=== PATIENT | female | born 1955 | race Caucasian/White ===

== ENCOUNTER → 2018-02-03 11:40 | Outpatient (CLI) | payer MEDICARE, BC, SELFPAY ==
[2018-02-03 12:51] LABS: Blood Urea Nitrogen 17 mg/dL (7-18); Creatinine,Serum 1.03 mg/dL (0.55-1.02); Estimated Glomerular Filt Rate 54 ml/min (>60); GFR (African American) 66 ML/MIN (>60)
== END ==
PROVIDERS: Visit Provider Family Medicine
DX: M54.5 Low back pain (principal)
CPT/HCPCS: 36415; 82565; 84520

== ENCOUNTER → 2018-02-06 10:02 | Outpatient (CLI) | payer MEDICARE, BC, SELFPAY ==
--- NOTE | 2018-02-06 10:06 | MR_ITS ---
MR lumbar spine wo/w con, MR 3-d myelogram HISTORY: Low back pain. LT leg pain X3-4weeks. ITS.REASON: BACK PAIN ORDERING PHYSICIAN: Alfonso Maloney MD PATIENT AGE: 62 years Comparison: Prior MRI 08-06-13, X-RAY 07-28-13. TECHNIQUE: Standard multiplanar multiecho sequences are performed without contrast. 3-D MIP and myelographic images are also rendered and reviewed FINDINGS: There is normal alignment. The spinal cord ends at the L1 level. T11-T12: Degenerative disc disease with small anterior osteophyte T12-L1: Unremarkable. L1-L2: Small annular tear in the right foraminal region of the disc with minimal foraminal narrowing. This is not significantly changed. L2-L3: Unremarkable. L3-L4: Minimal bilateral foraminal narrowing from facet and ligamentum flavum hypertrophy. L4-5: Concentric bulging disc. Mild facet and ligamentum flavum hypertrophy. There is a small left foraminal disc protrusion/herniation causing moderate narrowing of the left neural foramen with mild impingement upon the exiting L4 nerve root. There is mild right foraminal narrowing also at this level from bulging disc and facet and ligamentum flavum hypertrophy. L5-S1: Broad-based concentric bulging disc with moderate right-sided foraminal narrowing and mild left foraminal narrowing. There are type II endplate changes at T11-T12 and L5-S1. No enhancing lesions are evident. There are small bilateral renal cysts. IMPRESSION: 1. Bulging disc at L4-L5 with mild degenerative disc disease with a small left foraminal disc protrusion/herniation with narrowing of the foramen and mild impingement upon the exiting L4 nerve root. 2. Small annular tear L1-L2 on the right 3. Bulging disc at L5-S1 with moderate right-sided foraminal narrowing IMPRESSION:
--- NOTE | 2018-02-06 12:55 | HMH.ITSHM ---
CYMBALTA 30MG BUSPIRONE 15MG ASPIRIN 81MG BACLOFEN 20MG VALACYCLOVIR TYLENOL 8 FORTEO 600MCG PREVACID 15MG
== END ==
PROVIDERS: Family Provider Family Medicine; PCP Family Medicine; Visit Provider Family Medicine
DX: M54.9 Dorsalgia, unspecified (principal)
CPT/HCPCS: 72158; 76376; A9576

== ENCOUNTER → 2018-02-16 10:00 | Outpatient (POV) | payer MEDICARE, BC, SELFPAY ==
[2018-02-16 10:16] VITALS: BP 145/88; PULSE 92; RESP 18; O2SAT 98
--- NOTE | 2018-02-16 13:08 | HMH.PMCON ---
Assessment and Plan (1) Degenerative disc disease Current visit: Yes Status: Chronic Category: Medical (2) Lumbar radiculopathy Current visit: Yes Status: Chronic Category: Medical Code(s): M54.16 - Radiculopathy, lumbar region - Assessment and plan all Dx Assessment and Plan for all problems:: We will schedule an L4-L5 lumbar epidural steroid injection for the patient. I believe that if this does not help alleviate the pain the patient's pathology would warrant a neurosurgical consultation. Patient and I discussed this. Patient is not on any anticoagulation therapy and is not diabetic. Patient has been on tramadol 50 mg she states this does help some. Patient and I discussed that we do not typically do medication on the first visit however we will give her 1 month of tramadol 50 mg 1 p.o. 3 times daily as needed. I will follow-up with the patient after her injection. This note was dictated using voice recognition software and may contain errors or omissions HPI - Data of Consult Consult date: 02/16/18 Requesting Physician: Helen Radford APRN Primary Care Provider: Theresa Ruelas APRN Family Provider: Alfonso Maloney MD - Consult Narrative Reason for consult: Back pain, left leg pain History of present illness: Ms. Castillo is a 62 year old female resents for consult in regards to her worsening back pain. Patient states she is working in her garden 3 weeks ago and she began to have low back pain if leg pain. Patient rates her pain a 7 out of 10 today. Patient is on gabapentin and tramadol from her PCP to help control the pain. Patient states lying flat increases her pain while rest heat and ice decrease her pain. Patient does have MRI showing L4-L5 pathology and nerve impingement. Patient states she has numbness and tingling all the way down to her toes of her left leg. Patient has tried stretching therapies without any relief. Patient's tried and failed anti-inflammatories. Patient is interested in potentially doing injective therapy. CC: Helen Radford APRN [facility] History I have reviewed the patient's past medical history: Yes Medical History: Reports:: Depression, Palpitations Denies:: Diabetes Mellitus Type 1, Diabetes Mellitus Type 2 Other Medical History: Reports: Arthritis - *Social History Smoking Status: Never smoker Alcohol Intake: never Occupational Status: disabled Housing: house - Psychiatric History Expresses thoughts of harming self/others: None Suicide Plan Description: No Plan Pschychiatric History:: Reports:: Depression *Family Hx:: Unable to obtain Review of Systems - Review of Systems ROS General: no recent weight change, no fever, no sleep disturbances Respiratory: no cough, no shortness of air, no recurring pulmonary infections Cardiovascular/Peripheral Vascular: No chest pain, No palpitations, no edema, no shortness of breath. Gastrointestinal: no incontinence, normal bowel movements reported Genitourinary: no incontinence Musculoskeletal: back Pain, left leg pain Psychiatric: normal mood/ affect Neurological: [denies weakness in extremities], [denies balance issues] Meds Home Medications Medication Instructions Recorded Confirmed Type Aspirin [Aspir 81] 81 mg PO DAILY 01/24/18 02/08/18 History Buspirone HCl 15 mg PO BID 01/24/18 02/08/18 History Duloxetine HCl [Cymbalta] 30 mg PO DAILY 01/24/18 02/08/18 History Teriparatide [Forteo] 2.4 ml SQ WEEKLY 01/24/18 02/08/18 History Verapamil HCl [Calan] 80 mg PO DAILY 01/24/18 01/24/18 History Acetaminophen [Tylenol] 650 mg PO Q8HP PRN 02/08/18 02/08/18 History Baclofen 20 mg PO TID 02/08/18 02/08/18 History Ibuprofen [Motrin 600mg 600 mg PO Q8HP PRN 02/08/18 02/08/18 History Tablet] Lansoprazole [Prevacid] 15 mg PO DAILY 02/08/18 02/08/18 History Topiramate 100 mg PO BID 02/08/18 02/08/18 History Valacyclovir HCl [Valacyclovir] 1 tab PO TID 02/08/18 02/08/18 History
--- NOTE | 2018-02-16 13:11 | P.CONS_ITS ---
Assessment and Plan (1) Degenerative disc disease Current visit: Yes Status: Chronic Category: Medical (2) Lumbar radiculopathy Current visit: Yes Status: Chronic Category: Medical Code(s): M54.16 - Radiculopathy, lumbar region - Assessment and plan all Dx Assessment and Plan for all problems:: We will schedule an L4-L5 lumbar epidural steroid injection for the patient. I believe that if this does not help alleviate the pain the patient's pathology would warrant a neurosurgical consultation. Patient and I discussed this. Patient is not on any anticoagulation therapy and is not diabetic. Patient has been on tramadol 50 mg she states this does help some. Patient and I discussed that we do not typically do medication on the first visit however we will give her 1 month of tramadol 50 mg 1 p.o. 3 times daily as needed. I will follow-up with the patient after her injection. This note was dictated using voice recognition software and may contain errors or omissions HPI - Data of Consult Consult date: 02/16/18 Requesting Physician: Helen Radford APRN Primary Care Provider: Theresa Ruelas APRN Family Provider: Alfonso Maloney MD - Consult Narrative Reason for consult: Back pain, left leg pain History of present illness: Ms. Castillo is a 62 year old female resents for consult in regards to her worsening back pain. Patient states she is working in her garden 3 weeks ago and she began to have low back pain if leg pain. Patient rates her pain a 7 out of 10 today. Patient is on gabapentin and tramadol from her PCP to help control the pain. Patient states lying flat increases her pain while rest heat and ice decrease her pain. Patient does have MRI showing L4-L5 pathology and nerve impingement. Patient states she has numbness and tingling all the way down to her toes of her left leg. Patient has tried stretching therapies without any relief. Patient's tried and failed anti-inflammatories. Patient is interested in potentially doing injective therapy. CC: Helen Radford APRN [facility] History I have reviewed the patient's past medical history: Yes Medical History: Reports:: Depression, Palpitations Denies:: Diabetes Mellitus Type 1, Diabetes Mellitus Type 2 Other Medical History: Reports: Arthritis - *Social History Smoking Status: Never smoker Alcohol Intake: never Occupational Status: disabled Housing: house - Psychiatric History Expresses thoughts of harming self/others: None Suicide Plan Description: No Plan Pschychiatric History:: Reports:: Depression *Family Hx:: Unable to obtain Review of Systems - Review of Systems ROS General: no recent weight change, no fever, no sleep disturbances Respiratory: no cough, no shortness of air, no recurring pulmonary infections Cardiovascular/Peripheral Vascular: No chest pain, No palpitations, no edema, no shortness of breath. Gastrointestinal: no incontinence, normal bowel movements reported Genitourinary: no incontinence Musculoskeletal: back Pain, left leg pain Psychiatric: normal mood/ affect Neurological: [denies weakness in extremities], [denies balance issues] Meds Home Medications Medication Instructions Recorded Confirmed Type Aspirin [Aspir 81] 81 mg PO DAILY 01/24/18 02/08/18 History Buspirone HCl 15 mg PO BID 01/24/18 02/08/18 History Duloxetine HCl [Cymbalta] 30 mg PO DAILY 01/24/18 02/08/18 History Teriparatide [Forteo] 2.4 ml SQ WEEKLY 01/24/18 02/08/18 History Eleni
== END ==
PROVIDERS: Family Provider Family Medicine; PCP Nurse Practitioner Family; Visit Provider Clinical Nurse Specialist Family Health
DX: M54.16 Radiculopathy, lumbar region (principal)
CPT/HCPCS: 99202

== ENCOUNTER → 2018-02-26 13:36 | Outpatient (POV) | payer MEDICARE, BC, SELFPAY | PROVIDERS: Visit Provider Neurological Surgery | DX: Z00.00 Encounter for general adult medical examination without abnormal findings (principal) ==

== ENCOUNTER → 2018-03-16 10:33 | Outpatient (POV) | payer MEDICARE, BC, SELFPAY ==
[2018-03-16 10:40] VITALS: BP 164/85; PULSE 85; RESP 18; O2SAT 98; BMI 42.1
--- NOTE | 2018-03-16 11:01 | HMH.PAINSOAP ---
[facility] Pain Management SOAP Note Subjective:: She is a pleasant 62-year-old white female who presents today for follow-up after most recent lumbar epidural steroid injection. Patient states that after her injection she has had relief of the pain in her legs. Patient states she saw Dr. Perez since her last one and was deemed potentially a surgical candidate however he wanted her to finish an epidural series prior to that decision. Patient was given tramadol by Dr. Perez however she says he cannot take it because it makes her too sleepy. Patient is not on any anti-inflammatories so we will start her on some anti-inflammatories to see if this alleviates some of her pain she rates her pain an 8 out of 10 today. ROS General: no recent weight change, no fever, no sleep disturbances Respiratory: no cough, no shortness of air, no recurring pulmonary infections Cardiovascular/Peripheral Vascular: No chest pain, No palpitations, no edema, no shortness of breath. Gastrointestinal: no incontinence, normal bowel movements reported Genitourinary: no incontinence Musculoskeletal: Back pain, leg pain intermittently Psychiatric: normal mood/ affect Neurological: [denies weakness in extremities], [denies balance issues] Objective:: Physical Exam General: Alert and oriented x3, no acute distress, pleasant and cooperative, [on room air] Lungs: Resps E/U, Symmetrical chest expansion, Eyes: PERRL Musculoskeletal: Flexion and extension of lumbar spine somewhat guarded secondary to pain, deep tendon reflexes normal, strength in upper and lower extremities [5/5], [abnormal gait noted] Neurological: speech clear, clinical services professional equal, no gross sensory deficits Assessment:: Degenerative disease of the lumbar spine with lumbar radiculopathy symptoms Plan:: We will schedule another L4-L5 lumbar epidural steroid injection. Dr. Perez and neurosurgery wanted her to complete a epidural series prior to discuss determining if she is a surgical candidate. I will follow-up with patient after her injection. We will put her on naproxen 500 mg 1 tab p.o. twice daily. This note was dictated using voice recognition software and may contain errors or omissions
--- NOTE | 2018-03-16 11:06 | P.CONS_ITS ---
[facility] Pain Management SOAP Note Subjective:: She is a pleasant 62-year-old white female who presents today for follow-up after most recent lumbar epidural steroid injection. Patient states that after her injection she has had relief of the pain in her legs. Patient states she saw Dr. Perez since her last one and was deemed potentially a surgical candidate however he wanted her to finish an epidural series prior to that decision. Patient was given tramadol by Dr. Perez however she says he cannot take it because it makes her too sleepy. Patient is not on any anti- inflammatories so we will start her on some anti-inflammatories to see if this alleviates some of her pain she rates her pain an 8 out of 10 today. ROS General: no recent weight change, no fever, no sleep disturbances Respiratory: no cough, no shortness of air, no recurring pulmonary infections Cardiovascular/Peripheral Vascular: No chest pain, No palpitations, no edema, no shortness of breath. Gastrointestinal: no incontinence, normal bowel movements reported Genitourinary: no incontinence Musculoskeletal: Back pain, leg pain intermittently Psychiatric: normal mood/ affect Neurological: [denies weakness in extremities], [denies balance issues] Objective:: Physical Exam General: Alert and oriented x3, no acute distress, pleasant and cooperative, [ on room air] Lungs: Resps E/U, Symmetrical chest expansion, Eyes: PERRL Musculoskeletal: Flexion and extension of lumbar spine somewhat guarded secondary to pain, deep tendon reflexes normal, strength in upper and lower extremities [5/5], [abnormal gait noted] Neurological: speech clear, telecommunicator supervisor equal, no gross sensory deficits Assessment:: Degenerative disease of the lumbar spine with lumbar radiculopathy symptoms Plan:: We will schedule another L4-L5 lumbar epidural steroid injection. Dr. Perez and neurosurgery wanted her to complete a epidural series prior to discuss determining if she is a surgical candidate. I will follow-up with patient after her injection. We will put her on naproxen 500 mg 1 tab p.o. twice daily. This note was dictated using voice recognition software and may contain errors or omissions
== END ==
PROVIDERS: Family Provider Family Medicine; Visit Provider Clinical Nurse Specialist Family Health
DX: M54.16 Radiculopathy, lumbar region (principal)
CPT/HCPCS: 99212

== ENCOUNTER → 2018-04-14 09:07 | Outpatient (POV) | payer MEDICARE, BC, SELFPAY ==
--- NOTE | 2018-04-14 10:05 | HMH.PAINSOAP ---
[facility] Pain Management SOAP Note Subjective:: Patient is a pleasant 51-year-old white female who presents today for follow-up after lumbar epidural steroid injection. Patient states she had 100% relief of her symptoms up until just recently. Patient states her pain has begun to return. Patient is currently on gabapentin 300 mg 1 p.o. 3 times daily. She states it does not help with all of the pain. Patient would like to complete her lumbar epidural steroid injection series. Patient would also like to try different medication. Patient and I discussed Lyrica. Rates her pain today an 8 out of 10. Mostly in her low back and down her left leg. MRI does show impingement of the L4 nerve. ROS General: no recent weight change, no fever, no sleep disturbances Respiratory: no cough, no shortness of air, no recurring pulmonary infections Cardiovascular/Peripheral Vascular: No chest pain, No palpitations, no edema, no shortness of breath. Gastrointestinal: no incontinence, normal bowel movements reported Genitourinary: no incontinence Musculoskeletal: Back pain, leg pain Psychiatric: normal mood/ affect Neurological: [denies weakness in extremities], [denies balance issues] Objective:: Physical Exam General: Alert and oriented x3, no acute distress, pleasant and cooperative, [on room air] Lungs: Resps E/U, Symmetrical chest expansion, Eyes: PERRL Musculoskeletal: Flexion and extension of lumbar spine somewhat guarded secondary to pain, deep tendon reflexes normal, strength in upper and lower extremities [5/5], and he noted, positive straight leg raise test bilaterally at 30? Neurological: speech clear, night assistant equal, no gross sensory deficits Assessment:: Degenerative disc disease lumbar spine with lumbar radiculopathy Plan:: We will do a Lyrica trial for the patient Lyrica 75 mg 1 p.o. twice daily. Patient understands she is not to take her gabapentin along with the Lyrica. We will give HER-2 week supply. Patient's COCO #[id number] reviewed and appropriate. Patient is been a call us if this medication is helpful to her. We will also schedule her another L4-L5 lumbar epidural steroid injection given the efficacy of the last one. Patient is not on any anticoagulation therapy. She is continuing a home stretching routine at home This note was dictated using voice recognition software and may contain errors or omissions
--- NOTE | 2018-04-14 10:08 | P.CONS_ITS ---
[facility] Pain Management SOAP Note Subjective:: Patient is a pleasant 51-year-old white female who presents today for follow-up after lumbar epidural steroid injection. Patient states she had 100% relief of her symptoms up until just recently. Patient states her pain has begun to return. Patient is currently on gabapentin 300 mg 1 p.o. 3 times daily. She states it does not help with all of the pain. Patient would like to complete her lumbar epidural steroid injection series. Patient would also like to try different medication. Patient and I discussed Lyrica. Rates her pain today an 8 out of 10. Mostly in her low back and down her left leg. MRI does show impingement of the L4 nerve. ROS General: no recent weight change, no fever, no sleep disturbances Respiratory: no cough, no shortness of air, no recurring pulmonary infections Cardiovascular/Peripheral Vascular: No chest pain, No palpitations, no edema, no shortness of breath. Gastrointestinal: no incontinence, normal bowel movements reported Genitourinary: no incontinence Musculoskeletal: Back pain, leg pain Psychiatric: normal mood/ affect Neurological: [denies weakness in extremities], [denies balance issues] Objective:: Physical Exam General: Alert and oriented x3, no acute distress, pleasant and cooperative, [on room air] Lungs: Resps E/U, Symmetrical chest expansion, Eyes: PERRL Musculoskeletal: Flexion and extension of lumbar spine somewhat guarded secondary to pain, deep tendon reflexes normal, strength in upper and lower extremities [5/5], and he noted, positive straight leg raise test bilaterally at 30? Neurological: speech clear, monitoring engineer equal, no gross sensory deficits Assessment:: Degenerative disc disease lumbar spine with lumbar radiculopathy Plan:: We will do a Lyrica trial for the patient Lyrica 75 mg 1 p.o. twice daily. Patient understands she is not to take her gabapentin along with the Lyrica. We will give HER-2 week supply. Patient's COCO #[id number] reviewed and appropriate. Patient is been a call us if this medication is helpful to her. We will also schedule her another L4-L5 lumbar epidural steroid injection given the efficacy of the last one. Patient is not on any anticoagulation therapy. She is continuing a home stretching routine at home This note was dictated using voice recognition software and may contain errors or omissions
[2018-04-14 10:09] VITALS: BP 114/79; PULSE 89; RESP 18; O2SAT 98; BMI 28.1
== END ==
PROVIDERS: Family Provider Family Medicine; PCP Nurse Practitioner Family; Visit Provider Clinical Nurse Specialist Family Health
DX: M51.16 Intervertebral disc disorders with radiculopathy, lumbar region (principal)
CPT/HCPCS: 99213

== ENCOUNTER → 2018-05-25 11:52 | Outpatient (POV) | payer MEDICARE, BC, SELFPAY ==
[2018-05-25 12:18] VITALS: BP 138/84; PULSE 87; RESP 18; O2SAT 98; BMI 43.8
--- NOTE | 2018-05-25 12:54 | P.CONS_ITS ---
[facility] Pain Management SOAP Note Subjective:: Patient is a pleasant 63-year-old white female who presents today after her third lumbar epidural steroid injection. Patient states that her leg pain has gotten better however her axial back pain has not. Patient states that most of her pain is in her low back and twisting movements make it worse. She rates her pain a 0 out of 10 at times however it can flare up to 7 out of 10. Patient is on gabapentin from her PCP. Patient is continuing to take this. Patient and I had a long discussion in regards to her MRI and also potential injections. ROS General: no recent weight change, no fever, no sleep disturbances Respiratory: no cough, no shortness of air, no recurring pulmonary infections Cardiovascular/Peripheral Vascular: No chest pain, No palpitations, no edema, no shortness of breath. Gastrointestinal: no incontinence, normal bowel movements reported Genitourinary: no incontinence Musculoskeletal: Back pain Psychiatric: normal mood/ affect Neurological: [denies weakness in extremities], [denies balance issues] Objective:: Physical Exam General: Alert and oriented x3, no acute distress, pleasant and cooperative, [on room air] Lungs: Resps E/U, Symmetrical chest expansion, Eyes: PERRL Musculoskeletal: Flexion and extension of lumbar spine somewhat guarded secondary to pain, deep tendon reflexes normal, strength in upper and lower extremities [5/5], [abnormal gait noted] positive Kemps test Neurological: speech clear, education courses sales representative equal, no gross sensory deficits Assessment:: Degenerative disc disease lumbar spine, facet arthropathy Plan:: We will schedule medial branch block/facet joint injection L3-L4 L4-L5 L5-S1 bilaterally to see if this is beneficial. Patient would like to move forward with this. Patient is not on any anticoagulation therapy. Patient's tried and failed physical therapy. I will follow-up with the patient after her injection we will reassess her at that time. This note was dictated using voice recognition software and may contain errors or omissions
== END ==
PROVIDERS: Family Provider Family Medicine; PCP Family Medicine; Visit Provider Clinical Nurse Specialist Family Health
DX: M51.36 Other intervertebral disc degeneration, lumbar region (principal); M12.88 Other specific arthropathies, not elsewhere classified, other specified site
CPT/HCPCS: 99213

== ENCOUNTER → 2018-06-29 10:37 | Outpatient (POV) | payer MEDICARE, BC, SELFPAY ==
[2018-06-29 11:33] VITALS: BP 135/70; PULSE 88; RESP 18; O2SAT 98; BMI 42.5
--- NOTE | 2018-06-29 11:56 | HMH.PAINSOAP ---
[facility] Pain Management SOAP Note Subjective:: Patient is a very pleasant 63-year-old white female who presents today for follow-up after medial branch blocks. Patient had lumbar epidural steroid injections which completely alleviated her leg pain. Patient states she was still having some low back pain. Patient had injections and stated it was quite painful afterwards however she did get a week and a half relief from her injections. Patient is trying to decide between a RFA and potentially a neurostimulator. I did provide her information on both. She rates her pain a 5 out of 10 today. ROS General: no recent weight change, no fever, no sleep disturbances Respiratory: no cough, no shortness of air, no recurring pulmonary infections Cardiovascular/Peripheral Vascular: No chest pain, No palpitations, no edema, no shortness of breath. Gastrointestinal: no incontinence, normal bowel movements reported Genitourinary: no incontinence Musculoskeletal: Back pain Psychiatric: normal mood/ affect Neurological: [denies weakness in extremities], [denies balance issues] Objective:: Physical Exam General: Alert and oriented x3, no acute distress, pleasant and cooperative, [on room air] Lungs: Resps E/U, Symmetrical chest expansion, Eyes: PERRL Musculoskeletal: Flexion and extension of lumbar spine somewhat guarded secondary to pain, deep tendon reflexes normal, strength in upper and lower extremities [5/5], slightly antalgic gait noted Neurological: speech clear, school photograph editor equal, no gross sensory deficits Assessment:: Degenerative disc disease lumbar spine with lumbar spondylosis and facet arthropathy Plan:: We will give the patient information on both neuro stimulation and RFA. We will follow-up with the patient in 1 week and reassess her at that time. Patient has been instructed to write down any questions she may have about either procedure. This note was dictated using voice recognition software and may contain errors or omissions
== END ==
PROVIDERS: PCP Family Medicine; Visit Provider Clinical Nurse Specialist Family Health
DX: M51.36 Other intervertebral disc degeneration, lumbar region (principal); M47.896 Other spondylosis, lumbar region; M54.06 Panniculitis affecting regions of neck and back, lumbar region
CPT/HCPCS: 99213

== ENCOUNTER → 2018-07-06 10:45 | Outpatient (POV) | payer MEDICARE, BC, SELFPAY ==
[2018-07-06 11:10] VITALS: BP 139/82; PULSE 88; RESP 18; O2SAT 98; BMI 53.2
--- NOTE | 2018-07-06 11:22 | HMH.PAINSOAP ---
[facility] Pain Management SOAP Note Subjective:: Patient is a pleasant 63-year-old white female who presents today for follow-up. Patient has reviewed both the neurostimulator pocket and the RFA packet. Patient at this time is doing well. Patient would like to try some anti-inflammatory therapy. Patient's tried multiple medications before however she did try a sample of Duexis and states that it did well for her. Patient has a history of GERD and is unable to take regular anti-inflammatories. Patient rates her pain a 4 out of 10 today. Patient has had several rounds of branch blocks with good relief. Patient gets up to 80% relief for a month to 2 months. ROS General: no recent weight change, no fever, no sleep disturbances Respiratory: no cough, no shortness of air, no recurring pulmonary infections Cardiovascular/Peripheral Vascular: No chest pain, No palpitations, no edema, no shortness of breath. Gastrointestinal: no incontinence, normal bowel movements reported Genitourinary: no incontinence Musculoskeletal: Back pain Psychiatric: normal mood/ affect Neurological: [denies weakness in extremities], [denies balance issues] Objective:: Physical Exam General: Alert and oriented x3, no acute distress, pleasant and cooperative, [on room air] Lungs: Resps E/U, Symmetrical chest expansion, Eyes: PERRL Musculoskeletal: Flexion and extension of lumbar spine somewhat guarded secondary to pain, deep tendon reflexes normal, strength in upper and lower extremities [5/5], slightly antalgic gait, positive facet loading lumbar spine, positive Kemps test lumbar spine Neurological: speech clear, director retail brand development equal, no gross sensory deficits Assessment:: Degenerative disc disease lumbar spine with lumbar spondylosis and facet arthropathy Plan:: We will give the patient prescription for Duexis to see if this is beneficial. Patient is going to call us if she is interested in RFA. It is we will plan on an RFA of the lumbar spine L3-L4 L4-L5 L5-S1 bilaterally. She is not on any anti-coagulation therapy. Patient is also continuing a home stretching program. This note was dictated using voice recognition software and may contain errors or omissions
--- NOTE | 2018-07-06 11:26 | P.CONS_ITS ---
[facility] Pain Management SOAP Note Subjective:: Patient is a pleasant 63-year-old white female who presents today for follow-up. Patient has reviewed both the neurostimulator pocket and the RFA packet. Patient at this time is doing well. Patient would like to try some anti- inflammatory therapy. Patient's tried multiple medications before however she did try a sample of Duexis and states that it did well for her. Patient has a history of GERD and is unable to take regular anti-inflammatories. Patient rates her pain a 4 out of 10 today. Patient has had several rounds of branch blocks with good relief. Patient gets up to 80% relief for a month to 2 months. ROS General: no recent weight change, no fever, no sleep disturbances Respiratory: no cough, no shortness of air, no recurring pulmonary infections Cardiovascular/Peripheral Vascular: No chest pain, No palpitations, no edema, no shortness of breath. Gastrointestinal: no incontinence, normal bowel movements reported Genitourinary: no incontinence Musculoskeletal: Back pain Psychiatric: normal mood/ affect Neurological: [denies weakness in extremities], [denies balance issues] Objective:: Physical Exam General: Alert and oriented x3, no acute distress, pleasant and cooperative, [on room air] Lungs: Resps E/U, Symmetrical chest expansion, Eyes: PERRL Musculoskeletal: Flexion and extension of lumbar spine somewhat guarded secondary to pain, deep tendon reflexes normal, strength in upper and lower extremities [5/5], slightly antalgic gait, positive facet loading lumbar spine, positive Kemps test lumbar spine Neurological: speech clear, type disk quality control supervisor equal, no gross sensory deficits Assessment:: Degenerative disc disease lumbar spine with lumbar spondylosis and facet arthropathy Plan:: We will give the patient prescription for Duexis to see if this is beneficial. Patient is going to call us if she is interested in RFA. It is we will plan on an RFA of the lumbar spine L3-L4 L4-L5 L5-S1 bilaterally. She is not on any anti-coagulation therapy. Patient is also continuing a home stretching program. This note was dictated using voice recognition software and may contain errors or omissions
== END ==
PROVIDERS: PCP Family Medicine; Visit Provider Clinical Nurse Specialist Family Health
DX: M51.36 Other intervertebral disc degeneration, lumbar region (principal); M47.896 Other spondylosis, lumbar region; M54.06 Panniculitis affecting regions of neck and back, lumbar region
CPT/HCPCS: 99213

== ENCOUNTER → 2018-11-03 10:26 | Outpatient (POV) | payer MEDICARE, BC, SELFPAY ==
[2018-11-03 10:36] VITALS: BP 110/75; PULSE 99; RESP 18; O2SAT 98; BMI 43.8
--- NOTE | 2018-11-03 10:39 | P.CONS_ITS ---
[facility] Pain Management SOAP Note Subjective:: She is a pleasant 63-year-old white female who presents today for follow-up. Patient had her last round of medial branch blocks in May and is doing well. Patient has had a return of her pain. She had 80% relief for almost 6 months. Patient would like to repeat her injections to see if this is beneficial. Patient might be a rhizotomy candidate in the future. She is continuing to try to do home stretching program. She is on anti-inflammatories. ROS General: no recent weight change, no fever, no sleep disturbances Respiratory: no cough, no shortness of air, no recurring pulmonary infections Cardiovascular/Peripheral Vascular: No chest pain, No palpitations, no edema, no shortness of breath. Gastrointestinal: no incontinence, normal bowel movements reported Genitourinary: no incontinence Musculoskeletal: Back pain Psychiatric: normal mood/ affect, [denies depression], [denies anxiety] Neurological: [denies weakness in extremities], [denies balance issues] Objective:: Physical Exam General: Alert and oriented x3, no acute distress, pleasant and cooperative, [on room air] Lungs: Resps E/U, Symmetrical chest expansion, Eyes: PERRL Musculoskeletal: Flexion and extension of Lumbar spine somewhat guarded secondary to pain, deep tendon reflexes normal, strength in upper and lower extremities [5/5], slightly antalgic gait noted, positive facet loading bilateral lumbar spine, positive Kemps test lumbar spine Neurological: speech clear, licensed practical nurse instructor equal, no gross sensory deficits Assessment:: Degenerative disc disease lumbar spine with lumbar spondylosis and facet arthropathy Plan:: We will give the patient an appointment for an L3-L4 L4-L5 L5-S1 bilateral lumbar facet joint injections/medial branch block. Patient is not on any anticoagulation therapy. I will follow-up with her after injection and reassess her symptoms at that time. Dr. Bautista has reviewed this note and agrees with this plan of care. This note was dictated using voice recognition software and may contain errors or omissions
== END ==
PROVIDERS: PCP Nurse Practitioner Family; Visit Provider Clinical Nurse Specialist Family Health
DX: M51.36 Other intervertebral disc degeneration, lumbar region (principal); M47.896 Other spondylosis, lumbar region; M54.06 Panniculitis affecting regions of neck and back, lumbar region
CPT/HCPCS: 99213

== ENCOUNTER → 2018-12-08 09:50 | Outpatient (POV) | payer MEDICARE, BC, SELFPAY ==
--- NOTE | 2018-12-08 10:48 | P.CONS_ITS ---
[facility] Pain Management SOAP Note Subjective:: Patient is a pleasant 63-year-old white female who presents today for follow-up after lumbar medial branch block she states she is 95% better. Patient would like to follow-up as needed. Patient is doing well overall. She rates her pain today a 4 out of 10. ROS General: no recent weight change, no fever, no sleep disturbances Respiratory: no cough, no shortness of air, no recurring pulmonary infections Cardiovascular/Peripheral Vascular: No chest pain, No palpitations, no edema, no shortness of breath. Gastrointestinal: no incontinence, normal bowel movements reported Genitourinary: no incontinence Musculoskeletal: Back pain Psychiatric: normal mood/ affect Neurological: [denies weakness in extremities], [denies balance issues] Objective:: Physical Exam General: Alert and oriented x3, no acute distress, pleasant and cooperative, [on room air] Lungs: Resps E/U, Symmetrical chest expansion, Eyes: PERRL Musculoskeletal: Flexion and extension of lumbar spine somewhat guarded secondary to pain, deep tendon reflexes normal, strength in upper and lower extremities [5/5], [abnormal gait noted] Neurological: speech clear, finisher special stocks equal, no gross sensory deficits Assessment:: Degenerative disc disease lumbar spine with lumbar spondylosis and facet arthropathy Plan:: We will follow-up with the patient on an as-needed basis she is been instructed to call the office if she has any issues prior to her next appointment. Dr. Bautista has reviewed this note and agrees with this plan of care. This note was dictated using voice recognition software and may contain errors or omissions
[2018-12-08 11:02] VITALS: BP 122/64; PULSE 85; RESP 16; O2SAT 98; BMI 47.0
== END ==
PROVIDERS: PCP Family Medicine; Visit Provider Clinical Nurse Specialist Family Health
DX: M51.36 Other intervertebral disc degeneration, lumbar region (principal); M47.896 Other spondylosis, lumbar region; M54.06 Panniculitis affecting regions of neck and back, lumbar region
CPT/HCPCS: 99212

== ENCOUNTER → 2019-05-10 11:17 | Outpatient (POV) | payer MEDICARE, BC, SELFPAY ==
[2019-05-10 11:36] VITALS: BP 121/49; PULSE 83; RESP 18; O2SAT 98; BMI 40.5
--- NOTE | 2019-05-10 12:34 | HMH.PAINSOAP ---
[facility] Pain Management SOAP Note Subjective:: Patient is a very pleasant 64-year-old white female who presents today for follow-up patient is having increased pain. Patient had a lumbar medial branch block and had 80% relief of her symptoms for 5 months she would like to repeat this. Patient has not on any anticoagulation therapy. She is continuing a home stretching program. She rates her pain today 5 out of 10. She is done extremely well with injection therapy in the past. ROS General: no recent weight change, no fever, no sleep disturbances Respiratory: no cough, no shortness of air, no recurring pulmonary infections Cardiovascular/Peripheral Vascular: No chest pain, No palpitations, no edema, no shortness of breath. Gastrointestinal: no incontinence, normal bowel movements reported Genitourinary: no incontinence Musculoskeletal: Back pain Psychiatric: normal mood/ affect Neurological: [denies weakness in extremities], [denies balance issues] Objective:: Physical Exam General: Alert and oriented x3, no acute distress, pleasant and cooperative, [on room air] Lungs: Resps E/U, Symmetrical chest expansion, Eyes: PERRL Musculoskeletal: Flexion and extension of lumbar spine somewhat guarded secondary to pain, deep tendon reflexes normal, strength in upper and lower extremities [5/5], slightly antalgic gait noted, positive facet loading, positive Kemps test lumbar spine Neurological: speech clear, welder gun equal, no gross sensory deficits Assessment:: Degenerative disc disease lumbar spine with lumbar spondylosis and facet arthropathy Plan:: We will set up a medial branch block at L3-L4 L4-L5 L5-S1 bilaterally given the efficacy in the past I believe it would be beneficial for the patient. I will follow-up with the patient after her injection reassess her symptoms at that time she is been instructed to call the office if she has any issues prior to her next appointment. Dr. Bautista has reviewed this note and agrees with this plan of care. This note was dictated using voice recognition software and may contain errors or omissions [facility] History I have reviewed the patient's past medical history: Yes Medical History: Reports:: Depression, Palpitations Denies:: Cancer, Diabetes Mellitus Type 1, Diabetes Mellitus Type 2, Internal Pacemaker, MRSA, Seizures *Have you ever received a pneumonia vaccine?: Yes *Have you received a flu vaccine this season?: Yes Other Medical History: Reports: Arthritis Other Surgeries: No: Pacemaker Amputation: No Fractures: No - *Social History Smoking Status: Never smoker Alcohol Intake: never *Occupational Status:: employed Housing: house Household Members: spouse *Travel in the last 8 weeks: None - Psychiatric History Pschychiatric History:: Reports:: Depression Family Hx:: Unable to obtain
--- NOTE | 2019-05-10 12:37 | P.CONS_ITS ---
[facility] Pain Management SOAP Note Subjective:: Patient is a very pleasant 64-year-old white female who presents today for follow-up patient is having increased pain. Patient had a lumbar medial branch block and had 80% relief of her symptoms for 5 months she would like to repeat this. Patient has not on any anticoagulation therapy. She is continuing a home stretching program. She rates her pain today 5 out of 10. She is done extremely well with injection therapy in the past. ROS General: no recent weight change, no fever, no sleep disturbances Respiratory: no cough, no shortness of air, no recurring pulmonary infections Cardiovascular/Peripheral Vascular: No chest pain, No palpitations, no edema, no shortness of breath. Gastrointestinal: no incontinence, normal bowel movements reported Genitourinary: no incontinence Musculoskeletal: Back pain Psychiatric: normal mood/ affect Neurological: [denies weakness in extremities], [denies balance issues] Objective:: Physical Exam General: Alert and oriented x3, no acute distress, pleasant and cooperative, [on room air] Lungs: Resps E/U, Symmetrical chest expansion, Eyes: PERRL Musculoskeletal: Flexion and extension of lumbar spine somewhat guarded secondary to pain, deep tendon reflexes normal, strength in upper and lower extremities [5/5], slightly antalgic gait noted, positive facet loading, positive Kemps test lumbar spine Neurological: speech clear, spanish literature professor equal, no gross sensory deficits Assessment:: Degenerative disc disease lumbar spine with lumbar spondylosis and facet arthropathy Plan:: We will set up a medial branch block at L3-L4 L4-L5 L5-S1 bilaterally given the efficacy in the past I believe it would be beneficial for the patient. I will follow-up with the patient after her injection reassess her symptoms at that time she is been instructed to call the office if she has any issues prior to her next appointment. Dr. Bautista has reviewed this note and agrees with this plan of care. This note was dictated using voice recognition software and may contain errors or omissions [facility] History I have reviewed the patient's past medical history: Yes Medical History: Reports:: Depression, Palpitations Denies:: Cancer, Diabetes Mellitus Type 1, Diabetes Mellitus Type 2, Internal Pacemaker, MRSA, Seizures *Have you ever received a pneumonia vaccine?: Yes *Have you received a flu vaccine this season?: Yes Other Medical History: Reports: Arthritis Other Surgeries: No: Pacemaker Amputation: No Fractures: No - *Social History Smoking Status: Never smoker Alcohol Intake: never *Occupational Status:: employed Housing: house Household Members: spouse *Travel in the last 8 weeks: None - Psychiatric History Pschychiatric History:: Reports:: Depression Family Hx:: Unable to obtain
== END ==
PROVIDERS: PCP Family Medicine; Visit Provider Clinical Nurse Specialist Family Health
DX: M51.36 Other intervertebral disc degeneration, lumbar region (principal); M54.06 Panniculitis affecting regions of neck and back, lumbar region; M47.816 Spondylosis without myelopathy or radiculopathy, lumbar region
CPT/HCPCS: 99212

== ENCOUNTER → 2019-06-15 10:28 | Outpatient (POV) | payer MEDICARE, BC, SELFPAY ==
[2019-06-15 11:18] VITALS: BP 147/93; PULSE 113; RESP 18; O2SAT 98; BMI 41.3
--- NOTE | 2019-06-15 13:33 | P.CONS_ITS ---
[facility] Pain Management SOAP Note Subjective:: Patient is a pleasant 64-year-old white female who presents today for follow-up after lumbar medial branch block. Patient is gotten relief from her injection rating her pain a 6 out of 10. She states that during the injection she felt that she had an aggravated nerve. Patient has had pain since then. Patient and I discussed options she has had lumbar medial branches in the past with good relief up to 5 months. Patient is visibly uncomfortable today. ROS General: no recent weight change, no fever, no sleep disturbances Respiratory: no cough, no shortness of air, no recurring pulmonary infections Cardiovascular/Peripheral Vascular: No chest pain, No palpitations, no edema, no shortness of breath. Gastrointestinal: no new onset incontinence, normal bowel movements reported Genitourinary: no new onset incontinence Musculoskeletal: Back pain, leg pain Psychiatric: normal mood/ affect Neurological: [denies new onset weakness in extremities], [denies new onset balance issues] Objective:: Physical Exam General: Alert and oriented x3, no acute distress, pleasant and cooperative, [on room air] Lungs: Resps E/U, Symmetrical chest expansion, Eyes: PERRL Musculoskeletal: Flexion and extension of lumbar spine somewhat guarded secondary to pain, deep tendon reflexes normal, strength in upper and lower extremities [5/5], [abnormal gait noted] Neurological: speech clear, school librarian equal, no gross sensory deficits Assessment:: Degenerative disc disease lumbar spine with lumbar spondylosis and facet arthropathy Plan:: We will call in prednisone 20 mg 1 p.o. twice daily for 5 days we will follow-up with her in 1 week reassess her symptoms at that time hopefully she is more comfortable and can move forward with her treatment plan. Dr. Bautista has reviewed this note and agrees with this plan of care. This note was dictated using voice recognition software and may contain errors or omissions [facility] History I have reviewed the patient's past medical history: Yes Medical History: Reports:: Depression, Palpitations Denies:: Cancer, Diabetes Mellitus Type 1, Diabetes Mellitus Type 2, Internal Pacemaker, MRSA, Seizures *Have you ever received a pneumonia vaccine?: Yes *Have you received a flu vaccine this season?: Yes Other Medical History: Reports: Arthritis. Denies: Blood Transfusion Reaction Other Surgeries: No: Pacemaker Amputation: No Fractures: No - *Social History Smoking Status: Never smoker Alcohol Intake: current Alcohol Intake Frequency:: other *Occupational Status:: other Housing: house Household Members: spouse *Travel in the last 8 weeks: None - Psychiatric History Pschychiatric History:: Reports:: Depression Family Hx:: Unable to obtain
== END ==
PROVIDERS: PCP Family Medicine; Visit Provider Clinical Nurse Specialist Family Health
DX: M51.36 Other intervertebral disc degeneration, lumbar region (principal); M47.816 Spondylosis without myelopathy or radiculopathy, lumbar region; M54.06 Panniculitis affecting regions of neck and back, lumbar region
CPT/HCPCS: 99212

== ENCOUNTER → 2019-06-22 09:34 | Outpatient (POV) | payer MEDICARE, BC, SELFPAY ==
[2019-06-22 10:08] VITALS: BP 128/78; PULSE 94; RESP 18; O2SAT 98; BMI 41.0
--- NOTE | 2019-06-22 10:10 | P.CONS_ITS ---
[facility] Pain Management SOAP Note Subjective:: Patient is a very pleasant 64-year-old white female who presents today for follow-up. Overall doing well she denies any pain. She was put on a short term of steroids just to help with some increased pain post procedure after a medial branch block. Patient has had good relief with medial branch blocks in the past. I do believe that this will be beneficial for her. ROS General: no recent weight change, no fever, no sleep disturbances Respiratory: no cough, no shortness of air, no recurring pulmonary infections Cardiovascular/Peripheral Vascular: No chest pain, No palpitations, no edema, no shortness of breath. Gastrointestinal: no new onset incontinence, normal bowel movements reported Genitourinary: no new onset incontinence Musculoskeletal: Back pain at times Psychiatric: normal mood/ affect Neurological: [denies new onset weakness in extremities], [denies new onset balance issues] Objective:: Physical Exam General: Alert and oriented x3, no acute distress, pleasant and cooperative, [on room air] Lungs: Resps E/U, Symmetrical chest expansion, Eyes: PERRL Musculoskeletal: Flexion and extension of lumbar spine somewhat guarded secondary to pain, deep tendon reflexes normal, strength in upper and lower extremities [5/5], normal gait noted Neurological: speech clear, job training specialist equal, no gross sensory deficits Assessment:: Degenerative disc disease lumbar spine with lumbar spondylosis and facet arthropathy Plan:: We will see the patient back in 2 weeks if necessary if not patient will be seen on a as needed basis. Dr. Bautista has reviewed this note and agrees with this plan of care. This note was dictated using voice recognition software and may contain errors or omissions [facility] History I have reviewed the patient's past medical history: Yes Medical History: Reports:: Depression, Palpitations Denies:: Cancer, Diabetes Mellitus Type 1, Diabetes Mellitus Type 2, Internal Pacemaker, MRSA, Seizures *Have you ever received a pneumonia vaccine?: Yes *Have you received a flu vaccine this season?: Yes Other Medical History: Reports: Arthritis. Denies: Blood Transfusion Reaction Other Surgeries: No: Pacemaker Amputation: No Fractures: No - *Social History Smoking Status: Never smoker Alcohol Intake: current Alcohol Intake Frequency:: other *Occupational Status:: other Housing: house Household Members: spouse *Travel in the last 8 weeks: None - Psychiatric History Pschychiatric History:: Reports:: Depression Family Hx:: Unable to obtain
== END ==
PROVIDERS: PCP Family Medicine; Visit Provider Clinical Nurse Specialist Family Health
DX: M51.36 Other intervertebral disc degeneration, lumbar region (principal); M47.816 Spondylosis without myelopathy or radiculopathy, lumbar region; M54.06 Panniculitis affecting regions of neck and back, lumbar region
CPT/HCPCS: 99212

== ENCOUNTER → 2019-07-06 10:03 | Outpatient (POV) | payer MEDICARE, BC, SELFPAY ==
[2019-07-06 10:06] VITALS: BP 143/64; PULSE 86; RESP 18; O2SAT 98; BMI 42.7
--- NOTE | 2019-07-06 10:36 | HMH.PAINSOAP ---
[facility] Pain Management SOAP Note Subjective:: Patient is a very pleasant 64-year-old white female who presents today for follow-up. Patient rates her pain a 10 out of 10 due to a recent fall. Patient states that she lost her footing after stepping on a child's toy. She fell backwards increasing her back pain. Patient would like to feel better in order to get to the holidays and through them. Patient and I discussed repeating her medial branch blocks which I think she will eventually need however we will give her 1 more round of steroids in order to help her through this exacerbation. Patient has no kidney disease, no anticoagulation therapy or cardiac history and no diabetes. ROS General: no recent weight change, no fever, no sleep disturbances Respiratory: no cough, no shortness of air, no recurring pulmonary infections Cardiovascular/Peripheral Vascular: No chest pain, No palpitations, no edema, no shortness of breath. Gastrointestinal: no new onset incontinence, normal bowel movements reported Genitourinary: no new onset incontinence Musculoskeletal: Back pain, leg pain Psychiatric: normal mood/ affect Neurological: [denies new onset weakness in extremities], [denies new onset balance issues] Objective:: Physical Exam General: Alert and oriented x3, no acute distress, pleasant and cooperative, [on room air] Lungs: Resps E/U, Symmetrical chest expansion, Eyes: PERRL Musculoskeletal: Flexion and extension of lumbar spine somewhat guarded secondary to pain, deep tendon reflexes normal, strength in upper and lower extremities [5/5], [abnormal gait noted] Neurological: speech clear, manager games equal, no gross sensory deficits Assessment:: Degenerative disc disease, lumbar spondylosis, facet arthropathy Plan:: We will call her in 1 more dose of prednisone 20 mg 1 p.o. twice daily. I will see her back in 1 week and reassess her symptoms at that time she is been instructed to call the office if she has any additional issues. We also discussed potential repeat medial branch blocks. Dr. Bautista has reviewed this note and agrees with this plan of care. This note was dictated using voice recognition software and may contain errors or omissions [facility] History I have reviewed the patient's past medical history: Yes Medical History: Reports:: Depression, Palpitations Denies:: Cancer, Diabetes Mellitus Type 1, Diabetes Mellitus Type 2, Internal Pacemaker, MRSA, Seizures *Have you ever received a pneumonia vaccine?: Yes *Have you received a flu vaccine this season?: Yes Other Medical History: Reports: Arthritis. Denies: Blood Transfusion Reaction Other Surgeries: No: Pacemaker Amputation: No Fractures: No - *Social History Smoking Status: Never smoker Alcohol Intake: current Alcohol Intake Frequency:: other *Occupational Status:: other Housing: house Household Members: spouse *Travel in the last 8 weeks: None - Psychiatric History Pschychiatric History:: Reports:: Depression Family Hx:: Unable to obtain
--- NOTE | 2019-07-06 10:39 | P.CONS_ITS ---
[facility] Pain Management SOAP Note Subjective:: Patient is a very pleasant 64-year-old white female who presents today for follow-up. Patient rates her pain a 10 out of 10 due to a recent fall. Patient states that she lost her footing after stepping on a child's toy. She fell backwards increasing her back pain. Patient would like to feel better in order to get to the holidays and through them. Patient and I discussed repeating her medial branch blocks which I think she will eventually need however we will give her 1 more round of steroids in order to help her through this exacerbation. Patient has no kidney disease, no anticoagulation therapy or cardiac history and no diabetes. ROS General: no recent weight change, no fever, no sleep disturbances Respiratory: no cough, no shortness of air, no recurring pulmonary infections Cardiovascular/Peripheral Vascular: No chest pain, No palpitations, no edema, no shortness of breath. Gastrointestinal: no new onset incontinence, normal bowel movements reported Genitourinary: no new onset incontinence Musculoskeletal: Back pain, leg pain Psychiatric: normal mood/ affect Neurological: [denies new onset weakness in extremities], [denies new onset balance issues] Objective:: Physical Exam General: Alert and oriented x3, no acute distress, pleasant and cooperative, [on room air] Lungs: Resps E/U, Symmetrical chest expansion, Eyes: PERRL Musculoskeletal: Flexion and extension of lumbar spine somewhat guarded secondary to pain, deep tendon reflexes normal, strength in upper and lower extremities [5/5], [abnormal gait noted] Neurological: speech clear, flash ranging crewmember equal, no gross sensory deficits Assessment:: Degenerative disc disease, lumbar spondylosis, facet arthropathy Plan:: We will call her in 1 more dose of prednisone 20 mg 1 p.o. twice daily. I will see her back in 1 week and reassess her symptoms at that time she is been instructed to call the office if she has any additional issues. We also discussed potential repeat medial branch blocks. Dr. Bautista has reviewed this note and agrees with this plan of care. This note was dictated using voice recognition software and may contain errors or omissions [facility] History I have reviewed the patient's past medical history: Yes Medical History: Reports:: Depression, Palpitations Denies:: Cancer, Diabetes Mellitus Type 1, Diabetes Mellitus Type 2, Internal Pacemaker, MRSA, Seizures *Have you ever received a pneumonia vaccine?: Yes *Have you received a flu vaccine this season?: Yes Other Medical History: Reports: Arthritis. Denies: Blood Transfusion Reaction Other Surgeries: No: Pacemaker Amputation: No Fractures: No - *Social History Smoking Status: Never smoker Alcohol Intake: current Alcohol Intake Frequency:: other *Occupational Status:: other Housing: house Household Members: spouse *Travel in the last 8 weeks: None - Psychiatric History Pschychiatric History:: Reports:: Depression Family Hx:: Unable to obtain
== END ==
PROVIDERS: PCP Family Medicine; Visit Provider Clinical Nurse Specialist Family Health
DX: M54.06 Panniculitis affecting regions of neck and back, lumbar region (principal); M47.896 Other spondylosis, lumbar region
CPT/HCPCS: 99212

== ENCOUNTER → 2019-11-22 12:58 | Outpatient (CLI) | payer MEDICARE, BC, SELFPAY ==
[2019-11-22 16:29] LABS: Alanine Aminotransferase 17 U/L (12-78); Albumin Level 4.3 g/dl (3.5-5.0); Albumin/Globulin Ratio 1.4 (1.1-1.8); Alkaline Phosphatase 104 U/L (38-126); Anion Gap 12.5 mEq/L (5-15); Aspartate Amino Transferase 24 U/L (14-36); Bilirubin,Total 0.2 mg/dl (0.2-1.3); Blood Urea Nitrogen 15 mg/dl (7-17); Calcium 9.3 mg/dl (8.4-10.2); Carbon Dioxide 28 mmol/L (22.0-30.0); Chloride 102 mmol/L (98-107); Chol/HDL Ratio 3.3 (1-3.5); Cholesterol 177 mg/dl (140-200); Estimated Glomerular Filt Rate 85 ml/min (>60); GFR (African American) 102 ML/MIN (>60); Globulin 3.1 g/dL (1.3-3.2); Glucose 103 mg/dl (74-100); HDL Cholesterol 54 mg/dl (40-60); Potassium 4.5 mmoL/L (3.5-5.1); Sodium 138 mmol/L (136-145); Total Protein,Serum 7.4 g/dl (6.3-8.2); Triglycerides 115 mg/dl (30-150); VLDL Cholesterol 23 mg/dL (0-40)
[2019-11-22 16:40] LABS: Direct LDL Cholesterol 106.18 mg/dL (100-129)
== END ==
PROVIDERS: Visit Provider Family Medicine
DX: I10 Essential (primary) hypertension (principal)
CPT/HCPCS: 36415; 80053; 80061

== ENCOUNTER → 2020-01-10 08:52 | Outpatient (POV) | payer MEDICARE, BC, SELFPAY ==
[2020-01-10 09:00] VITALS: BP 117/52; PULSE 80; RESP 18; TEMP 36.8; O2SAT 99; BMI 44.6
--- NOTE | 2020-01-10 09:21 | P.CONS_ITS ---
[facility] Pain Management SOAP Note Subjective:: Patient is a very pleasant 64-year-old white female who presents today for follow-up. Patient who had a medial branch block back in June of last year. She is doing well until recently. She has had 80% relief of her symptoms until the last several weeks. She rates her pain a 4 out of 10. She is positive facet loading. She has had relief from medial branch blocks up to 7 months at a time. She like to repeat this. She is not on any anticoagulation therapy. She is continuing a home stretching program. ROS General: no recent weight change, no fever, no sleep disturbances Respiratory: no cough, no shortness of air, no recurring pulmonary infections Cardiovascular/Peripheral Vascular: No chest pain, No palpitations, no edema, no shortness of breath. Gastrointestinal: no new onset incontinence, normal bowel movements reported Genitourinary: no new onset incontinence Musculoskeletal: Back pain Psychiatric: normal mood/ affect Neurological: [denies new onset weakness in extremities], [denies new onset balance issues] Objective:: Physical Exam General: Alert and oriented x3, no acute distress, pleasant and cooperative, [on room air] Lungs: Resps E/U, Symmetrical chest expansion, Eyes: PERRL Musculoskeletal: Flexion and extension of lumbar spine somewhat guarded secondary to pain, deep tendon reflexes normal, strength in upper and lower extremities [5/5], slightly antalgic gait noted Neurological: speech clear, variety lathe operator equal, no gross sensory deficits Assessment:: Degenerative disc disease lumbar spine with lumbar facet arthropathy and spondylosis Plan:: We will set up an L3-L4 L4-L5 L5-S1 bilateral medial branch block. Given the efficacy of this in the past I do believe it would benefit her. She is been instructed to call the office if she has any issues prior to her next appointment. Dr. Bautista has reviewed this note and agrees with this plan of care. This note was dictated using voice recognition software and may contain errors or omissions [facility] History I have reviewed the patient's past medical history: Yes Medical History: Reports:: Depression, Palpitations Denies:: Cancer, Diabetes Mellitus Type 1, Diabetes Mellitus Type 2, Internal Pacemaker, MRSA, Seizures *Have you ever received a pneumonia vaccine?: Yes *Have you received a flu vaccine this season?: Yes Other Medical History: Reports: Arthritis. Denies: Blood Transfusion Reaction Other Surgeries: No: Pacemaker Amputation: No Fractures: No - *Social History Smoking Status: Never smoker Alcohol Intake: current Alcohol Intake Frequency:: other *Occupational Status:: other Housing: house Household Members: spouse *Travel in the last 8 weeks: None - Psychiatric History Pschychiatric History:: Reports:: Depression Family Hx:: Unable to obtain
== END ==
PROVIDERS: PCP Family Medicine; Visit Provider Clinical Nurse Specialist Family Health
DX: M51.36 Other intervertebral disc degeneration, lumbar region (principal); M12.88 Other specific arthropathies, not elsewhere classified, other specified site; M47.816 Spondylosis without myelopathy or radiculopathy, lumbar region
CPT/HCPCS: 99212

== ENCOUNTER 2020-01-21 09:54 | Day surgery (SDC) | payer MEDICARE, BC, SELFPAY ==
[2020-01-21 10:07] VITALS: BP 175/76; PULSE 89; RESP 18; TEMP 36.8; O2SAT 95; BMI 45.7
[2020-01-21 10:53] VITALS: BP 150/89; PULSE 82; RESP 18; TEMP 36.6; O2SAT 99
[2020-01-21 10:54] VITALS: BP 152/79; PULSE 89; RESP 18; O2SAT 99
[2020-01-21 11:05] VITALS: BP 150/93; PULSE 79; RESP 20; O2SAT 96
--- NOTE | 2020-01-21 11:05 | HMH.PMPROC ---
- Procedure Date: 01/21/20 Time: 11:05 Anesthesiologist:: Phan Bautista MD Complications:: None Pre-procedure Diagnosis:: Degenerative disc disease of lumbar spine with lumbar radicular symptoms. Lumbar facet arthropathy and lumbar spondylosis Post-procedure Diagnosis:: Same Indications for Procedure:: Patient is a pleasant 64-year-old white female who we have been treating for low back pain with lumbar facet arthropathy and lumbar spondylosis. She is done very well with previous medial branch blocks with good pain relief for 6 to 7 months. Her pain is now starting to return after 7 months. She recently did fall out of bed. This aggravated her pain. We will do repeat bilateral lumbar medial branch block/facet joint injections of L3-L4, L4 5 and L5-S1 today. Procedure Details:: Lumbar medial branch block Informed consent was obtained and the risks and benefits of the procedure was explained to the patient. The back was prepped using ChloraPrep. The skin and subcutaneous tissues were anesthetized using lidocaine. I placed 22-gauge spinal needles into the facet joint/medial branches of L3-L4, L4-L5 and L5-S1 bilaterally. Needle placement was confirmed with dye. After this we injected 3 mL bupivacaine 0.25% and Depo-Medrol 13 mg into each facet joint/medial branch of L3-L4, L5 and L5-S1 bilaterally. We used a total of 80 mg Depo-Medrol for all 3 levels bilaterally. The patient tolerated the procedure well with no complications. Plan and Disposition:: We will follow-up with her and 2 weeks we will reevaluate her symptoms at that time.
== END 2020-01-21 11:06 | disposition home or self-care (01) ==
LOC: SC.PAINP 09:56
PROVIDERS: PCP Family Medicine; Visit Provider Anesthesiology
DX: M51.16 Intervertebral disc disorders with radiculopathy, lumbar region (principal); M12.88 Other specific arthropathies, not elsewhere classified, other specified site; M47.816 Spondylosis without myelopathy or radiculopathy, lumbar region; I10 Essential (primary) hypertension; K21.9 Gastro-esophageal reflux disease without esophagitis; F41.9 Anxiety disorder, unspecified; F32.9 Major depressive disorder, single episode, unspecified; Z79.899 Other long term (current) drug therapy; Z79.82 Long term (current) use of aspirin
CPT/HCPCS: 64493; 64494; 64495; J1030; Q9966

== ENCOUNTER → 2020-02-14 10:43 | Outpatient (POV) | payer MEDICARE, BC, SELFPAY ==
[2020-02-14 11:07] VITALS: BP 123/82; PULSE 85; RESP 18; O2SAT 98; BMI 42.3
--- NOTE | 2020-02-14 11:17 | P.CONS_ITS ---
[facility] Pain Management SOAP Note Subjective:: She is a pleasant 64-year-old white female who we are treating for low back pain. Patient is following up after lumbar medial branch block. She did well she states that she is having a little bit of increased pain due to pushing it too hard . Patient has recently had a in the family. She will be traveling for this. I discussed with her a oral steroid and muscle relaxer if needed during this time. Patient is agreeable. She rates her pain today 0 out of 10 when she is sitting and goes up to a 5 out of 10. ROS General: no recent weight change, no fever, no sleep disturbances Respiratory: no cough, no shortness of air, no recurring pulmonary infections Cardiovascular/Peripheral Vascular: No chest pain, No palpitations, no edema, no shortness of breath. Gastrointestinal: no new onset incontinence, normal bowel movements reported Genitourinary: no new onset incontinence Musculoskeletal: Back pain, leg pain Psychiatric: normal mood/ affect Neurological: [denies new onset weakness in extremities], [denies new onset balance issues] Objective:: Physical Exam General: Alert and oriented x3, no acute distress, pleasant and cooperative, [on room air] Lungs: Resps E/U, Symmetrical chest expansion, Eyes: PERRL Musculoskeletal: Flexion and extension of lumbar spine somewhat guarded secondary to pain, deep tendon reflexes normal, strength in upper and lower extremities [5/5], slightly antalgic gait noted Neurological: speech clear, bakelite molder equal, no gross sensory deficits Assessment:: Degenerative disc disease lumbar spine lumbar radiculopathy, lumbar facet arthropathy and lumbar spondylosis Plan:: We will see the patient back in 1 month we will give her prednisone 20 mg 1 p.o. twice daily for 5 days and Zanaflex 4 mg 1 p.o. 3 times daily as needed. Patient has been instructed call the office if she has any issues prior to her next appointment. Dr. Bautista has reviewed this note and agrees with this plan of care. This note was dictated using voice recognition software and may contain errors or omissions [facility] History I have reviewed the patient's past medical history: Yes Medical History: Reports:: Depression, Palpitations Denies:: Cancer, Diabetes Mellitus Type 1, Diabetes Mellitus Type 2, Internal Pacemaker, MRSA, Seizures *Have you ever received a pneumonia vaccine?: Yes *Have you received a flu vaccine this season?: Yes Other Medical History: Reports: Arthritis. Denies: Blood Transfusion Reaction Other Surgeries: No: Pacemaker Amputation: No Fractures: No - *Social History Smoking Status: Never smoker Alcohol Intake: never Alcohol Intake Frequency:: other *Occupational Status:: other Housing: house Household Members: spouse *Travel in the last 8 weeks: None - Psychiatric History Pschychiatric History:: Reports:: Depression Family Hx:: Unable to obtain
== END ==
PROVIDERS: PCP Family Medicine; Visit Provider Clinical Nurse Specialist Family Health
DX: M51.16 Intervertebral disc disorders with radiculopathy, lumbar region (principal); M47.816 Spondylosis without myelopathy or radiculopathy, lumbar region; M12.88 Other specific arthropathies, not elsewhere classified, other specified site
CPT/HCPCS: 99212

== ENCOUNTER → 2020-05-18 10:11 | Outpatient (POV) | payer BC, MEDICARE, SELFPAY ==
[2020-05-18 10:35] VITALS: BP 138/88; PULSE 75; RESP 18; TEMP 36.8; O2SAT 99; BMI 48.5
--- NOTE | 2020-05-18 10:41 | HMH.PAINSOAP ---
[facility] Pain Management SOAP Note Subjective:: Patient is a 65-year-old white female who presents today for follow-up. She has been treated for chronic low back pain with facet arthropathy and lumbar spondylosis. Patient says that she is having acute on chronic pain to her low back at this time. She says she was mowing grass and developed severe low back pain when she tried to pry her lawnmower from around her frame. Patient says that she felt a popping sensation and started to develop severe right low back pain. She says that it is radiating into her right lower extremity. Patient does feel better leaning forward. She says the pain is intense at all times. She says sitting standing and laying down all cause her to have pain. She is currently using a cane for ambulation today. She rates her pain a 10 out of 10. She is tried home stretching program and anti-inflammatories with no relief. Patient is not on any anticoagulation therapy. Review of Systems General: No recent weight changes, no fever, no sleep disturbances Respiratory: No cough, no shortness of air, no recurring pulmonary infections Cardiovascular/peripheral vascular: No chest pain, no palpitations, no edema, no shortness of breath Gastrointestinal: No new onset incontinence, normal bowel movements reported Genitourinary: No new onset incontinence Musculoskeletal: Right low back pain, right leg pain Psychiatric: Normal mood/affect Neurological: [Denies weakness in extremities], [denies balance issues] Objective:: Physical exam General: Alert and oriented x3, no acute distress, pleasant and cooperative, [on room air] Lungs: Respirations even and unlabored, symmetrical chest expansion Eyes: PERRL Musculoskeletal: Flexion and extension of lumbar spine somewhat guarded secondary to pain, deep tendon reflexes normal, strength in upper and lower extremities [5/5], [abnormal gait noted] Neurological: Speech clear, raise miner equal, no gross sensory deficit Assessment:: Degenerative disc disease of lumbar spine with lumbar radiculopathy symptoms Plan:: We will schedule the patient for a lumbar epidural steroid injection at L4-L5. She is not on any anticoagulation therapy. We will see her back in the clinic after injection to reassess her symptoms. She has been instructed to contact the clinic if she has an concerns before next appointment. The patient and I specifically discussed risk factors for COVID19. These risks include, but are not limited to age greater than 60, heart or lung disease, diabetes, immunosuppression, and travel. We also discussed NSAIDs may worsen COVID19 infection or symptoms. Patient should not use NSAIDs to treat COVID19 signs or symptoms. Patient was also informed that any type of corticosteroid of any form (oral or injection) will decrease the patient's immune system response and may increase the likelihood of COVID19 infection and symptoms[address]. Bautista has reviewed this note and agrees with this plan of care. This note was dictated using voice recognition software and make contain errors or omissions. [facility] History I have reviewed the patient's past medical history: Yes Medical History: Reports:: Depression, Palpitations Denies:: Cancer, Diabetes Mellitus Type 1, Diabetes Mellitus Type 2, Internal Pacemaker, MRSA, Seizures *Have you ever received a pneumonia vaccine?: Yes *Have you received a flu vaccine this season?: Yes Other Medical History: Reports: Arthritis. Denies: Blood Transfusion Reaction Other Surgeries: No: Pacemaker Amputation: No Fractures: No - *Social History Smoking Status: Never smoker Alcohol Intake: never Alcohol Intake Frequency:: other *Occupational Status:: other Housing: house Household Members: spouse *Travel in the last 8 weeks: None - Psychiatric History Pschychiatric History:: Reports:: Depression Family Hx:: Unable to obtain
== END ==
PROVIDERS: PCP Family Medicine; Visit Provider Clinical Nurse Specialist Family Health
DX: M51.16 Intervertebral disc disorders with radiculopathy, lumbar region (principal)
CPT/HCPCS: 99212

== ENCOUNTER 2020-05-19 10:27 | Day surgery (SDC) | payer MEDICARE, BC, SELFPAY ==
[2020-05-19 10:36] VITALS: BP 133/77; PULSE 83; RESP 17; TEMP 36.7; O2SAT 83; BMI 48.9
[2020-05-19 11:00] VITALS: BP 128/88; BP 130/74; PULSE 79; PULSE 85; RESP 18; O2SAT 98
--- NOTE | 2020-05-19 11:06 | P.PCN_ITS ---
- Procedure Date: 05/19/20 Time: 11:06 Anesthesiologist:: Phan Bautista MD Complications:: None Pre-procedure Diagnosis:: Degenerative disc disease of lumbar spine with lumbar radiculopathy symptoms Post-procedure Diagnosis:: Same Indications for Procedure:: This patient is a pleasant 65-year-old white female who we are treating for low back pain with lumbar radiculopathy symptoms. She aggravated her low back pain couple weeks ago while something with her lawnmower. Most of her pain is throughout her low back and now on the right side. We will do a lumbar pleural steroid injection to help with her pain symptoms. Procedure Details:: Lumbar epidural steroid injection under fluoroscopy Informed consent was obtained and the risk and benefits of the procedure was explained to the patient. The patient was taken to the procedure room. The patient was placed prone on the procedure table. The patient was prepped and draped in sterile fashion. C-arm fluoroscopy was used to view the lumbar spine. Skin and subcutaneous tissues were anesthetized using lidocaine. I placed an 18-gauge epidural needle and advanced into the L4-L5 interspace using fluoro scopic guidance and [id number] to air. After confirmation of needle placement in the epidural space with dye I injected 2 mL of lidocaine 1.5% with Depo-Medrol 80 mg. Patient tolerated the procedure well with no complications. Plan and Disposition:: We will follow up with her in 2 weeks. Will reevaluate symptoms at that time.
[2020-05-19 11:10] VITALS: BP 138/67; PULSE 81; RESP 20; O2SAT 94
== END 2020-05-19 11:10 | disposition home or self-care (01) ==
LOC: SC.PAINP 10:31
PROVIDERS: PCP Family Medicine; Visit Provider Anesthesiology
DX: M51.16 Intervertebral disc disorders with radiculopathy, lumbar region (principal); I10 Essential (primary) hypertension; K21.9 Gastro-esophageal reflux disease without esophagitis; Z79.82 Long term (current) use of aspirin; Z79.899 Other long term (current) drug therapy
CPT/HCPCS: 62323; J1040; Q9966

== ENCOUNTER → 2020-05-23 11:12 | Outpatient (CLI) | payer MEDICARE, BC, SELFPAY ==
[2020-05-23 12:30] LABS: Anion Gap 13.9 mEq/L (5-15); Blood Urea Nitrogen 20 mg/dl (7-17); Calcium 9.8 mg/dl (8.4-10.2); Carbon Dioxide 31 mmol/L (22.0-30.0); Chloride 100 mmol/L (98-107); Estimated Glomerular Filt Rate 63 ml/min (>60); GFR (African American) 76 ML/MIN (>60); Glucose 106 mg/dl (74-100); Potassium 4.9 mmoL/L (3.5-5.1); Sodium 140 mmol/L (136-145)
[2020-05-23 12:59] LABS: Thyroid Stimulating Hormone 4.05 uIU/mL (0.465-4.68)
[2020-05-23 13:45] LABS: Hemoglobin A1C 5.9 % (4.0-6.0)
[2020-05-23 16:04] LABS: Creatinine,Urine Random 126 mg/dL (Not Estab.)
== END ==
PROVIDERS: Visit Provider Family Medicine
DX: R73.01 Impaired fasting glucose (principal); I10 Essential (primary) hypertension; E83.52 Hypercalcemia
CPT/HCPCS: 36415; 80048; 82570; 83036; 84443

== ENCOUNTER 2020-06-02 22:49 | Emergency (ER) | payer MEDICARE, BC, SELFPAY ==
[2020-06-02 22:59] VITALS: BP 143/117; PULSE 94; RESP 21; TEMP 36.7; O2SAT 96; BMI 42.5
--- NOTE | 2020-06-02 23:40 | HMH.EDALLER ---
ED Disposition Clinical Impression: Pain in right forearm, Bee sting Disposition: Home, Self-Care Condition on Discharge: Good Instructions: DI for Insect Bites and Stings Referrals: Jt Ayoub MD [Primary Care Provider] - - Critical Care Critical Care Time: No Attestation: On 06/02/20, the high probability of a clinically significant, sudden or life threatening deterioration of the following system(s) required my full and direct attention, intervention and personal management. The time I documented below is in addition to time spent performing reported procedures but includes the following listed in this critical care notation. Medical Decision Making - Medical Records Medical records reviewed: Yes: I reviewed the patient's medical records. - Sin Inquiry Pt receiving controlled substance: No Vital Signs: 06/02/20 22:59 Temperature 98.1 F Temperature Source Oral Pulse Rate [Right Brachial] 94 H Respiratory Rate 21 Blood Pressure [Right Arm] 143/117 H Blood Pressure Mean [Right Arm] 125 Blood Pressure Source [Right Arm] Automatic Cuff Blood Pressure Position [Right Arm] Sitting 02 Sat by Pulse Oximetry 96 Oxygen Delivery Method Room Air - Lab Data Lab results reviewed: Yes: I reviewed the patient's lab results. Orders (Tests/Meds): ED MEDICATIONS Discontinued Medications Generic Name Dose Route Start Last Admin Trade Name Freq PRN Reason Stop Dose Admin Diphenhydramine HCl 50 mg 06/02/20 23:05 06/02/20 23:37 Diphenhydramine 50mg/Ml Vial IM 06/02/20 23:06 50 mg ONCE ONE Administration Ketorolac Tromethamine 60 mg 06/02/20 23:32 06/02/20 23:37 Ketorolac 60mg/2ml Vial IM 06/02/20 23:33 60 mg ONCE ONE Administration Methylprednisolone Sodium Succinate 125 mg 06/02/20 23:05 06/02/20 23:37 Methylprednisolone Sod Succ 125mg Vial IM 06/02/20 23:06 125 mg ONCE ONE Administration Allergic React/Insect Bite HPI - General Chief complaint: Allergic Reaction Stated complaint: Possible allergic reaction from bee sting Time Seen by Provider: 06/02/20 23:41 Mode of Arrival - ED Triage: Family Vehicle Source of Information: Patient Limitations: No Limitations - History of Present Illness HPI narrative: 65-year-old female presents the emergency room with a insect bite on her right forearm. She states she is in excruciating pain however I really cannot see any chavarria of an insect bite or any area of erythema. She does state that she was stung by a bee. Patient also states that she did take some Benadryl around 5:00 this evening. However the patient did not get any relief. Patient rates her pain 10 out of 10 states that it is sharp and burning. Without any evidence of trauma or signs of a bite by anything. Allergies/Adverse Reactions: Allergies Allergy/AdvReac Type Severity Reaction Status Date / Time No Known Allergies Allergy Verified 05/19/20 10:45 - Related Data Home Medications Medication Instructions Recorded Confirmed Aspirin [Aspir 81] 81 mg PO DAILY 01/24/18 05/19/20 Duloxetine HCl [Cymbalta] 30 mg PO DAILY 01/24/18 05/19/20 Teriparatide [Forteo] 2.4 ml SQ DAILY 01/24/18 05/19/20 Acetaminophen [Tylenol] 650 mg PO Q8HP PRN 02/08/18 05/19/20 Lansoprazole [Prevacid] 15 mg PO DAILY 02/08/18 05/19/20 Valacyclovir HCl [Valacyclovir] 1 tab PO TID 02/08/18 05/19/20 Buspirone HCl [Buspar 10mg 0 mg PO BID 11/06/18 05/19/20 tablet] Gabapentin [Gabapentin 300mg Cap] 300 mg PO TID 11/06/18 05/19/20 lisinopriL [Lisinopril 10mg Tab] 10 mg PO DAILY 01/21/20 05/19/20 predniSONE [Prednisone 20mg 20 mg PO BID 05/19/20 05/19/20 Tab] Previous Rx's Medication Instructions Recorded Methocarbamol [Robaxin 500mg Tab] 500 mg PO BIDP PRN #30 tab 05/17/19 Tizanidine HCl [Zanaflex 4mg 4 mg PO TID PRN #90 tab 02/14/20 tab] [facility] History - Hepatitis A Screen Drug use history?: No High risk sexual behaviors?: No History o
[2020-06-03 00:14] VITALS: BP 146/79; PULSE 83; RESP 13; TEMP 36.6; O2SAT 98
== END 2020-06-03 00:12 | disposition home or self-care (01) ==
PROVIDERS: Emergency Provider Family Medicine; PCP Family Medicine
DX: M79.631 Pain in right forearm (principal); T63.441A Toxic effect of venom of bees, accidental (unintentional), initial encounter; I10 Essential (primary) hypertension; F33.1 Major depressive disorder, recurrent, moderate; Z79.899 Other long term (current) drug therapy
CPT/HCPCS: 96372; 99281

== ENCOUNTER → 2020-06-12 09:29 | Outpatient (POV) | payer BC, MEDICARE, SELFPAY ==
--- NOTE | 2020-06-12 10:01 | P.CONS_ITS ---
[facility] Pain Management SOAP Note Subjective:: Is a very pleasant 65-year-old white female who presents today for follow-up. Patient had a lumbar epidural steroid injection which was beneficial however she states that she still having quite a bit of focal back pain. In the past she is done extremely well with medial branch block/facet joint injections at L3-L4 L4- L5 L5-S1 bilaterally. Patient is not on any anticoagulation therapy. She gets 80% relief for up to 4 months with her injection. She is also had radiofrequency ablations in the past and has done well with this as well. Patient and I discussed repeating this she would like to move forward with this. She is also having muscle spasms however currently she is on Zanaflex 4 mg 1 p.o. 3 times daily which she states works well for her. She rates her pain today a 0 out of 10 but it can flare to about a 5 out of 10. ROS General: no recent weight change, no fever, no sleep disturbances Respiratory: no cough, no shortness of air, no recurring pulmonary infections Cardiovascular/Peripheral Vascular: No chest pain, No palpitations, no edema, no shortness of breath. Gastrointestinal: no new onset incontinence, normal bowel movements reported Genitourinary: no new onset incontinence Musculoskeletal: Back pain Psychiatric: normal mood/ affect Neurological: [denies new onset weakness in extremities], [denies new onset balance issues] Objective:: Physical Exam General: Alert and oriented x3, no acute distress, pleasant and cooperative, Lungs: Resps E/U, Symmetrical chest expansion, Eyes: PERRL Musculoskeletal: Flexion and extension of lumbar spine somewhat guarded secondary to pain, deep tendon reflexes normal, strength in upper and lower extremities [5/5], antalgic gait noted, positive facet loading lumbar spine Neurological: speech clear, powerhouse mechanic equal, no gross sensory deficits Assessment:: Degenerative disc disease lumbar spine with lumbar spondylosis and facet arthropathy Plan:: We will move forward with bilateral medial branch block/facet joint injection L3-L4 L4-5 L5-S1. Patient's not on any anticoagulation therapy. She gets more than 3 months relief with these injections. I will follow-up with her afterwards reassess her symptoms at that time she has been instructed to call the office if she has any issues prior to her next appointment. We will continue her tizanidine 4 mg 1 p.o. 3 times daily as needed. Dr. Bautista has reviewed this note and agrees with this plan of care. This note was dictated using voice recognition software and may contain errors or omissions [facility] History I have reviewed the patient's past medical history: Yes Medical History: Reports:: Depression, Palpitations Denies:: Cancer, Diabetes Mellitus Type 1, Diabetes Mellitus Type 2, Internal Pacemaker, MRSA, Seizures *Have you ever received a pneumonia vaccine?: No *Have you received a flu vaccine this season?: No Other Medical History: Reports: Arthritis. Denies: Blood Transfusion Reaction Other Surgeries: Yes: Hysterectomy-Total. No: Pacemaker Amputation: No Fractures: No - *Social History Smoking Status: Never smoker Alcohol Intake: never Alcohol Intake Frequency:: other *Occupational Status:: unemployed Housing: house Household Members: spouse *Travel in the last 8 weeks: None - Psychiatric History Pschychiatric History:: Reports:: Depression Family Hx:: Unable to obtain
[2020-06-12 11:30] VITALS: BP 122/74; PULSE 74; RESP 18; O2SAT 98; BMI 47.0
== END ==
PROVIDERS: PCP Family Medicine; Visit Provider Clinical Nurse Specialist Family Health
DX: M51.36 Other intervertebral disc degeneration, lumbar region (principal); M47.816 Spondylosis without myelopathy or radiculopathy, lumbar region; M12.88 Other specific arthropathies, not elsewhere classified, other specified site
CPT/HCPCS: 99212

== ENCOUNTER → 2020-06-16 13:32 | Day surgery (SDC) | payer BC, MEDICARE, SELFPAY ==
[2020-06-16 13:59] VITALS: BP 128/70; PULSE 97; RESP 20; TEMP 36.8; O2SAT 95; BMI 47.0
--- NOTE | 2020-06-16 14:19 | HMH.PMPROC ---
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 She has done well with previous medial branch block/facet joint injections of L3-L4, 4 5 and L5-S1 bilaterally. She does get up to 80 to 90% relief for up to 4 months. Her pain is now starting to return especially of higher. We will do repeat bilateral lumbar medial branch block/facet joint injections of L3-4, 4 5 and L5-S1 again today. Procedure Details:: Lumbar medial branch block Informed consent was obtained and the risks and benefits of the procedure was explained to the patient. The back was prepped using ChloraPrep. The skin and subcutaneous tissues were anesthetized using lidocaine. I placed 22-gauge spinal needles into the facet joint/medial branches of L3-L4, L4-L5 and L5-S1 bilaterally. Needle placement was confirmed with dye. After this we injected 3 mL bupivacaine 0.25% and Depo-Medrol 13 mg into each facet joint/medial branch of L3-L4, L5 and L5-S1 bilaterally. We used a total of 80 mg Depo-Medrol for all 3 levels bilaterally. The patient tolerated the procedure well with no complications. Plan and Disposition:: We will follow-up with her in 2 weeks. Will reevaluate symptoms at that time.
[2020-06-16 14:20] VITALS: BP 142/74; PULSE 85; RESP 18; O2SAT 98
[2020-06-16 14:21] VITALS: BP 144/74; PULSE 81; RESP 18; O2SAT 99
== END ==
PROVIDERS: PCP Family Medicine; Visit Provider Anesthesiology
DX: M51.36 Other intervertebral disc degeneration, lumbar region (principal); M47.816 Spondylosis without myelopathy or radiculopathy, lumbar region; M12.88 Other specific arthropathies, not elsewhere classified, other specified site; K21.9 Gastro-esophageal reflux disease without esophagitis; I10 Essential (primary) hypertension; F32.9 Major depressive disorder, single episode, unspecified
CPT/HCPCS: 64493; 64494; 64495; J1030; Q9966

== ENCOUNTER → 2020-06-19 07:44 | Outpatient (CLI) | payer MEDICARE, BC, SELFPAY ==
--- NOTE | 2020-06-19 07:47 | MR_ITS ---
PROCEDURE: MR LUMBAR SPINE WO CON CLINICAL INDICATION: BACK PAIN LOW BACK PAIN X3 YEARS, COMPARISON: MR SPLUMBWW MR lumbar spine wo/w con from 02/06/2018 TECHNIQUE: Standard multiplanar multiecho sequences are performed without contrast. 3-D MIP and myelographic images are also rendered and reviewed FINDINGS: There is normal alignment. The spinal cord ends at the L1 level. L1-L2: Unremarkable. L2-L3: Unremarkable. L3-L4: Unremarkable. L4-5: Degenerative disc disease with mild bulging disc eccentric to the right along with facet and ligamentum hypertrophy causing moderate right-sided foraminal narrowing. On the sagittal image there appears to be an osteophyte at the facet region projecting anteriorly into the foramen impinging upon the exiting L4 nerve root. This is somewhat worse than when compared to the previous exam. L5-S1: Mild concentric bulging disc along with facet and ligamentum hypertrophy with moderate bilateral foraminal narrowing slightly greater on the right not significantly changed There are small bilateral renal cortical cysts IMPRESSION: 1. L4-5: Degenerative disc disease with mild bulging disc eccentric to the right along with facet and ligamentum hypertrophy causing moderate right-sided foraminal narrowing. On the sagittal image there appears to be an osteophyte at the facet region projecting anteriorly into the foramen impinging upon the exiting L4 nerve root. This is somewhat worse than when compared to the previous exam. 2. L5-S1: Mild concentric bulging disc along with facet and ligamentum hypertrophy with moderate bilateral foraminal narrowing slightly greater on the right not significantly changed 3. No disc herniation or canal stenosis Dictated by: Rubens Aleixs MD 06/20/2020 15:22 Rubens Alexis MD in [place] 06/20/2020 15:22
== END ==
PROVIDERS: PCP Family Medicine; Visit Provider Anesthesiology
DX: M54.5 Low back pain (principal)
CPT/HCPCS: 72148; 76376

== ENCOUNTER → 2020-06-29 09:21 | Outpatient (POV) | payer MEDICARE, BC, SELFPAY ==
--- NOTE | 2020-06-29 09:59 | HMH.PAINSOAP ---
[facility] Pain Management SOAP Note Subjective:: Patient is a 65-year-old white female who presents today for follow-up. She is being treated for degenerative disc disease lumbar spine with lumbar spondylosis and lumbar facet arthropathy. Patient has undergone medial branch block/facet joint injections of L3-L4 L4-L5 and L5-S1 bilaterally. She does get up to 80 to 90% relief for about 4 to 5 months. Patient recently underwent an MRI and is here today to review her MRI. Patient says she does well with medial branch blocks. She is tried conservative therapies as well which include physical therapy for greater than 6 weeks, home stretching, oral medications, and ice and heat therapies. She seems to get the most relief with the medial branch blocks/facet injections. Rates her pain a 1 out of 10 today. Review of Systems General: No recent weight changes, no fever, no sleep disturbances Respiratory: No cough, no shortness of air, no recurring pulmonary infections Cardiovascular/peripheral vascular: No chest pain, no palpitations, no edema, no shortness of breath Gastrointestinal: No new onset incontinence, normal bowel movements reported Genitourinary: No new onset incontinence Musculoskeletal: Intermittent low back pain worse with leaning forward or turning and twisting at waist Psychiatric: Normal mood/affect Neurological: [Denies weakness in extremities], [denies balance issues] Objective:: Physical exam General: Alert and oriented x3, no acute distress, pleasant and cooperative, [on room air] Lungs: Respirations even and unlabored, symmetrical chest expansion Eyes: PERRL Musculoskeletal: Flexion and extension of lumbar spine somewhat guarded secondary to pain, deep tendon reflexes normal, strength in upper and lower extremities [5/5], normal gait noted, positive Kemps test Neurological: Speech clear, pilates instructor equal, no gross sensory deficit Assessment:: Degenerative disc disease lumbar spine with lumbar spondylosis and lumbar facet arthropathy Plan:: Patient I did review her MRI today. She would like to follow-up with us in 1 month for reevaluation. Overall, she is doing well with her injection of medial branch block/facet joint injections. We will see her back in a month to reevaluate her. She has been instructed to take the clinic if she has any concerns before next appointment. The patient and I specifically discussed risk factors for COVID19. These risks include, but are not limited to age greater than 60, heart or lung disease, diabetes, immunosuppression, and travel. We also discussed NSAIDs may worsen COVID19 infection or symptoms. Patient should not use NSAIDs to treat COVID19 signs or symptoms. Patient was also informed that any type of corticosteroid of any form (oral or injection) will decrease the patient's immune system response and may increase the likelihood of COVID19 infection and symptoms[address] Dr. Bautista has reviewed this note and agrees with this plan of care. This note was dictated using voice recognition software and make contain errors or omissions. [facility] History I have reviewed the patient's past medical history: Yes Medical History: Reports:: Arrhythmia, Cancer (skin), Depression, Hypertension, Palpitations Denies:: Diabetes Mellitus Type 1, Diabetes Mellitus Type 2, Internal Pacemaker, MRSA, Seizures *Have you ever received a pneumonia vaccine?: No *Have you received a flu vaccine this season?: No Other Medical History: Reports: Arthritis. Denies: Blood Transfusion Reaction Other Surgeries: Yes: Hysterectomy-Total, Skin Cancer Excision, Other (orthodonic). No: Pacemaker Amputation: No Fractures: No - *Social History Smoking Status: Never smoker Alcohol Intake: never Alcohol Intake Frequency:: other *Occupational Status:: disabled Housing: house Household Members: significant other *Travel in the last 8 weeks: None - Psychiatric History Pschychiatric History:: Reports:: Depression Family Hx:: Un
[2020-06-29 10:42] VITALS: BP 130/84; PULSE 98; RESP 18; TEMP 36.6; O2SAT 98; BMI 47.0
== END ==
PROVIDERS: PCP Family Medicine; Visit Provider Clinical Nurse Specialist Family Health
DX: M51.36 Other intervertebral disc degeneration, lumbar region (principal); M47.816 Spondylosis without myelopathy or radiculopathy, lumbar region; M12.88 Other specific arthropathies, not elsewhere classified, other specified site
CPT/HCPCS: 99212

== ENCOUNTER → 2020-08-24 09:39 | Outpatient (POV) | payer MEDICARE, SELFPAY ==
--- NOTE | 2020-08-24 09:59 | P.CONS_ITS ---
[facility] Pain Management SOAP Note Subjective:: Patient is a very pleasant 65-year-old white female who is doing quite well today. She received medial branch blocks which last for quite some time. Patient rates her pain a 0 out of 10. Overall patient is doing extremely well. She would like to move forward with a evaluation for a workout program to help strengthen her core and lose weight. ROS General: no recent weight change, no fever, no sleep disturbances Respiratory: no cough, no shortness of air, no recurring pulmonary infections Cardiovascular/Peripheral Vascular: No chest pain, No palpitations, no edema, no shortness of breath. Gastrointestinal: no new onset incontinence, normal bowel movements reported Genitourinary: no new onset incontinence Musculoskeletal: Back pain at times Psychiatric: normal mood/ affect, [denies depression], [denies anxiety] Neurological: [denies new onset weakness in extremities], [denies new onset balance issues] Objective:: Physical Exam General: Alert and oriented x3, no acute distress, pleasant and cooperative, [on room air] Lungs: Resps E/U, Symmetrical chest expansion, Eyes: PERRL Musculoskeletal: Flexion and extension of lumbar spine somewhat guarded secondary to pain, deep tendon reflexes normal, strength in upper and lower extremities [5/5], normal gait noted Neurological: speech clear, industrial relations specialist equal, no gross sensory deficits Assessment:: Degenerative disc disease lumbar spine lumbar spondylosis and lumbar facet arthropathy Plan:: We will set the patient up for a physical therapy evaluation for a exercise program. I will follow-up with her in 1 month reassess her symptoms at that time she has been instructed to call the office if she has any issues prior to her next appointment. Dr. Bautista has reviewed this note and agrees with this plan of care. This note was dictated using voice recognition software and may contain errors or omissions [facility] History I have reviewed the patient's past medical history: Yes Medical History: Reports:: Arrhythmia, Cancer (skin), Depression, Hypertension, Palpitations Denies:: Diabetes Mellitus Type 1, Diabetes Mellitus Type 2, Internal Pacemaker, MRSA, Seizures *Have you ever received a pneumonia vaccine?: Yes *Have you received a flu vaccine this season?: Yes Other Medical History: Reports: Arthritis. Denies: Blood Transfusion Reaction Other Surgeries: Yes: Hysterectomy-Total, Skin Cancer Excision, Other (orthodonic). No: Pacemaker Amputation: No Fractures: No - *Social History Smoking Status: Never smoker Alcohol Intake: never Alcohol Intake Frequency:: other *Occupational Status:: other Housing: house Household Members: significant other *Travel in the last 8 weeks: None - Psychiatric History Pschychiatric History:: Reports:: Depression Family Hx:: Unable to obtain
[2020-08-24 10:02] VITALS: BP 133/78; PULSE 74; RESP 18; TEMP 36.9; O2SAT 98; BMI 47.0
== END ==
PROVIDERS: PCP Family Medicine; Visit Provider Clinical Nurse Specialist Family Health
DX: M51.36 Other intervertebral disc degeneration, lumbar region (principal); M47.816 Spondylosis without myelopathy or radiculopathy, lumbar region; M54.06 Panniculitis affecting regions of neck and back, lumbar region
CPT/HCPCS: 99212; G0463

== ENCOUNTER 2020-08-29 13:42 | Outpatient (RCR) | payer MEDICARE, SELFPAY ==
--- NOTE | 2020-08-29 15:09 | HMH.PTOPEV ---
PT Outpatient Evaluation Rehab PT Outpatient Evaluation Start: 08/29/20 13:54 Freq: Status: Active Protocol: Document 08/29/20 14:57 URSULAMANI (Rec: 08/29/20 15:09 LEYLA [id number]) Electronically Signed By Michele Osullivan, JANAE 08/29/20 14:57 Outpatient Therapy Subjective History Subjective History THis is the initial Physical Therapy evaluation for Eleni Castillo. Pt is a 65 y/o female referred to PT for strengthening, core endurance and pain control s/p lumbar epidural injxns. Pt reports she has had back pain for years . Pt reports several years ago she was told he back was degenerating . Pt reports she has had multiple bouts of back pain w/ radicular S&S into BLE. Pt reports epidurals give pain relief for 3-5 months. Pt reports although she has pain relief she still cannot perform house hold activities, self care or recreational activities for extended periods of time. Chief Complaint Pain,Weakness Symptom Type Ache,Throb,Sharp,Dull Symptoms Relieved By Rest/Positioning Symptoms Aggravated By Standing,Bending/Stooping, Physical Activity,Walking Current Functional Limitations Housework,Standing,Recreation Activity,Walking Symptom Description Intermittent Level of pain today (0-10) 0 Pain scale - at its best (0-10) 0 Pain scale - at its worst (0-10) 10 Lumbopelvic Eval Palapation tenderness bilateral lumbar spinal tenderness Yes paraspinal tenderness Yes Range of Motion Lumbar Spine Active Flexion Range of 80 Motion (degrees) Lumbar Spine Active Extension Range of 15 Motion (degrees) Left Lumbar Spine Lateral Flexion Active 25 Range of Motion (degrees) Right Lumbar Spine Lateral Flexion 25 Active Range of Motion (degrees) Lumbar Spine ROM Limitations Soft Tissue Tightness,Pain Manual Muscle Test Bilateral Knee Extension Strength Grade 5 Normal Knee Flexion Strength Grade 4 Good Hip Flexion Strength Grade 4 Good Ankle Dorsiflexion Strength Grade 4 Good Gastronemius/Soleus Strength Grade 5 Normal Special Tests Lumbar Spine Screen
== END 2020-08-29 13:45 | disposition home or self-care (01) ==
LOC: PT 13:42
PROVIDERS: PCP Family Medicine; Visit Provider Clinical Nurse Specialist Family Health
DX: M54.5 Low back pain (principal)
CPT/HCPCS: 97163

== ENCOUNTER → 2020-10-23 09:43 | Outpatient (POV) | payer MEDICARE, SELFPAY ==
--- NOTE | 2020-10-23 10:06 | P.CONS_ITS ---
[facility] Pain Management SOAP Note Subjective:: Patient is a pleasant 65-year-old white female who presents today for follow-up. Patient had a medial branch block done back in June. Per Dr. Walker note it was an L3-L4 L4-L5 L5-S1 bilateral medial branch block. Patient has had significant relief until just recently. Her pain is beginning to slowly return. She has had over 80% relief for over 3 months. She rates her pain today 6 out of 10 she has positive lumbar facet loading. Patient states that her left side hurts worse at this time. However she does have pain in bilaterally. Patient is interested in pursuing a repeat medial branch block. Patient is not on any anticoagulation therapy. ROS General: no recent weight change, no fever, no sleep disturbances Respiratory: no cough, no shortness of air, no recurring pulmonary infections Cardiovascular/Peripheral Vascular: No chest pain, No palpitations, no edema, no shortness of breath. Gastrointestinal: no new onset incontinence, normal bowel movements reported Genitourinary: no new onset incontinence Musculoskeletal: Back pain Psychiatric: normal mood/ affect Neurological: [denies new onset weakness in extremities], [denies new onset balance issues] Objective:: Physical Exam General: Alert and oriented x3, no acute distress, pleasant and cooperative, [on room air] Lungs: Resps E/U, Symmetrical chest expansion, Eyes: PERRL Musculoskeletal: Flexion and extension of lumbar spine somewhat guarded secondary to pain, deep tendon reflexes normal, strength in upper and lower extremities [5/5], slightly antalgic gait noted Neurological: speech clear, napkin machine operator equal, no gross sensory deficits Assessment:: Degenerative disc disease lumbar spine lumbar spondylosis, back pain, facet arthropathy Plan:: We will set the patient up for a L3-L4 L4-L5 L5-S1 medial branch block. We will start with the left side and repeated on the right side afterwards. Patient's been instructed to call the office if she has any issues prior to her next appointment. Dr. Bautista has reviewed this note and agrees with this plan of care. This note was dictated using voice recognition software and may contain errors or omissions [facility] History I have reviewed the patient's past medical history: Yes Medical History: Reports:: Arrhythmia, Cancer (skin), Depression, Hypertension, Palpitations Denies:: Diabetes Mellitus Type 1, Diabetes Mellitus Type 2, Internal Pacemaker, MRSA, Seizures *Have you ever received a pneumonia vaccine?: Yes *Have you received a flu vaccine this season?: Yes Other Medical History: Reports: Arthritis. Denies: Blood Transfusion Reaction Other Surgeries: Yes: Hysterectomy-Total, Skin Cancer Excision, Other (orthodonic). No: Pacemaker Amputation: No Fractures: No - *Social History Smoking Status: Never smoker Alcohol Intake: never Alcohol Intake Frequency:: other *Occupational Status:: other Housing: house Household Members: significant other *Travel in the last 8 weeks: None - Psychiatric History Pschychiatric History:: Reports:: Depression Family Hx:: Unable to obtain
[2020-10-23 10:10] VITALS: BP 141/77; PULSE 74; RESP 18; O2SAT 98; BMI 48.4
== END ==
PROVIDERS: PCP Family Medicine; Visit Provider Clinical Nurse Specialist Family Health
DX: M51.36 Other intervertebral disc degeneration, lumbar region (principal); M47.896 Other spondylosis, lumbar region; M54.06 Panniculitis affecting regions of neck and back, lumbar region
CPT/HCPCS: 99212; G0463

== ENCOUNTER 2020-11-10 09:59 | Day surgery (SDC) | payer MEDICARE, SELFPAY ==
[2020-11-10 10:34] VITALS: BP 130/64; PULSE 80; RESP 18; TEMP 36.4; O2SAT 98; BMI 48.5
[2020-11-10 11:53] VITALS: BP 149/85; PULSE 89
[2020-11-10 11:54] VITALS: BP 150/89; PULSE 89; RESP 18; O2SAT 98
--- NOTE | 2020-11-10 12:01 | P.PCN_ITS ---
- Procedure Date: 11/10/20 Time: 12:01 Anesthesiologist:: Phan Bautista MD Complications:: None Pre-procedure Diagnosis:: Degenerative disc disease of lumbar spine with lumbar spondylosis and lumbar facet arthropathy Post-procedure Diagnosis:: Same Indications for Procedure:: Patient is a pleasant 65-year-old white female who we are treating for low back pain with lumbar spondylosis and lumbar facet arthropathy. She is done well with previous lumbar medial branch blocks. She gets significant relief for 3 to 4 months. Her pain is starting to come back. We will do a repeat left sided medial branch blocks today of L4-5 and L5-S1 today. Procedure Details:: Lumbar medial branch block Informed consent was obtained and the risks and benefits of the procedure was explained to the patient. The back was prepped using ChloraPrep. The skin and subcutaneous tissues were anesthetized using lidocaine. I placed 22-gauge spinal needles into the facet joint/medial branches of L4-L5 and L5-S1 on the left side. Needle placement was confirmed with dye. After this we injected 3 mL bupivacaine 0.25% and Depo-Medrol 20 mg into each facet joint/medial branch o f L4-L5 and L5-S1 on the left side. We used a total of 40 mg Depo-Medrol for both levels on the left side. The patient tolerated the procedure well with no complications. Plan and Disposition:: We will follow-up with her in 2 weeks. Will reevaluate symptoms at that time. We will plan on right-sided facet joint injection/medial branch blocks of L4-5 and L5-S1 at that time.
[2020-11-10 12:10] VITALS: BP 127/70; PULSE 81; RESP 18; O2SAT 98
== END 2020-11-10 12:10 | disposition home or self-care (01) ==
LOC: SC.PAINP 10:02
PROVIDERS: PCP Family Medicine; Visit Provider Anesthesiology
DX: M51.36 Other intervertebral disc degeneration, lumbar region (principal); M47.816 Spondylosis without myelopathy or radiculopathy, lumbar region; M54.06 Panniculitis affecting regions of neck and back, lumbar region; I10 Essential (primary) hypertension; K21.9 Gastro-esophageal reflux disease without esophagitis; F32.9 Major depressive disorder, single episode, unspecified; F41.9 Anxiety disorder, unspecified; Z79.82 Long term (current) use of aspirin; Z79.899 Other long term (current) drug therapy
CPT/HCPCS: 64493; 64494; J1030; Q9966

== ENCOUNTER 2020-11-24 09:42 | Day surgery (SDC) | payer MEDICARE, SELFPAY ==
[2020-11-24 09:44] VITALS: BP 137/74; PULSE 71; RESP 20; TEMP 35.8; O2SAT 99; BMI 48.5
[2020-11-24 10:20] VITALS: BP 133/89; PULSE 103; RESP 18; O2SAT 98
[2020-11-24 10:23] VITALS: BP 135/89; PULSE 105; RESP 18; O2SAT 98
[2020-11-24 10:38] VITALS: BP 133/70; PULSE 97; RESP 18; O2SAT 97
--- NOTE | 2020-11-24 10:45 | P.PCN_ITS ---
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 She has done well with previous medial branch blocks. She gets significant relief for 3 to 4 months. She has had left-sided L4-L5 and L5-S1 medial branch blocks. She pres ents for right-sided L4-5 and L5-S1 medial branch blocks today. Procedure Details:: Lumbar medial branch block Informed consent was obtained and the risks and benefits of the procedure was explained to the patient. The back was prepped using ChloraPrep. The skin and subcutaneous tissues were anesthetized using lidocaine. I placed 22-gauge spinal needles into the facet joint/medial branches of L4-L5 and L5-S1 bilaterally. Needle placement was confirmed with dye. After this we injected 3 mL bupivacaine 0.25% and Depo-Medrol 20 mg into each facet joint/medial branch of L4-L5 and L5-S1 bilaterally. We used a total of 40 mg Depo-Medrol for both levels on the right side. The patient tolerated the procedure well with no complications. Plan and Disposition:: We will follow-up with her in 2 weeks. Will reevaluate symptoms at that time.
== END 2020-11-24 10:39 | disposition home or self-care (01) ==
LOC: SC.PAINP 09:43
PROVIDERS: PCP Family Medicine; Visit Provider Anesthesiology
DX: M51.36 Other intervertebral disc degeneration, lumbar region (principal); M47.816 Spondylosis without myelopathy or radiculopathy, lumbar region; M54.06 Panniculitis affecting regions of neck and back, lumbar region; I10 Essential (primary) hypertension; G47.33 Obstructive sleep apnea (adult) (pediatric); F32.9 Major depressive disorder, single episode, unspecified; M19.90 Unspecified osteoarthritis, unspecified site; R00.2 Palpitations; K21.9 Gastro-esophageal reflux disease without esophagitis; F41.9 Anxiety disorder, unspecified; Z85.828 Personal history of other malignant neoplasm of skin; Z90.710 Acquired absence of both cervix and uterus
CPT/HCPCS: 64493; 64494; J1040; Q9966

== ENCOUNTER → 2020-12-21 10:12 | Outpatient (POV) | payer MEDICARE, SELFPAY ==
[2020-12-21 10:48] VITALS: BP 141/66; PULSE 85; RESP 18; O2SAT 98; BMI 48.5
--- NOTE | 2020-12-21 12:46 | P.CONS_ITS ---
[facility] Pain Management SOAP Note Subjective:: Patient is a pleasant 65-year-old white female who presents today for follow-up. At her last visit she had an L4-L5 L5-S1 medial branch block. Patient rates her pain a 9 out of 10. Patient is frustrated today she states that when she was previously getting her L3-L4 L4-L5 L5-S1 bilateral medial branch blocks she did extremely well getting over 90% relief for up to 6 months. Patient states that since her insurance has changed parameters she is no longer getting this relief. She would like to pay [id number] for any additional charge for her previous treatment. She is not on any anticoagulation therapy. Patien is on anti-inflammatories. ROS General: no recent weight change, no fever, no sleep disturbances Respiratory: no cough, no shortness of air, no recurring pulmonary infections Cardiovascular/Peripheral Vascular: No chest pain, No palpitations, no edema, no shortness of breath. Gastrointestinal: no new onset incontinence, normal bowel movements reported Genitourinary: no new onset incontinence Musculoskeletal: Back pain Psychiatric: normal mood/ affect Neurological: [denies new onset weakness in extremities], [denies new onset balance issues] Objective:: Physical Exam General: Alert and oriented x3, no acute distress, pleasant and cooperative, [on room air] Lungs: Resps E/U, Symmetrical chest expansion, Eyes: PERRL Musculoskeletal: Flexion and extension of lumbar spine somewhat guarded secondary to pain, deep tendon reflexes normal, strength in upper and lower extremities [5/5], [abnormal gait noted] Neurological: speech clear, cash applications manager equal, no gross sensory deficits Assessment:: Degenerative disc disease lumbar spine lumbar spondylosis and lumbar facet arthropathy Plan:: We will schedule the patient for an L3-L4 L4-L5 L5-S1 bilateral medial branch block. Patient's been instructed to call the office if she has any issues prior to her next appointment. I will follow-up with her afterwards reassess her symptoms at that time Dr. Bautista has reviewed this note and agrees with this plan of care. This note was dictated using voice recognition software and may contain errors or omissions [facility] History I have reviewed the patient's past medical history: Yes Medical History: Reports:: Arrhythmia, Depression, Hypertension, Palpitations Denies:: Cancer, Diabetes Mellitus Type 1, Diabetes Mellitus Type 2, Internal Pacemaker, MRSA, Seizures *Have you ever received a pneumonia vaccine?: Yes *Have you received a flu vaccine this season?: Yes Other Medical History: Reports: Arthritis. Denies: Blood Transfusion Reaction Other Surgeries: Yes: Hysterectomy-Total, Skin Cancer Excision, Other (orthodo declan). No: Pacemaker Amputation: No Fractures: No - *Social History Smoking Status: Never smoker Alcohol Intake: never Alcohol Intake Frequency:: other *Occupational Status:: other Housing: house Household Members: significant other *Travel in the last 8 weeks: None - Psychiatric History Pschychiatric History:: Reports:: Depression Family Hx:: Unable to obtain
== END ==
PROVIDERS: PCP Family Medicine; Visit Provider Clinical Nurse Specialist Family Health
DX: M51.36 Other intervertebral disc degeneration, lumbar region (principal); M54.06 Panniculitis affecting regions of neck and back, lumbar region; M47.816 Spondylosis without myelopathy or radiculopathy, lumbar region
CPT/HCPCS: 99212; G0463

== ENCOUNTER 2020-12-27 13:57 | Emergency (ER) | payer MEDICARE, SELFPAY ==
[2020-12-27 14:15] VITALS: BP 114/67; PULSE 80; RESP 19; TEMP 37; O2SAT 98; BMI 48.5
--- NOTE | 2020-12-27 14:55 | HMH.EDUTC ---
[facility] [place] Clinical Impression: Degenerative disc disease Qualifiers: Spinal region: lumbosacral Qualified Code(s): M51.37 - Other intervertebral disc degeneration, lumbosacral region Disposition: Home, Self-Care Condition on Discharge: Good Instructions: DI for Low Back Pain, DI for Sciatica, DI for Back Pain With Sciatica Additional Instructions: Follow up with Dr Bautista on Friday as scheduled Follow up with your Family Doctor if no improvement or any worsening of symptoms Return if needed Straight to ER if any life threatening symptoms Referrals: Jt Ayoub MD [Primary Care Provider] - As needed Time of Disposition: 15: Medical Decision Making - Sin Inquiry Pt receiving controlled substance: No Sin was queried for this patient: No Vital Signs: 12/27/20 14:15 Temperature 98.6 F Temperature Source Oral Pulse Rate [Right Brachial] 80 Respiratory Rate 19 Blood Pressure [Right Arm] 114/67 Blood Pressure Mean [Right Arm] 82 Blood Pressure Source [Right Arm] Automatic Cuff Blood Pressure Position [Right Arm] Sitting 02 Sat by Pulse Oximetry 98 Oxygen Delivery Method Room Air Orders (Tests/Meds): ED MEDICATIONS Discontinued Medications Generic Name Dose Route Start Last Admin Trade Name Freq PRN Reason Stop Dose Admin Ketorolac Tromethamine 60 mg 12/27/20 15:00 12/27/20 15:05 Ketorolac 60mg/2ml Vial IM 12/27/20 15:01 60 mg ONCE ONE Administration Methylprednisolone Sodium Succinate 125 mg 12/27/20 15:00 12/27/20 15:05 Methylprednisolone Sod Succ 125mg Vial IM 12/27/20 15:01 125 mg ONCE ONE Administration Medical Decision Narrative: Patient reports that she has taken Toradol and SoluMedrol in the past without complications and reactions States that she has not taken her aspirin today due to knowing she was coming in to get injections for back pain Discussed xray and patient declined states that she has history of Degenerative Disk disease AND low back pain with sciatica and she gets injections At Dr Bautista office but was unable to get in until Friday [facility] [place] - General Stated complaint: back pain Time Seen by Provider: 12/27/20 14:55 Mode of Arrival: Ambulatory Source of Information: Patient Limitations: No Limitations Description of Symptoms (Recalled from Triage Doc. by RN): PATIENT C/O LOWER BACK/SCIATICA PAIN HEENT Symptoms (Recalled from RN notes): No Resp Symptoms (Recalled from RN notes): No Skin Symptoms (Recalled from RN notes): No MS Symptoms (Recalled from RN notes): Yes Functional Status (Recalled from RN notes): WNL - History of Present Illness Provider Complaint: Patient reports that she has a history of low back pain with sciatica and she sees Dr Bautista States that she was unable to get into the office until Friday and she was having pain so she came in to see if she can get a couple shots to help with the pain until she sees Dr Bautista on Friday - Related Data Home Medications Medication Instructions Recorded Confirmed Aspirin [Aspir 81] 81 mg PO DAILY 01/24/18 11/24/20 Duloxetine HCl [Cymbalta] 30 mg PO DAILY 01/24/18 11/24/20 Acetaminophen [Tylenol] 650 mg PO Q8HP PRN 02/08/18 11/24/20 Lansoprazole [Prevacid] 15 mg PO DAILY 02/08/18 11/24/20 Valacyclovir HCl [Valacyclovir] 1 tab PO TID 02/08/18 11/24/20 Buspirone HCl [Buspar 10mg 0 mg PO BID 11/06/18 11/24/20 tablet] Gabapentin [Gabapentin 300mg Cap] 300 mg PO TID 11/06/18 11/24/20 lisinopriL [Lisinopril 10mg Tab] 10 mg PO DAILY 01/21/20 11/24/20 predniSONE [Prednisone 20mg 20 mg PO BID 05/19/20 11/24/20 Tab] Previous Rx's Medication Instructions Recorded Methocarbamol [Robaxin 500mg Tab] 500 mg PO BIDP PRN #30 tab 05/17/19 Tizanidine HCl [Zanaflex 4mg 4 mg PO TID PRN #90 tab 02/14/20 tab] Tizanidine HCl 4 mg PO TID PRN #90 cap 06/12/20 Allergies Allergy/AdvReac Type Severity Reaction Status Date / Time No Known Allergies Allergy Verified 11/10/20 11:05
[2020-12-27 15:38] VITALS: BP 114/67; PULSE 80; RESP 19; TEMP 37; O2SAT 98
== END 2020-12-27 15:42 | disposition home or self-care (01) ==
PROVIDERS: Emergency Provider Nurse Practitioner; PCP Family Medicine
DX: M51.37 Other intervertebral disc degeneration, lumbosacral region (principal); M54.41 Lumbago with sciatica, right side; F33.1 Major depressive disorder, recurrent, moderate; I10 Essential (primary) hypertension; Z79.899 Other long term (current) drug therapy
CPT/HCPCS: G0463; 96372; 99202

== ENCOUNTER → 2021-01-18 13:36 | Outpatient (POV) | payer MEDICARE, SELFPAY ==
[2021-01-18 14:03] VITALS: BP 140/98; PULSE 99; RESP 18; O2SAT 96; BMI 48.9
--- NOTE | 2021-01-18 16:24 | HMH.PAINSOAP ---
[facility] Pain Management SOAP Note Subjective:: Patient is a 65-year-old white female who presents today for follow-up. The patient is being seen in the clinic for degenerative disc disease lumbar spine with lumbar spondylosis and lumbar facet arthropathy. She has undergone medial branch block/facet joint injections at L3-L4 L4-L5 L5-S1 bilaterally. She is had these injections on multiple occasions and has gotten approximately 6 months of relief with each injection. Today she rates her pain at 8 out of 10. Unfortunately, she was denied repeat medial branch blocks by her insurance. Patient has tried and failed conservative therapies of physical therapy for greater than 6 weeks and continued home stretching. She is also tried ice and heat therapies with no significant relief. Patient wanted to defer an RFA, however, due to her insurance denying medial branch blocks, she says she will proceed with the RFA at this time. She understands we will not be able to perform the RFA on the levels she has had in the past, 3 levels. We did discuss L4-L5 L5-S1 bilaterally. She would like to undergo RFA to these areas. We also discussed taking Duexis which her insurance did not approve, I will order the patient ibuprofen along with Pepcid. She has asked for some steroids until she is able to get her RFA. Patient's pain has been to the point she has had to go to the emergency room. She was given 2 injections which gave her 2 to 3 days of relief. Her pain has returned. Patient's pain is primarily when she bends forward and extension at waist. She is not having any radicular pain at this time. Review of Systems General: No recent weight changes, no fever, no sleep disturbances Respiratory: No cough, no shortness of air, no recurring pulmonary infections Cardiovascular/peripheral vascular: No chest pain, no palpitations, no edema, no shortness of breath Gastrointestinal: No new onset incontinence, normal bowel movements reported Genitourinary: No new onset incontinence Musculoskeletal: Low back pain worse with leaning forward and extension at waist Psychiatric: Normal mood/affect Neurological: [Denies weakness in extremities], [denies balance issues] Objective:: Physical exam General: Alert and oriented x3, no acute distress, pleasant and cooperative, [on room air] Lungs: Respirations even and unlabored, symmetrical chest expansion Eyes: PERRL Musculoskeletal: Flexion and extension of lumbar spine somewhat guarded secondary to pain, deep tendon reflexes normal, strength in upper and lower extremities [5/5], antalgic gait noted, positive Kemps test Neurological: Speech clear, space planner equal, no gross sensory deficit Assessment:: Degenerative disc disease lumbar spine with lumbar spondylosis, facet arthropathy lumbar spine, Plan:: Given the patient's symptoms and excellent relief with previous medial branch blocks, up to 90% for 6 months, we will proceed with RFA of L4-L5 L5-S1 bilaterally. Patient has had therapeutic rounds of medial branch blocks greater than 3 times. She has gotten excellent relief each time. She has tried and failed conservative therapies of physical therapy for more than 6 weeks and continues with home stretching. She has tried oral medications of Duexis. Unfortunately, her insurance is not approving Duexis. We discussed a prescription for ibuprofen and Pepcid. She would like this. I will order her ibuprofen 800 mg 1 tablet p.o. 3 times daily and Pepcid to take along with her Profen. The patient is not on anticoagulation therapy. We will schedule her for RFA, as she has tried and failed all conservative therapies at this point. She is also continue with ice and heat therapies and chiropractic therapy. Risks and benefits of the procedure have been explained to the patient. Patient would like to proceed with the procedure. Patient has been instructed to contact the clinic with any concerns before the next appointment.
== END ==
PROVIDERS: Visit Provider Clinical Nurse Specialist Family Health
DX: M51.36 Other intervertebral disc degeneration, lumbar region (principal); M47.816 Spondylosis without myelopathy or radiculopathy, lumbar region; M54.06 Panniculitis affecting regions of neck and back, lumbar region
CPT/HCPCS: 99212; G0463

== ENCOUNTER 2021-01-26 11:27 | Day surgery (SDC) | payer MEDICARE, SELFPAY ==
[2021-01-26 11:59] VITALS: BP 148/62; PULSE 89; RESP 18; TEMP 36.4; O2SAT 98; BMI 48.4
[2021-01-26 13:45] VITALS: BP 145/85; PULSE 85; RESP 20; O2SAT 96
[2021-01-26 13:46] VITALS: BP 129/76; PULSE 86; RESP 20; O2SAT 96
[2021-01-26 15:09] VITALS: BP 149/62; PULSE 79; RESP 18; TEMP 36.4; O2SAT 98
--- NOTE | 2021-01-26 16:39 | HMH.PMPROC ---
- Procedure Date: 01/26/21 Time: 16:39 Anesthesiologist:: Ruthann Bobby MD Complications:: None Pre-procedure Diagnosis:: Degenerative disc disease of the lumbar spine, lumbar facet arthropathy Post-procedure Diagnosis:: same Indications for Procedure:: She is a very pleasant 65-year-old white female who presents today with low back pain related to the above diagnosis. She has undergone successful medial branch blocks/facet joint injections at L3-L4, L4-L5, and L5-S1 bilaterally. She states that she has gotten about 6 months of pain relief with these previous injections on multiple occasions. She has trialed and failed conservative treatment including oral pain medications and physical therapy for greater than 6 weeks. Today the plan is for her to undergo therapeutic bilateral lumbar RFA at L4-L5, L5-S1 bilaterally Procedure Details:: Lumbar RFA informed consent was obtained and the risk and benefits of the procedure was explained to the patient. Patient was placed prone on the procedure table. The patient was prepped and draped in sterile fashion. C-arm fluoroscopy was used to view the lumbar spine. The skin and subcutaneous tissues were anesthetized using lidocaine. I placed 20-gauge RF needles into the facet joints of [L4 and L5] levels on the right side. We underwent sensory stimulation. There is good sensory stimulation at 0.8 V. We underwent motor stimulation. There is no motor stimulation at 2 V. We then anesthetized these levels with lidocaine and Depo-Medrol. I used a total of 40 mg Depo-Medrol for both levels. I then burned both levels of L4 and L5 facet joint/medial branches on the right side for 4 minutes at 80?C. Patient tolerated the procedure well with no complication. Plan and Disposition:: We will follow-up with this patient in 2 to 3 weeks. Will reevaluate her pain symptoms at that time.
== END 2021-01-26 14:30 | disposition home or self-care (01) ==
LOC: SC.PAINP 11:28
PROVIDERS: PCP Family Medicine; Visit Provider Anesthesiology Pain Medicine
DX: M47.816 Spondylosis without myelopathy or radiculopathy, lumbar region (principal); M51.16 Intervertebral disc disorders with radiculopathy, lumbar region; I10 Essential (primary) hypertension; I49.9 Cardiac arrhythmia, unspecified; G47.33 Obstructive sleep apnea (adult) (pediatric); F32.9 Major depressive disorder, single episode, unspecified; M19.90 Unspecified osteoarthritis, unspecified site
CPT/HCPCS: 64635; 64636; J1030

== ENCOUNTER → 2021-02-22 11:01 | Outpatient (POV) | payer MEDICARE, SELFPAY ==
[2021-02-22 11:20] VITALS: BP 160/66; PULSE 75; RESP 18; O2SAT 97; BMI 48.4
--- NOTE | 2021-02-22 12:55 | HMH.PAINSOAP ---
[facility] Pain Management SOAP Note Subjective:: Patient is a 65-year-old white female who presents today for follow-up. She recently underwent an RFA at L4-L5 L5-S1 bilaterally. She is treated for degenerative disc disease lumbar spine with lumbar facet arthropathy and lumbar spondylosis. Patient says that she did not get much relief after the RFA. She is having severe low back pain at this time with radiation into bilateral feet. She says sitting standing and driving worsen her pain. She says she is unable to bend forward to put close on her turn or twist. She also says, however, her pain is radiating into her groin and buttock. She rates her pain an 8 out of 10 today. She is having difficulty with standing and walking during conversation today. She is repositioning often in the chair. She has tried failed conservative therapies of physical therapy for more than 6 weeks along with continued home stretching and anti-inflammatories. Patient says her pain in her low back is on bilateral sides. Review of Systems General: No recent weight changes, no fever, no sleep disturbances Respiratory: No cough, no shortness of air, no recurring pulmonary infections Cardiovascular/peripheral vascular: No chest pain, no palpitations, no edema, no shortness of breath Gastrointestinal: No new onset incontinence, normal bowel movements reported Genitourinary: No new onset incontinence Musculoskeletal: Low back pain with radiation into bilateral groin, bilateral buttock, bilateral legs Psychiatric: Normal mood/affect Neurological: [Denies weakness in extremities], [denies balance issues] Objective:: Physical exam General: Alert and oriented x3, no acute distress, pleasant and cooperative, [on room air] Lungs: Respirations even and unlabored, symmetrical chest expansion Eyes: PERRL Musculoskeletal: Flexion and extension of [] lumbar spine somewhat guarded secondary to pain, deep tendon reflexes normal, strength in upper and lower extremities [5/5], [abnormal gait noted] Neurological: Speech clear, pilot plant research technician equal, no gross sensory deficit Assessment:: Degenerative disc disease lumbar spine with lumbar radiculopathy symptoms Plan:: We we will schedule patient for lumbar epidural steroid injection at L4-L5. She is not on any anticoagulation therapy. She has tried physical therapy for more than 6 weeks in the past along with continued home stretching. She will continue with anti-inflammatories and home stretching at this time. We will see her back after the epidural steroid injection to reevaluate her symptoms. She did not get much relief after the RFA. She does report that the medial branch blocks gave her more relief than the RFA. Risks and benefits of the procedure have been explained to the patient. Patient would like to proceed with the procedure. Possible side effects of corticosteroids have been discussed with the patient. Patient has been instructed to contact the clinic with any concerns before the next appointment. Dr. Bautista has reviewed this note and agrees with this plan of care. This note was dictated using voice recognition software and make contain errors or omissions. [facility] History I have reviewed the patient's past medical history: Yes Medical History: Reports:: Arrhythmia, Cancer (skin), Depression, Hyperlipidemia, Hypertension, Palpitations Denies:: Diabetes Mellitus Type 1, Diabetes Mellitus Type 2, Internal Pacemaker, MRSA, Seizures *Have you ever received a pneumonia vaccine?: Yes *Have you received a flu vaccine this season?: Yes Other Medical History: Reports: Arthritis. Denies: Blood Transfusion Reaction Other Surgeries: Yes: Hysterectomy-Total, Skin Cancer Excision, Other (orthodonic). No: Pacemaker Amputation: No Fractures: No - *Social History Smoking Status: Never smoker Alcohol Intake: never Alcohol Intake Frequency:: other *Occupational Status:: unemployed Housing: house Household Members: significant o
--- NOTE | 2021-02-27 13:03 | PC.NURSE ---
Left message to notify patient of time change for injection on 02/27/21.
== END ==
PROVIDERS: PCP Family Medicine; Visit Provider Clinical Nurse Specialist Family Health
DX: M51.16 Intervertebral disc disorders with radiculopathy, lumbar region (principal)
CPT/HCPCS: 99212; G0463

== ENCOUNTER 2021-02-28 10:13 | Day surgery (SDC) | payer MEDICARE, SELFPAY ==
[2021-02-28 10:26] VITALS: BP 107/50; PULSE 85; RESP 18; TEMP 36.6; O2SAT 98; BMI 48.4
--- NOTE | 2021-02-28 11:12 | HMH.PMPROC ---
- Procedure Date: 02/28/21 Time: 11:12 Anesthesiologist:: Ruthann Bobby MD Complications:: None Pre-procedure Diagnosis:: Degenerative disc disease of lumbar spine, lumbar radiculopathy Post-procedure Diagnosis:: Same Indications for Procedure:: This patient is a very pleasant 65-year-old white female who presents today with chronic low back pain radiating into both legs. She has previously undergone RFA at L4-L5 and L5-S1 bilaterally. Today she states that she has received 90% pain relief in her low back that is ongoing after undergoing the RFA., She states that since then she has started experiencing any pain that goes down into her buttocks bilaterally to the level of her feet. She continues to have severe low back pain with radiation into her legs posteriorly down to her feet bilaterally. She has tried and failed conservative treatment including oral pain medication and physical therapy for more than 6 weeks. Plan for today is for the patient to undergo a lumbar epidural steroid injection S1 under fluoroscopy #1. Procedure Details:: Informed consent was obtained and the risk and benefits of the procedure was explained to the patient. The patient was taken to the procedure room. The patient was placed prone on the procedure table. The patient was prepped and draped in sterile fashion. C-arm fluoroscopy was used to view the lumbar spine. Skin and subcutaneous tissues were anesthetized using lidocaine. I placed an 18-gauge epidural needle and advanced into the L5-S1 interspace using fluoroscopic guidance and [id number] to air and saline. After confirmation of needle placement in the epidural space with dye I injected 1 mL of lidocaine 1.0% with Depo-Medrol 80 mg. Patient tolerated the procedure well with no complications. Plan and Disposition:: We will follow-up with this patient in 2 weeks. Will reevaluate pain symptoms at that time.
[2021-02-28 11:18] VITALS: BP 122/81; PULSE 90; RESP 18; O2SAT 97
[2021-02-28 11:23] VITALS: BP 143/90; PULSE 86; RESP 18; O2SAT 97
[2021-02-28 11:38] VITALS: BP 107/64; PULSE 79; RESP 20; O2SAT 98
== END 2021-02-28 11:39 | disposition home or self-care (01) ==
LOC: SC.PAINP 10:14
PROVIDERS: PCP Family Medicine; Visit Provider Anesthesiology Pain Medicine
DX: M51.16 Intervertebral disc disorders with radiculopathy, lumbar region (principal)
CPT/HCPCS: 62323; J1040; Q9966

== ENCOUNTER → 2021-03-19 11:29 | Outpatient (POV) | payer MEDICARE, SELFPAY ==
[2021-03-19 11:49] VITALS: BP 136/70; PULSE 81; RESP 18; O2SAT 98; BMI 49.3
--- NOTE | 2021-03-19 12:32 | HMH.PAINSOAP ---
[facility] Pain Management SOAP Note Subjective:: Patient is a pleasant 66-year-old white female who presents today for follow-up after RFA lumbar spine L4-L5 L5-S1 bilaterally. She is being treated for degenerative disc disease lumbar spine with lumbar facet arthropathy and lumbar spondylosis. Patient says that she got 100% relief with her RFA. She is not having any pain at this time. She says that she does have some occasional spasms in her low back area when she is standing and walking, however, she denies any pain at this time. Patient does report due to steroid she has had a 20 pound weight gain recently. She is going to discuss weight loss procedures/medications with Dr. Strong so that she can begin to lose weight. She feels this will also help with her pain in her back if she is able to lose weight. Overall, she is doing exceptional since the RFA. Review of Systems General: No recent weight changes, no fever, no sleep disturbances Respiratory: No cough, no shortness of air, no recurring pulmonary infections Cardiovascular/peripheral vascular: No chest pain, no palpitations, no edema, no shortness of breath Gastrointestinal: No new onset incontinence, normal bowel movements reported Genitourinary: No new onset incontinence Musculoskeletal: Denies pain at this time Psychiatric: [Normal mood/affect] Neurological: [Denies weakness in extremities], [denies balance issues] Objective:: Physical exam General: Alert and oriented x3, no acute distress, pleasant and cooperative, [on room air] Lungs: Respirations even and unlabored, symmetrical chest expansion Eyes: PERRL Musculoskeletal: Flexion and extension of [] [spine] nonguarded, strength in upper and lower extremities [5/5], [normal gait noted d] Neurological: Speech clear, [satellite dish technician equal], no gross sensory deficit Assessment:: Degenerative disc disease lumbar spine with lumbar facet arthropathy and lumbar spondylosis Plan:: Patient is doing well overall since her RFA. We will plan to follow-up with her in 3 months for reevaluation of symptoms. She has been instructed to contact clinic if she has any concerns before next appointment. Patient has been instructed to contact the clinic with any concerns before the next appointment. Dr. Bautista has reviewed this note and agrees with this plan of care. This note was dictated using voice recognition software and make contain errors or omissions. [facility] History I have reviewed the patient's past medical history: Yes Medical History: Reports:: Arrhythmia, Cancer, Depression, Hyperlipidemia, Hypertension, Palpitations Denies:: Diabetes Mellitus Type 1, Diabetes Mellitus Type 2, Internal Pacemaker, MRSA, Seizures *Have you ever received a pneumonia vaccine?: Yes *Have you received a flu vaccine this season?: No Other Medical History: Reports: Arthritis. Denies: Blood Transfusion Reaction Other Surgeries: Yes: Hysterectomy-Total, Skin Cancer Excision, Other (orthodonic). No: Pacemaker Amputation: No Fractures: No - *Social History Smoking Status: Never smoker Alcohol Intake: never Alcohol Intake Frequency:: other *Occupational Status:: unemployed Housing: house Household Members: spouse *Travel in the last 8 weeks: None - Psychiatric History Pschychiatric History:: Reports:: Depression Family Hx:: Unable to obtain
== END ==
PROVIDERS: PCP Family Medicine; Visit Provider Clinical Nurse Specialist Family Health
DX: M51.36 Other intervertebral disc degeneration, lumbar region (principal); M54.06 Panniculitis affecting regions of neck and back, lumbar region; M47.816 Spondylosis without myelopathy or radiculopathy, lumbar region
CPT/HCPCS: 99212; G0463

== ENCOUNTER → 2021-03-23 14:48 | Outpatient (CLI) | payer MEDICARE, SELFPAY | PROVIDERS: PCP Family Medicine; Visit Provider Family Medicine | DX: Z71.3 Dietary counseling and surveillance (principal); E66.01 Morbid (severe) obesity due to excess calories; M54.16 Radiculopathy, lumbar region; Z79.52 Long term (current) use of systemic steroids | CPT/HCPCS: 97802 ==

== ENCOUNTER → 2021-05-04 13:10 | Outpatient (CLI) | payer MEDICARE, SELFPAY | PROVIDERS: PCP Family Medicine; Visit Provider Nurse Practitioner | DX: Z20.822 Contact with and (suspected) exposure to COVID-19 (principal) | CPT/HCPCS: C9803; U0003; U0005 ==

== ENCOUNTER → 2021-06-22 10:26 | Outpatient (CLI) | payer MEDICARE, SELFPAY ==
[2021-06-22 10:32] LABS: Microscopic, Urine URINE MICROSCOPIC (MICROSCOPIC)
[2021-06-22 10:56] LABS: Appearance,Urine CLEAR (Clear); Bilirubin,Urine Negative (Negative); Blood, Urine 1+ (Negative); Color,Urine YELLOW (Yellow); Glucose,Urine (UA) Negative (Negative); Ketones,Urine Negative (Negative); Leukocyte Esterase,Urine 2+ (Negative); Nitrate,Urine Negative (Negative); Protein,Urine Negative (Negative); Specific Gravity, Urine >= 1.030 (1.005-1.030); Urobilinogen,Urine 0.2 EU/dl (0.2)
[2021-06-22 11:20] LABS: Amorphous Sediment,Urine 1+ /lpf; Bacteria,Urine 1+ /lpf
== END ==
PROVIDERS: Visit Provider Physician Assistant
DX: R30.0 Dysuria (principal); N39.0 Urinary tract infection, site not specified; B96.1 Klebsiella pneumoniae [K. pneumoniae] as the cause of diseases classified elsewhere
CPT/HCPCS: 81001; 87086; 87088; 87186

== ENCOUNTER → 2021-07-03 12:34 | Outpatient (CLI) | payer MEDICARE, SELFPAY ==
[2021-07-03 12:40] LABS: Microscopic, Urine URINE MICROSCOPIC (MICROSCOPIC)
[2021-07-03 13:43] LABS: Appearance,Urine CLEAR (Clear); Bilirubin,Urine Negative (Negative); Blood, Urine TRACE-L (Negative); Color,Urine YELLOW (Yellow); Glucose,Urine (UA) Negative (Negative); Ketones,Urine Negative (Negative); Leukocyte Esterase,Urine TRACE (Negative); Nitrate,Urine Negative (Negative); Protein,Urine Negative (Negative); Specific Gravity, Urine >= 1.030 (1.005-1.030); Urobilinogen,Urine 0.2 EU/dl (0.2)
[2021-07-03 14:42] LABS: Bacteria,Urine 2+ /lpf; Mucus,Urine 1+ /lpf
== END ==
PROVIDERS: Family Medicine; Visit Provider Physician Assistant
DX: N39.0 Urinary tract infection, site not specified (principal)
CPT/HCPCS: 81001; 87086

== ENCOUNTER → 2021-08-11 12:46 | Outpatient (CLI) | payer MEDICARE, SELFPAY | PROVIDERS: PCP Family Medicine; Visit Provider Nurse Practitioner Family | DX: Z20.822 Contact with and (suspected) exposure to COVID-19 (principal) | CPT/HCPCS: C9803; U0003; U0005 ==

== ENCOUNTER → 2022-02-11 10:50 | Outpatient (CLI) | payer MEDICARE, SELFPAY ==
[2022-02-13 10:39] LABS: QuantiFERON-TB Gold Plus Negative (Negative)
== END ==
PROVIDERS: PCP Family Medicine; Visit Provider Family Medicine
DX: Z11.1 Encounter for screening for respiratory tuberculosis (principal)
CPT/HCPCS: 36415; 86480

== ENCOUNTER 2022-02-11 11:11 | Emergency (ER) | payer MEDICARE, SELFPAY ==
[2022-02-11 11:25] VITALS: BP 116/79; PULSE 88; RESP 18; TEMP 36.7; O2SAT 97; BMI 43.8
[2022-02-11 11:30] VITALS: BP 116/79; PULSE 88; RESP 18; TEMP 36.7; O2SAT 97
== END 2022-02-11 11:41 | disposition left against medical advice (07) ==
PROVIDERS: Emergency Provider Nurse Practitioner; PCP Family Medicine
DX: Z53.21 Procedure and treatment not carried out due to patient leaving prior to being seen by health care provider; Z20.822 Contact with and (suspected) exposure to COVID-19
CPT/HCPCS: 36415; 86480; C9803; U0003; U0005

== ENCOUNTER 2022-03-20 11:13 | Emergency (ER) | payer MEDICARE, SELFPAY ==
[2022-03-20 12:05] VITALS: BP 141/89; PULSE 102; RESP 18; TEMP 37.3; O2SAT 98; BMI 47.2
--- NOTE | 2022-03-20 12:26 | HMH.EDUTC ---
[facility] [place] Disposition Clinical Impression: Viral syndrome, Encounter for laboratory testing for COVID-19 virus Disposition: Home, Self-Care Condition on Discharge: Good Instructions: DI for COVID-19 (Suspected or Confirmed ), Preventing the Spread of Coronavirus Discharge Instructions Additional Instructions: *Monitor Temp, Over the counter Motrin or Tylenol as directed/as needed Tylenol every 4 hours and Motrin every 6 hours (as long as your family doctor has told you that you can take it) for fever or pain. and straight to ER if unable to lower temp less than 101.0 after medication given *Warm salt water gargles may help to soothe the throat *Throat Lozenges *Warm fluids like tea with honey may help to soothe the throat *Sleep elevated *Humidifier/Vaporizer Follow up IMMEDIATELY for new or worsening symptoms or no Noticeable improvement over the next 48-72 hours. 911 for difficulty breathing or swallowing You were tested for today for COVID19 your test result should be back in the next 24-48 hours, you may check your result on the [facility] My Health Portal Make sure to take your Vitamins Vit. C Vit D and Zinc if you can take them Prescriptions: Ondansetron [Zofran 4mg ODT] 4 mg PO TIDP PRN #10 tab PRN Reason: Nausea Transmission Status: Received by [facility] Referrals: Jt Ayoub MD [Primary Care Provider] - As needed Time of Disposition: 12:57 Medical Decision Making - Sin Inquiry Pt receiving controlled substance: No Sin was queried for this patient: No Vital Signs: 03/20/22 12:05 03/20/22 12:35 Temperature 99.2 F 99.2 F Temperature Source Oral Pulse Rate 102 H Pulse Rate [Right Brachial] 102 H Respiratory Rate 18 18 Blood Pressure 141/89 H Blood Pressure [Right Arm] 141/89 H Blood Pressure Mean [Right Arm] 106 Blood Pressure Source [Right Arm] Automatic Cuff Blood Pressure Position [Right Arm] Sitting 02 Sat by Pulse Oximetry 98 Oxygen Delivery Method Room Air Orders (Tests/Meds): ED MEDICATIONS Discontinued Medications Generic Name Dose Route Start Last Admin Trade Name Freq PRN Reason Stop Dose Admin Ondansetron HCl 4 mg 03/20/22 12:40 03/20/22 12:50 Ondansetron 4mg Odt SL 03/20/22 12:41 4 mg ONCE ONE Administration ORDERS Category Date Time Status Covid-19 Nasal PCR ([facility]) Routine Lab 03/20/22 12:00 Received [facility] [place] HPI - General Stated complaint: fever/chills, cough, fatigue Time Seen by Provider: 03/20/22 12:26 Mode of Arrival: Ambulatory Source of Information: Patient Limitations: No Limitations Description of Symptoms (Recalled from Triage Doc. by RN): PATIENT C/O COUGH, BODY ACHES, AND FEVER SINCE THIS MORNING HEENT Symptoms (Recalled from RN notes): No Resp Symptoms (Recalled from RN notes): Yes Skin Symptoms (Recalled from RN notes): No MS Symptoms (Recalled from RN notes): No Functional Status (Recalled from RN notes): WNL - History of Present Illness Provider Complaint: Patient states that she was fine last night but woke up this morning having bodyaches, fatigue, chills and fever with a mild cough states that she was worried where it came on so quickly that she may have COVID so she came in to get checked - Related Data Home Medications Medication Instructions Recorded Confirmed Aspirin [Aspir 81] 81 mg PO DAILY 01/24/18 02/28/21 Acetaminophen [Tylenol] 650 mg PO Q8HP PRN 02/08/18 02/28/21 Lansoprazole [Prevacid] 15 mg PO DAILY 02/08/18 02/28/21 Valacyclovir HCl [Valacyclovir] 1 tab PO TID 02/08/18 01/26/21 Gabapentin [Gabapentin 300mg Cap] 300 mg PO TID 11/06/18 02/28/21 lisinopriL [Lisinopril 10mg Tab] 10 mg PO DAILY 01/21/20 02/28/21 Previous Rx's Medication Instructions Recorded Tizanidine HCl [Zanaflex 4mg 4 mg PO TID PRN #90 tab 02/14/20 tab] Ibuprofen [Ibuprofen 800mg 800 mg PO Q8HP PRN 30 Days #90 tab 01/18/21 Tablet] Tizanidine HCl [Zanaflex 4mg 4 mg PO BID #60 tab 03/19/21 tab]
[2022-03-20 12:35] VITALS: BP 141/89; PULSE 102; RESP 18; TEMP 37.3; O2SAT 98
== END 2022-03-20 13:01 | disposition home or self-care (01) ==
PROVIDERS: Emergency Provider Nurse Practitioner; PCP Family Medicine
DX: U07.1 COVID-19 (principal); I10 Essential (primary) hypertension
CPT/HCPCS: 99212; C9803; G0463; U0003; U0005

== ENCOUNTER 2022-08-13 16:42 | Emergency (ER) | payer MEDICARE, SELFPAY ==
[2022-08-13 16:48] VITALS: BP 102/58; PULSE 80; RESP 18; TEMP 36.6; O2SAT 95; BMI 43.2
[2022-08-13 16:54] VITALS: BMI 41.8
--- NOTE | 2022-08-13 16:55 | XR_ITS ---
PROCEDURE INFORMATION: Exam: XR Chest Exam date and time: 08/13/2022 5:17 PM Age: 67 years old Clinical indication: Pain; Angina pectoris; Additional info: Nikita pain TECHNIQUE: Imaging protocol: Radiologic exam of the chest. Views: 1 view. COMPARISON: CR CXR1 CHEST-PORTABLE 06/07/2017 10:44 PM FINDINGS: Lungs: No evidence of pneumonia or interstitial edema. Pleural spaces: Unremarkable. No pleural effusion. No pneumothorax. Heart/Mediastinum: Unremarkable. No cardiomegaly. Bones/joints: Unremarkable. IMPRESSION: No evidence of pneumonia or interstitial edema.
[2022-08-13 17:10] LABS: Basophils # 0.1 K/mm3 (0-0.2); Eosinophils # 0.1 K/mm3 (0.0-0.4); Eosinophils % 1.4 % (0.1-12.0); Hematocrit 40.9 % (37.0-47.0); Hemoglobin 13.7 g/dL (12.2-16.2); Lymphocytes # 2.4 K/mm3 (0.7-4.5); Lymphocytes % 25.7 % (10-50); Mean Corpuscular HGB Conc 33.4 g/dL (31.8-35.4); Mean Corpuscular Hemoglobin 30.6 pg (27.0-31.2); Mean Corpuscular Volume 91.5 fl (81-99); Mean Platelet Volume 7.5 fl (7.4-10.4); Monocytes # 0.4 K/mm3 (0.1-1.0); Monocytes % 3.8 % (1.7-9.3); Neutrophils # 6.4 K/mm3 (1.8-7.8); Neutrophils % 68.1 % (37.0-80.0); Platelet Count 411 K/mm3 (142-424); Red Blood Count 4.47 M/mm3 (4.20-5.40); Red Cell Distribution Width 13.7 % (11.5-17.5); White Blood Count 9.4 K/mm3 (4.8-10.8)
[2022-08-13 17:16] LABS: Blood Urea Nitrogen 24 mg/dl (7-17); Calcium 8.6 mg/dl (8.4-10.2); Carbon Dioxide 29 mmol/L (22.0-30.0); Chloride 102 mmol/L (98-107); Creatinine Clearance Estimated 54 mL/min (50-200); Estimated Glomerular Filt Rate 63 ml/min (>60); GFR (African American) 76 ML/MIN (>60); Glucose 85 mg/dl (74-100); Sodium 139 mmol/L (136-145)
--- NOTE | 2022-08-13 17:27 | ECG_ITS ---
APPROVED REPORT Exam: Resting ECG HR:83 bpm ECG Measurements Heart Rate 83 AXES WV 169 P 60 QRSd 90 QRS -21 QT 396 T 62 QTc 436 Conclusion SINUS RHYTHM BORDERLINE LEFT AXIS DEVIATION [QRS AXIS < -20] BORDERLINE ECG UNCONFIRMED REPORT Electronically signed by : Joseluis Lira MD 08/15/2022 08:13:53
[2022-08-13 17:28] LABS: Troponin I < 0.01 ng/ml (0.00-0.034)
[2022-08-13 17:30] VITALS: BP 110/63; PULSE 74; RESP 20; O2SAT 96
[2022-08-13 18:00] VITALS: BP 118/60; PULSE 72; RESP 17; O2SAT 97
[2022-08-13 19:32] VITALS: BP 126/70; PULSE 70; RESP 15; O2SAT 97
[2022-08-13 19:46] LABS: Troponin I < 0.01 ng/ml (0.00-0.034)
[2022-08-13 20:00] VITALS: BP 126/75; PULSE 66; RESP 14; O2SAT 99
--- NOTE | 2022-08-13 21:29 | HMH.EDCP ---
Discharge Plan Disposition Patient Disposition: Home, Self-Care Chief Complaint: Chest Pain Prescriptions Prescriptions: No Action pantoprazole 40 mg tablet,delayed release (DR/EC) 40 mg PO BID diphenhydramine HCl [Benadryl] 25 mg capsule 25 mg PO TID PRN acetaminophen [Tylenol] 325 MG tablet 650 mg PO Q8HP PRN (Reason: PAIN) valacyclovir 1 gram tablet 1,000 mg PO TID PRN (Reason: ANTIVIRAL) lisinopril 10 MG tablet 10 mg PO DAILY ondansetron 4 MG tablet,disintegrating 4 mg PO TIDP PRN (Reason: Nausea) Qty: 10 0RF aspirin [Aspir-81] 81 MG tablet,delayed release (DR/EC) 81 mg PO DAILY gabapentin 300 MG capsule 300 mg PO TID tizanidine 4 MG tablet 4 mg PO TID PRN (Reason: SPASMS) Qty: 90 0RF Clinical Impressions Clinical Impression: Chest pain Instructions Patient Instructions: DI for Chest Pain Discharge ED Provider: Tha Strong Chest Pain HPI General Chief Complaint: Chest Pain Stated Complaint: chest pain Time Seen by Provider: 08/13/22 21:29 Mode of Arrival: EMS Source of Information: Patient, Spouse and Medical Record Limitations: No Limitations Description of Symptoms (Recalled from ER Triage Doc. by RN): PT BROUGHT IN VIA EMS CHEST PAIN, MID STERNUM THAT RADIATES UNDER LEFT BREAST. PAIN WHILE AT REST. NAUSEA THAT STARTED THIS AM. RECEIVED ASA AND NITRO PER EMS. REPORTS SOME RELIEF History of Present Illness HPI narrative: acute onset of ant chest pain with rad to neck and lt upper ext - pain relieved with ntg - MD complaint: chest pain indicative of cardiac Onset (ago): hour(s) Duration: intermittent Activity at onset: during rest Pain location: left chest Severity: moderate Quality: sharp Pain radiation: LUE Relieving factors: nitroglycerin Associated symptoms: nausea Risk Factors for CAD: Hypertension and Family Hx of CAD Treatments prior to or on arrival for Cardiac Chest Pain: aspirin and nitroglycerin SHAYAN Score for Non-Stemi Age of Patient: 60-69 years old Heart Rate: 70-89 bpm Systolic Blood Pressure: 100-119 mmHg Serum Creatinine: 0.80-1.19 mg/dl CHF [place] Class: I-No CHF Other Risk Factors: None Non-Stemi Risk Score: 117 Related Data On Oral Contraceptives: No Home Medications Medication Instructions Recorded Confirmed aspirin 81 mg tablet,delayed 81 mg PO DAILY Blood thinner 01/24/18 06/19/22 release (Aspir-) acetaminophen 325 mg tablet 650 mg PO Q8HP PRN PAIN 02/08/18 06/19/22 (Tylenol) gabapentin 300 mg capsule 300 mg PO TID Pain 11/06/18 06/19/22 lisinopril 10 mg tablet 10 mg PO DAILY BLOOD PRESSURE 01/21/20 06/19/22 diphenhydramine HCl 25 mg capsule 25 mg PO TID PRN 06/19/22 06/19/22 (Benadryl) pantoprazole 40 mg tablet,delayed 40 mg PO BID 06/19/22 06/19/22 release valacyclovir 1 gram tablet 1,000 mg PO TID PRN ANTIVIRAL 06/19/22 06/19/22 Previous Rx's Medication Instructions Recorded tizanidine 4 mg tablet 4 mg PO TID PRN SPASMS #90 tabs 02/14/20 ondansetron 4 mg disintegrating 4 mg PO TIDP PRN Nausea #10 tabs 03/20/22 tablet Allergies Allergy/AdvReac Type Severity Reaction Status Date / Time No Known Allergies Allergy Verified 06/19/22 13:57 [facility] Disclaimer: The information contained in this section may have been updated after the patient was seen, as this information can be updated by other users. Social History Smoking Status: Never smoker second hand exposure: No alcohol intake: never current occupational status: other Travel in the last 8 weeks: None household members: spouse housing: house current occupational exposures/hazards: No caffeine: Yes ROS Obtained: Yes All systems reviewed & no additional complaints except as documented Physical Exam General General appearance: alert Head Head exam: normocephalic Eye Eye exam: Present PERRL and EOMI ENT ENT exam: Present mucous membranes moist Neck Neck exam: Present trachea midline Res
[2022-08-13 21:40] VITALS: BP 115/69; PULSE 70; RESP 16; TEMP 36.8; O2SAT 96
== END 2022-08-13 21:42 | disposition home or self-care (01) ==
PROVIDERS: Emergency Medicine; Emergency Provider Emergency Medicine
DX: R07.89 Other chest pain (principal); R11.0 Nausea; M54.2 Cervicalgia; I10 Essential (primary) hypertension; Z82.49 Family history of ischemic heart disease and other diseases of the circulatory system; Z20.822 Contact with and (suspected) exposure to COVID-19
CPT/HCPCS: 36415; 71045; 80048; 84484; 85025; 93005; 99285; C9803; U0003; U0005

== ENCOUNTER → 2022-08-14 08:15 | Outpatient (CLI) | payer SELFPAY ==
--- NOTE | 2022-08-14 08:23 | CT_ITS ---
FINAL REPORT CLINICAL HISTORY: . FINDINGS: CT CORONARY CALCIUM SCORE W/O TECHNIQUE: Thin-section axial images were obtained through the heart and coronary arteries per CT coronary calcium score protocol. This study was performed with techniques to keep radiation doses as low as reasonably achievable (ALARA). Individualized dose reduction techniques using automated exposure control or adjustment of mA and/or kV according to the patient's size were employed. FINDINGS: On the axial images, no calcification is seen. This gives a coronary artery calcium score of 0 based on the Agatston scale. This coronary artery calcium score places the patient within the 0 percentile based on age and gender. The heart size is normal. There is no pleural or pericardial effusion. Limited evaluation of the lungs reveal no suspicious nodule. IMPRESSION: Coronary artery calcium score is 0 based on the Agatston scale placing the patient in the 0 percentile based on age and gender. Reviewed, Interpreted and Dictated by Alejandrina Cowart MD Transcribed by Bhavna Manning Authenticated and [facility]
== END ==
PROVIDERS: PCP Family Medicine; Visit Provider Family Medicine
DX: Z13.6 Encounter for screening for cardiovascular disorders (principal)
CPT/HCPCS: 75571

== ENCOUNTER → 2022-09-02 13:02 | Outpatient (POV) | payer MEDICARE, SELFPAY ==
[2022-09-02 13:51] VITALS: BP 124/67; PULSE 97; RESP 18; O2SAT 97; BMI 44.6
--- NOTE | 2022-09-02 14:07 | A.OFFVIS_ITS ---
[facility] Pain Management SOAP Note Subjective:: Patient is a pleasant 67-year-old female who presents today for follow-up. We are currently treating the patient for degenerative disc disease of lumbar spine with lumbar radiculopathy symptoms, lumbar facet arthropathy, lumbar spondylosis. Today the patient rates her pain an 8 out of 10. Patient denies any new trauma or injury. Patient states that she randomly woke up in the middle of the night and had numbness and pain in her left leg down to her foot. Patient states this is continued over the last 3 weeks and progressively worsened over time. Patient has tried [id number] medications with minimal improvement. Previously the patient did have a lumbar RFA that provided sign ificant improvement of upwards of 100% relief lasting up until this last occurrence. Patient is currently prescribed gabapentin 300 mg 3 times a day from her primary care doctor. Patient denies any side effects from this medicine. Patient does use a cane for ambulation her Sin is [id number]. Its been reviewed and appropriate. Review of Systems: General: No recent weight changes, no fever, no sleep disturbances Respiratory: No cough, no shortness of air, no recurring pulmonary infections Cardiovascular/peripheral vascular: No chest pain, no palpitations, no edema, no shortness of breath Gastrointestinal: No new onset incontinence, normal bowel movements reported Genitourinary: No new onset incontinence Musculoskeletal: Low back pain, left leg pain Psychiatric: [Normal mood/affect] Neurological: [Denies weakness in extremities], [denies balance issues] Objective:: Physical Exam: General: Alert and oriented x3, no acute distress, pleasant and cooperative Lungs: Respirations even and unlabored, symmetrical chest expansion Eyes: PERRL Musculoskeletal: Flexion and extension of lumbar [spine] somewhat guarded secondary to pain, [antalgic gait noted] Neurological: Speech clear, no gross sensory deficit ORT score updated with low risk Assessment:: Degenerative disc disease of lumbar spine with lumbar radiculopathy symptoms, lumbar facet arthropathy, lumbar spondylosis Plan:: Patient is experienced significant pain and numbness in her low back with radiating symptoms down her left leg. Patient did have limited range of motion of her lumbar spine during today's visit. I have discussed with the patient that she may benefit from diagnostic left transforaminal epidural steroid injection. Risk and benefits were discussed with the patient. She would like to proceed forward with this plan of care. Patient is not on any blood thinners. I will also order an x-ray of her lumbar spine at today's visit. We will schedule the patient for a diagnostic left transforaminal epidural steroid injection at L4-L5 and L5-S1. Patient has been instructed to contact the clinic with any concerns before the next appointment. Dr. Bautista has reviewed this note and agrees with this plan of care. This note was dictated using voice recognition software and make contain errors or omissions. [facility] Disclaimer: The information contained in this section may have been updated after the patient was seen, as this information can be updated by other users. Social History Smoking Status: Never smoker second hand exposure: No alcohol intake: never current occupational status: retired Travel in the last 8 weeks: None household members: spouse housing: house current occupational exposures/hazards: No caffeine: Yes
== END ==
PROVIDERS: PCP Family Medicine; Visit Provider Nurse Practitioner Family
DX: M51.16 Intervertebral disc disorders with radiculopathy, lumbar region (principal); M47.26 Other spondylosis with radiculopathy, lumbar region
CPT/HCPCS: 99212; G0463

== ENCOUNTER → 2022-09-02 14:15 | Outpatient (CLI) | payer MEDICARE, SELFPAY ==
--- NOTE | 2022-09-02 14:24 | XR_ITS ---
FINAL REPORT CLINICAL HISTORY: LOW BACK PAIN FINDINGS: AP, lateral, and oblique views of the lumbar spine were obtained. There is no acute fracture or acute malalignment. Vertebral body height is preserved. There is multilevel degenerative disc disease, most pronounced at L4-5 and L5-S1. No acute paraspinal abnormality is identified. IMPRESSION: No acute osseous abnormalities lumbar spine. Reviewed, Interpreted and Dictated by Kelsie Tran MD Transcribed by Tomasa Walker Authenticated and [facility]
== END ==
PROVIDERS: PCP Family Medicine; Visit Provider Anesthesiology
DX: M54.50 Low back pain, unspecified (principal)
CPT/HCPCS: 72110; 99212; G0463

== ENCOUNTER 2022-09-10 08:41 | Day surgery (SDC) | payer MEDICARE, SELFPAY ==
[2022-09-10 08:47] VITALS: BP 129/88; PULSE 82; RESP 18; TEMP 36.6; O2SAT 96; BMI 45.4
[2022-09-10 09:03] VITALS: BP 150/47; PULSE 87; RESP 18; O2SAT 98
[2022-09-10 09:04] VITALS: BP 150/47; PULSE 87; RESP 18; O2SAT 98
[2022-09-10 09:14] VITALS: BP 117/60; PULSE 81; RESP 18; O2SAT 96
--- NOTE | 2022-09-10 09:17 | EXP.PAIN.PRO ---
Procedure Date: 09/10/22 Time: 09:10 Anesthesiologist:: Rik Kenny CRNA Complications:: None Pre-procedure Diagnosis:: Degenerative disc disease lumbar spine multilevels. Lumbar radiculopathy. Disc bulge L4-5, L5-S1. Post-procedure Diagnosis:: Same. Indications for Procedure:: Patient is a pleasant 67-year-old female comes our clinic today for left L4 and L5 selective nerve root block of lumbar spine. Patient describes left hip and leg radicular symptoms as constant, sharp and stabbing at times. She rates her pain 8/10 Procedure Details:: Details of the procedure were explained to the patient. The patient was taken the procedure room placed in the prone position. The area of the lumbar spine was cleansed using chlorhexidine as a cleansing solution. At this time using fluoroscopy guidance markers were placed on the left lateral border of the L4 and L5 vertebral body. The skin and subcutaneous tissue was anesthetized using 1% lidocaine and 25-gauge needle. At this time using a 22-gauge 3-1/2 inch spinal needle the left upper one third of the L4-5 foramen was accessed. The same was done at the right L5-S1 foramen. Needle positions were confirmed and a lateral view using fluoroscopy and contrast dye. At this time 1 cc of 1% lidocaine +20 mg of Depo-Medrol was injected at each level after negative aspiration. [place] were removed. Band-Aid applied. Patient tolerated the procedure without difficulty. There are no complications. Plan and Disposition:: Patient was discharged without incident.
== END 2022-09-10 09:14 | disposition home or self-care (01) ==
PROVIDERS: PCP Family Medicine; Visit Provider Nurse Anesthetist, Certified Registered
DX: M51.16 Intervertebral disc disorders with radiculopathy, lumbar region (principal)
CPT/HCPCS: 64483; 64484; J1030

== ENCOUNTER → 2022-09-25 10:00 | Outpatient (POV) | payer MEDICARE, SELFPAY ==
--- NOTE | 2022-09-25 10:48 | EXP.PAIN.SOA ---
[facility] Pain Management SOAP Note Subjective:: Patient is a pleasant 67-year-old female who presents today for follow-up of left transforaminal epidural steroid injection at L4-L5 and L5-S1 on 09/10/2022. We are currently treating the patient for degenerative disc disease of lumbar spine with lumbar radiculopathy symptoms, lumbar facet arthropathy, lumbar spondylosis, left leg pain. Today she states that she had 0 relief from this injection. Patient rates her pain today a 6 out of 10. Patient states that she has started to experience pain along the right side as well. Patient states this is an aching, throbbing sensation that is worse with increased activity. Patient states that she does also notice it more frequently at night. She states that it is a severe pain that keeps her awake. Patient does state the pain goes from her low back radiating into her groin and down her leg to her knees on both sides. Patient does state this pain affects her ability to perform activities of daily living such as cooking and cleaning. Patient frequently cannot tolerate prolonged standing, sitting, walking due to the pain. Patient denies any new trauma or injury. Patient has had multiple injections in the past with the only one that made real significant difference being a lumbar RFA that lasted over 1 year. Patient is currently managed gabapentin 300 mg 3 times a day from her primary care doctor. Patient denies any side effects from this medication. Her Sin is [id number]. Its been reviewed and appropriate. Review of Systems: General: No recent weight changes, no fever, no sleep disturbances Respiratory: No cough, no shortness of air, no recurring pulmonary infections Cardiovascular/peripheral vascular: No chest pain, no palpitations, no edema, no shortness of breath Gastrointestinal: No new onset incontinence, normal bowel movements reported Genitourinary: No new onset incontinence Musculoskeletal: Low back pain, bilateral leg pain Psychiatric: [Normal mood/affect] Neurological: [Denies weakness in extremities], [denies balance issues] Objective:: Physical Exam: General: Alert and oriented x3, no acute distress, pleasant and cooperative Lungs: Respirations even and unlabored, symmetrical chest expansion Eyes: PERRL Musculoskeletal: Flexion and extension of lumbar [spine] somewhat guarded secondary to pain, [antalgic gait noted] extreme point tenderness to left greater trochanteric bursa and right SI with point tenderness at left SI and positive bilateral Beth's, Tejinder's, Gaenslen's, compression and distraction exam Neurological: Speech clear, no gross sensory deficit Assessment:: Degenerative disc disease of lumbar spine with lumbar radiculopathy symptoms, lumbar facet arthropathy, lumbar spondylosis, left leg pain, sacroiliitis, greater trochanteric bursitis Plan:: Patient continues to experience significant pain in her low back with radiating symptoms into her bilateral lower extremities that stops at her knee. Patient did have limited range of motion of her lumbar spine during today's visit and extreme point tenderness at her left greater trochanteric bursa and right SI. Patient did also have point tenderness along her left SI and positive bilateral Beth's, Tejinder's, Gaenslen's, compression and distraction exam. I have discussed with the patient that she may benefit from bilateral SI injections and left bursa injection. Risk and benefits were discussed with the patient. She would like to proceed forward with this plan of care. I will also order the patient ropinirole 0.5 mg at bedtime and provide a 14-day supply of this medication. We will schedule the patient for a diagnostic bilateral SI and left greater trochanteric bursa injection. Patient has been instructed to contact the clinic with any concerns before the next appointment. Dr. Bautista has reviewed this note and agrees with this plan of care. This note was dictated using voice recognition software and make griselda
[2022-09-25 11:04] VITALS: BP 104/59; PULSE 91; RESP 18; O2SAT 97; BMI 47.0
== END | disposition home or self-care (01) ==
PROVIDERS: PCP Family Medicine; Visit Provider Nurse Practitioner Family
DX: M51.16 Intervertebral disc disorders with radiculopathy, lumbar region (principal); M47.26 Other spondylosis with radiculopathy, lumbar region; M46.1 Sacroiliitis, not elsewhere classified; M70.60 Trochanteric bursitis, unspecified hip; M79.605 Pain in left leg
CPT/HCPCS: 99212; G0463

== ENCOUNTER 2022-10-01 10:34 | Day surgery (SDC) | payer MEDICARE, SELFPAY ==
[2022-10-01 10:46] VITALS: BP 142/85; PULSE 84; RESP 18; O2SAT 97
[2022-10-01 10:54] VITALS: BP 124/59; PULSE 84; RESP 18; TEMP 36.6; O2SAT 95; BMI 47.0
--- NOTE | 2022-10-01 11:14 | P.PCN_ITS ---
Procedure Date: 10/01/22 Time: 11:14 Anesthesiologist:: Rik Kenny CRNA Complications:: None Pre-procedure Diagnosis:: Bilateral sacroiliitis Post-procedure Diagnosis:: Same. Indications for Procedure:: Patient is a very pleasant 67-year-old female that comes our clinic today for bilateral sacroiliac joint injections. Patient complains of low back pain bilaterally. Bilateral hip and leg radicular symptoms. She rates her pain 8/10. Patient has difficulty transitioning from sitting to standing. Difficulty ambulating. Procedure Details:: Procedure: Bilateral sacroiliac joint injections under fluoroscopy Informed consent was obtained and the risks and benefits of the procedure were explained to the patient.~ The patient was taken to the procedure room and noninvasive monitors were placed including a noninvasive blood pressure cuff and pulse oximeter.~ The patient was placed prone on the procedure table. Both hips were cleansed using Betadine as a cleansing solution. C-arm fluoroscopy was used to view the right sacroiliac joint.~ The skin and subcutaneous tissues were anesthetized using lidocaine 1.5% and a 25-gauge needle.~ After this, a 22-gauge spinal needle was inserted under fluoroscopic guidance into the inferior aspect of the right sacroiliac joint.~ Omnipaque dye was injected and good spread was seen throughout the joint.~ After this, approximately 5 mL of bupivacaine, 0.25% and Depo-Medrol, 40 mg was incrementally injected into the right sacroiliac joint. We then moved to the left sacroiliac joint.~ The skin and subcutaneous tissues were anesthetized using lidocaine 1.5% and a 25-gauge needle.~ After this, a 22- gauge spinal needle was inserted under fluoroscopic guidance into the inferior aspect of the left sacroiliac joint.~ Omnipaque dye was injected and good spread was seen throughout the joint. After this, approximately 5 mL of bupivacaine, 0.25% and Depo-Medrol, 40 mg was incrementally injected into the left sacroiliac joint.~ The patient tolerated the procedure well with no complications. The patient was observed in the Pain Clinic and then was discharged home neurologically intact. Plan and Disposition:: Patient was discharged without incident.
[2022-10-01 11:15] VITALS: BP 146/80; PULSE 89; RESP 18; O2SAT 95
== END 2022-10-01 11:15 | disposition home or self-care (01) ==
PROVIDERS: PCP Family Medicine; Visit Provider Nurse Anesthetist, Certified Registered
DX: M46.1 Sacroiliitis, not elsewhere classified (principal); M54.50 Low back pain, unspecified
CPT/HCPCS: 27096; G0260; J1030

== ENCOUNTER → 2022-10-17 15:06 | Outpatient (POV) | payer MEDICARE, SELFPAY ==
--- NOTE | 2022-10-17 15:49 | EXP.PAIN.SOA ---
[facility] Pain Management SOAP Note Subjective:: Patient is a pleasant 67-year-old female who presents today for follow-up of bilateral SI injections on 10/01/2022. We are currently treating the patient for degenerative disc disease of lumbar spine with lumbar radiculopathy symptoms, lumbar facet arthropathy, lumbar spondylosis, left leg pain. Today she states that she had 0 relief following this procedure and that it actually caused worsening pain symptoms. Patient states that she felt like he hit a nerve along the left side and that she is continue to have sharp stabbing sensations that run from her buttocks into her left leg stopping at the knee. Patient states it has made significant difficulty with performing activities of daily living such as cooking or cleaning or even walking. Today she does present with a cane for additional help with ambulation. She is experiencing muscle spasms as well. Patient is currently prescribed gabapentin 300 mg 3 times a day from her primary care doctor. Patient denies any side effects from this medication. Her Sin is [id number]. Its been reviewed and appropriate. Review of Systems: General: No recent weight changes, no fever, no sleep disturbances Respiratory: No cough, no shortness of air, no recurring pulmonary infections Cardiovascular/peripheral vascular: No chest pain, no palpitations, no edema, no shortness of breath Gastrointestinal: No new onset incontinence, normal bowel movements reported Genitourinary: No new onset incontinence Musculoskeletal: Low back pain, left leg pain Psychiatric: [Normal mood/affect] Neurological: [Denies weakness in extremities], [denies balance issues] Objective:: Physical Exam: General: Alert and oriented x3, no acute distress, pleasant and cooperative Lungs: Respirations even and unlabored, symmetrical chest expansion Eyes: PERRL Musculoskeletal: Flexion and extension of lumbar [spine] somewhat guarded secondary to pain, [antalgic gait noted] extreme point tenderness along left SI with positive left Beth's, Tejinder's, Gaenslen's, compression and distraction exam Neurological: Speech clear, no gross sensory deficit Assessment:: Degenerative disc disease of lumbar spine with lumbar radiculopathy symptoms, lumbar facet arthropathy, lumbar spondylosis, left leg pain Plan:: Patient is experiencing significant pain in her left leg with limited range of motion. Patient did have extreme point tenderness at her left SI with positive left Beth's, Tejinder's, Gaenslen's, compression and distraction exam. I will order the patient tizanidine 4 mg twice daily along with compounding cream and prednisone 20 mg twice daily. Patient will return to clinic in 2 weeks for reevaluation of symptoms and plan of care. Patient has been instructed to contact the clinic with any concerns before the next appointment. Dr. Bautista has reviewed this note and agrees with this plan of care. This note was dictated using voice recognition software and make contain errors or omissions. [facility] Disclaimer: The information contained in this section may have been updated after the patient was seen, as this information can be updated by other users. Medical History GERD (gastroesophageal reflux disease) Hypertension Seasonal allergies Surgical History H/O abdominal hysterectomy H/O lumpectomy Family History Other No significant family history Social History Smoking Status: Never smoker second hand exposure: No alcohol intake: never current occupational status: retired Travel in the last 8 weeks: None household members: spouse housing: house current occupational exposures/hazards: No caffeine: Yes
[2022-10-17 16:07] VITALS: BP 134/76; PULSE 105; RESP 18; O2SAT 97; BMI 37.5
== END | disposition home or self-care (01) ==
PROVIDERS: PCP Family Medicine; Visit Provider Nurse Practitioner Family
DX: M51.16 Intervertebral disc disorders with radiculopathy, lumbar region (principal); M47.26 Other spondylosis with radiculopathy, lumbar region; M79.605 Pain in left leg
CPT/HCPCS: 99212; G0463

== ENCOUNTER → 2022-10-31 13:01 | Outpatient (POV) | payer MEDICARE, SELFPAY ==
--- NOTE | 2022-10-31 13:57 | EXP.PAIN.SOA ---
[facility] Pain Management SOAP Note Subjective:: Patient is a pleasant 67-year-old female who presents today for follow-up. We are currently treating the patient for degenerative disc disease of lumbar spine with lumbar radiculopathy symptoms, lumbar facet arthropathy, lumbar spondylosis, sacroiliitis, left leg pain. Today she rates her pain a 6 out of 10. Patient states from her last visit she has had significant improvement with the muscle relaxer, steroid and cream. Patient states that she has had decreased pain symptoms and she has been able to increase her activity. Patient states that she did feel like the prednisone had her eating more however she has completed the 5-day dose of this medication. Patient states she does use her compounding cream as needed and it provides significant improvement. Patient denies any side effects from these medications. Patient states she will occasionally still have spasms from the left leg. Patient is currently managed with gabapentin 300 mg 3 times a day from her primary care doctor. At her last visit we did also discuss the SI stabilization procedure. Patient states she is very interested in this however she still is thinking on it patient's Sin is [id number]. Its been reviewed and appropriate. Review of Systems: General: No recent weight changes, no fever, no sleep disturbances Respiratory: No cough, no shortness of air, no recurring pulmonary infections Cardiovascular/peripheral vascular: No chest pain, no palpitations, no edema, no shortness of breath Gastrointestinal: No new onset incontinence, normal bowel movements reported Genitourinary: No new onset incontinence Musculoskeletal: Left leg pain Psychiatric: [Normal mood/affect] Neurological: [Denies weakness in extremities], [denies balance issues] Objective:: Physical Exam: General: Alert and oriented x3, no acute distress, pleasant and cooperative Lungs: Respirations even and unlabored, symmetrical chest expansion Eyes: PERRL Musculoskeletal: Flexion and extension of lumbar [spine] somewhat guarded secondary to pain, [antalgic gait noted] Neurological: Speech clear, no gross sensory deficit Assessment:: Degenerative disc disease of lumbar spine with lumbar radiculopathy symptoms, lumbar facet arthropathy, lumbar spondylosis, sacroiliitis, left leg pain Plan:: Patient has had significant improvement from her last visit with the addition of the compounding cream and tizanidine. I will refill her tizanidine 4 mg twice daily and provide a 1 month supply of this medication. I did discuss with the patient again regarding the transloc SI stabilization procedure and answered any questions she had regarding this. Patient will return to clinic in 2 weeks for reevaluation of symptoms and plan of care. Patient has been instructed to contact the clinic with any concerns before the next appointment. Dr. Bautista has reviewed this note and agrees with this plan of care. This note was dictated using voice recognition software and make contain errors or omissions. [facility] Disclaimer: The information contained in this section may have been updated after the patient was seen, as this information can be updated by other users. Medical History GERD (gastroesophageal reflux disease) Hypertension Seasonal allergies Surgical History H/O abdominal hysterectomy H/O lumpectomy Family History Other No significant family history Social History Smoking Status: Never smoker second hand exposure: No alcohol intake: never current occupational status: retired Travel in the last 8 weeks: None household members: spouse housing: house current occupational exposures/hazards: No caffeine: Yes
[2022-10-31 14:47] VITALS: BP 127/80; PULSE 99; RESP 18; O2SAT 98; BMI 48.5
== END | disposition home or self-care (01) ==
PROVIDERS: PCP Family Medicine; Visit Provider Nurse Practitioner Family
DX: M51.16 Intervertebral disc disorders with radiculopathy, lumbar region (principal); M47.26 Other spondylosis with radiculopathy, lumbar region; M46.1 Sacroiliitis, not elsewhere classified; M79.605 Pain in left leg
CPT/HCPCS: 99212; G0463

== ENCOUNTER → 2022-11-13 09:19 | Outpatient (POV) | payer MEDICARE, SELFPAY ==
--- NOTE | 2022-11-13 10:40 | EXP.PAIN.SOA ---
[facility] Pain Management SOAP Note Subjective:: Patient is a pleasant 67-year-old female who presents today for follow-up. We are currently treating the patient for degenerative disc disease of lumbar spine with lumbar radiculopathy symptoms, lumbar facet arthropathy, lumbar spondylosis, sacroiliitis, left leg pain. Today she rates her pain a 6 out of 10. Patient denies any new trauma or injury. Patient denies any change to location or type of pain she experiences. She states she continues to have significant pain in her left buttocks and hip with increased sensations of numbness and tingling. She does state this interferes with her ability to sleep at night and she frequently tosses and turns due to the pain. Patient does state the pain interferes with her ability to perform activities of daily living such as cooking and cleaning. Patient did previously have a SI injection that seem to aggravate the symptoms. Patient has been prescribed tizanidine 4 mg twice daily however she states she does get significant relief but it does cause significant drowsiness. She is also managed with gabapentin 300 mg 3 times a day from her primary care doctor. At our last visit we did discuss the SI stabilization procedure however at this time she states she would like to wait on this. Her Sin is [id number]. Its been reviewed and appropriate. Review of Systems: General: No recent weight changes, no fever, no sleep disturbances Respiratory: No cough, no shortness of air, no recurring pulmonary infections Cardiovascular/peripheral vascular: No chest pain, no palpitations, no edema, no shortness of breath Gastrointestinal: No new onset incontinence, normal bowel movements reported Genitourinary: No new onset incontinence Musculoskeletal: Left buttocks pain, left hip pain Psychiatric: [Normal mood/affect] Neurological: [Denies weakness in extremities], [denies balance issues] Objective:: Physical Exam: General: Alert and oriented x3, no acute distress, pleasant and cooperative Lungs: Respirations even and unlabored, symmetrical chest expansion Eyes: PERRL Musculoskeletal: Flexion and extension of lumbar [spine] somewhat guarded secondary to pain, [antalgic gait noted] extreme point tenderness along left piriformis muscle and left greater trochanteric bursa Neurological: Speech clear, no gross sensory deficit Assessment:: Degenerative disc disease of lumbar spine with lumbar radiculopathy symptoms, lumbar facet arthropathy, lumbar spondylosis, sacroiliitis, left leg pain, left piriformis syndrome, left greater trochanteric bursitis Plan:: Patient continues to experience significant pain in her left buttocks and left hip. Patient did have limited range of motion of her lumbar spine along with extreme point tenderness at her left piriformis muscle and left greater trochanteric bursa during today's exam. I have discussed with the patient that she may benefit from injections at these 2 sites. Risk and benefits were discussed with the patient and she would like to proceed forward with this plan of care. I have also discussed with the patient that in the future she may benefit from more thorough pain management such as trying the intrathecal pain pump trial. Educational handouts were given during today's visit. I will also change her tizanidine 4 mg to 2 mg twice daily and provide a 1 month supply of this medication. Patient will be scheduled for a left piriformis injection and left greater trochanteric bursa injection. Patient has been instructed to contact the clinic with any concerns before the next appointment. Dr. Bautista has reviewed this note and agrees with this plan of care. This note was dictated using voice recognition software and make contain errors or omissions. [facility] Disclaimer: The information contained in this section may have been updated after the patient was seen, as this information can be updated by other users. Medical History (Reviewed 10/01/22 @ 10:53
[2022-11-13 12:03] VITALS: BP 129/48; PULSE 87; RESP 18; O2SAT 97; BMI 48.5
== END | disposition home or self-care (01) ==
PROVIDERS: PCP Family Medicine; Visit Provider Nurse Practitioner Family
DX: M51.16 Intervertebral disc disorders with radiculopathy, lumbar region (principal); M47.26 Other spondylosis with radiculopathy, lumbar region; M70.62 Trochanteric bursitis, left hip; M46.1 Sacroiliitis, not elsewhere classified; M79.605 Pain in left leg; G57.02 Lesion of sciatic nerve, left lower limb
CPT/HCPCS: 99212; G0463

== ENCOUNTER 2022-11-19 12:40 | Day surgery (SDC) | payer MEDICARE, SELFPAY ==
[2022-11-19 13:05] VITALS: BP 144/82; PULSE 91; RESP 18; TEMP 36.8; O2SAT 96; BMI 47.0
--- NOTE | 2022-11-19 13:08 | EXP.PAIN.PRO ---
Procedure Date: 11/19/22 Time: 13:08 Anesthesiologist:: Rik Kenny CRNA Complications:: None Pre-procedure Diagnosis:: Left piriformis syndrome Post-procedure Diagnosis:: Same Indications for Procedure:: Very pleasant 67-year-old female comes our clinic today for a left piriformis muscle trigger point injection. Patient has extreme point tenderness over the left piriformis muscle. She rates her pain 7/10. Procedure Details:: Details of the procedure explained the patient. The patient taken the procedure room placed in the prone position on the fluoroscopy table. The area over the left piriformis muscle was cleaned using chlorhexidine as a cleansing solution. Using fluoroscopy guidance and a 22-gauge 3 and half inch spinal needle the left piriformis muscle was accessed with ease. Needle position was confirmed using 0.5 cc of contrast dye and a lateral spread. After negative aspiration 4 cc of 0.25% Marcaine +40 mg of Depo-Medrol was injected. Patient tolerated procedure without difficulty. There are no complications. Plan and Disposition:: Patient was discharged without incident.
[2022-11-19 13:10] VITALS: BP 139/94; PULSE 101; RESP 20; O2SAT 97
[2022-11-19 13:14] VITALS: BP 128/56; PULSE 88; RESP 18; O2SAT 96
== END 2022-11-19 13:14 | disposition home or self-care (01) ==
PROVIDERS: PCP Family Medicine; Visit Provider Nurse Anesthetist, Certified Registered
DX: G57.02 Lesion of sciatic nerve, left lower limb (principal)
CPT/HCPCS: 20552; 77002; J1040; Q9966

== ENCOUNTER 2022-11-26 09:05 | Day surgery (SDC) | payer MEDICARE, SELFPAY ==
[2022-11-26 09:22] VITALS: BP 134/67; PULSE 62; RESP 18; TEMP 36.1; O2SAT 95; BMI 47.0
--- NOTE | 2022-11-26 09:48 | P.PCN_ITS ---
Procedure Date: 11/26/22 Time: 09:30 Anesthesiologist:: Rik Kenny CRNA Complications:: None Pre-procedure Diagnosis:: Right greater trochanteric bursitis. Degenerative disc disease lumbar spine multilevels. Lumbar radiculopathy. Post-procedure Diagnosis:: Same. Indications for Procedure:: Very pleasant 67-year-old female comes our clinic today for left trochanteric bursa injection. Patient has extreme point tenderness over the left greater trochanteric bursa. Patient complains of left lateral thigh pain to the knee. Patient also complains of low back pain at times. However, her left leg radicular symptoms seem to be more intense. Discussed in detail with the patient regarding updating lumbar MRI. Her last MRI was 2019. This MRI shows degenerative disc multiple levels L4-5, L5-S1. Facet hypertrophy. Spondylosis. Ligamentum flavum hypertrophy. I recommend updating the lumbar MRI. Procedure Details:: Procedure:Left trochanteric bursa injection under fluoroscopy We then moved to the left trochanteric bursa.~ C-arm fluoroscopy was used to view the left greater trochanter.~ The skin and subcutaneous tissues overlying the left greater trochanter were anesthetized using lidocaine, 1.5% and a 25- gauge needle.~ After this, a 22-gauge spinal needle was inserted and advanced until it contacted the left greater trochanter.~ Dye was injected and good spread was seen throughout the left trochanteric bursa. After this, approximately 5 mL of bupivacaine, 0.25% and Depo-Medrol, 40 mg was incrementally injected into the left trochanteric bursa.~ The patient tolerated the procedure well with no complications. Plan and Disposition:: Patient was discharged without incident. Patient does report improvement in the left lateral thigh pain.
[2022-11-26 09:50] VITALS: BP 120/58; PULSE 86; RESP 18; O2SAT 95
== END 2022-11-26 09:50 | disposition home or self-care (01) ==
PROVIDERS: PCP Family Medicine; Visit Provider Nurse Anesthetist, Certified Registered
DX: M70.62 Trochanteric bursitis, left hip; M51.16 Intervertebral disc disorders with radiculopathy, lumbar region
CPT/HCPCS: 20610; 77002; J1040

== ENCOUNTER → 2022-12-04 13:37 | Outpatient (CLI) | payer MEDICARE, SELFPAY ==
--- NOTE | 2022-12-04 13:41 | MR_ITS ---
FINAL REPORT CLINICAL HISTORY: BACK AND LEG PAIN COMPARISON: 06/19/2020 FINDINGS: Multiplanar MR imaging of the lumbar spine was performed without contrast. On the sagittal T2-weighted images, disc degeneration is seen throughout. Mild retrolisthesis of L2 on L3. Multiple hemangiomas are present. There are endplate changes at multiple levels. No bony mass is identified. The conus has an unremarkable appearance. No significant canal stenosis. L1-2: Annular disc bulge, facet arthropathy, and osteophytes. Mild bilateral neural foraminal narrowing. L2-3: An annular bulge is present. Mild bilateral neural foraminal narrowing. L3-4: Annular bulge is present. Mild bilateral neural foraminal narrowing. L4-5: Annular disc bulge and facet arthropathy. Right foraminal disc protrusion. Moderate right and mild left neural foraminal narrowing. Stable findings. L5-S1: Annular disc bulge and facet arthropathy. Moderate right and mild left neural foraminal narrowing. IMPRESSION: Stable degenerative changes as above. Reviewed, Interpreted and Dictated by Flaco Rucker III, MD Transcribed by Dora Clancy Authenticated and . [facility]
== END ==
PROVIDERS: PCP Family Medicine; Visit Provider Nurse Practitioner Family
DX: M54.50 Low back pain, unspecified (principal); M79.604 Pain in right leg; M79.605 Pain in left leg
CPT/HCPCS: 72148; 76376

== ENCOUNTER → 2022-12-12 09:58 | Outpatient (POV) | payer MEDICARE, SELFPAY ==
[2022-12-12 10:19] VITALS: BP 118/77; PULSE 91; RESP 20; BMI 48.5
--- NOTE | 2022-12-12 10:42 | EXP.PAIN.SOA ---
[facility] Pain Management SOAP Note Subjective:: Patient is a pleasant 67-year-old female who presents today for follow-up of lumbar MRI as well as left bursa injection on 11/26/2022.. We are currently treating the patient for degenerative disc disease of lumbar spine with lumbar radiculopathy symptoms, lumbar facet arthropathy, lumbar spondylosis, sacroiliitis, left leg pain. Today she rates her pain a 4 out of 10. She states initially she did not think she was getting significant relief following this injection however over the last couple of weeks she is taking it easy and made sure to prop up her left leg whenever she can. She states that today she does think that it is helping and that it has taken away her spasms into the left leg that she was experiencing and the pain. Patient states she is unsure though whether or not if it was the injection finally kicking in or the fact that she has not been up like she normally is. Patient is currently managed on gabapentin 300 mg 3 times a day from her primary care doctor. Patient denies any side effects from this medication. Previously we did lower her tizanidine to 2 mg twice daily however she states she continues to have drowsiness with this medication. Her Sin is [id number]. Its been reviewed and appropriate. Review of Systems: General: No recent weight changes, no fever, no sleep disturbances Respiratory: No cough, no shortness of air, no recurring pulmonary infections Cardiovascular/peripheral vascular: No chest pain, no palpitations, no edema, no shortness of breath Gastrointestinal: No new onset incontinence, normal bowel movements reported Genitourinary: No new onset incontinence Musculoskeletal: Low back pain Psychiatric: [Normal mood/affect] Neurological: [Denies weakness in extremities], [denies balance issues] Objective:: Physical Exam: General: Alert and oriented x3, no acute distress, pleasant and cooperative Lungs: Respirations even and unlabored, symmetrical chest expansion Eyes: PERRL Musculoskeletal: Flexion and extension of lumbar [spine] somewhat guarded secondary to pain, [antalgic gait noted] Neurological: Speech clear, no gross sensory deficit FINDINGS: Multiplanar MR imaging of the lumbar spine was performed without contrast. ? On the sagittal T2-weighted images, disc degeneration is seen throughout.? Mild retrolisthesis of L2 on L3.? Multiple hemangiomas are present.? There are endplate changes at multiple levels. ? No bony mass is identified. The conus has an unremarkable appearance.? No significant canal stenosis.? L1-2:? Annular disc bulge, facet arthropathy, and osteophytes.? ? Mild bilateral neural foraminal narrowing. L2-3: An annular bulge is present.? Mild bilateral neural foraminal narrowing.? L3-4:? Annular bulge is present. ? Mild bilateral neural foraminal narrowing.? L4-5:? Annular disc bulge and facet arthropathy.? Right foraminal disc protrusion. Moderate right and mild left neural foraminal narrowing.? Stable findings.? L5-S1:? Annular disc bulge and facet arthropathy. Moderate right and mild left neural foraminal narrowing. IMPRESSION: Stable degenerative changes as above. Reviewed, Interpreted and Dictated by Flaco Rucker III, MD Transcribed by Dora Clancy Authenticated and [facility] Bone density test of spine and hip November 04, 2022 Final impression: Normal bone mineral density in the left hip and lumbar spine Assessment:: degenerative disc disease of lumbar spine with lumbar radiculopathy symptoms, lumbar facet arthropathy, lumbar spondylosis, sacroiliitis, left leg pain Plan:: Patient is doing well at this time and does not require any additional injective therapy. Patient will return to clinic in 1 month for reevaluation of symptoms and plan of care. Patient has been instructed to contact the clinic with any concerns before the next appointment. Dr. Bautista has reviewed t
== END ==
PROVIDERS: PCP Family Medicine; Visit Provider Nurse Practitioner Family
DX: M51.16 Intervertebral disc disorders with radiculopathy, lumbar region (principal); M47.26 Other spondylosis with radiculopathy, lumbar region; M46.1 Sacroiliitis, not elsewhere classified; M79.605 Pain in left leg
CPT/HCPCS: 99212; G0463

== ENCOUNTER → 2023-04-04 12:05 | Outpatient (CLI) | payer MEDICARE, SELFPAY | PROVIDERS: PCP Family Medicine; Visit Provider Family Medicine | DX: U07.1 COVID-19 (principal); R05.9 Cough, unspecified | CPT/HCPCS: 87635 ==

== ENCOUNTER 2023-04-05 23:35 | Emergency (ER) | payer MEDICARE, SELFPAY ==
[2023-04-05 23:38] VITALS: BP 130/81; PULSE 68; RESP 20; TEMP 36.4; O2SAT 96; BMI 42.4
--- NOTE | 2023-04-05 23:50 | PC.NURSE ---
Dr. Hopper at
--- NOTE | 2023-04-05 23:52 | XR_ITS ---
PROCEDURE INFORMATION: Exam: XR Chest Exam date and time: 04/05/2023 11:54 PM Age: 68 years old Clinical indication: Fever TECHNIQUE: Imaging protocol: Radiologic exam of the chest. Views: 1 view. COMPARISON: CR XR CHEST PORTABLE 08/13/2022 5:17 PM FINDINGS: Lungs: Unremarkable. No consolidation. Pleural spaces: Unremarkable. No pleural effusion. No pneumothorax. Heart/Mediastinum: Unremarkable. No cardiomegaly. Bones/joints: Unremarkable. IMPRESSION: No acute findings.
--- NOTE | 2023-04-06 00:01 | PC.NURSE ---
RAD at [facility]
[2023-04-06 00:02] VITALS: BP 130/81; PULSE 66; RESP 20; O2SAT 96
--- NOTE | 2023-04-06 00:16 | HMH.EDGENADL ---
Discharge Plan Disposition Patient Disposition: Home, Self-Care Condition: Fair Prescriptions Prescriptions: New ondansetron 8 mg tablet,disintegrating 8 mg PO Q8H PRN (Reason: nausea and vomiting) 5 Days Qty: 15 0RF No Action pantoprazole 40 mg tablet,delayed release (DR/EC) 40 mg PO BID diphenhydramine HCl [Benadryl] 25 mg capsule 25 mg PO TID PRN (Reason: ALLERGIES) acetaminophen [Tylenol] 325 MG tablet 650 mg PO Q8HP PRN (Reason: PAIN) lisinopril 10 MG tablet 10 mg PO DAILY ondansetron 4 MG tablet,disintegrating 4 mg PO TIDP PRN (Reason: Nausea) Qty: 10 0RF prednisone 20 mg tablet 20 mg PO BID tizanidine 2 mg tablet 2 mg PO BID aspirin [Aspir-81] 81 MG tablet,delayed release (DR/EC) 81 mg PO DAILY gabapentin 300 MG capsule 300 mg PO TID ropinirole 0.5 mg tablet 0.5 mg PO HS Rx Instructions: administer 1-3 hours before bedtime tizanidine 4 MG tablet 4 mg PO BID Referrals Follow up/Referrals: Jt Ayoub MD [Primary Care Provider] - See instructions Activity Restrictions/Add. Instructions Additional Instructions/Restrictions: Your work-up showed a positive COVID infection. Please follow-up with your primary care provider. Please return to the emergency department if you develop any new or worsening symptoms or become concerned for your health. Please take Zofran as needed for nausea and vomiting. If you are unable to maintain hydration at home, recommend returning to the ER or being seen in clinic. Clinical Impressions Clinical Impression: COVID-19, Dehydration, Obesity, Nausea & vomiting Instructions Patient Instructions: DI for Diarrhea and Traveler's Diarrhea -- Adult, DI for Diarrhea and Traveler's Diarrhea -- Child, DI for Nausea -- Adult, DI for Nausea -- Child Discharge ED Provider: Ru Hopper Adult HPI General Chief complaint: Nausea/Vomiting/Diarrhea Stated complaint: vomiting,fever Time Seen by Provider: 04/05/23 23:41 Mode of Arrival: Wheelchair Source of Information: Patient Limitations: No Limitations Description of Symptoms (Recalled from ER Triage Doc. by RN): pt reports vomiting since this past Friday night, reports taking Tigan and still no help, recently treated for UTI. History of Present Illness HPI narrative: 68-year-old female history of hypertension and obesity presents with multiple complaints. Patient reports that she has been vomiting and has been unable to maintain p.o. intake since Friday. She reports that she started feeling ill about a month ago. She reports that she has been treated multiple times for recent UTI without clearance, currently taking cefuroxime and doxycycline. She reports that she was recently told that she has a bloodstream infection. She was recently tested for COVID and it was positive. She reports that she has been having fevers at home. She denies any chest pain abdominal pain shortness of breath diarrhea. Reports her only symptom is fever and vomiting. Related Data Home Medications Medication Instructions Recorded Confirmed aspirin 81 mg tablet,delayed 81 mg PO DAILY Blood thinner 01/24/18 12/12/22 release (Aspir-) acetaminophen 325 mg tablet 650 mg PO Q8HP PRN PAIN 02/08/18 12/12/22 (Tylenol) gabapentin 300 mg capsule 300 mg PO TID Pain 11/06/18 12/12/22 lisinopril 10 mg tablet 10 mg PO DAILY BLOOD PRESSURE 01/21/20 12/12/22 diphenhydramine HCl 25 mg capsule 25 mg PO TID PRN ALLERGIES 06/19/22 12/12/22 (Benadryl) pantoprazole 40 mg tablet,delayed 40 mg PO BID STOMACH 06/19/22 12/12/22 release ropinirole 0.5 mg tablet 0.5 mg PO HS RLS 10/01/22 12/12/22 prednisone 20 mg tablet 20 mg PO BID Pain 10/31/22 12/12/22 tizanidine 4 mg tablet 4 mg PO BID MUSCLES 11/13/22 12/12/22 tizanidine 2 mg tablet 2 mg PO BID . 11/19/22 12/12/22 Previous Rx's Medication Instructions Recorded ondansetron 4 mg disintegrating 4 mg PO TIDP PRN Nausea
[2023-04-06 00:21] LABS: Microscopic, Urine URINE MICROSCOPIC (MICROSCOPIC)
[2023-04-06 00:28] LABS: Appearance,Urine Slightly Cloudy (Clear); Color,Urine Yellow (Yellow); Protein,Urine 2+ (Negative)
[2023-04-06 00:28] LABS: Alanine Aminotransferase 19 U/L (12-78); Albumin Level 4.2 g/dl (3.5-5.0); Alkaline Phosphatase 103 U/L (38-126); Anion Gap 16.5 mEq/L (5-15); Aspartate Amino Transferase 29 U/L (14-36); Bilirubin,Total 0.2 mg/dl (0.2-1.3); Blood Urea Nitrogen 20 mg/dl (7-17); Calcium 8.8 mg/dl (8.4-10.2); Carbon Dioxide 25 mmol/L (22.0-30.0); Chloride 102 mmol/L (98-107); Creatinine Clearance Estimated 53 mL/min (50-200); Estimated Glomerular Filt Rate 62 ml/min (>60); GFR (African American) 76 ML/MIN (>60); Globulin 4.2 g/dL (1.3-3.2); Glucose 105 mg/dl (74-100); Lactic Acid 0.9 mmol/L (0.7-2.1); Lipase 31 U/L (23-300); Magnesium 1.9 mg/dl (1.6-2.3); Potassium 3.5 mmoL/L (3.5-5.1); Sodium 140 mmol/L (136-145); Total Protein,Serum 8.4 g/dl (6.3-8.2)
[2023-04-06 00:29] LABS: Bilirubin,Urine 2+ (Negative); Blood, Urine Negative (Negative); Glucose,Urine (UA) Negative (Negative); Ketones,Urine 1+ (Negative); Leukocyte Esterase,Urine Negative (Negative); Nitrate,Urine Negative (Negative)
[2023-04-06 00:30] VITALS: BP 152/92; PULSE 63; RESP 20; O2SAT 97
[2023-04-06 00:30] LABS: Bacteria,Urine Trace /lpf; WBC,Urine Occasional #/hpf (0-3)
[2023-04-06 00:41] LABS: Basophils % 0.3 % (0.1-2.0); Eosinophils % 0.3 % (0.1-12.0); Hematocrit 43.1 % (37.0-47.0); Hemoglobin 13.8 g/dL (12.2-16.2); Lymphocytes # 2.2 K/mm3 (0.7-4.5); Mean Corpuscular HGB Conc 31.9 g/dL (31.8-35.4); Mean Corpuscular Hemoglobin 29.3 pg (27.0-31.2); Mean Corpuscular Volume 91.7 fl (81-99); Mean Platelet Volume 7.3 fl (7.4-10.4); Monocytes % 2.8 % (1.7-9.3); Neutrophils # 5.4 K/mm3 (1.8-7.8); Platelet Count 355 K/mm3 (142-424); Red Cell Distribution Width 12.7 % (11.5-17.5)
[2023-04-06 00:42] LABS: Monocytes # 0.2 K/mm3 (0.1-1.0)
[2023-04-06 01:00] VITALS: BP 153/87; PULSE 66; RESP 18; O2SAT 98
[2023-04-06 02:03] VITALS: BP 147/85; PULSE 75; RESP 18; TEMP 36.6; O2SAT 95
== END 2023-04-06 02:27 | disposition home or self-care (01) ==
PROVIDERS: Emergency Provider Emergency Medicine; PCP Family Medicine
DX: U07.1 COVID-19 (principal); E86.0 Dehydration; I10 Essential (primary) hypertension; E66.9 Obesity, unspecified; K21.9 Gastro-esophageal reflux disease without esophagitis
CPT/HCPCS: 71045; 80053; 81001; 83605; 83690; 83735; 85025; 87040; 96374; 96375; 99285; J2405

== ENCOUNTER → 2023-04-28 15:49 | Outpatient (CLI) | payer MEDICARE, SELFPAY ==
--- NOTE | 2023-04-28 15:56 | XR_ITS ---
PROCEDURE INFORMATION: Exam: XR Lumbosacral Spine Exam date and time: 04/28/2023 4:10 PM Age: 68 years old Clinical indication: Low back pain; Additional info: Disc disease, pain radiating down left leg with numbness TECHNIQUE: Imaging protocol: Radiologic exam of the lumbosacral spine. Views: 6 or more views. Including flexion and extension views. COMPARISON: MR LUMBAR SPINE WO CON 12/04/2022 1:37 PM FINDINGS: Bones/joints: There is no evidence of acute fracture in any of the visualized osseous structures.. There is no evidence of malalignment or dislocation of any visualized joint. Anterior osteophyte formation L1 through L5. Intervertebral disc space narrowing L1 through L3 and L4 through S1 consistent with degenerative disc disease. Soft tissues: Unremarkable. IMPRESSION: 1. There is no evidence of acute fracture in any of the visualized osseous structures.. 2. There is no evidence of malalignment or dislocation of any visualized joint. 3. Intervertebral disc space narrowing L1 through L3 and L4 through S1 consistent with degenerative disc disease.
== END ==
PROVIDERS: PCP Family Medicine; Visit Provider Clinical Nurse Specialist Family Health
DX: M51.36 Other intervertebral disc degeneration, lumbar region (principal)
CPT/HCPCS: 72114

== ENCOUNTER 2023-11-25 08:22 | Outpatient (CLI) | payer MEDICARE, SELFPAY ==
[2023-11-25 09:38] LABS: Chloride 105 mmol/L (98-107); Potassium 4.3 mmoL/L (3.5-5.1); Sodium 139 mmol/L (136-145)
[2023-11-25 09:40] LABS: Alanine Aminotransferase 18 U/L (12-78); Aspartate Amino Transferase 23 U/L (14-36); Blood Urea Nitrogen 20 mg/dl (7-17); Estimated Glomerular Filt Rate 55 ml/min (>60); GFR (African American) 67 ML/MIN (>60)
[2023-11-25 09:41] LABS: Albumin Level 3.9 g/dl (3.5-5.0); Albumin/Globulin Ratio 1.3 (1.1-1.8); Alkaline Phosphatase 98 U/L (38-126); Anion Gap 7.3 mEq/L (5-15); Bilirubin,Total 0.6 mg/dl (0.2-1.3); Calcium 9.2 mg/dl (8.4-10.2); Carbon Dioxide 31 mmol/L (22.0-30.0); Cholesterol 250 mg/dl (140-200); Glucose 111 mg/dl (74-100); HDL Cholesterol 82 mg/dl (40-60); Total Protein,Serum 6.9 g/dl (6.3-8.2); Triglycerides 137 mg/dl (30-150); VLDL Cholesterol 27 mg/dL (0-40)
[2023-11-25 09:53] LABS: Direct LDL Cholesterol 125.92 mg/dL (100-129)
[2023-11-25 10:02] LABS: Hemoglobin A1C 5.5 % (4.0-6.0)
[2023-11-25 10:11] LABS: Thyroid Stimulating Hormone 3.13 uIU/mL (0.465-4.68)
== END 2023-11-25 23:59 | disposition home or self-care (01) ==
LOC: LAB 08:24
PROVIDERS: PCP Family Medicine; Visit Provider Family Medicine
DX: E66.9 Obesity, unspecified (principal); Z79.899 Other long term (current) drug therapy
CPT/HCPCS: 36415; 80053; 80061; 83036; 84443

== ENCOUNTER 2024-03-18 14:10 | Outpatient (CLI) | payer MEDICARE, SELFPAY ==
--- NOTE | 2024-03-18 14:16 | XR_ITS ---
FINAL REPORT CLINICAL HISTORY: INJURY OF RIGHT FOOT FINDINGS: Right foot Three views were obtained. There is no acute fracture or dislocation. Mild hallux valgus deformity is identified. There are mild degenerative changes. Plantar calcaneal spur is identified. IMPRESSION: No acute process. Reviewed, Interpreted and Dictated by Flaco Rucker III, MD Transcribed by Theresa Skaggs Authenticated and [facility]
== END 2024-03-18 23:59 | disposition home or self-care (01) ==
LOC: RAD 14:11
PROVIDERS: PCP Family Medicine; Visit Provider Physician Assistant
DX: M79.671 Pain in right foot (principal); S99.921A Unspecified injury of right foot, initial encounter
CPT/HCPCS: 73630

== ENCOUNTER 2024-08-20 10:25 | Emergency (ER) | payer MEDICARE, SELFPAY ==
[2024-08-20] VITALS (15 sets, daily range): BP systolic 106–151; BP diastolic 62–124; PULSE 60–78; RESP 19; TEMP 36.5; O2SAT 95–98; BMI 47.0
--- NOTE | 2024-08-20 10:27 | ECG_ITS ---
APPROVED REPORT Exam: Resting ECG HR:77 bpm ECG Measurements Heart Rate 77 AXES AL 165 P 84 QRSd 98 QRS -20 QT 408 T 89 QTc 440 Conclusion SINUS RHYTHM Electronically signed by : ЕЛЕНА ARREGUIN, 08/21/2024 09:59:07
--- NOTE | 2024-08-20 10:40 | XR_ITS ---
FINAL REPORT CLINICAL HISTORY: Chest pain and shortness of breath COMPARISON: 04/05/2023 FINDINGS: The heart size is normal. The mediastinum is normal. There is atelectasis at the right lung base. There are no pleural effusions. There is no pneumothorax. There is no osseous abnormality. IMPRESSION: Right lung base atelectasis. Reviewed, Interpreted and Dictated by Aleksandr Watson MD Transcribed by Dora Clancy Authenticated and [facility]
[2024-08-20 10:46] LABS: Basophils % 0.5 % (0.1-2.0); Eosinophils # 0.2 K/mm3 (0.0-0.4); Eosinophils % 1.8 % (0.1-12.0); Hematocrit 41.3 % (37.0-47.0); Hemoglobin 13.7 g/dL (12.2-16.2); Lymphocytes # 2.6 K/mm3 (0.7-4.5); Lymphocytes % 30.8 % (10-50); Mean Corpuscular HGB Conc 33.2 g/dL (31.8-35.4); Mean Corpuscular Hemoglobin 31.3 pg (27.0-31.2); Mean Corpuscular Volume 94.3 fl (81-99); Mean Platelet Volume 8.5 fl (7.4-10.4); Monocytes # 0.5 K/mm3 (0.1-1.0); Monocytes % 6.1 % (1.7-9.3); Neutrophils # 5.1 K/mm3 (1.8-7.8); Neutrophils % 60.6 % (37.0-80.0); Platelet Count 320 K/mm3 (142-424); Red Blood Count 4.38 M/mm3 (4.20-5.40); Red Cell Distribution Width 13.4 % (11.5-17.5); White Blood Count 8.4 K/mm3 (4.8-10.8)
[2024-08-20] MEDS: PANTOPRAZOLE 40MG VIAL 40 MG IV (10:47)
[2024-08-20] MEDS: SODIUM CHLORIDE 0.9% 10ML VIAL 10 ML IV (10:47)
--- NOTE | 2024-08-20 10:47 | PC.NURSE ---
portable rad at [facility]
[2024-08-20 10:48] LABS: Albumin Level 4.1 g/dl (3.5-5.0); Chloride 108 mmol/L (98-107); Potassium 3.8 mmoL/L (3.5-5.1); Sodium 137 mmol/L (136-145)
[2024-08-20 10:51] LABS: Alanine Aminotransferase 21 U/L (12-78); Albumin/Globulin Ratio 1.3 (1.1-1.8); Alkaline Phosphatase 81 U/L (38-126); Anion Gap 6.8 mEq/L (5-15); Aspartate Amino Transferase 36 U/L (14-36); Bilirubin,Total 0.2 mg/dl (0.2-1.3); Blood Urea Nitrogen 20 mg/dl (7-17); Carbon Dioxide 26 mmol/L (22.0-30.0); Chol/HDL Ratio 4.5 (1-3.5); Cholesterol 205 mg/dl (140-200); Creatinine Clearance Estimated 52 mL/min (50-200); Estimated Glomerular Filt Rate 55 ml/min (>60); GFR (African American) 67 ML/MIN (>60); Globulin 3.1 g/dL (1.3-3.2); Glucose 86 mg/dl (74-100); HDL Cholesterol 46 mg/dl (40-60); Lipase 39 U/L (23-300); Total Protein,Serum 7.2 g/dl (6.3-8.2); Triglycerides 233 mg/dl (30-150); VLDL Cholesterol 47 mg/dL (0-40)
--- NOTE | 2024-08-20 10:52 | ED_ITS ---
Discharge Plan Disposition Patient Disposition: Home, Self-Care Chief Complaint: Chest Pain Prescriptions Prescriptions: No Action pantoprazole 40 mg tablet,delayed release (DR/EC) 40 mg PO BID diphenhydramine HCl [Benadryl] 25 mg capsule 25 mg PO TID PRN (Reason: ALLERGIES) acetaminophen [Tylenol] 325 MG tablet 650 mg PO Q8HP PRN (Reason: PAIN) lisinopril 10 MG tablet 10 mg PO DAILY aspirin [Aspir-81] 81 MG tablet,delayed release (DR/EC) 81 mg PO DAILY gabapentin 300 MG capsule 300 mg PO TID tizanidine 4 MG tablet 4 mg PO BID Referrals Follow up/Referrals: Jt Ayoub MD [Primary Care Provider] - See instructions Brett Jones MD [Staff Physician] - See instructions Activity Restrictions/Add. Instructions Additional Instructions/Restrictions: Follow-up with your family doctor within 48 hours of this visit to the emergency department to ensure improvement. Follow-up with cardiology for further workup. Call your family doctor to establish care for this visit to the emergency department and schedule follow-up within 48 hours to ensure improvement. If you have any worsening of your condition or any other concerning signs or symptoms, return to the emergency department or your primary care doctor for further evaluation. Clinical Impressions Clinical Impression: Chest pain Print Language Print Language: Slovak Discharge ED Provider: Darrell Pruett [facility] General Chief Complaint: Chest Pain Stated Complaint: cp Time Seen by Provider: 08/20/24 10:26 Mode of Arrival: Wheelchair Source of Information: Patient Limitations: No Limitations Description of Symptoms (Recalled from ER Triage Doc. by RN): pt presents to ED with c/o chest pain. pt was at the dentist office and was paying her bill when she began to have sudden intense chest pain. EMS was called to scene but pt chose to come private vehicle. pt reports pain located in center of chest and non radiating. History of Present Illness HPI narrative: Please note that above description of symptoms, in this electronic medical record under categorization of recalled from ER triage doctor by RN are reflective of an initial nursing assessment, however, is not reflective of my full history and physical exam that was personally taken and clarified. Consequentially, this preceding description of symptoms, which may include the patient's categorized chief complaint in the EMR, do not reflect my personal clinical impression, and the ultimate description of history of present illness and patient stated complaints should be deferred to this section of the note. Unless stated otherwise or congruent with this section of the note, additional signs, symptoms, or incongruence should be interpreted as inaccurate with my clinical impression. Related Data Home Medications ?Medication ?Instructions ?Recorded ?Confirmed aspirin 81 mg tablet,delayed 81 mg PO DAILY Blood thinner 01/24/18 08/20/24 release (Aspir-) acetaminophen 325 mg tablet 650 mg PO Q8HP PRN PAIN 02/08/18 08/20/24 (Tylenol) gabapentin 300 mg capsule 300 mg PO TID Pain 11/06/18 08/20/24 lisinopril 10 mg tablet 10 mg PO DAILY BLOOD PRESSURE 01/21/20 08/20/24 diphenhydramine HCl 25 mg capsule 25 mg PO TID PRN ALLERGIES 06/19/22 08/20/24 (Benadryl) pantoprazole 40 mg tablet,delayed 40 mg PO BID STOMACH 06/19/22 08/20/24 release tizanidine 4 mg tablet 4 mg PO BID MUSCLES 11/13/22 08/20/24 Allergies Allergy/AdvReac Type Severity Reaction Status Date / Time No Known Allergies Allergy Verified 11/26/22 09:23 [facility] Disclaimer: The information contained in this section may have been updated after the patient was seen, as this information can be updated by other users. Medical History (Updated 08/20/24 @ 14:51 by Darrell Pruett MD) Seasonal allergies Hypertension GERD (gastroesophageal reflux disease) Surgical History H/O lumpectomy H/O abdominal hysterectomy Family History Other No significant family history Social History Smoking Status: Never smoker second hand exposure: No alcohol intake: never current occupational status: other Travel in the last 8 weeks: None household members: spouse housing: house current occupational exposures/hazards: No caffeine: Yes Have you lived/traveled outside US in past 30 days?: No Contact w/someone who lives/traveled outside US past 30 days?: No Exposure to someone with infectious disease in past 14 days?: No Do you have a fever (greater than 100.4 F or 38 C)?: No Have you tested positive for COVID-19: No Exposed to someone with COVID-19 in past 14 days?: No Do you have a sore throat?: No Do you have a cough?: No Do you have any weakness?: No Do you have any diarrhea?: No Are you experiencing any unusual bleeding?: No Do you have any muscle aches/pain?: No Do you have any abdominal pain?: No Are you experiencing loss of taste or smell?: No Other Medical History Have you received the Flu Vaccine for this season: Yes Have you received the Pneumonia Vaccine: Yes ROS Obtained: Yes All systems reviewed & no additional complaints except as documented Physical Exam General General appearance: alert and obese Neck Neck exam: Present trachea midline Chest Chest inspection: Present normal inspection and symmetric chest wall rise Respiratory Respiratory exam: Present normal lung sounds bilaterally; Absent respiratory distress, wheezes, stridor, accessory muscle use or prolonged expiratory phase Cardiovascular Cardiovascular exam: Present regular rate, normal rhythm and other (Pulses equal and symmetric in upper and lower extremities) Extremities Exam Extremities exam: Present edema (1+ pitting edema) Neurological Exam Neurological exam: Present alert, oriented X3 and CN II-XII intact Skin Skin exam: Present warm and dry; Absent cyanosis, diaphoresis or pallor HEART Score HEART Score HEART Score assessment performed?: Yes History (anamnesis): Moderately suspicious ECG: Normal Age: >65 years Risk factors: 1-2 risk factors Troponin: </= normal limit HEART Score: 4 Critical Care Critical Care Time Critical Care Time: No Medical Decision Making Medical Records Medical records reviewed: Yes I reviewed the patient's medical records. Sin Inquiry Pt receiving controlled substance: No Sin was queried for this patient: No Vital Signs Vital Signs: 08/20/24 10:25 08/20/24 10:27 08/20/24 10:29 Temperature 97.7 F Temperature Source Oral Pulse Rate 77 77 Pulse Rate [Left Radial] 78 Respiratory Rate 19 Blood Pressure 151/124 H 142/110 H Blood Pressure [Right Arm] 151/124 H Blood Pressure Mean [Right Arm] 133 02 Sat by Pulse Oximetry 96 96 95 Oxygen Delivery Method Room Air Room Air Room Air 08/20/24 10:31 08/20/24 10:36 08/20/24 11:01 Temperature Temperature Source Pulse Rate 73 72 70 Pulse Rate [Left Radial] Respiratory Rate Blood Pressure 119/69 132/69 106/62 L Blood Pressure [Right Arm] Blood Pressure Mean [Right Arm] 02 Sat by Pulse Oximetry 96 96 95 Oxygen Delivery Method Room Air Room Air Room Air 08/20/24 11:30 08/20/24 12:00 08/20/24 12:30 Temperature Temperature Source Pulse Rate 66 66 60 Pulse Rate [Left Radial] Respiratory Rate Blood Pressure 121/78 116/69 123/72 Blood Pressure [Right Arm] Blood Pressure Mean [Right Arm] 02 Sat by Pulse Oximetry 96 95 98 Oxygen Delivery Method Room Air Room Air Room Air 08/20/24 12:45 08/20/24 13:01 08/20/24 13:32 Temperature Temperature Source Pulse Rate 67 65 69 Pulse Rate [Left Radial] Respiratory Rate Blood Pressure 114/63 140/81 Blood Pressure [Right Arm] Blood Pressure Mean [Right Arm] 02 Sat by Pulse Oximetry 98 97 96 Oxygen Delivery Method Room Air Room Air 08/20/24 14:01 08/20/24 14:31 Temperature Temperature Source Pulse Rate 66 64 Pulse Rate [Left Radial] Respiratory Rate Blood Pressure 128/76 111/82 Blood Pressure [Right Arm] Blood Pressure Mean [Right Arm] 02 Sat by Pulse Oximetry 98 97 Oxygen Delivery Method Room Air Room Air Lab Data Labs: Lab Results 08/20/24 10:20: WBC 8.4, RBC 4.38, Hgb 13.7, Hct 41.3, MCV 94.3, MCH 31.3 H, MCHC 33.2, RDW 13.4, Plt Count 320, MPV 8.5, Neut % (Auto) 60.6, Lymph % (Auto) 30.8, Edmunds % (Auto) 6.1, Eos % (Auto) 1.8, Baso % (Auto) 0.5, Neut # (Auto) 5.1, Lymph # (Auto) 2.6, Edmunds # (Auto) 0.5, Eos # (Auto) 0.2, Baso # (Auto) 0.0, APTT 25.2, D-Dimer 0.62 H, Sodium 137, Potassium 3.8, Chloride 108 H, Carbon Dioxide 26, Anion Gap 6.8, BUN 20 H, Creatinine 1.00, Estimated Creat Clear 52, E stimated GFR 55 L, Est GFR ( Amer) 67, Glucose 86, Hemoglobin A1c 5.3, Calcium 9.0, Total Bilirubin 0.2, AST 36, ALT 21, Alkaline Phosphatase 81, Troponin I < 0.01, NT-Pro-B Natriuret Pep 29.6, Total Protein 7.2, Albumin 4.1, Globulin 3.1, Albumin/Globulin Ratio 1.3, Triglycerides 233 H, Cholesterol 205 H , LDL Cholesterol Direct 101.70, VLDL Cholesterol 47 H, HDL Cholesterol 46, C holesterol/HDL Ratio 4.5 H, Lipase 39 08/20/24 10:29: HCV Ab DAT w/Rflx PCR Qn Negative, HIV Ag/Ab Combo Qual Negative 08/20/24 13:31: Troponin I < 0.01 08/20/24 10:20 08/20/24 10:20 Response Orders (Tests/Meds): ED MEDICATIONS Generic Name Dose Route Start Last Admin Trade Name Freq PRN Reason Stop Dose Admin Sodium Chloride 10 ml 08/20/24 10:40 08/20/24 10:47 Sodium Chloride 0.9% 10ml Vial IV 09/19/24 10:39 10 ml NEEDED PRN Administration dilute protonix Sodium Chloride 10 ml 08/20/24 13:22 08/20/24 13:23 Sodium Chloride 0.9% 10ml Syr (Rad Only) IV 09/19/24 13:21 10 ml NEEDED PRN Administration Maintain IV Site Discontinued Medications Generic Name Dose Route Start Last Admin Trade Name Freq PRN Reason Stop Dose Admin Iopamidol 80 ml 08/20/24 13:22 08/20/24 13:23 Iopamidol-370 (76%);100ml Bottle IV 08/20/24 13:23 80 ml ONCE ONE Administration Pantoprazole Sodium 40 mg 08/20/24 10:40 08/20/24 10:47 Pantoprazole 40mg Vial IV 08/20/24 10:41 40 mg ONCE ONE Administration Sodium Chloride 50 ml 08/20/24 13:22 08/20/24 13:23 0.9 % Sodium Chloride 50 Ml Vial IV 08/20/24 13:23 50 ml ONCE ONE Administration ORDERS Category Date Time Status CT angio chest PE protocol Stat Cat Scan 08/20/24 12:44 Completed XR chest portable Stat Exams 08/20/24 10:40 Completed Complete Blood Count Auto Diff Stat Lab 08/20/24 10:20 Completed Comprehensive Metabolic Panel Stat Lab 08/20/24 10:20 Completed D-Dimer Stat Lab 08/20/24 10:20 Completed HIV Combo Stat Lab 08/20/24 10:29 Completed Hemoglobin A1C Stat Lab 08/20/24 10:20 Completed Hepatitis C Ab Qual. W/ RFX Stat Lab 08/20/24 10:29 Completed Lipase Stat Lab 08/20/24 10:20 Completed Lipid Panel Stat Lab 08/20/24 10:20 Completed NT Pro Brain Natriuretic Pep. Stat Lab 08/20/24 10:20 Completed PTT [Activated Partial Thrombo Time] Stat Lab 08/20/24 10:20 Completed Troponin I Q3H Lab 08/20/24 13:31 Completed Troponin I Q3H Lab 08/20/24 16:45 Ordered Troponin I Stat Lab 08/20/24 10:20 Completed MDM Narrative Medical Decision Narrative: 69-year-old female history of hypertension presenting with chest pain. Patient states that she was at the dentist getting ready to leave. She had chest pain that was epigastric, does not radiate occur spontaneously. It was 10 out of 10, actually brought her to her knees. Denies syncope, diaphoresis, nausea, vomiting, neurologic deficits, but states that it was painful enough that she called EMS. EMS arrived, patient denied transfer, but they gave her 324 mg aspirin. Patient was hypertensive at that time. States that she has been taking her medications as prescribed. No general anesthesia was used today and the dentist office. Symptoms are currently mild, better than they were initially. History was obtained via conversation with patient. On arrival, patient hemodynamically stable, alert, oriented x4, appropriate, GCS 15, moving all extremities spontaneously, pupils equal and reactive to light. Full physical exam performed and significant for obese, well-appearing, speaking in full sentences. Lungs are clear. Cardiac exam without murmurs gallops or rubs. 1+ lower extremity pitting edema. Neurologically intact including radial nerves, motor, cerebellar, sensory. Differential includes microvascular coronary artery disease, CHF, ACS, GA, coronary artery dissection, pneumothorax, PE, dissection, pericarditis, myocarditis, pneumothorax, aortic aneurysm, pneumonia, bronchitis, among others. Patient was given aspirin with EMS, Protonix here for symptomatic management and correction of underlying abnormalities. Patient placed on continuous cardiac monitoring and continuous pulse ox with initial blood pressure 151/124, heart rate 78, saturation 96% on room air. Independent interpretation of EKG shows sinus rhythm [address] or T wave changes concerning for acute ischemia. MN 165, QRS 98, QTc 440. Normal axis. Workup independently interpreted and significant for nonactionable CBC or chemistry. Lipid panel elevated. Lipase negative. On independent interpretation of imaging, no acute cardiopulmonary airspace disease. See radiology read for full review of final results. Patient was placed in observation beginning at 11 AM in order to vomiting GA with delta troponins and determine need for admission versus home-going. The patient was provided serial exams, cardiac monitoring, CT PE while awaiting results. Independent interpretation of results demonstrated negative delta troponin, negative CT PE. On reevaluation, patient resting comfortably ready to go. at this time, I feel patient is appropriate for discharge. Total observation time 3 hours. Unsure what caused patient's pain, but recommended she follow-up with your family doctor and cardiology for further evaluation. She voiced understanding. Because patient at baseline without signs or symptoms of clinical decompensation, deemed appropriate for discharge. Results were relayed to patient who voiced understanding and were agreeable to outpatient management and follow up. I discussed my clinical impression with patient and answered all questions. At this time, the evidence for any other entities in the differential is insufficient to warrant any further testing or ED observation. This was explained as well. Advisory was given that persistent or worsening symptoms require further evaluation. I confirmed the understanding of this discussion. Clinical Data Assistant disclaimer Much of this encounter note is an electronic confectionery cooker spoken language to printed text. Electronic confectionery cooker of the spoken language may permit errors. Although I have reviewed the note, some errors may still exist.
--- NOTE | 2024-08-20 10:57 | PC.NURSE ---
Med List provided by patient.
[2024-08-20 11:02] LABS: NT Pro Brain Natriuretic Pep. 29.6 pg/mL (0-125)
[2024-08-20 11:11] LABS: Troponin I < 0.01 ng/ml (0.00-0.034)
[2024-08-20 11:21] LABS: Hemoglobin A1C 5.3 % (4.0-6.0)
[2024-08-20 11:27] LABS: Activated Partial Thrombo Time 25.2 seconds (22.5-28.5)
[2024-08-20 11:42] LABS: D-Dimer 0.62 ug/mL (0.0-0.5)
[2024-08-20 11:53] LABS: Hepatitis C Ab Qual. W/ RFX NEGATIVE (Negative)
[2024-08-20 11:54] LABS: HIV Combo NEGATIVE (Negative)
--- NOTE | 2024-08-20 12:44 | CT_ITS ---
FINAL REPORT TECHNIQUE: The patient was injected with IV contrast. Axial images were obtained through the chest in a PE protocol. 3-D reconstruction images were also performed. Individualized dose reduction techniques using automated exposure control or adjustment of the MA and/or KV according to patient's size were employed. CLINICAL HISTORY: soa, CP dimer FINDINGS: Mediastinal vasculature is adequately opacified. No pulmonary artery filling defects are identified to suggest PE. There is no aortic dissection. There is no axillary adenopathy. There is no hilar or mediastinal adenopathy. The heart size is normal. There is no pericardial or pleural effusion. Limited images of the upper abdomen are unremarkable. No suspicious infiltrate or nodule is identified. IMPRESSION: No pulmonary embolus or dissection. Reviewed, Interpreted and Dictated by Aleksandr Watson MD Transcribed by Leticia Melchor Authenticated and [facility]
[2024-08-20] MEDS: 0.9 % SODIUM CHLORIDE 50 ML VIAL IV (13:23)
[2024-08-20] MEDS: SODIUM CHLORIDE 0.9% 10ML SYR (RAD ONLY) 10 ML IV (13:23)
[2024-08-20] MEDS: IOPAMIDOL-370 (76%);100ML BOTTLE 80 ML IV (13:23)
[2024-08-20 14:15] LABS: Troponin I < 0.01 ng/ml (0.00-0.034)
== END 2024-08-20 15:06 | disposition home or self-care (01) ==
PROVIDERS: Emergency Provider Emergency Medicine; PCP Family Medicine
DX: R07.9 Chest pain, unspecified (principal)
CPT/HCPCS: 71045; 71275; 80053; 80061; 83036; 83690; 83880; 84484; 85025; 85378; 85730; 86803; 87389; 93005; 96374; 99285; Q9967

== ENCOUNTER 2024-08-23 14:46 | Outpatient (CLI) | payer MEDICARE, SELFPAY | END 2024-08-23 23:59 | disposition home or self-care (01) | LOC: RT 14:51 | PROVIDERS: PCP Family Medicine; Visit Provider Internal Medicine | DX: R00.2 Palpitations (principal); R07.9 Chest pain, unspecified; I10 Essential (primary) hypertension; R06.00 Dyspnea, unspecified | CPT/HCPCS: 93270 ==

== ENCOUNTER 2024-09-14 06:55 | Outpatient (CLI) | payer MEDICARE, SELFPAY ==
--- NOTE | 2024-09-14 07:00 | CA_ITS ---
APPROVED REPORT EXAM: Comprehensive 2D, Doppler, and color-flow Echocardiogram Criminal Justice Professor: Radha Dahl CRT Ht: 5 ft 7 in Wt: 277lbs BSA: 2.32 BP: 149/83 mmHg Indications: Chest Pain, Shortness of Breath, Obesity, Palpitations, Peripheral Edema, Hypertension/HDD Pt very tender, limited apical images. 2D Dimensions Left Atrium 3.41 cm LA Volume 40.70 mL LVOT 1.86 cm (M/F) 1.5-2.5 LA Volume Index 17.50 mL/m2 (M/F) 16-34 EF AP4 69.20 % GL Strain -17.2 % M-Mode Dimensions RVDd 2.27 cm (0.9-2.6) LVDd 5.27 cm (3.5-5.7) Ao Diam 4.06 cm (2.0-3.7) LVDs 3.26 cm (3.5-5.7) IVSd 1.21 cm (0.6-1.1) PWd 1.18 cm (0.6-1.1) EF (Teich) 68.00% FS 38.10% EDV (Teich) 133.60 mL ESV (Teich) 42.80 mL LV Diastology E Decel Time 194 (160-240 msec) E/A Ratio 0.95 MED E' 7.7 (>= 7 cm/sec) MED A' 11.90 cm/s E'/MED E' Ratio 9.30 (<= 14) LAT E' 8.5 (>= 10 cm/sec) LAT A' 10.80 cm/s E/LAT E' Ratio 8.42 (<= 14) Aortic Valve AoV Peak Mahesh. 142.0 (50-130 cm/s) AO Peak GR. 8.00 mmHg Mitral Valve MV E Max Mahesh. 72.0 (40-130 cm/s) MV A Velocity 76.0 (40-130 cm/s) E/A Ratio 0.95 MV Decel. Time 194 (160-240 ms) Tricuspid Valve TR P. Velocity 231.00 cm/s RAP Estimate 10.00 mmHg RVSP 31.40 mmHg Left Ventricle The left ventricle is normal size. The left ventricular systolic function is normal. The left ventricular ejection fraction is within the normal range. There is increased LV wall thickness. There is normal LV segmental wall motion. Transmitral Doppler flow pattern suggests impaired LV relaxation. LVEF is 55%. Right Ventricle Right ventricle is mildly dilated. The right ventricular systolic function is normal. Atria The left atrium size is normal. The right atrium size is normal. There is no Doppler evidence of interatrial shunt. Aortic Valve Aortic valve is mildly thickened. There is no aortic valvular stenosis. Trace aortic regurgitation. Mitral Valve The mitral valve is normal in structure. No evidence of mitral valve stenosis. Trace mitral regurgitation. Tricuspid Valve The tricuspid valve leaflets are thin and pliable. Trace tricuspid regurgitation. There is insufficient TR jet to estimate RVSP. Pulmonic Valve The pulmonary valve is normal in structure. Trace pulmonic regurgitation. Great Vessels The aortic root is normal in size. The ascending aorta is normal in size. IVC is normal in size and collapses >50% with inspiration. Pericardium There is no pericardial effusion. Other Information Study Quality: Fair Conclusion Normal biventricular systolic function. Mild biatrial dilation. No significant valvular stenosis or regurgitation. Electronically signed by : Jaqui Tucker MD 09/19/2024 21:12:19
--- NOTE | 2024-09-14 07:35 | CT_ITS ---
APPROVED REPORT Head Resident: CLINICAL INDICATION Chest Pain TECHNIQUE Image Acquisition: A 128 slice MDCT scanner ([employer] View) was used for data acquisition. A noncontrast coronary calcium scan was performed. A CT attenuation threshold of 130 Hounsfield units (HU) was used for the detection of calcium in contiguous voxels of 1 sq mm in area to be counted as individual lesions. Bolus tracking in the ascending aorta with a threshold of 180 HU was performed. Immediately afterwards, ECG synchronized cardiac CT was then performed from the cardiac base to apex using retrospective gating with ECG tube current modulation. A total of 85 mL of Isovue 370 mg/mL contrast medium was administered at 5 mL/sec followed by a saline flush using a biphasic injection protocol. A tube voltage of 120 KVp was used. The patient received the following medications prior to the cardiac CT. 75 mg of oral metoprolol 15 mg of oral ivabradine 0.8 mg of sublingual nitroglycerin The average heart rate at the time of acquisition was 57 bpm and irregular. Image Reconstruction Transaxial images were reconstructed at 0.67 mm slide thickness. Data was reviewed interactively on an advanced workstation capable of 2 and 3-dimensional displays in all conventional reconstruction formats, including multiplanar reformations, maximum intensity projections, curved multiplanar reformations, and volume rendered reconstructions. When applicable, selected routine images describing the relevant coronary anatomy and pathology were saved and sent to PACS. Complications None Technical Quality Overall image quality was suboptimal due to significant ectopy, blurring, and step artifact. Coronary artery opacification was suboptimal. Total DLP (Dose-Length Product) is 3537.1 mGy-cm. The reported value represents the total of one or more individual components during the CT acquisition of this date and at this time, and as such, the same value may appear in more than one CT report depending on the interpreting/reporting physicians. COMPARISON None FINDINGS CT Coronary Calcium Scoring LMA (Left Main Artery) = 0 LAD (Left Anterior Descending) = 0 LCX (Left Coronary Circumflex) = 0 RCA (Right Coronary Artery) = 0 Total Calcium Score = 0 using the AJ-130 method. The interpretation of the calcium heart score is based on the following continuum*: 0 = no calcified plaque detected (risk of coronary artery disease is very low ??? less than 5%) 1-10 = calcium detected in extremely minimal levels (risk of coronary diseases is still low ??? less than 10%) 11-100 = mild levels of plaque detected with certainty (mild or minimal narrowing of heart arteries is likely) 101-400 = definite,at least moderate levels of plaque detected (relatively high risk of a heart attack within 3-5 years) >401-999 = extensive levels of plaque detected (high risk of heart attack, high levels of vascular disease are present, high likelihood of at least one significant coronary narrowing) *The calcium heart score quantifies the burden of coronary calcification/plaque in the coronary arteries. The calcium heart score is not able to evaluate the presence or burden of non-calcified (i.e. soft) plaque. There is no identifiable calcification in the aortic valve, mitral annulus or mitral valve, pericardium, or myocardium. Coronary CT Angiography The coronary arterial system is right dominant. Quantitative Stenosis Grading: Left Main (LM): The left main originates normally from the left sinus of Valsalva. The LM bifurcates into the left anterior descending artery and left circumflex artery. The LM is patent with no evidence of atherosclerosis. Left Anterior Descending (LAD) and Diagonal Branches: The LAD gives off 3 diagonal branch(es). The proximal and mid LAD segments are difficult to visualize due to significant step artifact and blurring, but grossly no obvious evidence of atherosclerosis. There is no evidence of LAD-myocardial bridge. Left Circumflex (LCX) and Obtuse Marginals (OM): The LCX gives off 1 Obtuse Marginal (OM) branch(es). The proximal and mid LCX segments are difficult to visualize due to significant step artifact and blurring, but grossly no obvious evidence of atherosclerosis. Right Coronary Artery (RCA): The RCA originates normally from the right sinus of Valsalva. The RCA gives off a posterior descending artery (PDA) and posterolateral (PL) branches. The proximal and mid RCA segments are difficult to visualize due to significant step artifact and blurring, but grossly no obvious evidence of atherosclerosis. Non-Coronary Cardiac Findings: Analysis of the left ventricular (LV) structure and function was performed after 3-D reconstruction of the LV from axial images, with user-corrected automatic contouring for assessment of LV volumes and user-defined reconstruction from oblique planes for measurement of 3-D cardiac structure and function. -The left ventricle systolic function is normal. -There is no left atrial appendage filling defect. Two right pulmonary veins and two left pulmonary veins drain normally into the left atrium. -No pericardial thickening or calcification. -Central and branch pulmonary arteries in the [id number] are unremarkable. -Thoracic aorta within the visualized thoracic aortic-branches in the [id number] is unremarkable. Extracardiac Structures No significant extra-cardiac findings. Note, however, that this study is focused on the cardiac findings. IMPRESSION -Suboptimal image quality due to significant ectopy, blurring, and step artifact. The proximal and mid segments of the LAD, LCx, and RCA are not very well-visualized,. -No coronary calcification with an Agatston score = 0 using the AJ-130 method. -No obvious evidence of significant flow-limiting atherosclerosis of the coronary arteries in the visualized segments.. -CAD-RADS 0. Management recommendations per ACC/AHA guidelines*, as clinically appropriate. Due to significant artifact and difficulty visualizing segments of the coronary tree, further evaluation with alternative modalities may be suggested if deemed clinically indicated. *Recommendations: CAD RADS 0: Reassurance. Consider non-atherosclerotic causes of chest pain. CAD RADS 1: Consider non-atherosclerotic causes of chest pain. Consider preventive therapy and risk factor modification. CAD RADS 2: Consider non-atherosclerotic causes of chest pain. Consider preventive therapy and risk factor modification, particularly for patients with nonobstructive plaque in multiple segments. CAD RADS 3: Consider further functional testing. Consider symptom-guided anti-ischemic and preventive pharmacotherapy as well as risk factor modification per published guideline statements. CAD RADS 4A: Consider further functional testing or invasive coronary angiography with revascularization per published guideline statements. Consider symptom-guided anti-ischemic and preventive pharmacotherapy as well as risk factor modification per published guideline statements. CAD RADS 4B: Invasive coronary angiography recommended with revascularization per published guideline statements. Consider symptom-guided anti-ischemic and preventive pharmacotherapy as well as risk factor modification per published guideline statements. CAD RADS 5: Consider invasive angiography and/or viability assessment with revascularization per published guideline statements. Consider symptom-guided anti-ischemic and preventive pharmacotherapy as well as risk factor modification per published guideline statements. CRITICAL RESULT None COMMUNICATION Per this written report The coronary and cardiac findings of this CCTA were reviewed, reported, and signed by Lukasz Tucker MD (Tech Intern) Conclusion Electronically signed by : Jaqui Tucker MD 09/15/2024 12:01:59
[2024-09-14 07:44] VITALS: BMI 47.0
[2024-09-14] MEDS: IVABRADINE HCL 7.5MG TABLET 15 MG PO (07:48)
[2024-09-14] MEDS: METOPROLOL TARTRATE 50MG TABLET PO (07:49)
[2024-09-14 07:50] VITALS: BP 127/77; PULSE 73; RESP 18; TEMP 36.3; O2SAT 96
[2024-09-14 08:40] VITALS: BP 125/73; PULSE 53; RESP 17; O2SAT 96
[2024-09-14 08:45] VITALS: BP 104/67; PULSE 56; RESP 17; O2SAT 97
[2024-09-14 08:50] VITALS: BP 102/67; PULSE 56; RESP 18; O2SAT 97
[2024-09-14 08:55] VITALS: BP 114/66; PULSE 53; RESP 17; O2SAT 96
[2024-09-14 09:05] VITALS: BP 101/71; PULSE 52; RESP 17; O2SAT 96
[2024-09-14] MEDS: IOPAMIDOL-370 (76%);100ML BOTTLE 85 ML IV (09:09)
[2024-09-14] MEDS: 0.9 % SODIUM CHLORIDE 50 ML VIAL IV (09:09)
[2024-09-14] MEDS: SODIUM CHLORIDE 0.9% 10ML SYR (RAD ONLY) 10 ML IV (09:09)
== END 2024-09-14 09:15 | disposition home or self-care (01) ==
LOC: RT 06:57 → RAD 07:43
PROVIDERS: PCP Family Medicine; Visit Provider Internal Medicine
DX: R07.89 Other chest pain (principal); R06.00 Dyspnea, unspecified; I10 Essential (primary) hypertension; E66.9 Obesity, unspecified; G47.33 Obstructive sleep apnea (adult) (pediatric); R00.2 Palpitations
CPT/HCPCS: 75574; 93306; Q9967

== ENCOUNTER 2024-09-18 19:17 | Emergency (ER) | payer MEDICARE, SELFPAY ==
[2024-09-18 19:18] VITALS: BP 141/88; PULSE 99; RESP 18; TEMP 37.5; O2SAT 92; BMI 47.0
[2024-09-18 19:48] LABS: Coronavirus 19, PCR Not Detected (NotDetected); Influenza A, PCR Not Detected (NotDetected); Influenza B, PCR Not Detected (NotDetected)
--- NOTE | 2024-09-18 19:50 | ED_ITS ---
Discharge Plan Disposition Patient Disposition: Home, Self-Care Condition: Good Prescriptions Prescriptions: New lidocaine HCl [Lidocaine Viscous] 2 % solution 1 applic mucous membrane Q8H PRN (Reason: pain) Qty: 100 0RF ondansetron 4 mg tablet,disintegrating 4 mg PO Q8H 4 Days Qty: 12 0RF No Action pantoprazole 40 mg tablet,delayed release (DR/EC) 40 mg PO BID diphenhydramine HCl [Benadryl] 25 mg capsule 25 mg PO TID PRN (Reason: ALLERGIES) acetaminophen [Tylenol] 325 MG tablet 650 mg PO Q8HP PRN (Reason: PAIN) lisinopril 10 MG tablet 10 mg PO DAILY aspirin [Aspir-81] 81 MG tablet,delayed release (DR/EC) 81 mg PO DAILY gabapentin 300 MG capsule 300 mg PO TID tizanidine 4 MG tablet 4 mg PO BID Referrals Follow up/Referrals: Jt Ayoub MD [Primary Care Provider] - See instructions Activity Restrictions/Add. Instructions Additional Instructions/Restrictions: Stay well-hydrated. Return if you develop any chest pain or shortness of breath, lightheadedness or become concerned for your health. Follow-up with your PCP in 2 to 3 days Clinical Impressions Clinical Impression: Pharyngitis, Acute viral syndrome Instructions Patient Instructions: DI for Diarrhea and Traveler's Diarrhea -- Adult, DI for Diarrhea and Traveler's Diarrhea -- Child, DI for Nausea -- Adult, DI for Nausea -- Child Print Language Print Language: [place] Discharge ED Provider: Steve Melendez Adult HPI General Chief complaint: Nausea/Vomiting/Diarrhea Stated complaint: fever, vomiting, Time Seen by Provider: 09/18/24 19:29 Mode of Arrival: Ambulatory Source of Information: Patient Limitations: No Limitations Description of Symptoms (Recalled from ER Triage Doc. by RN): Patient presents via wheelchair to triage. States she started having a nasal drip yesterday. States she woke up this morning with throat pain. Also endorses N/V. Denies diarrhea. Endorses fever. TMax 100.2. History of Present Illness HPI narrative: Patient is a 69-year-old female with a history of hypertension, obesity, chronic back pain. Patient reports that she woke up this morning and had a sore throat, has had 2 episodes of nonbloody vomiting as well as 2 episodes of nonbloody diarrhea. She reports subjective chills. Denies any known sick contacts. Denies any chest pain, shortness of breath, numbness weakness tingling abdominal pain. She has been urinating appropriately without dysuria or hematuria. She reports she is able to ambulate and perform her activities of daily living without any chest pain or shortness of breath. She has been eating and drinking normally. It is just the sore throat that is bothering her primarily as she has not vomited or had an episode of diarrhea in several hours. Related Data Home Medications ?Medication ?Instructions ?Recorded ?Confirmed aspirin 81 mg tablet,delayed 81 mg PO DAILY Blood thinner 01/24/18 09/14/24 release (Aspir-) acetaminophen 325 mg tablet 650 mg PO Q8HP PRN PAIN 02/08/18 09/14/24 (Tylenol) gabapentin 300 mg capsule 300 mg PO TID Pain 11/06/18 09/14/24 lisinopril 10 mg tablet 10 mg PO DAILY BLOOD PRESSURE 01/21/20 09/14/24 diphenhydramine HCl 25 mg capsule 25 mg PO TID PRN ALLERGIES 06/19/22 09/14/24 (Benadryl) pantoprazole 40 mg tablet,delayed 40 mg PO BID STOMACH 06/19/22 09/14/24 release tizanidine 4 mg tablet 4 mg PO BID MUSCLES 11/13/22 09/14/24 Previous Rx's ?Medication ?Instructions ?Recorded lidocaine HCl 2 % mucosal solution 1 applic mucous membrane Q8H PRN 09/18/24 (Lidocaine Viscous) pain #100 mL ondansetron 4 mg disintegrating 4 mg PO Q8H 4 days #12 tabs 09/18/24 tablet Allergies Allergy/AdvReac Type Severity Reaction Status Date / Time No Known Allergies Allergy Verified 09/14/24 07:52 [facility] Disclaimer: The information contained in this section may have been updated after the patient was seen, as this information can be updated by other users. Medical History Seasonal allergies Hypertension GERD (gastroesophageal reflux disease) Surgical History H/O lumpectomy H/O abdominal hysterectomy Family History Other No significant family history Social History (Updated 09/14/24 @ 07:52 by Ellyn Ball RN) Smoking Status: Never smoker second hand exposure: No alcohol intake: never current occupational status: other Travel in the last 8 weeks: None household members: spouse housing: house current occupational exposures/hazards: No caffeine: Yes Have you lived/traveled outside [place] in past 30 days?: No Contact w/someone who lives/traveled outside [place] past 30 days?: No Exposure to someone with infectious disease in past 14 days?: No Do you have a fever (greater than 100.4 F or 38 C)?: Yes Have you tested positive for COVID-19: No Exposed to someone with COVID-19 in past 14 days?: No Do you have a sore throat?: No Do you have a cough?: No Do you have any weakness?: Yes Do you have any diarrhea?: No Are you experiencing any unusual bleeding?: No Do you have any muscle aches/pain?: Yes Do you have any abdominal pain?: No Are you experiencing loss of taste or smell?: No Other Medical History Have you received the Flu Vaccine for this season: No Have you received the Pneumonia Vaccine: No ROS Obtained: Yes All systems reviewed & no additional complaints except as documented Physical Exam General General appearance: alert and in no apparent distress Head Head exam: atraumatic and normocephalic Eye Eye exam: Present PERRL and EOMI ENT ENT exam: Present mucous membranes moist; Absent normal oropharynx (Erythematous oropharynx without evidence of exudates no swelling or uvular deviation) Neck Neck exam: Present full ROM and trachea midline Chest Chest inspection: Present symmetric chest wall rise Respiratory Respiratory exam: Present normal lung sounds bilaterally; Absent stridor Cardiovascular Cardiovascular exam: Present regular rate and normal rhythm Abdominal Exam Abdominal exam: Present soft; Absent distention or tenderness Extremities Exam Extremities exam: Present full ROM Neurological Exam Neurological exam: Present alert and oriented X3 Psychiatric Psychiatric exam: Present normal mood Skin Skin exam: Present warm and dry Medical Decision Making Medical Records Screening: Per USPSTF and CDC recommendations, given the prevalence of disease in our region, it is our hospital?s policy to screen for HIV and viral Hepatitis for all patients aged 18 and over and those with ongoing risk factors. Sin Inquiry Pt receiving controlled substance: No Vital Signs: 09/18/24 19:18 09/18/24 20:01 09/18/24 20:32 Temperature 99.5 F Temperature Source Oral Pulse Rate 92 H 88 Pulse Rate [Radial] 99 H Respiratory Rate 18 Blood Pressure 172/80 H 121/53 L Blood Pressure [R Arm] 141/88 H Blood Pressure Mean [R Arm] 105 Blood Pressure Source [R Arm] Automatic Cuff 02 Sat by Pulse Oximetry 92 L 93 L 93 L Oxygen Delivery Method Room Air 09/18/24 21:01 Temperature Temperature Source Pulse Rate 95 H Pulse Rate [Radial] Respiratory Rate Blood Pressure 141/81 H Blood Pressure [R Arm] Blood Pressure Mean [R Arm] Blood Pressure Source [R Arm] 02 Sat by Pulse Oximetry 89 L Oxygen Delivery Method Lab Data Lab Results 09/18/24 19:30: Group A Strep Rapid Negative 09/18/24 19:44: SARS-CoV-2 (PCR) Not detected, Influenza A Untype (PCR) Not detected, Influenza Type B (PCR) Not detected Orders (Tests/Meds): ED MEDICATIONS Discontinued Medications Generic Name Dose Route Start Last Admin Trade Name Freq PRN Reason Stop Dose Admin Dexamethasone 10 mg 09/18/24 20:20 09/18/24 20:33 Dexamethasone 4mg Tablet PO 09/18/24 20:21 10 mg ONCE ONE Administration Ketorolac Tromethamine 15 mg 09/18/24 20:20 09/18/24 20:33 Ketorolac 30mg/Ml Vial IM 09/18/24 20:21 15 mg ONCE ONE Administration Lidocaine HCl 15 ml 09/18/24 20:30 09/18/24 20:33 Lidocaine 2% Viscous Priscilla 15ml Udc PO 09/18/24 20:31 15 ml ONCE ONE Administration Ondansetron HCl 4 mg 09/18/24 20:20 09/18/24 20:34 Ondansetron 4mg Odt SL 09/18/24 20:21 4 mg ONCE ONE Administration ORDERS Category Date Time Status Rapid PCR Covid and Flu A/B Stat Lab 09/18/24 19:44 Completed Strep Scrn Group A (Rapid) Stat Lab 09/18/24 19:30 Completed Strep Screen Confirmation Stat Micro 09/18/24 19:30 Received Medical Decision Narrative: In summary, this 69-year-old female presents to the emergency department today with sore throat, nausea, vomiting, diarrhea. On initial evaluation patient is afebrile, hemodynamically stable in no acute distress. On exam, warm and well- perfused with full pulses in all extremities lungs are sounds are clear to auscultation bilaterally heart is regular rate rhythm no lower extremity edema. She does not have a history of blood clots,. Differential diagnosis includes but is not limited to viral syndrome, pneumonia, pharyngitis, peritonsillar abscess. Based on these concerns, I ordered viral swabs, strep swab. On exam, she has no uvular deviation or swelling, just some scant erythema in the posterior oropharynx. She is resting comfortably denies any shortness of breath. Her symptoms just began this morning, and given that she has been hemodynamically stable while here saturating above 90% while awake and above 88% while asleep and ambulatory about the emergency department and able to tolerate oral intake after Zofran and Toradol, felt reasonable to discharge with strict return precautions. She is amenable to plan all questions answered patient discharged in hemodynamically stable condition. I considered x-ray, however given she is sleep clear lung sounds bilaterally, felt that risks outweigh benefit so was not pursued at this time, I consider cross-sectional imaging of her neck, however given that she had no swelling on my physical examand was able to tolerate oral intake here, favored that deep space infection is extremely unlikely so was deferred per I considered ACS workup, however patient is adamantly denying any chest pain or shortness of breath at this time, favored more likely to represent a viral process was deferred. She has good follow-up with her PCP in the coming days. At this time it was felt that the patient was safe to be discharged home. The patient was in agreement with this plan. The patient was given strict return precautions prior to being discharged from the emergency department. Critical Care Critical Care Time Critical Care Time: No
[2024-09-18 19:57] LABS: Strep Scrn Group A (Rapid) Negative (Negative)
[2024-09-18 20:01] VITALS: BP 172/80; PULSE 92; O2SAT 93
[2024-09-18 20:32] VITALS: BP 121/53; PULSE 88; O2SAT 93
[2024-09-18] MEDS: KETOROLAC 30MG/ML VIAL 15 MG IM (20:33)
[2024-09-18] MEDS: DEXAMETHASONE 4MG TABLET 10 MG PO (20:33)
[2024-09-18] MEDS: LIDOCAINE 2% VISCOUS SOL 15ML UDC 15 ML PO (20:33)
[2024-09-18] MEDS: ONDANSETRON 4MG ODT 4 MG SL (20:34)
[2024-09-18 21:01] VITALS: BP 141/81; PULSE 95; O2SAT 89
--- NOTE | 2024-09-18 21:13 | PC.NURSE ---
Pt has been able to keep down water since receiving zofran. No complaints of nausea. Pt asleep in bed at this time.
[2024-09-18 21:44] VITALS: BP 119/50; PULSE 99; RESP 18; TEMP 37.5
== END 2024-09-18 21:43 | disposition home or self-care (01) ==
PROVIDERS: Emergency Provider Emergency Medicine; PCP Family Medicine
DX: B34.9 Viral infection, unspecified (principal); J02.9 Acute pharyngitis, unspecified; R11.2 Nausea with vomiting, unspecified; R50.9 Fever, unspecified; R19.7 Diarrhea, unspecified
CPT/HCPCS: 87430; 87636; 96372; 99283; J1885; J8540; Q0162

== ENCOUNTER 2024-09-25 12:17 | Emergency (ER) | payer MEDICARE, SELFPAY ==
[2024-09-25] VITALS (9 sets, daily range): BP systolic 114–127; BP diastolic 63–72; PULSE 60–82; RESP 14–21; TEMP 36.6; O2SAT 93–96; BMI 47.0
--- NOTE | 2024-09-25 12:17 | ECG_ITS ---
APPROVED REPORT Exam: Resting ECG HR:81 bpm ECG Measurements Heart Rate 81 AXES RI 120 P 56 QRSd 93 QRS -18 QT 365 T 88 QTc 402 Conclusion SINUS RHYTHM INDETERMINATE AXIS LOW QRS VOLTAGE IN PRECORDIAL LEADS [QRS DEFLECTION < 1.0 mV IN CHEST LEADS] PATTERN CONSISTENT WITH PULMONARY DISEASE ABNORMAL ECG UNCONFIRMED REPORT Electronically signed by : Omero Ziegler, 09/25/2024 14:59:39
--- NOTE | 2024-09-25 12:26 | ED_ITS ---
<Statement entered by Bronwyn Ziegler MD - 09/26/24 14:25> I was consulted by the ALY, and we discussed the complexity of the problems being addressed. I approved the treatment and management plan for this patient's care in the emergency department, thus performing a substantive portion of the medical decision making. Bronwyn Ziegler MD, CODY, FACEP Discharge Plan Disposition Chief Complaint: Chest Pain Prescriptions Prescriptions: No Action pantoprazole 40 mg tablet,delayed release (DR/EC) 40 mg PO BID diphenhydramine HCl [Benadryl] 25 mg capsule 25 mg PO TID PRN (Reason: ALLERGIES) acetaminophen [Tylenol] 325 MG tablet 650 mg PO Q8HP PRN (Reason: PAIN) lisinopril 10 MG tablet 10 mg PO DAILY aspirin [Aspir-81] 81 MG tablet,delayed release (DR/EC) 81 mg PO DAILY gabapentin 300 MG capsule 300 mg PO TID tizanidine 4 MG tablet 4 mg PO BID lidocaine HCl [Lidocaine Viscous] 2 % solution 1 applic mucous membrane Q8H PRN (Reason: pain) Qty: 100 0RF ondansetron 4 mg tablet,disintegrating 4 mg PO Q8H 4 Days Qty: 12 0RF Referrals Follow up/Referrals: Provider,Referral, [Referring] - See instructions Print Language Print Language: Ugandan Discharge ED Provider: Roberto Ziegler HPI General Chief Complaint: Chest Pain Stated Complaint: cp Time Seen by Provider: 09/25/24 12:25 History of Present Illness HPI narrative: 69-year-old female presents to the ED for complaints of chest pain. Patient states she has had intermittent chest pain over the past 2 weeks, has been evaluated by cardiology for this, has recently wore a Holter monitor. Patient states she missed her last cardiology appointment this past week due to having a URI. Related Data Home Medications ?Medication ?Instructions ?Recorded ?Confirmed aspirin 81 mg tablet,delayed 81 mg PO DAILY Blood thinner 01/24/18 09/25/24 release (Aspir-) acetaminophen 325 mg tablet 650 mg PO Q8HP PRN PAIN 02/08/18 09/25/24 (Tylenol) gabapentin 300 mg capsule 300 mg PO TID Pain 11/06/18 09/25/24 lisinopril 10 mg tablet 10 mg PO DAILY BLOOD PRESSURE 01/21/20 09/25/24 diphenhydramine HCl 25 mg capsule 25 mg PO TID PRN ALLERGIES 06/19/22 09/25/24 (Benadryl) pantoprazole 40 mg tablet,delayed 40 mg PO BID STOMACH 06/19/22 09/25/24 release tizanidine 4 mg tablet 4 mg PO BID MUSCLES 11/13/22 09/25/24 Previous Rx's ?Medication ?Instructions ?Recorded lidocaine HCl 2 % mucosal solution 1 applic mucous membrane Q8H PRN 09/18/24 (Lidocaine Viscous) pain #100 mL ondansetron 4 mg disintegrating 4 mg PO Q8H 4 days #12 tabs 09/18/24 tablet Allergies Allergy/AdvReac Type Severity Reaction Status Date / Time No Known Allergies Allergy Verified 09/14/24 07:52 [facility] Disclaimer: The information contained in this section may have been updated after the patient was seen, as this information can be updated by other users. Medical History Seasonal allergies Hypertension GERD (gastroesophageal reflux disease) Surgical History H/O lumpectomy H/O abdominal hysterectomy Family History Other No significant family history Social History (Updated 09/14/24 @ 07:52 by Ellyn Ball RN) Smoking Status: Never smoker second hand exposure: No alcohol intake: never current occupational status: other Travel in the last 8 weeks: None household members: spouse housing: house current occupational exposures/hazards: No caffeine: Yes Have you lived/traveled outside [place] in past 30 days?: No Contact w/someone who lives/traveled outside US past 30 days?: No Exposure to someone with infectious disease in past 14 days?: No Do you have a fever (greater than 100.4 F or 38 C)?: No Have you tested positive for COVID-19: No Exposed to someone with COVID-19 in past 14 days?: No Do you have a sore throat?: No Do you have a cough?: No Do you have any weakness?: No Do you have any diarrhea?: No Are you experiencing any unusual bleeding?: No Do you have any muscle aches/pain?: No Do you have any abdominal pain?: No Are you experiencing loss of taste or smell?: No Other Medical History Have you received the Flu Vaccine for this season: No Have you received the Pneumonia Vaccine: No ROS Obtained: Yes Systems reviewed as appropriate & no additional complaints except as documented Physical Exam General General appearance: alert, in no apparent distress and other (Obese) Head Head exam: atraumatic and normocephalic Eye Eye exam: Present normal appearance and PERRL; Absent nystagmus ENT ENT exam: Present normal exam Neck Neck exam: Present normal inspection Chest Chest inspection: Present normal inspection and symmetric chest wall rise; Absent tenderness Respiratory Respiratory exam: Present normal lung sounds bilaterally Cardiovascular Cardiovascular exam: Present regular rate Abdominal Exam Abdominal exam: Present soft and normal bowel sounds; Absent tenderness Extremities Exam Extremities exam: Present normal inspection and full ROM Back Exam Back exam: Present normal inspection and full ROM; Absent tenderness Neurological Exam Neurological exam: Present alert and oriented X3 Psychiatric Psychiatric exam: Present normal affect and normal mood Skin Skin exam: Present warm and dry HEART Score HEART Score HEART Score assessment performed?: Yes History (anamnesis): Moderately suspicious ECG: Non-specific disturbance Age: >65 years Risk factors: 3 or more risk factors Troponin: </= normal limit HEART Score: 6 Critical Care Critical Care Time Critical Care Time: No Medical Decision Making Sin Inquiry Pt receiving controlled substance: No Sin was queried for this patient: No Vital Signs Vital Signs: 09/25/24 12:20 09/25/24 12:32 09/25/24 12:50 Temperature 98 F Temperature Source Oral Pulse Rate 82 74 Pulse Rate [Left Radial] 82 Respiratory Rate 20 20 Blood Pressure 114/71 Blood Pressure [Right Arm] 121/63 Blood Pressure Mean [Right Arm] 82 02 Sat by Pulse Oximetry 94 L 94 L Oxygen Delivery Method Room Air Room Air 09/25/24 13:00 09/25/24 13:31 09/25/24 14:00 Temperature Temperature Source Pulse Rate 69 64 61 Pulse Rate [Left Radial] Respiratory Rate 19 21 16 Blood Pressure 121/69 127/64 125/72 Blood Pressure [Right Arm] Blood Pressure Mean [Right Arm] 02 Sat by Pulse Oximetry 94 L 95 94 L Oxygen Delivery Method Room Air Room Air 09/25/24 14:31 09/25/24 15:00 Temperature Temperature Source Pulse Rate 60 70 Pulse Rate [Left Radial] Respiratory Rate 21 14 Blood Pressure 120/64 120/63 Blood Pressure [Right Arm] Blood Pressure Mean [Right Arm] 02 Sat by Pulse Oximetry 94 L 93 L Oxygen Delivery Method Room Air Room Air Lab Data Labs: Lab Results 09/25/24 12:23: WBC 12.2 H, RBC 4.59, Hgb 14.1, Hct 42.7, MCV 93.0, MCH 30.7, MCHC 33.0, RDW 13.0, Plt Count 450 H, MPV 8.4, Neut % (Auto) 79.7, Lymph % (Auto) 16.0, [place] % (Auto) 2.5, Eos % (Auto) 0.7, Baso % (Auto) 0.2, Neut # (Auto) 9.7 H, Lymph # (Auto) 2.0, [place] # (Auto) 0.3, Eos # (Auto) 0.1, Baso # (Auto) 0.0, Sodium 139, Potassium 4.5, Chloride 105, Carbon Dioxide 22, Anion Gap 16.5 H, BUN 22 H, Creatinine 0.90, Estimated Creat Clear 52, Estimated GFR 62, Est GFR ( Amer) 75, Glucose 123 H, Calcium 9.1, Total Bilirubin 0.4, AST 40 H, ALT 29, Alkaline Phosphatase 82, Troponin I < 0.01, NT-Pro-B Natriuret Pep 24.9, Total Protein 8.4 H, Albumin 4.6, Globulin 3.8 H, Albumin/Globulin Ratio 1.2, Lipase 35 09/25/24 12:23 09/25/24 12:23 Response Orders (Tests/Meds): ED MEDICATIONS Discontinued Medications Generic Name Dose Route Start Last Admin Trade Name Freq PRN Reason Stop Dose Admin Aspirin 324 mg 09/25/24 12:32 09/25/24 12:36 Aspirin 81mg Chewable Tablet PO 09/25/24 12:33 324 mg ONCE ONE Administration Belladonna Alkaloids 60 ml 09/25/24 15:09 09/25/24 15:13 Belladonna Alkaloids 60 Ml Ml PO 09/25/24 15:10 60 ml ONCE ONE Administration ORDERS Category Date Time Status XR chest 2V Stat Exams 09/25/24 12:32 Completed BNP [NT Pro Brain Natriuretic Pep.] Stat Lab 09/25/24 12:23 Completed Complete Blood Count Auto Diff Stat Lab 09/25/24 12:23 Completed Comprehensive Metabolic Panel Stat Lab 09/25/24 12:23 Completed Lipase Stat Lab 09/25/24 12:23 Completed Troponin I Q3H Lab 09/25/24 15:45 Ordered Troponin I Q3H Lab 09/25/24 18:45 Ordered Troponin I Stat Lab 09/25/24 12:23 Completed MDM Narrative Medical Decision Narrative: In summary, patient is a pleasant 69-year-old female PMHx hypertension, history of chest pain, obesity, ZEE who presents to the ED for centrally located chest heaviness constant for 2 weeks, worsening today. She reports that her chest pain radiates through to her back currently, has previously radiated up into her neck. States this morning her chest pain was 8 out of 10, she took 1 sublingual nitro and her chest pain is down to it 6 out of 10. Patient is currently being evaluated by cardiology, has recently worn a Holter monitor, had to schedule her appointment this past week due to upper respiratory infection. Upon initial exam, patient is alert, oriented and cooperative. Patient is hemodynamically stable. Physical exam remarkable for obesity, no chest wall tenderness. Denies fever, chills, headache, visual disturbances, posterior neck pain, abdominal pain, nausea, vomiting. Differential diagnosis includes ACS, dissection, angina, pneumonia, pneumothorax, infectious process. Initial workup will be conducted with hematologic labs, imaging, EKG. Initial inventions include aspirin administration. Initial workup reviewed by me. Hematologic labs remarkable for CBC remarkable for WBC 12.2, stable H&H. CMP unremarkable for any actionable abnormalities. First troponin <0.01. BNP 24.9. I informally interpreted the imaging as unremarkable chest x-ray. See final read. Independently interpreted the EKG as normal sinus rhythm rate 81, QT 402, no STEMI. Administered GI cocktail. Patient states she had complete resolution of symptoms after this. No chest pain. Upon repeat evaluation, due to complete resolution of symptoms I feel that patient is safe to be discharged at this time. She was ambulatory in the ED. She was able to tolerate p.o. She states she is going to call her skilled nursing facilities professional tomorrow to make a follow-up appointment for her Holter monitor results. We discussed return precautions to the ED. Patient is also going to follow-up with her PCP within 7 days. She was hemodynamically stable upon discharge
--- NOTE | 2024-09-25 12:32 | XR_ITS ---
PROCEDURE INFORMATION: Exam: XR Chest Exam date and time: 09/25/2024 12:30 PM Age: 69 years old Clinical indication: Cough and wheezing; Additional info: Chest pain TECHNIQUE: Imaging protocol: Radiologic exam of the chest. Views: 2 views. COMPARISON: CT ANGIO CHEST PE PROTOCOL 08/20/2024 1:17 PM FINDINGS: Lungs: Unremarkable. No consolidation. Pleural spaces: Unremarkable. No pleural effusion. No pneumothorax. Heart/Mediastinum: Unremarkable. No cardiomegaly. Bones/joints: Unremarkable. IMPRESSION: No acute findings.
[2024-09-25] MEDS: ASPIRIN 81MG CHEWABLE TABLET 324 MG PO (12:36)
[2024-09-25 12:40] LABS: Basophils % 0.2 % (0.1-2.0); Eosinophils # 0.1 K/mm3 (0.0-0.4); Eosinophils % 0.7 % (0.1-12.0); Hematocrit 42.7 % (37.0-47.0); Hemoglobin 14.1 g/dL (12.2-16.2); Mean Corpuscular Hemoglobin 30.7 pg (27.0-31.2); Mean Platelet Volume 8.4 fl (7.4-10.4); Monocytes # 0.3 K/mm3 (0.1-1.0); Monocytes % 2.5 % (1.7-9.3); Neutrophils # 9.7 K/mm3 (1.8-7.8); Neutrophils % 79.7 % (37.0-80.0); Platelet Count 450 K/mm3 (142-424); Red Blood Count 4.59 M/mm3 (4.20-5.40); White Blood Count 12.2 K/mm3 (4.8-10.8)
[2024-09-25 13:30] LABS: Lipase 35 U/L (23-300)
[2024-09-25 13:40] LABS: NT Pro Brain Natriuretic Pep. 24.9 pg/mL (0-125)
[2024-09-25 14:28] LABS: Albumin Level 4.6 g/dl (3.5-5.0); Chloride 105 mmol/L (98-107); Potassium 4.5 mmoL/L (3.5-5.1); Sodium 139 mmol/L (136-145)
[2024-09-25 14:31] LABS: Alanine Aminotransferase 29 U/L (12-78); Albumin/Globulin Ratio 1.2 (1.1-1.8); Alkaline Phosphatase 82 U/L (38-126); Anion Gap 16.5 mEq/L (5-15); Aspartate Amino Transferase 40 U/L (14-36); Bilirubin,Total 0.4 mg/dl (0.2-1.3); Blood Urea Nitrogen 22 mg/dl (7-17); Carbon Dioxide 22 mmol/L (22.0-30.0); Creatinine Clearance Estimated 52 mL/min (50-200); Estimated Glomerular Filt Rate 62 ml/min (>60); GFR (African American) 75 ML/MIN (>60); Globulin 3.8 g/dL (1.3-3.2); Total Protein,Serum 8.4 g/dl (6.3-8.2)
[2024-09-25 14:32] LABS: Calcium 9.1 mg/dl (8.4-10.2); Glucose 123 mg/dl (74-100)
[2024-09-25 14:49] LABS: Troponin I < 0.01 ng/ml (0.00-0.034)
[2024-09-25] MEDS: BELLADONNA ALKALOIDS 60 ML ML PO (15:13)
== END 2024-09-25 16:00 | disposition home or self-care (01) ==
PROVIDERS: Nurse Practitioner; Student in an Organized Health Care Education/Training Program; Emergency Provider Ophthalmology; PCP Family Medicine
DX: R07.9 Chest pain, unspecified (principal); K21.9 Gastro-esophageal reflux disease without esophagitis
CPT/HCPCS: 71046; 80053; 83690; 83880; 84484; 85025; 93005; 99284

== ENCOUNTER 2024-10-13 07:12 | Outpatient (CLI) | payer MEDICARE, SELFPAY ==
--- NOTE | 2024-10-13 | CA_ITS ---
APPROVED REPORT Exam: Pharmacologic Technologist: Holly Martinez Ht: 5 ft 7 in Wt: 273 lbs BSA: 2.31 m2 HR: 76 bpm BP: 102/40 mmHg Stress Test Details Test: Lexiscan HR Resting HR: 76 bpm Max Heart Rate (APMHR): 152.350470 bpm Max HR Achieved: 86 bpm Target HR (85% APMHR): 129.794321 bpm % of APMHR: 56.58 Recovery HR: 83 bpm BP Resting BP: 102.0/40.0 mmHg Max BP: 111.0/59.0 mmHg Recovery BP: 104.0/60.0 mmHg ECG Stress ECG Conclusion Symptoms: Shortness of air with Lexiscan infusion. Arrhythmias/Ectopy: None ST-T Changes: Unremarkable with Lexiscan. Electronically signed by : Jaqui Tucker MD 10/14/2024 00:00:42
--- NOTE | 2024-10-13 07:13 | NM_ITS ---
APPROVED REPORT Exam: Nuclear Stress Test Indication: hypertension, fm hx, c.p., sob Patient Location: Outpatient Stress Tech: Holly Martinez NM Tech:Margie Orr ARRT, RT (R)(N) Ht: 5 ft 7 in Wt: 300 lbs Bra Size: 54dd HR: 76 bpm BP: 102/40 mmHg BSA: 2.40 m2 TID: 1.47 BMI: 46.9 History: hypertension, fm hx, c.p., sob Procedure: Patient received 0.4 mg of intravenous Lexiscan, resting heart rate 76 bpm, resting blood pressure 102/40 mmHg, with Lexiscan maximum heart rate achieved was 84 bpm which is % of the maximum predicted heart rate and blood pressure was 89/58 mmHg. With Lexiscan, patient denied any complaint of chest pain. Cardiac Stress and Resting SPECT Images: Cardiac Stress and Resting SPECT images were obtained using technetium 99m Myoview 29.1 mCi stress and 10.02 mCi at rest. Resting and stress imaging in supine and prone positions demonstrate no evidence of fixed or reversible perfusion defects. Gated imaging demonstrates normal global and regional LV systolic function. LVEF is calculated at 63%. Conclusion: No evidence of fixed or reversible perfusion defects. Gated imaging demonstrates normal global and regional LV systolic function. LVEF is calculated at 63%. Electronically signed by : Jaqui Tucker MD 10/13/2024 23:58:05
[2024-10-13] MEDS: REGADENOSON 0.4MG/5ML SYRINGE 0.4 MG IV (09:36)
[2024-10-13] MEDS: SODIUM CHLORIDE 0.9% 10ML SYR (RAD ONLY) 10 ML IV ×2 (09:36)
[2024-10-13] MEDS: ISOTOPE MYOVIEW (PER STUDY) 1 DOSE IV (09:36)
== END 2024-10-13 23:59 | disposition home or self-care (01) ==
LOC: RAD 07:13
PROVIDERS: PCP Family Medicine; Visit Provider Internal Medicine
DX: R00.2 Palpitations (principal); R07.89 Other chest pain; R06.09 Other forms of dyspnea; I10 Essential (primary) hypertension; E66.813 Obesity, class 3; E66.01 Morbid (severe) obesity due to excess calories; Z68.41 Body mass index [BMI] 40.0-44.9, adult; G47.33 Obstructive sleep apnea (adult) (pediatric)
CPT/HCPCS: 78452; 93017; 93018; A9502; J2785

== ENCOUNTER 2024-10-26 13:27 | Outpatient (CLI) | payer MEDICARE, SELFPAY ==
[2024-10-26 13:57] LABS: Basophils % 0.4 % (0.1-2.0); Eosinophils # 0.1 K/mm3 (0.0-0.4); Eosinophils % 1.4 % (0.1-12.0); Hematocrit 41.2 % (37.0-47.0); Hemoglobin 13.4 g/dL (12.2-16.2); Lymphocytes # 2.5 K/mm3 (0.7-4.5); Mean Corpuscular HGB Conc 32.5 g/dL (31.8-35.4); Mean Corpuscular Hemoglobin 30.6 pg (27.0-31.2); Mean Corpuscular Volume 94.1 fl (81-99); Mean Platelet Volume 8.4 fl (7.4-10.4); Monocytes # 0.4 K/mm3 (0.1-1.0); Monocytes % 5.3 % (1.7-9.3); Neutrophils % 61.5 % (37.0-80.0); Platelet Count 349 K/mm3 (142-424); Red Blood Count 4.38 M/mm3 (4.20-5.40); Red Cell Distribution Width 12.4 % (11.5-17.5)
[2024-10-26 14:11] LABS: Albumin Level 4.3 g/dl (3.5-5.0)
[2024-10-26 14:12] LABS: Chloride 103 mmol/L (98-107); Sodium 138 mmol/L (136-145)
[2024-10-26 14:14] LABS: Alanine Aminotransferase 28 U/L (12-78); Aspartate Amino Transferase 31 U/L (14-36); Blood Urea Nitrogen 15 mg/dl (7-17); Carbon Dioxide 30 mmol/L (22.0-30.0); Estimated Glomerular Filt Rate 62 ml/min (>60); GFR (African American) 75 ML/MIN (>60)
[2024-10-26 14:15] LABS: Alkaline Phosphatase 100 U/L (38-126); Calcium 8.9 mg/dl (8.4-10.2); Chol/HDL Ratio 3.7 (1-3.5); Cholesterol 210 mg/dl (140-200); Glucose 101 mg/dl (74-100); HDL Cholesterol 57 mg/dl (40-60); Total Protein,Serum 6.9 g/dl (6.3-8.2); Triglycerides 195 mg/dl (30-150); VLDL Cholesterol 39 mg/dL (0-40)
[2024-10-26 14:26] LABS: Direct LDL Cholesterol 102.97 mg/dL (100-129)
[2024-10-26 14:46] LABS: Thyroid Stimulating Hormone 2.02 uIU/mL (0.465-4.68)
[2024-10-26 18:07] LABS: Bilirubin,Direct 0.1 mg/dl (0.0-0.4); Bilirubin,Indirect 0.3 mg/dL (0.0-0.9)
[2024-10-26 18:20] LABS: Bilirubin,Total 0.4 mg/dl (0.2-1.3); Bilirubin,Unconjugated 0.3 mg/dL (0.0-1.1)
[2024-10-26 21:37] LABS: Free T4 (Free Thyroxine) 1.12 ng/dl (0.78-2.19)
== END 2024-10-26 23:59 | disposition home or self-care (01) ==
LOC: LAB 13:27
PROVIDERS: PCP Family Medicine; Visit Provider Internal Medicine
DX: I10 Essential (primary) hypertension (principal); G47.33 Obstructive sleep apnea (adult) (pediatric); E66.9 Obesity, unspecified; R07.9 Chest pain, unspecified
CPT/HCPCS: 36415; 80048; 80061; 80076; 84439; 84443; 85025

== ENCOUNTER 2024-11-22 10:27 | Outpatient (CLI) | payer MEDICARE, SELFPAY ==
--- OUTSIDE RECORDS SUMMARY | 2024-11-22 10:29 | XMS_ITS ---
Author Organization Unknown TREATMENT PLAN [facility] Start Date Provider Encounter for Check-up [id number] [facility]
[2024-11-22 11:17] LABS: Chloride 103 mmol/L (98-107); Potassium 4.7 mmoL/L (3.5-5.1); Sodium 138 mmol/L (136-145)
[2024-11-22 11:20] LABS: Anion Gap 11.7 mEq/L (5-15); Blood Urea Nitrogen 20 mg/dl (7-17); Carbon Dioxide 28 mmol/L (22.0-30.0); Estimated Glomerular Filt Rate 55 ml/min (>60); GFR (African American) 67 ML/MIN (>60); Glucose 109 mg/dl (74-100); Magnesium 1.8 mg/dl (1.6-2.3)
== END 2024-11-22 23:59 | disposition home or self-care (01) ==
LOC: LAB 10:28
PROVIDERS: PCP Family Medicine; Visit Provider Internal Medicine
DX: I50.30 Unspecified diastolic (congestive) heart failure (principal); I11.0 Hypertensive heart disease with heart failure
CPT/HCPCS: 36415; 80048; 83735

== ENCOUNTER 2025-05-11 07:56 | Outpatient (CLI) | payer MEDICARE, SELFPAY ==
--- OUTSIDE RECORDS SUMMARY | 2024-08-23 05:00 | XMS_ITS ---
Author Organization [facility] Address [address] [place] [id number] Care Team Providers Care Child Care Supervisor Name Role Phone Jt Ayoub Primary Care Provider [phone] April Maloney [phone] Allergies No Known Allergies REASON FOR VISIT F/U ER Encounters Encounter Location Date Provider Diagnosis Kim [address] [place] [id number] 08/23/2024 Jt Ayoub Plan Of Treatment Next Appt Details Provider Name:Jt Rodney ry, 08/09/2025 09:30:00 AM, [address], [address], [place], [id number], Progress Notes * Rosalia SALDANAOB:1955 (70 yo F)Acc No.[id number]:08/23/2024 Progress Notes Patient: Eleni LIGHT Provider: Phoebe Ayoub M.D. :1955 A ge:69 Y S ex:Female Date:08/23/2024 Address:[address] [id number] Subjective: * Chief Complaints: * 1 . F/U ER. * ROS: D ERMATOLOGY: no R jose. n o H [place]. G ASTROENTEROLOGY: no N ausea. n o V omiting. U ROLOGY: no D ifficulty urinating. n o B lood in urine. * Medical History: D epression/Anxiety, Heartburn, Sleep apnea, Hypertension, Chest pain 2014, seen by Dr. Jones, Chronic back pain - followed by Dr. Bautista, Sciatica, Osteoporosis, Abnormal PAP - Dr. Bernabe, Follows with OBGYN for PAP, mammograms, bone density - Dr. Janet Jamil. * Surgical History: T otal Hysterectomy , Benign Lump Removed from Left Breast - Dr Keyes , Tubal , Benign Lumps Removed from Colon - Dr Keyes , Tooth Extraction 07/2019. * Hospitalization/Major Diagno stic Procedure: C olitis- [facility] 06/2013, Food Posioning- [facility] 11/15/2016, Chest Pain- [facility] 02/05/2017, Lower Back Pain- [facility] 02/08/2018, Chest Pain- [facility] 08/13/2022. * Family History: F ather: 42 yrs, Heart Attack. M other: alive 86 yrs, Cancer of Uterus. P aternal Grand Mother: diagnosed with Diabetes. 4 brother(s) , 3 sister(s) . 2 son(s) , 1 daughter(s) . . Brother with IDDM. * Social History: C URRENT TOBACCO USE S moking Status: Patient does NOT smoke. C affeine: yes, frequency: Mt Dew. Home smoke detector use: yes. Alcohol: No. * Allergies: N .K.D.A. Objective: * Vitals: Assessment: Plan: * Treatment: * Images: Billing Information: * Visit Code: * Procedure Codes: * Electronic signature of Amarilys Ayoub MD on 05/11/2025 at 08:01 AM EDT Sign off status: Pending * Provider: Phoebe Ayoub M.D. Date: 0 08/23/2024 Generated for Dashawn kearney/Kalyn/Karen on: 08:01 AM EDT
--- OUTSIDE RECORDS SUMMARY | 2024-09-23 06:15 | XMS_ITS ---
Author Organization [facility] Address [address] [place] [id number] Care Team Providers Care Hotel Engineer Name Role Phone Jt Ayoub Primary Care Provider April Maloney Unavailable [phone] Allergies No Known Allergies Results Component Value [...] 31 - 38 REASON FOR VISIT f/u [facility] ER visit cough & congestion Medications Medication [...] Encounter Location Date Provider Diagnosis [facility] [address] [facility] [address] [facility] [address] [place] [phone] 09/23/2024 Jt Ayoub Bronchitis J40 Assessments Encounter [...] Name:Jt Rodney ry, 08/09/2025 09:30:00 AM, [address] [facility] [address] [facility], [address], [place], [phone], Progress Notes * Rosalia SALDANAOB:1955 (70 yo F)Acc No.[id number]:09/23/2024 Patient: Eleni LIGHT Provider: Phoebe Ayoub M.D. :1955 A ge:69 Y S ex:Female Date:09/23/2024 Address:[address], [id number] Subjective: * Chief Complaints: * 1 . f/u [facility] ER visit cough & congestion. * HPI: H PI: 69 year old female presents with c/o Here for follow up on:?09/18/2024 [facility] ER visit. Pt was seen for fever [...] * Hospitalization/Major Diagno stic Procedure: C olitis- [facility] 06/2013, Food Posioning- [facility] ER 11/15/2016, Chest Pain- [facility] ER 02/05/2017, Lower Back Pain- [facility] ER 02/08/2018, Chest Pain- [facility] ER 08/13/2022. * Family History: F ather: [...] G 2211 Complex e/[place], [address] [place], [address] CAPILLARY BLOOD DRAW, 36[address] CBC WITH AUTO DIFF, 3077F SYST BP = 140 MM HG6 IT, 3078F DIAST BP < 80 MM HG * Follow Up: v ia phone to report progress * Images: Billing Information: * Visit Code: 21649 Office Visit, Est Pt., Level 3. * Procedure Codes: G2211 Complex e/[place]. [address] [place]. [address] CAPILLARY BLOOD DRAW. 61315 CBC WITH AUTO DIFF. 3077F SYST BP = 140 MM HG6 IT. 3078F DIAST BP < 80 MM HG. * Electronic signature of Amarilys Ayoub MD on 05/11/2025 at 08:01 AM EDT Sign off status: Pending * Provider: Phoebe Ayoub M.D. Date: 0 09/23/2024 Generated for Dashawn kearney/Kalyn/eTransmitting on: 1 08:01 AM EDT History and Physical Notes * HPI (History of Present Illness) Category Sub-Category Detail Notes Category Not es ENT/respiratory cough Pt complains of cough with blood stained sputum. Pt states that she feels awful . Pt states she has wheezing and feels short of breath as well HPI Here for follow up on: 5 [facility] ER visit. Pt was seen for fever and vomiting, pt states that both have improved since being d/c Examination Category Sub-Category Detail Notes Category Not es ENT/Respiratory Neck : no cervical lymphadenopat hy Heart : RRR, normal S1 S2 Lungs: good air movement, b ilateral occasional expiratory wheezes General Appearance: NAD Eyes: PERRLA, sclera clear
--- OUTSIDE RECORDS SUMMARY | 2025-05-03 10:45 | XMS_ITS ---
Author Organization [facility] Address [address] [place] [id number] Care Team Providers Care Medical Accounts Receivable Specialist Name Role Phone Jt Ayoub Primary Care Provider [phone] April Maloney Unavailable [phone] Allergies No Known Allergies Results Component Value [...] 05/03/2025 Encounters Encounter Location Date Provider Diagnosis [facility] [address] [facility] [address] [facility] [address] [place] [id number] 05/03/2025 April Maloney COVID-19 U07.1 and Acute [...] Name:Jt Rodney , 08/09/2025 09:30:00 AM, [address] [facility] [address] [facility], [address], [place], [id number], Progress Notes * Rosalia SALDANAOB:1955 (70 yo F)Acc No.[id number]:05/03/2025 Progress Notes Patient: Eleni LIGHT Provider: April Maolney M.D. :1955 A ge:70 Y S ex:Female Date:05/03/2025 Address[address] [id number] Pcp:Jt Ayoub Subjective: * Chief Complaints: * [...] * Hospitalization/Major Diagno stic Procedure: C olitis- [facility] 06/2013, Food Posioning- [facility] 11/15/2016, Chest Pain- [facility] 02/05/2017, Lower Back Pain- [facility] 02/08/2018, Chest Pain- [facility] 08/13/2022. * Family History: F ather: 42 yrs, Heart Attack. M other: alive 86 yrs, Cancer of Uterus. P aternal Grand Mother: diagnosed with Diabetes. 4 brother(s) , 3 sister(s) . 2 son(s) , 1 daughter(s) . . Brother with IDDM. * Social History: C URRENT TOBACCO USE: No . C affeine: yes, frequency: [facility]. Home smoke detector use: yes. [...] reviewed results while patient in office. * Follow Up: p rn * Images: Billing Information: * Visit Code: 74407 Office Visit, Est Pt., Level 4. * Procedure Codes: * Electronic signature of April Maloney MD on 05/11/2025 at 08:01 AM EDT Sign off status: Pending * Provider: April Maloney M.D. Date: 0 05/03/2025 Generated for Dashawn kearney/Kalyn/Karen on: 1 08:01 AM EDT History and [...]
--- NOTE | 2025-05-11 07:59 | MR_ITS ---
FINAL REPORT CLINICAL HISTORY: NUMBNESS/TINGLING BILATERAL HANDS COMPARISON: None FINDINGS: Multiplanar MR imaging was obtained of the cervical spine. There is abnormal decreased signal throughout the cervical discs. There is mild loss of height at the C5-6 and C6-7 disc levels. There is no malalignment. The cervical cord demonstrates normal signal and configuration. C2-C3: There is no evidence of significant disc bulge or protrusion. There is no significant facet hypertrophy. C3-C4: There is no evidence of significant disc bulge or protrusion. There is no significant facet hypertrophy. C4-C5: There is no evidence of significant disc bulge or protrusion. There is no significant facet hypertrophy. C5-C6: Mild diffuse disc bulge. Endplate hypertrophy. Moderate bilateral neural foraminal narrowing. C6-C7: Mild diffuse disc bulge. Mild to moderate bilateral neural foraminal narrowing. C7-T1: There is no evidence of significant disc bulge or protrusion. There is no significant facet hypertrophy. IMPRESSION: Disc bulges with endplate hypertrophy C5-6 and C6-7. Bilateral neural foraminal compromise, more evident at the C5-6 level. Reviewed, Interpreted and Dictated by Aleksandr Watson MD Transcribed by Tamara Wallace Authenticated and [facility]
--- OUTSIDE RECORDS SUMMARY | 2025-05-11 08:01 | XMS_ITS | Patient Health Record ---
Author Organization [facility] Address [address] [facility] [address] [place] [id number] Care Team Providers Care Fountain Manager Name Role Phone Jt Ayoub Primary Care Provider [phone] April Maloney Unavailable [phone] JesseniaAna PaulaWandy Unavailable [phone] Allergies No Known Allergies Results Component Value [...] Interpretation:satisfactory Performing Lab: Notes/Report: Test performed by [facility] [employer], [facility] , [address], [place] [address] Brian Ann MD, Hedis Nurse CLIA: [id number] Sodium 139 135-145 mmol/L Potassium 4.3 3.5-5.3 mmol/L Chloride 102 97-108 mmol/L CO2 29 20-32 mmol/L Glucose 107 65-99 mg/dL BUN 17 8-23 mg/dL Creatinine 1.01 0.50-1.00 mg/dL Calcium 9.2 8.6-10.4 mg/dL eGFR by Creatinine 60 >59 mL/min/1.73m2 P-Microalbumin/Creatinine, R andom Urine Sample Reviewed date:02/10/2025 11:32:27 AM Interpretation:Normal Performing Lab: Notes/Report: Test performed by [employer], [address] , [address], [place] [address] Brian Ann MD, Hedis Nurse CLIA: [id number] Albumin/Creatinine Ratio, Urine <9.09 0-30 ug/mg Microalbumin, Urine, Random <0.3 Creatinine, Urine 33.0 Glucose (In-House) Reviewed date:08/18/2024 12:38:15 PM Interpretation:114 Performing Lab: Notes/Report: 114 blood glucose 114 74 - 106 mg/dL Glycohemoglobin A1c (in hous e) Reviewed date:08/18/2024 12:38:50 PM Interpretation:5.3%, normal Performing Lab: Notes/Report: 5.3%, normal glycohemoglobin 5.3% 5 - 6.5 % CBC Fingerstick (in house) Reviewed date:09/23/2024 11:05:42 AM Interpretation: Performing Lab: Notes/Report: wbc 8.8 3.5 - 10 lym 34.8% 15 - 50 mid 7.7% 2 - 15 gran 57.5% 35 - 80 rbc 4.62 3.5 - 5.5 hgb 14.0 11.5 - 16.5 hct 43.2 35 - 55 mcv 93.3 75 - 100 mch 30.2 25 - 35 mchc 338 31 - 38 Urinalysis - Inhouse Reviewed date:07/13/2024 10:22:35 AM Interpretation: Performing Lab: Notes/Report: Color/Clarity dark yellow Leuk 1+ Nitrite neg Urobili 3.2 Protein trace pH 5.5 Blood trace intact Sp. Gr. 1.030 Ketone neg Bili neg Gluc neg P-Culture, Urine Reviewed date:07/15/2024 01:36:01 PM Interpretation:Negative Performing Lab: Notes/Report: Test performed by [facility] [address] [place] [address] , [address], [place] [address] Brian Ann MD, Hedis Nurse CLIA: [id number] Specimen Source Urine - Void Culture, Urine See Below Final Report : No Significant Growth Influenza Screen (in house) Reviewed date:05/03/2025 05:33:54 PM Interpretation: Performing Lab: Notes/Report: results Neg Covid test (in house) Reviewed date:05/03/2025 05:33:54 PM Interpretation: Performing Lab: Notes/Report: Result: Pos Reason For Referral No Information Medications Medication SIG (Take, Route, Frequency, Duration) Notes Start Date End Date Status Furosemide 20 MG 1 tablet Orally Once a day Active Vitamin B12 1000 MCG 1 tablet Orally Onc e a day Active Lisinopril 20 MG 1 tablet Orally Once a day; Duration: 90 days Active Benadryl Allergy 25 MG 1 cap(s) orally 3 times a day Active Tylenol 8 Hour Arthritis Pain 650 MG 2 tab(s) orally every 8 hours Active Gabapentin 300 MG 1 cap(s) orally 3 ti mes a day; Duration: 90 days 11/25/2024 Active Pantoprazole Sodium 40 MG take 1 tablet Orally Two times a day; Duration: 90 days Active tiZANidine HCl 4 MG 1 tablet as needed O rally every 8 hours Active amLODIPine Besylate 2.5 MG 1 tablet Oral ly Once a day Active Benzonatate 200 MG 1 capsule as needed Orally Three times a day 05/03/2025 Active Aspirin Adult Low Dose 81 MG 1 tab(s) orally once a day 08/07/2015 Active Cefdinir 300 MG 1 cap Orally twice a day Active valACYclovir HCl 1 GM 1 tab(s) orally ti d as needed Active Contrave 8-90 MG 2 tablets Orally twi ce a day; Duration: 30 days 02/07/2025 Active Immunizations Vaccine Route Administration Date Status Comme nts COVID 19 Kisha Unknown 02/22/2021 Administered COVID 19 Kisha Unknown 08/20/2021 Administered Fluzone High Dose (65yr and older) IM Intramuscular 05/01/2021 Administered Given by Nicolle Fairchild Fluzone High Dose (65yr and older) IM Intramuscular 08/06/2022 Administered Fluzone High Dose (65yr and older) IM Intramuscular 08/05/2023 Administered Fluzone High Dose (65yr and older) IM Intramuscular 05/05/2024 Administered Fluzone PF Quad (6-35 months) Unknown 09/11/2017 Administered Fluzone PF Quad (6-35 months) Unknown 03/26/2019 Administered Fluzone Quad (6months&older) IM Intramuscular 05/04/2020 Administered PNEUMOVAX 23 VACCINE IM Intramuscular 05/04/2020 Administered Prevnar (PCV13) IM Intramuscular 05/01/2021 Administered G iven by Shirley Fairchild Prevnar (PCV20) IM Intramuscular 08/06/2022 Administered xFluzone (6mos and older)-trivalent IM Intramuscular 07/01/2013 Administered xFluzone-trivalent -medicare pts. IM Intramuscular 06/10/2014 Administered Problems Problem Type SNOMED Code ICD Code Onset Dates Problem Status W/U Status Risk Notes Problem Essential hypertension (28331509) Essential hypertension (I10) Active confirmed Problem Morbid obesity (016523045) Morbid obesity (E66.01) Active confirmed Problem Mixed anxiety and depressive disorder (575773458) Depression with anxiety (F41.8) Active confirmed Problem Hypocalcemia (9680032) Hypocalcemia (E83.51) Active confirmed Problem Sciatica (39981339) Lumbago with sciatica, left side (M54.42) Active confirmed Problem Degeneration of lumbar intervertebral disc (48818019) Lumbar degenerative disc disease (M51.36) Active confirmed Problem Urinary hesitancy (7489507) Urinary hesitancy (R39.11) Active confirmed Problem Gastroesophageal reflux disease without esophagitis (830350725) Gastroesophageal reflux disease without esophagitis (K21.9) Active confirmed Problem Obesity (897613996) Non morbid o besity due to excess calories (E66.09) Active confirmed Problem Displacement of lumbar intervertebral disc without myelopathy (21935931) Bulging lumbar disc (M51.26) Active confirmed Problem Arthropathy of lumbar facet joint (267121569) Lumbar facet arthropathy (M46.96) Active confirmed Problem Morbid obesity (446521604) Morbid obesity due to excess calories (E66.01) Active confirmed Problem Leukocytosis (483137517) Leukocytosis, unspecified type (D72.829) Active confirmed Problem Body mass index 40+ - morbidly obese (422998284) BMI 40.0-44.9, adult (Z68.41) Active confirmed Problem Impaired fasting glycaemia (928468350) IFG (impaired fasting glucose) (R73.01) Active confirmed Problem Age-related osteoporosis (480405628) Osteoporosis without current pathological fracture, unspecified osteoporosis type (M81.0) Active confirmed Problem Allergic rhinitis (55159459) Allergic rhinitis, unspecified seasonality, unspecified trigger (J30.9) Active confirmed Vital Signs Heart Rate 90 /min 05/03/2025 Blood pressure diastolic 80 mm Hg 05/03/2025 Height 66 in 05/03/2025 Blood pressure systolic 132 mm Hg 05/03/2025 Weight 277.8 lbs 05/03/2025 BMI 44.83 kg/m2 05/03/2025 Encounters Encounter Location Date Provider Diagnosis [facility] [address] [facility] [address] [place], [place] [id number] 06/29/2024 Wandy Ruelas Leg edema R60.0 [facility] [address] [facility] [address] [place], [place] [id number] 07/13/2024 Wandy Ruelas UTI (lower urinary t ract infection) N39.0 and Dysuria R30.0 [facility] [address] [facility] [facility] [address] [place], [place] [id number] 08/09/2024 Jt Wenonah Essential hypertensi on I10 ; IFG (impaired fasting glucose) R73.01 ; Gastroesophageal reflux disease without esophagitis K21.9 ; Morbid obesity E66.01 and Lumbago with sciatica, left side M54.42 [facility] [address] [facility] [facility] [address] [place], [place] [id number] 09/23/2024 Jt Wenonah Bronchitis J40 [facility] [address] [facility] [facility] [address] [place], [place] [id number] 01/13/2025 Jt Wenonah Open wound of neck, initial encounter S11.90XA ; Essential hypertension I10 ; Morbid obesity E66.01 and Depression with anxiety F41.8 [facility] [address] [facility] [address] [place], [place] [id number] 02/07/2025 Jt Wenonah Essential hypertensi on I10 ; IFG (impaired fasting glucose) R73.01 ; Allergic rhinitis, unspecified seasonality, unspecified trigger J30.9 ; Morbid obesity E66.01 ; Gastroesophageal reflux disease without esophagitis K21.9 and [facility] use of drug Z79.899 [facility] [address] [facility] [address] [place], [place] [id number] 05/03/2025 R Al Amara COVID-19 U07.1 and A cute bronchitis J20.9 [facility] [address] [facility] [address] [place], [place] [id number] 08/05/2024 Jt Wenonah Lumbago with sciatic a, left side M54.42 [facility] [address] [facility] [address] [place] [id number] 08/24/2024 Jt Wenonah [facility] [address] [facility] [address] [place] [id number] 10/11/2024 Jt Wenonah Gastroesophageal ref lux disease without esophagitis K21.9 [facility] [address] [facility] [address] [place] [id number] 11/25/2024 Jt Wenonah Lumbago with sciatic a, left side M54.42 [facility] [address] [facility] [address] [place] [id number] 01/15/2025 Jt Wenonah [facility] [address] [facility] [address] [place] [id number] 02/22/2025 Jt Wenonah Assessments Encounter Date Diagnosis (ICD Code) Assessment Notes Treatment Notes Treatment Clinical Notes Section Notes 06/29/2024 Leg edema (ICD-10 - R60.0) will take lasix with KCL for one week and then prn; discussed low salt diet; she is currently trying to lose weight 07/13/2024 UTI (lower urinary tract infection) (ICD-10 - N39.0) stressed good water intake with minmal caffeine; discussed UTI prevention 07/13/2024 Dysuria (ICD-10 - R30.0) 08/05/2024 Lumbago with sciatica, left side (ICD-10 - M54.42) 08/09/2024 Essential hypertension (ICD-10 - I10) 08/09/2024 IFG (impaired fasting glucose) (ICD-10 - R73.01) 09/23/2024 Bronchitis (ICD-10 - J40) 10/11/2024 Gastroesophageal reflux disease without esophagitis (ICD-10 - K21.9) 11/25/2024 Lumbago with sciatica, left side (ICD-10 - M54.42) 01/13/2025 Open wound of neck, initial encounter (ICD-10 - S11.90XA) 02/07/2025 Essential hypertension (ICD-10 - I10) 02/07/2025 IFG (impaired fasting glucose) (ICD-10 - R73.01) 05/03/2025 Acute bronchitis (ICD-10 - J20.9) 05/03/2025 COVID-19 (ICD-10 - U07.1) Symptomatic treatment 02/07/2025 Allergic rhinitis, unspecified seasonality, unspecified trigger (ICD-10 - J30.9) 08/09/2024 Gastroesophageal reflux disease without esophagitis (ICD-10 - K21.9) 01/13/2025 Essential hypertension (ICD-10 - I10) 08/09/2024 Morbid obesity (ICD-10 - E66.01) 01/13/2025 Morbid obesity (ICD-10 - E66.01) 02/07/2025 Morbid obesity (ICD-10 - E66.01) 01/13/2025 Depression with anxiety (ICD-10 - F41.8) 02/07/2025 Gastroesophageal reflux disease without esophagitis (ICD-10 - K21.9) 08/09/2024 Lumbago with sciatica, left side (ICD-10 - M54.42) 02/07/2025 intermission coordinator use of drug (ICD-10 - Z79.899) Plan Of Treatment Next Appt Details Provider Name:Jt lane, 08/09/2025 09:30:00 AM, [address] [facility], [address], [place], [place], [id number], Insurance Providers Payer Name Payer Address Payer Phone Subscriber Number Group Number Insured Name Patient Relationship to Insured Coverage Start Date Coverage End Date [employer] (MEDICAR E) [address] [address] [place] [address] [id number] Eleni Castillo Self - patient is the insured Medications Administered Medication Instructions Date of Administration Dosage Notes Depo- Medrol 40 mg/ml 07/26/2013 1.5 mL Dexamethasone 06/28/2014 1 mL Dexamethasone 09/13/2014 1 mL Dexamethasone 09/16/2014 1 mL Dexamethasone 11/07/2014 1 mL Dexamethasone 05/24/2015 1 mL Dexamethasone 08/02/2015 1 mL Dexamethasone 10/14/2015 1 mL Dexamethasone 10/16/2015 1 mL Dexamethasone 02/02/2018 1.5 mL Dexamethasone 07/29/2018 1 mL Medical (General) History Medical History History ICD Code Depression/Anxiety Heartburn Sleep apnea Hypertension Chest pain 2014, seen by Dr. Suzanna faith Chronic back pain - followed by Dr. Bautista Sciatica Osteoporosis Abnormal PAP - Dr. Bernabe Follows with OBGYN for PAP, mammograms, bone density - Dr. Janet Jamil Surgical History Surgery Date(Month/Year) Total Hysterectomy Benign Lump Removed from Left Breast - Rebecca Keyes Tubal Benign Lumps Removed from Colon - Dr Kalia davila Tooth Extraction 07/2019 Colonoscopy 05/09/2021 Hospitalization History Reason Date(Month/Year) Chest Pain- [facility] 08/13/2022 Lower Back Pain- [facility] 02/08/2018 Chest Pain- [facility] 02/05/2017 Food Posioning- [facility] 11/15/2016 Colitis- [facility] 06/2013
--- OUTSIDE RECORDS SUMMARY | 2025-05-11 08:02 | XMS_ITS | Clinical Summary ---
Author Organization [facility] Address [address] [place] [address] Phone Care Team Providers Care Payment Rep Name Role Phone April Maloney Primary Care Provider [phone] Allergies No known active allergies Medications * This document contains information received from the source organization and may not represent a complete record from that organization. DULoxetine (CYMBALTA) 30 mg Oral Capsule, Delayed Release(E.C.)Ind ications:Severe recurrent major depression without psychotic features (HCC),Panic disorder without agoraphobia Take 1 Cap by mouth daily. 30 Cap 5 12/13/2020 Active busPIRone (BUSPAR) 15 mg Oral TabletIndication s:Severe recurrent major depression without psychotic features (HCC),Panic disorder without agoraphobia TAKE ONE TABLET BY MOUTH TWICE A DAY 60 Tab 5 12/13/2020 Active Active Problems No known active problems Medical History Medical History Date Comments Asthma Hyperlipidemia Hypertension Social History Tobacco Use Types Packs/Day Years Used Date Smoking Tobacco: Never Smokeless Tobacco: Never Tobacco Cessation:Counseling Given: No Alcohol Use Standard Drinks/Week Comments Not Currently 0 (1 standard drink = 0.6 oz pur e alcohol) Sexually Active Control Partners Comments Not Currently Male Comments No Sex and Gender Information Value Date Recorded Sex Assigned at Not on file Legal Sex Female 3:09 PM EDT Gender Identity Not on file Sexual Orientation Not on file Last Filed Vital Signs Vital Sign Reading Time Taken Comments Blood Pressure 134/78 12/19/2016 11:10 AM EDT Pulse 84 12/19/2016 11:10 AM EDT Temperature 37 C (98.6 F) 12/19/2016 11:10 AM EDT Respiratory Rate - - Oxygen Saturation - - Inhaled Oxygen Concentration - - Weight 117.9 kg (260 lb) 12/19/2016 11:45 AM EDT Height 170.2 cm (5' 7 ) 12/19/2016 11:45 AM EDT Body Mass Index 40.72 12/19/2016 11:45 AM EDT Plan of Treatment Health Maintenance Due Date Last Done Comments Wellness Exam Medicare 1958 Hepatitis C Screening 1974 DTaP/TDaP/Td (1 - Tdap) 1975 Breast Cancer Screening 1996 Cologuard 2001 Colon Cancer Screening 2001 Colonoscopy 2001 FIT 2001 Sigmoidoscopy 2001 Virtual Colonography 2001 Zoster (1 of 2) 2006 Bone Density Screening 2021 COVID-19 Vaccine ( season) 2025 Influenza Vaccine (#1) 2025 , 05/04/2020, 06/11/2019, Additional history exists Pneumococcal Vaccine 50+ (3 of 3 - PCV20 or PCV21) 05/01/2026 05/01/2021, 05/04/2020 Hepatitis B Vaccine Aged Out No longe r eligible based on patient's age to complete this topic Meningococcal B Vaccine Aged Out No l onger eligible based on patient's age to complete this topic Insurance 2014 [place] [id number] NATASHA CASTLE Care Teams Payment Rep Relationship Specialty Start Date End Date April Maloney [facility] [address] [place] [address] PCP - General Family Medicine 12/23/17
== END 2025-05-11 23:59 | disposition home or self-care (01) ==
LOC: RAD 07:57
PROVIDERS: PCP Family Medicine; Visit Provider Clinical Nurse Specialist Family Health
DX: M50.322 Other cervical disc degeneration at C5-C6 level (principal); M50.323 Other cervical disc degeneration at C6-C7 level; M48.02 Spinal stenosis, cervical region
CPT/HCPCS: 72141

== ENCOUNTER 2025-05-12 09:34 | Outpatient (CLI) | payer MEDICARE, SELFPAY ==
--- OUTSIDE RECORDS SUMMARY | 2024-08-23 05:00 | XMS_ITS ---
Author Organization [facility] Address [address] [place] [id number] Care Team Providers Care Customer Supply Chain Analyst Name Role Phone Jt Ayoub Primary Care Provider [phone] April Maloney [phone] Allergies No Known Allergies REASON FOR VISIT F/U ER Encounters Encounter Location Date Provider Diagnosis [facility] [address] [place] [id number] 08/23/2024 Jt Ayoub Plan Of Treatment Next Appt Details Provider Name:Jt Rodney ry, 08/09/2025 09:30:00 AM, [address], [address], [place], [id number], Progress Notes * Rosalia SALDANAOB:1955 (70 yo F)Acc No.[id number]:08/23/2024 Progress Notes Patient: Eleni LIGHT Provider: Phoebe [...] * Hospitalization/Major Diagno stic Procedure: C olitis- [facility] 06/2013, Food Posioning- [facility] 11/15/2016, Chest Pain- [facility] 02/05/2017, Lower Back Pain- [facility] 02/08/2018, Chest Pain- [facility] 08/13/2022. * Family History: F ather: [...] Electronic signature of Amarilys Ayoub MD on 05/12/2025 at 09:37 AM EDT Sign off status: Pending * Provider: Phoebe Ayoub M.D. Date: 0 08/23/2024 Generated for Dashawn kearney/Kalyn/Karen on: 09:37 AM EDT
--- OUTSIDE RECORDS SUMMARY | 2024-09-23 06:15 | XMS_ITS ---
Author Organization [facility] Address [address] [place] [id number] Care Team Providers Care Screw Machine Hand Name Role Phone Jt Ayoub Primary Care Provider April Maloney Unavailable [phone] Allergies No Known Allergies Results Component Value Reference Range Notes CBC Fingerstick (in house) Reviewed date:09/23/2024 11:05:42 AM Interpretation: Performing Lab: Notes/Report: wbc 8.8 3.5 - 10 lym 34.8% 15 - 50 mid 7.7% 2 - 15 gran 57.5% 35 - 80 rbc 4.62 3.5 - 5.5 hgb 14.0 11.5 - 16.5 hct 43.2 35 - 55 mcv 93.3 75 - 100 mch 30.2 25 - 35 mchc 338 31 - 38 REASON FOR VISIT f/u [facility] ER visit cough & congestion Medications Medication SIG (Take, Route, Frequency, Duration) Notes Start Date End Date Status Aspirin Adult Low Dose 81 MG 1 tab(s) or ally once a day 08/07/2015 Active Benadryl Allergy 25 MG 1 cap(s) orally 3 times a day Active Tylenol 8 Hour Arthritis Pain 650 MG 2 tab(s) orally every 8 hours Active Spacer/Aero-Holding Chambers - as directed As needed 09/23/2024 Active Lisinopril 20 MG 1 tablet Orally Once a day; Duration: 90 days 05/05/2024 Active tiZANidine HCl 4 MG 1 tablet as needed Orally every 8 hours Active Promethazine-DM 6.25-15 MG/5ML 5 ml as needed Orally every 6 hrs 09/23/2024 Active valACYclovir HCl 1 GM 1 tab(s) orally ti d as needed Active Albuterol Sulfate HFA 108 (90 Base) MCG/ACT 2 puff as needed Inhalation every 4 hrs 09/23/2024 Active Benzonatate 200 MG 1 capsule as needed Orally Three times a day 09/23/2024 Active dexAMETHasone 4 MG 1 tablet Orally Two times a day; Duration: 5 day(s) 09/23/2024 Active Pantoprazole Sodium 40 MG TAKE 1 TABLET BY MOUTH TWICE DAILY; Duration: 90 days Active Gabapentin 300 MG 1 cap(s) orally 3 ti mes a day 08/05/2024 Active Contrave 8-90 MG 2 tab(s) orally 2 ti mes a day; Duration: 90 days Active Vital Signs Weight 274.2 lbs 09/23/2024 Blood pressure systolic 140 mm Hg 09/23/19 25 Blood pressure diastolic 78 mm Hg 025 Heart Rate 88 /min 09/23/2024 Height 66 in 09/23/2024 BMI 44.25 kg/m2 09/23/2024 Encounters Encounter Location Date Provider Diagnosis [facility] [address] [facility] [address] [facility] [address] [place] [id number] 09/23/2024 Jt Ayoub Bronchitis J40 Assessments Encounter Date Diagnosis (ICD Code) Assessment Notes Treatment Notes Treatment Clinical Notes Section Notes 09/23/2024 Bronchitis (ICD-10 - J40) Plan Of Treatment Medication Medication Name Sig Start Date Stop Date Notes Spacer/Aero-Holding Chambers - as directed As needed 09/23 Promethazine-DM 6.25-15 MG/5ML 5 ml as n eeded Orally every 6 hrs 09/23/2024 Albuterol Sulfate HFA 108 (9 0 Base) MCG/ACT 2 puff as needed Inhalation every 4 hrs 09/23/2024 Benzonatate 200 MG 1 capsule as needed Orally Three times a day 09/23/2024 dexAMETHasone 4 MG 1 tablet Orally Two times a day; Duration: 5 day(s) 09/23/2024 Next Appt Details Follow Up: via phone to repo rt progress, Reason: Provider Name:Jt Rodney ry, 08/09/2025 09:30:00 AM, [address] [facility] [address] [facility], [address], [place], [phone], Progress Notes * Rosalia SALDANAOB:1955 (70 yo F)Acc No.[id number]:09/23/2024 Patient: Eleni LIGHT Provider: Phoebe Ayoub M.D. :1955 A ge:69 Y S ex:Female Date:09/23/2024 Address:[address], [id number] Subjective: * Chief Complaints: * 1 . f/u [facility] ER visit cough & congestion. * HPI: H PI: 69 year old female presents with c/o Here for follow up on:?09/18/2024 [facility] ER visit. Pt was seen for fever and vomiting, pt states that both have improved since being d/c. E NT/respiratory: c/o cough P t complains of cough with blood stained sputum. Pt states that she feels awful . Pt states she has wheezing and feels short of breath as well.? * ROS: D ERMATOLOGY: no R jose. [...] * Hospitalization/Major Diagno stic Procedure: C olitis- [facility] 06/2013, Food Posioning- [facility] ER 11/15/2016, Chest Pain- [facility] ER 02/05/2017, Lower Back Pain- [facility] ER 02/08/2018, Chest Pain- [facility] ER 08/13/2022. * Family History: F ather: 42 yrs, Heart Attack. M other: alive 86 yrs, Cancer of Uterus. P ateroblesl Grand Mother: diagnosed with Diabetes. 4 brother(s) , 3 sister(s) . 2 son(s) , 1 daughter(s) . . Brother with IDDM. * Social History: C URRENT TOBACCO USE S moking Status: Patient does NOT smoke. C affeine: yes, frequency: Mt Dew. Home smoke detector use: yes. Alcohol: No. * Medications: T aking tiZANidine HCl 4 MG Tablet 1 tablet as needed Orally every 8 hours , Taking valACYclovir HCl 1 GM Tablet 1 tab(s) orally tid as needed , Taking Aspirin Adult Low Dose 81 MG Tablet Delayed Release 1 tab(s) orally once a day , Taking Tylenol 8 Hour Arthritis Pain 650 MG Tablet Extended Release 2 tab(s) orally every 8 hours , Taking Benadryl Allergy 25 MG Capsule 1 cap(s) orally 3 times a day , Taking Lisinopril 20 MG Tablet 1 tablet Orally Once a day , Taking Pantoprazole Sodium 40 MG Tablet Delayed Release TAKE 1 TABLET BY MOUTH TWICE DAILY , Taking Gabapentin 300 MG Capsule 1 cap(s) orally 3 times a day , Taking Contrave 8-90 MG Tablet Extended Release 12 Hour 2 tab(s) orally 2 times a day , Medication List reviewed and reconciled with the patient * Allergies: N .K.D.A. Objective: * Vitals: W t:274.2, Temp:99.4, BP:140/78, HR:88, O2 Sat:90% on RA, Nurse:hemant, Ht: 66, BMI:44.25. * Examination: E NT/Respiratory: General Appearance: N AD. E yes: P ERRLA, sclera clear. N monse : n o cervical lymphadenopathy. H eart : R RR, normal S1 S2. L ungs:? good air movement, bilateral occasional expiratory wheezes. Assessment: * Assessment: 1. Phoebe may - Nikki (Primary) Plan: * Treatment: Value Reference Range w bc 8.8 3.5 - 10 * l ym 34.8% 15 - 50 * m id 7.7% 2 - 15 * g ran 57.5% 35 - 80 * r bc 4.62 3.5 - 5.5 * h gb 14.0 11.5 - 16.5 * h ct 43.2 35 - 55 * m cv 93.3 75 - 100 * m ch 30.2 25 - 35 * m chc 338 31 - 38 * Maricarmen Partida 09/23/2024 10:50:3 0 AM > , Provider reviewed results while patient in office. * Procedure Codes: G 2211 Complex e/[place], [address] [place], [address] CAPILLARY BLOOD DRAW, 63553 CBC WITH AUTO DIFF, 3077F SYST BP = 140 MM HG6 IT, 3078F DIAST BP < 80 MM HG * Follow Up: v ia phone to report progress * Images: Billing Information: * Visit Code: 61899 Office Visit, Est Pt., Level 3. * Procedure Codes: G2211 Complex e/[place] [address] [place]. [address] CAPILLARY BLOOD DRAW. 71334 CBC WITH AUTO DIFF. 3077F SYST BP = 140 MM HG6 IT. 3078F DIAST BP < 80 MM HG. * Electronic signature of Amarilys Ayoub MD on 05/12/2025 at 09:37 AM EDT Sign off status: Pending * Provider: Phoebe Ayoub M.D. Date: 0 09/23/2024 Generated for Dashawn kearney/Kalyn/eTransmitting on: 1 09:37 AM EDT History and Physical Notes * HPI (History of Present Illness) Category Sub-Category Detail Notes Category Not es ENT/respiratory cough Pt complains of cough with blood stained sputum. Pt states that she feels awful . Pt states she has wheezing and feels short of breath as well HPI Here for follow up on: 5 [facility] ER visit. Pt was seen for fever and vomiting, pt states that both have improved since being d/c Examination Category Sub-Category Detail Notes Category Not es ENT/Respiratory Neck : no cervical lymphadenopat hy Heart : RRR, normal S1 S2 Lungs: good air movement, b ilateral occasional expiratory wheezes General Appearance: NAD Eyes: PERRLA, sclera clear
--- OUTSIDE RECORDS SUMMARY | 2025-01-13 06:30 | XMS_ITS ---
Author Organization [facility] Address [address] [place] [id number] Care Team Providers Care Window Machine Operator Name Role Phone Jt Ayoub Primary Care Provider April Maloney [phone] Allergies No Known Allergies REASON FOR VISIT bug bite Medications Medication SIG (Take, Route, Frequency, Duration) Notes Start Date End Date Status Furosemide 20 MG 1 tablet Orally Once a day Active Gabapentin 300 MG 1 cap(s) orally 3 ti mes a day; Duration: 90 days 11/25/2024 Active Pantoprazole Sodium 40 MG take 1 tablet Orally Two times a day; Duration: 90 days Active Lisinopril 20 MG 1 tablet Orally Once a day; Duration: 90 days 05/05/2024 Active Tylenol 8 Hour Arthritis Pain 650 MG 2 tab(s) orally every 8 hours Active Benadryl Allergy 25 MG 1 cap(s) orally 3 times a day Active valACYclovir HCl 1 GM 1 tab(s) orally ti d as needed Active Aspirin Adult Low Dose 81 MG 1 tab(s) orally once a day 08/07/2015 Active tiZANidine HCl 4 MG 1 tablet as needed O rally every 8 hours Active Mupirocin 2 % 1 application Special Procedure Technologist ally 3 times a day 01/13/2025 Active amLODIPine Besylate 2.5 MG 1 tablet Oral ly Once a day Active Vital Signs Weight 283.4 lbs 01/13/2025 Blood pressure systolic 130 mm Hg 01/14/20 25 Blood pressure diastolic 70 mm Hg 025 Heart Rate 96 /min 01/13/2025 Height 66 in 01/13/2025 BMI 45.74 kg/m2 01/13/2025 Encounters Encounter Location Date Provider Diagnosis [facility] [facility] 36 [facility] [address] [place] [id number] 01/13/2025 Jt Ayoub Open wound of neck, initial encounter S11.90XA ; Essential hypertension I10 ; Morbid obesity E66.01 and Depression with anxiety F41.8 Assessments Encounter Date Diagnosis (ICD Code) Assessment Notes Treatment Notes Treatment Clinical Notes Section Notes 01/13/2025 Open wound of neck, initial encounter (ICD-10 - S11.90XA) 01/13/2025 Essential hypertension (ICD-10 - I10) 01/13/2025 Morbid obesity (ICD-10 - E66.01) 01/13/2025 Depression with anxiety (ICD-10 - F41.8) Plan Of Treatment Medication Medication Name Sig Start Date Stop Date Notes Mupirocin 2 % 1 application Externally 3 times a day 01/13 Next Appt Details Follow Up: prn, Reason: Provider Name:Jt Rodney , 08/09/2025 09:30:00 AM, [facility], [address], [place], [phone], Progress Notes * Rosalia SALDANAOB:1955 (70 yo F)Acc No.[id number]:01/13/2025 Progress Notes Patient: Eleni LIGHT Provider: Pohebe Ayoub M.D. :1955 A ge:69 Y S ex:Female Date:01/13/2025 Address:[address] [id number] Subjective: * Chief Complaints: * 1 . Bug bite. * HPI: D ermatology: 69 year old female presents with c/o bug bites P t complains of bug bite on lt side of jaw. Pt states she was bitten on Friday but is not sure what bit her. Pt states area is really sore and swollen . * ROS: C ARDIOLOGY: no D izziness. n o C hest pain. G ASTROENTEROLOGY: no N ausea. n o [...] Colon - Dr Keyes , Tooth Extraction 07/2019, Colonoscopy 05/09/2021. * Hospitalization/Major Diagno stic Procedure: C olitis- [facility] 06/2013, Food Posioning- [facility] ER 11/15/2016, Chest Pain- [facility] 02/05/2017, Lower Back Pain- [facility] 02/08/2018, Chest Pain- [facility] 08/13/2022. * Family History: F [...] yes. Alcohol: No. * Medications: T aking Furosemide 20 MG Tablet 1 tablet Orally Once a day , Taking amLODIPine Besylate 2.5 MG Tablet 1 tablet Orally Once a day , Taking tiZANidine HCl 4 MG Tablet 1 tablet [...] Pantoprazole Sodium 40 MG Tablet Delayed Release take 1 tablet Orally Two times a day , Taking Gabapentin 300 MG Capsule 1 cap(s) orally 3 times a day , Discontinued Contrave 8-90 MG Tablet Extended Release 12 Hour 2 tab(s) orally 2 times a day , Discontinued dexAMETHasone 4 MG Tablet 1 tablet Orally Two times a day , Discontinued Promethazine-DM 6.25-15 MG/5ML Syrup 5 ml as needed Orally every 6 hrs , Discontinued Benzonatate 200 MG Capsule 1 capsule as needed Orally Three times a day , Discontinued Albuterol Sulfate HFA 108 (90 Base) MCG/ACT Aerosol Solution 2 puff as needed Inhalation every 4 hrs , Discontinued Spacer/Aero-Holding Chambers - Device as directed As needed , Medication List reviewed and reconciled with the patient * Allergies: N .K.D.A. Objective: * Vitals: W t: 283.4, Temp: 98.2, BP: 130/70, HR: 96, Nurse: hemant, Ht: 66, BMI:45.74. * Examination: G eneral Examination: General Appearance: N AD. S kin: s mall, 3 mm wide reddened area of skin with a small central bite anne, no drainage. Assessment: * Assessment: 1. O pen wound of neck, initial encounter - S11.90XA (Primary) 2 . E ssential hypertension - I10 3 . M orbid obesity - E66.01 4 . D epression with anxiety - F41.8 Plan: * Treatment: * Procedure Codes: G 2211 Complex e/m visit add on, G8752 MOST RECENT SYSTOLIC BP < 140MM HG, G8754 MOST RECENT DIASTOLIC BP < 90MM HG, 1036F TOBACCO NON-USER, 3017F COLORECTAL CA SCREEN DOC REV * Preventive Medicine: Screening / Special Tests: C olonoscopy , polyps, diverticulosis, hemorrhoids, repeat 5 years. * Follow Up: p rn * Images: Billing Information: * Visit Code: 52630 Office Visit, Est Pt., Level 3. * Procedure Codes: G2211 Complex e/m visit add on. G8752 MOST RECENT SYSTOLIC BP < 140MM HG. G8754 MOST RECENT DIASTOLIC BP < 90MM HG. 1036F TOBACCO NON-USER. 3017F COLORECTAL CA SCREEN DOC REV. * Electronic signature of Amarilys Ayoub MD on 05/12/2025 at 09:37 AM EDT Sign off status: Pending * Provider: Phoebe Ayoub M.D. Date: 0 01/13/2025 Generated for Dashawn kearney/Kalyn/Karen on: 1 09:37 AM EDT History and Physical Notes * HPI (History of Present Illness) Category Sub-Category Detail Notes Category Not es Dermatology bug bites Pt complains of bug bite on lt side of jaw. Pt states she was bitten on Friday but is not sure what bit her. Pt states area is really sore and swollen Examination Category Sub-Category Detail Notes Category Not es General Examination General Appearance: NAD Skin: small, 3 mm wide red dened area of skin with a small central bite anne, no drainage
--- OUTSIDE RECORDS SUMMARY | 2025-02-07 05:00 | XMS_ITS ---
Author Organization [facility] Address [address] [place] [id number] Care Team Providers Care Molded Grid And Parts Inspector Name Role Phone Jt Ayoub Primary Care Provider [phone] AmaraApril Unavailable [phone] Allergies No Known Allergies Results Component Value Reference Range Notes Glucose (In-House) Reviewed date:02/10/2025 11:32:27 AM Interpretation:101 Performing Lab: Notes/Report: 101 blood glucose 101 74 - 106 mg/dL CBC Venipuncture (in house) Reviewed date:02/07/2025 07:10:01 PM Interpretation: Performing Lab: Notes/Report: wbc 8.0 3.5 - 10 lymph 29.8% 15 - 50 mid 6.2% 2 - 15 gran 64.0% 35 - 80 rbc 4.42 3.5 - 5.5 hgb 13.7 11.5 - 16.5 hct 40.9 35 - 55 mcv 92.5 75 - 100 mch 31.0 25 - 35 mchc 33.5 31 - 38 platlet 415 100 - 400 Glycohemoglobin A1c (in hous e) Reviewed date:02/10/2025 11:32:27 AM Interpretation:6, normal Performing Lab: Notes/Report: 6, normal glycohemoglobin 6.0% 5 - 6.5 % P-Basic Metabolic Panel (BMP ) Reviewed date:02/10/2025 11:32:27 AM Interpretation:satisfactory Performing Lab: Notes/Report: Test performed by [facility] , [address], [place] [address] Brian Ann MD, [place] CLIA: [id number] Sodium 139 135-145 mmol/L Potassium 4.3 3.5-5.3 mmol/L Chloride 102 97-108 mmol/L CO2 29 20-32 mmol/L Glucose 107 65-99 mg/dL BUN 17 8-23 mg/dL Creatinine 1.01 0.50-1.00 mg/dL Calcium 9.2 8.6-10.4 mg/dL eGFR by Creatinine 60 >59 mL/min/1.73m2 P-Microalbumin/Creatinine, R andom Urine Sample Reviewed date:02/10/2025 11:32:27 AM Interpretation:Normal Performing Lab: Notes/Report: Test performed by [facility] [address] [place] [address] , [address] , [place] [address] Brian Ann MD, [place] CLIA: [id number] Albumin/Creatinine Ratio, Urine <9.09 0-30 ug/m g Microalbumin, Urine, Random <0.3 Creatinine, Urine 33.0 REASON FOR VISIT 6 month ckup Medications Medication SIG (Take, Route, Frequency, Duration) Notes Start Date End Date Status Lisinopril 20 MG 1 tablet Orally Once a day; Duration: 90 days 05/05/2024 Active Gabapentin 300 MG 1 cap(s) orally 3 ti mes a day; Duration: 90 days 11/25/2024 Active Pantoprazole Sodium 40 MG take 1 tablet Orally Two times a day; Duration: 90 days Active Benadryl Allergy 25 MG 1 cap(s) orally 3 times a day Active tiZANidine HCl 4 MG 1 tablet as needed O rally every 8 hours Active Contrave 8-90 MG 2 tablets Orally twi ce a day; Duration: 30 days 02/07/2025 Active Aspirin Adult Low Dose 81 MG 1 tab(s) orally once a day 08/07/2015 Active valACYclovir HCl 1 GM 1 tab(s) orally ti d as needed Active Tylenol 8 Hour Arthritis Pain 650 MG 2 tab(s) orally every 8 hours Active Furosemide 20 MG 1 tablet Orally Once a day Active Vitamin B12 1000 MCG 1 tablet Orally Onc e a day Active amLODIPine Besylate 2.5 MG 1 tablet Oral ly Once a day Active Vital Signs Weight 285.4 lbs 02/07/2025 Blood pressure systolic 122 mm Hg 02/08/20 25 Blood pressure diastolic 82 mm Hg 025 Heart Rate 76 /min 02/07/2025 Height 66 in 02/07/2025 BMI 46.06 kg/m2 02/07/2025 Encounters Encounter Location Date Provider Diagnosis [facility] 36 [facility] [address] [place] [id number] 02/07/2025 Jt Ayoub Essential hypertensi on I10 ; IFG (impaired fasting glucose) R73.01 ; Allergic rhinitis, unspecified seasonality, unspecified trigger J30.9 ; Morbid obesity E66.01 ; Gastroesophageal reflux disease without esophagitis K21.9 and longterm use of drug Z79.899 Assessments Encounter Date Diagnosis (ICD Code) Assessment Notes Treatment Notes Treatment Clinical Notes Section Notes 02/07/2025 Essential hypertension (ICD-10 - I10) 02/07/2025 IFG (impaired fasting glucose) (ICD-10 - R73.01) 02/07/2025 Allergic rhinitis, unspecified seasonality, unspecified trigger (ICD-10 - J30.9) 02/07/2025 Morbid obesity (ICD-10 - E66.01) 02/07/2025 Gastroesophageal reflux disease without esophagitis (ICD-10 - K21.9) 02/07/2025 assistant terminal manager use of drug (ICD-10 - Z79.899) Plan Of Treatment Medication Medication Name Sig Start Date Stop Date Notes Contrave 8-90 MG 2 tablets Orally twi ce a day; Duration: 30 days 02/07/2025 Next Appt Details Follow Up: 6 Months, Reason: Provider Name:Jt Rodney ry, 08/09/2025 09:30:00 AM, [facility], [address], [place], [id number], Progress Notes * LESTash ShipleyAmyOB:1955 (70 yo F)Acc No.[id number]:02/07/2025 Progress Notes Patient: Eleni LIGHT Provider: Phoebe Ayoub M.D. :1955 A ge:69 Y S ex:Female Date:02/07/2025 Address:[address] [facility] [place], [id number] Subjective: * Chief Complaints: * 1 . 6 month ckup. * HPI: C ardiology: 69 year old female presents with c/o Blood Pressure Elevated?Pt here for 6 mo f/u on hypertension. Pt states she is doing well and does not have any concerns.? * ROS: D ERMATOLOGY: no R jose. [...] * Hospitalization/Major Diagno stic Procedure: C olitis- [facility] 06/2013, Food Posioning- [facility] ER 11/15/2016, Chest Pain- [facility] ER 02/05/2017, Lower Back Pain- [facility] 02/08/2018, Chest Pain- [facility] 08/13/2022. * Family History: F ather: 42 yrs, Heart Attack. M other: alive 86 yrs, Cancer of Uterus. P aternal Grand Mother: diagnosed with Diabetes. 4 brother(s) , 3 sister(s) . 2 son(s) , 1 daughter(s) . . Brother with IDDM. * Social History: C URRENT TOBACCO USE: No . C affeine: yes, frequency: Mt Dew. Home smoke detector use: yes. Alcohol: No. * Medications: T aking Vitamin B12 1000 MCG Tablet 1 tablet Orally Once a day , Taking Furosemide 20 MG Tablet 1 tablet Orally [...] orally 3 times a day , Discontinued Mupirocin 2 % Ointment 1 application Externally 3 times a day , Medication List reviewed and reconciled with the patient * Allergies: N .K.D.A. Objective: * Vitals: W t: 285.4, Temp: 98.0, BP: 122/82, HR: 76, Nurse: hemant, Ht: 66, BMI:46.06. * Examination: G eneral Examination: General Appearance: N AD, BMI 43.77. H EENT: u nremarkable. H eart: R SR. L ungs: c lear to auscultation. P eripheral pulses: n ormal (2+) bilaterally. E xtremities: n o leg edema. Assessment: * Assessment: 1. E ssential hypertension - I10 (Primary) 2 . I FG (impaired fasting glucose) - R73.01 3 . A llergic rhinitis, unspecified seasonality, unspecified trigger - J30.9 4 . M orbid obesity - E66.01 5 . G astroesophageal reflux disease without esophagitis - K21.9 6 . L noris term use of drug - Z79.899? Plan: * Treatment: Value Reference Range B UN 17 8-23 - mg/dL * C alcium 9.2 8.6-10.4 - mg/dL * C hloride 102 97-108 - mmol/L * C O2 29 20-32 - mmol/L * C reatinine 1.01 H 0.50-1.00 - mg/dL * G lucose 107 H 65-99 - mg/dL * P otassium 4.3 3.5-5.3 - mmol/L * S odium 139 135-145 - mmol/L * e GFR by Creatinine 60 >59 - mL/min/1.73m2 * Maricarmen Partida 02/10/2025 11:32:1 4 AM EDT > Pt informed ?LAB: P-Microalbumin/Creatinine, Random Urine Sample (Collection Date & Time - 02/07/2025 08:27 AM)?Normal* Value Reference Range A lbumin/Creatinine Ratio, Urine <9.09 0-30 - ug /mg * C reatinine, Urine 33.0 - mg/dL * M icroalbumin, Urine, Random <0.3 - mg/dL * Maricarmen Partida 02/10/2025 11:32:1 4 AM EDT > Pt informed 2.?IFG (impaired fasting glucose)?LAB: Glucose (In-House) (Collection Date & Time - 02/07/2025)?101* Value Reference Range b lood glucose 101 74 - 106 mg/dL * Maricarmen Partida 02/07/2025 11:52: 03 AM EDT > Federico Partidaira 02/10/2025 11:32:14 AM EDT > Pt informed ?LAB: Glycohemoglobin A1c (in house) (Collection Date & Time - 02/07/2025)? 6, normal* Value Reference Range g lycohemoglobin 6.0% 5 - 6.5 % * Maricarmen Partida 02/07/2025 11:52: 18 AM EDT > Maricarmen Partida 02/10/2025 11:32:14 AM EDT > Pt informed 3.?Morbid obesity? Start Contrave Tablet Extended Release 12 Hour, 8-90 MG, 2 tablets, Orally, twice a day, 30 days, 120 Tablet, Refills 5.??4.?longterm use of drug?LAB: CBC Venipuncture (in house) (Collection Date & Time - 02/07/2025)* Value Reference Range w bc 8.0 3.5 - 10 * l ymph 29.8% 15 - 50 * m id 6.2% 2 - 15 * g ran 64.0% 35 - 80 * r bc 4.42 3.5 - 5.5 * h gb 13.7 11.5 - 16.5 * h ct 40.9 35 - 55 * m cv 92.5 75 - 100 * m ch 31.0 25 - 35 * m chc 33.5 31 - 38 * p latlet 415 100 - 400 * Maricarmen Partida 02/07/2025 11:54: 32 AM EDT > * Procedure Codes: G 2211 Complex e/[place], [address] GLUCOSE TEST, 32169 GLYCATED HEMOGLOBIN TEST, Modifiers: QW , [address]8023 CBC WITH AUTO DIFF, 3044F HG A1C LEVEL LT 7.0%, 1036F TOBACCO NON-USER, G8950 PREHTN/HTN BP DOC INDCD F/U DOC, G8752 MOST RECENT SYSTOLIC BP < 140MM HG, G8754 MOST RECENT DIASTOLIC BP < 90MM HG * Follow Up: 6 Months * Images: Billing Information: * Visit Code: 31317 Office Visit, Est Pt., Level 4. * Procedure Codes: G2211 Complex e/[place]. [address] GLUCOSE TEST. 16856 GLYCATED HEMOGLOBIN TEST. Modifiers: QW 76659 CBC WITH AUTO DIFF. 3044F HG A1C LEVEL LT 7.0%. 1036F TOBACCO NON-USER. G8950 PREHTN/HTN BP DOC INDCD F/U DOC. G8752 MOST RECENT SYSTOLIC BP < 140MM HG. G8754 MOST RECENT DIASTOLIC BP < 90MM HG. * Electronic signature of Amarilys Ayoub MD on 05/12/2025 at 09:38 AM EDT Sign off status: Pending * Provider: Phoebe Ayoub M.D. Date: 0 02/07/2025 Generated for Dashawn kearney/Kalyn/eTransmitting on: 1 09:38 AM EDT History and Physical Notes * HPI (History of Present Illness) Category Sub-Category Detail Notes Category Not es Cardiology Blood Pressure Elevated Pt here for 6 mo f/u on hypertension. Pt states she is doing well and does not have any concerns Examination Category Sub-Category Detail Notes Category Not es General Examination HEENT: unremarkable Heart: RSR Lungs: clear to auscultatio n Extremities: no leg edema General Appearance: NAD, BMI 43.77 Peripheral pulses: normal (2+) bilatera lly
--- OUTSIDE RECORDS SUMMARY | 2025-04-08 10:59 | XMS_ITS | Encounter Summary ---
Author Organization Healthcare Address [address] [place] [address] Care Team Providers Care Air Surveillance Operator Name Role Phone Jt Ayoub MD Primary Care Provider [phone] Encounter Details Date Type Department Care Team (Latest Contact Info) Description 04/08/2025 10:59 AM EDT - 04/08/2025 11:59 PM EDT [facility] [address], [address] [place] [phone] Bilateral leg numbness Discharge Disposition: Home or Self Care Social History Tobacco Use Types Packs/Day Years Used Date Smoking Tobacco: Never Passive Smoke Exposure: Current Smokeless Tobacco: Never Alcohol Use Standard Drinks/Week Comments No 0 (1 standard drink = 0.6 oz pur e alcohol) PHQ-2 Answer Date Recorded Patient Health Questionnaire-2 Score 0 10/02/2023 Comments Unknown Sex and Gender Information Value Date Recorded Sex Assigned at Not on file Legal Sex Female 8:30 PM EDT Gender Identity Not on file Sexual Orientation Not on file documented as of this encounter Medications at Time of Discharge acetaminophen (Tylenol 8 Hour) 650 MG ER tablet Take 2 tablets every 8 hours by oral route. albuterol 108 (90 Base) MCG/ACT inhaler every 4 hours. 09/23/2024 amLODIPine (Norvasc) 2.5 MG tablet Take 1 tablet by mouth. ASPIRIN 81 PO 1 (one) time each day. Contrave 8-90 MG ER tablet 06/30/2023 diphenhydrAMINE (Benadryl Allergy) 25 MG capsule Benadryl Allergy twice daily fluorouracil (Efudex) 5 % cream 05/12/2023 furosemide (Lasix) 20 MG tablet Take 1 tablet by mouth. gabapentin (Neurontin) 300 MG capsule 02/03/2023 lisinopril 20 MG tablet Take 1 tablet by mouth daily. 03/09/2025 metroNIDAZOLE (Metrogel) 0.75 % gel 05/12/2023 pantoprazole (Protonix) 40 MG EC tablet 04/28/2023 prednisoLONE acetate (Pred-Forte) 1 % ophthalmic suspension 01/24/2023 traMADol (Ultram) 50 MG tablet TAKE 1 TABLET 3 TIMES DAILY NEEDED. 03/09/2018 valACYclovir (Valtrex) 500 MG tablet Take 1 tablet by mouth as needed. 01/24/2025 tiZANidine (Zanaflex) 4 MG tablet Take 1 tablet (4 mg) by mouth every 8 (eight) hours if needed for muscle spasms. 90 tablet 07/25/2023 04/12/2025 documented as of this encounter Plan of Treatment Not on file documented as of this encounter Procedures Procedure Name Priority Date/Time Associated Diagnosis Comments XR SCOLIOSIS ENTIRE SPINE 2 OR 3 VIEWS Routine 04/08/2025 11:15 AM EDT Bilateral leg numbness documented in this encounter Results * XR Scoliosis Entire Spine 2 or 3 Views (04/08/2025 11:15 AM EDT) Anatomical Region Laterality Modality Spine Digital Radiogra phy Impressions 04/08/2025 12:34 PM EDT No acute osseous findings. Multilevel degenerative changes as above described. CRITICAL RESULT: No. COMMUNICATION: Per this written report. Drafted by Betito Gaines MD on 04/08/2025 12:32 PM Final report signed by Betito Gaines MD on 04/08/2025 12:34 PM Narrative 04/08/2025 12:34 PM EDT CLINICAL INDICATION: back pain TECHNIQUE: XR SCOLIOSIS ENTIRE SPINE 2 OR 3 VIEWS, XR LUMBAR SPINE 2 OR 3 VIEWS COMPARISON: April 28, 2023, December 04, 2022 FINDINGS: Limited evaluation of the cervicothoracic transition due to overlying structures. Overlying bowel gas and content and soft tissue limits evaluation of the lumbar spine. Straightening of the cervical spine alignment. Jjpf-fa-zndsblmd multilevel degenerative changes of the cervical spine. Mild kyphotic deformity of the thoracic spine. Tnmi-cb-jwkjdddi multilevel degenerative changes of the thoracic spine. Grade 1 retrolisthesis L1 on L2, L2 on L3. Multilevel disc space narrowing in the lumbar spine. Moderate multilevel degenerative changes, better seen on prior MRI. No obvious displaced fracture or dislocations. Procedure Note Betito Crowder MD - 04/08/2025 CLINICAL INDICATION: back pain TECHNIQUE: XR SCOLIOSIS ENTIRE SPINE 2 OR 3 VIEWS, XR LUMBAR SPINE 2 OR 3 VIEWS COMPARISON: April 28, 2023, December 04, 2022 FINDINGS: Limited evaluation of the cervicothoracic transition due to overlyingstructures. Overlying bowel gas and content and soft tissue limits evaluation of thelumbar spine. Straightening of the cervical spine alignment. Nfbv-yl-wlavgpgi multileveldegenerative changes of the cervical spine. Mild kyphotic deformity of the thoracic spine. Brnn-lz-svsbyofw multileveldegenerative changes of the thoracic spine. Grade 1 retrolisthesis L1 on L2, L2 on L3. Multilevel disc space narrowing in the lumbar spine. Moderate multilevel degenerative changes, better seen on prior MRI. No obvious displaced fracture or dislocations. IMPRESSION: No acute osseous findings. Multilevel degenerative changes as above described. CRITICAL RESULT: No. COMMUNICATION: Per this written report. Drafted by Betito Gaines MD on 04/08/2025 12:32 PM Final report signed by Betito Gaines MD on 512:34 PM Helen Torres APRN IMG XR PROCEDURES Final Resu lt documented in this encounter Visit Diagnoses Diagnosis Bilateral leg numbness Disturbance of skin sensation documented in this encounter Additional Health Concerns Assessment Noted Time A fall risk assessment has been complete d for the patient 04/08/2025 11:32 AM EDT A Body Mass Index follow-up plan has been documented for the patient 04/08/2025 1:49 PM EDT documented as of this encounter Care Teams Air Surveillance Operator Relationship Specialty Start Date End Date Jt Ayoub MD [address] [id number] PCP - General 12/22/20 documented as of this encounter
--- OUTSIDE RECORDS SUMMARY | 2025-04-08 10:59 | XMS_ITS | Encounter Summary ---
Author Organization Healthcare Address [address] [place] [address] Care Team Providers Care Estimating Engineer Name Role Phone Jt Ayoub MD Primary Care Provider [phone] Encounter Details Date Type Department Care Team (Latest Contact Info) Description 04/08/2025 10:59 AM EDT - 04/08/2025 11:59 PM EDT [facility] [address], [address] [place] [phone] Bilateral leg numbness Discharge Disposition: Home or [...] Name Priority Date/Time Associated Diagnosis Comments XR LUMBAR SPINE 2 OR 3 VIEWS Routine 04/08/2025 11:15 AM EDT Bilateral leg numbness documented in this encounter Results * XR Lumbar Spine 2 or 3 Views (04/08/2025 11:15 AM EDT) Anatomical Region Laterality Modality Spine, L-spine Digital Radiogra phy Impressions 04/08/2025 12:34 PM [...] spine. Straightening of the cervical spine alignment. Qlhu-zv-iixznlqh multilevel degenerative changes of the cervical spine. Mild kyphotic deformity of the thoracic spine. Tklc-cu-yzzboelq multilevel degenerative changes of the thoracic spine. [...] spine. Straightening of the cervical spine alignment. Snev-xh-trxoprmw multileveldegenerative changes of the cervical spine. Mild kyphotic deformity of the thoracic spine. Gbhm-mb-onsrclil multileveldegenerative changes of the thoracic spine. Grade [...] documented as of this encounter Care Teams Estimating Engineer Relationship Specialty Start Date End Date Jt Ayoub MD [address] [id number] PCP - General 12/22/20 documented as of this encounter
--- OUTSIDE RECORDS SUMMARY | 2025-04-08 11:20 | XMS_ITS | Encounter Summary ---
Author Organization Healthcare Address [address] [place] [address] Care Team Providers Care Sem Manager Name Role Phone Jt Ayoub MD Primary Care Provider [phone] Reason for Referral * Imaging (Routine) - Authorized Specialty Diagnoses / Procedures Referred By Satnam alvarado Referred To Contact Diagnoses Numbness and tingling in both hands Procedures MR Cervical Spine wo IV Contrast Helen Torres APRN [address] [address] Phone: tel: fax: Referral ID Status Reason Start Date Expiration Date V isits Requested Visits Authorized [id number] Authorized 04/08/2025 10/08/2026 1 1 * Imaging (Routine) - Authorized Specialty Diagnoses / Procedures Referred By Satnam alvarado Referred To Contact Diagnoses Bilateral leg numbness Pain of left lower extremity Leg numbness Spondylolisthesis at L4-L5 level Procedures MR Lumbar Spine wo IV Contrast Helen Torres APRN [address] [place] [address] Phone: tel: fax: Referral ID Status Reason Start Date Expiration Date V isits Requested Visits Authorized [id number] Authorized 04/08/2025 10/08/2026 1 1 Encounter Details Date Type Department Care Team (Late st Contact Info) Description 04/08/2025 11:20 AM EDT Office Visit [place] [facility] [address] [place] [address] Helen Torres, [facility] [address] [place] [address] Bilateral leg numbness (Primary Dx); Pain of left lower extremity; Leg numbness; Spondylolisthesis at L4-L5 level; Numbness and tingling in both hands Social History Tobacco Use Types Packs/Day Years [...] on file documented as of this encounter Last Filed Vital Signs Vital Sign Reading Time Taken Comments Blood Pressure 142/84 04/08/2025 11:26 AM EDT Pulse - - Temperature - - Respiratory Rate - - Oxygen Saturation - - Inhaled Oxygen Concentration - - Weight 129 kg (283 lb 11.7 oz) 04/08/2025 11:26 AM EDT Height 170.2 cm (5' 7 ) 04/08/2025 11:26 AM EDT Body Mass Index 44.44 04/08/2025 11:26 AM EDT documented in this encounter Miscellaneous Notes * Progress Notes - Helen Torres, KILEY - 04/08/2025 11:20 AM EDT We had the pleasure of seeing your patient in our clinic today for continued Neurosurgical evaluation. Chief Complaint: Follow up History Of Present Illness Eleni Castillo is a 70 y.o. female with history of low back and leg pain. Patient was last seen [facility] on 07/02/2023. Patient returns today with new symptoms. Patient has significant back pain. She states it does radiate down the left leg at times. Patient also states she has developed bilateral hand numbness. Patient states that this is intermittent in nature. Patient states she is unable to do physical therapy stating that it makes her symptoms significantly worse. Patient has tried multiple injections including SI joint injections, facet joint injections and epidural injections. Patient has recently under gone testing her heart stating that she has had some issues recently. She was placed on new medications which have been helpful. Patient denies bowel bladder incontinence. Patient is not a smoker. Patient does not have diabetes. Patient has no recent MRI imaging. Past Medical History[1] Surgical History[2] Family History[3] Social History[4] Current Outpatient Medications Medication Instructions acetaminophen (Tylenol 8 Hour) 650 MG ER tablet Take 2 tablets every 8 hours by oral route. albuterol 108 (90 Base) MCG/ACT inhaler Every 4 hours amLODIPine (NORVASC) 2.5 mg ASPIRIN 81 PO Daily Contrave 8-90 MG ER tablet No dose, route, or frequency recorded. diphenhydrAMINE (Benadryl Allergy) 25 MG capsule Benadryl Allergy twice daily fluorouracil (Efudex) 5 % cream No dose, route, or frequency recorded. furosemide (LASIX) 20 mg gabapentin (Neurontin) 300 MG capsule No dose, route, or frequency recorded. lisinopril 20 mg, Daily metroNIDAZOLE (Metrogel) 0.75 % gel No dose, route, or frequency recorded. pantoprazole (Protonix) 40 MG EC tablet No dose, route, or frequency recorded. prednisoLONE acetate (Pred-Forte) 1 % ophthalmic suspension No dose, route, or frequency recorded. tiZANidine (ZANAFLEX) 4 mg, Oral, Every 8 hours PRN traMADol (Ultram) 50 MG tablet TAKE 1 TABLET 3 TIMES DAILY NEEDED. valACYclovir (VALTREX) 500 mg, As needed Allergies Patient has no known allergies. Review of Systems 14 point review of systems was performed and was negative except as noted per HPI. Visit Vitals BP (!) 142/84 Ht 1.702 m (5' 7 ) Wt 129 kg (283 lb 11.7 oz) BMI 44.44 kg/m?? Smoking Status Never BSA 2.47 m?? General Physical Exam Constitutional No acute distress. Patient is appropriate historian and cooperative throughout exam.Well nourished, well groomed. Alert and oriented x4. Head Normocephalic and atraumatic. Eyes Pupils are equal, round, and reactive to light. Neck No tracheal deviation or JVD noted. No previous surgical scars Cardiovascular Minimal to no peripheral edema, intact distal pulses Pulmonary/Chest No increased effort noted, no shortness of breath Neurological Alert and oriented to person, place, and time Skin Skin is warm and dry Psychiatric Normal mood and affect, behavior and judgment MUSCULOSKELETAL EXAM: Upper Extremity Motor Strength Right Left C5: Deltoid 12/13 12/13 C6: Biceps 12/13 12/13 C7: Triceps 12/13 12/13 C8: Media Supervisor 12/13 12/13 T1: Intrinsics 12/13 12/13 Lower Extremity Motor Strength Right Left L2: Hip flexion (Iliopsoas) 12/13 12/13 L3: Knee extension (Quad) 12/13 12/13 L4: Ankle DF (TA) 12/13 12/13 L5: Great Toe DF (EHL) 12/13 12/13 S1: Ankle Pf, Foot Eversion (Peroneal longus/brevis) 12/13 12/13 S2: Great toe flexion (FHL), Knee flexion 12/13 12/13 Sensation Right Left L2: Proximal anterior thigh Normal Normal L3: Mid anterior thigh Normal Normal L4: Medial leg/foot, great toe (Saphenous n.) Normal Normal L5: Dorsum of mid foot Normal Normal S1: Lateral leg/foot, little toe, Back of leg (Sural n.) Normal Normal Reflexes Right Left C5: Biceps 2/4 2/4 C6: Brachialis 2/4 2/4 C7: Triceps 2/4 2/4 L4: Patellar 2/4 2/4 S1: Achilles 2/4 2/4 SLR Negative Negative Clonus Negative Negative Hoffmans Negative Negative Imaging I personally reviewed patient's x-rays from today. Patient has degenerative changes throughout the spine. Patient has noted spondylolisthesis of L1 on L2 and L2 on L3. Assessment and Plan Eleni Castillo is a 70 y.o. female with history of low back and leg pain along with bilateral handnumbness. We will get updated MRI imaging of both her neck and her lumbar spine to see if there hasbeen any changes or if there is any significant or severe compression. We will have these done locally at [facility]. Once they are completed the patient will contact me and we will request the imaging. Patient was instructed to contact me with any issues or concerns.. Helen Torres APRN [facility] Department of Neurosurgery This note was dictated using voice to text software and may contain errors 40 minutes was spent reviewing previous documentation and imaging, completion of today's documentation, ybvo-oi-[id number] visit, care coordination and planning [1] Past Medical History: Diagnosis Date Anxiety disorder, unspecified Anxiety and depression Personal history of other diseases of the circulatory system History of hypertension Personal history of other diseases of the digestive system History of gastroesophageal reflux (GERD) Personal history of other diseases of the nervous system and sense organs History of sleep apnea [2] Past Surgical History: Procedure Laterality Date BREAST LUMPECTOMY N/A Breast Surgery Lumpectomy from [facility] COLON SURGERY N/A Colon Surgery from [facility] HYSTERECTOMY N/A Hysterectomy from [facility] [3] Family History Problem Relation Name Age of Onset Diabetes Other Other cancer Other Heart attack Other [4] Social History Tobacco Use Smoking status: Never Passive exposure: Current Smokeless tobacco: Never Substance Use Topics Alcohol use: No Drug use: Never documented in this encounter Plan of Treatment Scheduled Orders Name Type Priority Associated Diagnoses Orde r Schedule MR Lumbar Spine wo IV Contrast Imaging Routine Bilateral leg numbness Pain of left lower extremity Leg numbness Spondylolisthesis at L4-L5 level Expected: 04/08/2025 (Approximate), Expires: 10/10/2026 MR Cervical Spine wo IV Contrast Imaging Routine Numbness and tingling in both hands Expected: 04/08/2025 (Approximate), Expires: 10/10/2026 documented as of this encounter Results * XR Lumbar Spine [...] spine. Straightening of the cervical spine alignment. Kxvc-vq-zsqibghi multilevel degenerative changes of the cervical spine. Mild kyphotic deformity of the thoracic spine. Humy-pf-pjsalovy multilevel degenerative changes of the thoracic spine. Grade 1 retrolisthesis L1 on L2, L2 on L3. Multilevel disc space narrowing in the lumbar spine. Moderate multilevel degenerative changes, better seen on prior MRI. No obvious displaced fracture or dislocations. Procedure Note Figueroa Gaines, Betito Lorenzo MD - 04/08/2025 CLINICAL INDICATION: back pain TECHNIQUE: XR SCOLIOSIS ENTIRE SPINE 2 OR 3 VIEWS, XR LUMBAR SPINE 2 OR 3 VIEWS COMPARISON: April 28, 2023, December 04, 2022 FINDINGS: Limited evaluation of the cervicothoracic transition due to overlyingstructures. Overlying bowel gas and content and soft tissue limits evaluation of thelumbar spine. Straightening of the cervical spine alignment. Jifu-so-dixhdmsi multileveldegenerative changes of the cervical spine. Mild kyphotic deformity of the thoracic spine. Pstb-ia-nhlucogq multileveldegenerative changes of the thoracic spine. Grade [...] report signed by Betito Gaines MD on 2:34 PM Helen Torres [facility] IMG XR PROCEDURES Final Resu lt * XR Scoliosis Entire Spine 2 or [...] spine. Straightening of the cervical spine alignment. Cyij-cc-dutxohsz multilevel degenerative changes of the cervical spine. Mild kyphotic deformity of the thoracic spine. Qiyw-cx-dgovcptw multilevel degenerative changes of the thoracic spine. [...] spine. Straightening of the cervical spine alignment. Eikx-dv-plxfbcaz multileveldegenerative changes of the cervical spine. Mild kyphotic deformity of the thoracic spine. Kzih-ea-yunuenib multileveldegenerative changes of the thoracic spine. Grade [...] Gaines MD on 512:34 PM Helen Torres [facility] IMG XR PROCEDURES Final Resu lt documented in this encounter Visit Diagnoses Diagnosis Bilateral leg numbness- Primary Disturbance of skin sensation Pain of left lower extremity Leg numbness Disturbance of skin sensation Spondylolisthesis at L4-L5 level Numbness and tingling in both hands Bilateral leg numbness Disturbance of skin sensation Bilateral leg numbness Disturbance of skin sensation documented in this encounter Additional Health Concerns Assessment Noted Time A fall risk assessment has been complete d for the patient 04/08/2025 11:32 AM EDT A Body Mass Index follow-up plan has been documented for the patient 04/08/2025 1:49 PM EDT documented as of this encounter Care Teams Sem Manager Relationship Specialty Start Date End Date Jt Ayoub MD [address] [place] [address] PCP - General 12/22/20 documented as of this encounter
--- OUTSIDE RECORDS SUMMARY | 2025-05-03 10:45 | XMS_ITS ---
Author Organization [facility] Address [address] [place] [id number] Care Team Providers Care Tobacco Drier Operator Name Role Phone Jt Ayoub Primary Care Provider [phone] April Maloney Unavailable [phone] Allergies No Known Allergies Results Component Value Reference Range Notes Influenza Screen (in house) Reviewed date:05/03/2025 05:33:54 PM Interpretation: Performing Lab: Notes/Report: results Neg Covid test (in house) Reviewed date:05/03/2025 05:33:54 PM Interpretation: Performing Lab: Notes/Report: Result: Pos REASON FOR VISIT poss.covid or flu Medications Medication SIG (Take, Route, Frequency, Duration) Notes Start Date End Date Status Lisinopril 20 MG 1 tablet Orally Once a day; Duration: 90 days Active Contrave 8-90 MG 2 tablets Orally twi ce a day; Duration: 30 days 02/07/2025 Active Gabapentin 300 MG 1 cap(s) orally 3 ti mes a day; Duration: 90 days 11/25/2024 Active Benzonatate 200 MG 1 capsule as needed Orally Three times a day 05/03/2025 Active Cefdinir 300 MG 1 cap Orally twice a day Active Benadryl Allergy 25 MG 1 cap(s) orally 3 times a day Active Tylenol 8 Hour Arthritis Pain 650 MG 2 tab(s) orally every 8 hours Active Pantoprazole Sodium 40 MG take 1 tablet Orally Two times a day; Duration: 90 days Active Aspirin Adult Low Dose 81 MG 1 tab(s) orally once a day 08/07/2015 Active valACYclovir HCl 1 GM 1 tab(s) orally ti d as needed Active Furosemide 20 MG 1 tablet Orally Once a day Active Vitamin B12 1000 MCG 1 tablet Orally Onc e a day Active tiZANidine HCl 4 MG 1 tablet as needed O rally every 8 hours Active amLODIPine Besylate 2.5 MG 1 tablet Oral ly Once a day Active Vital Signs Weight 277.8 lbs 05/03/2025 Blood pressure systolic 132 mm Hg 05/03/20 25 Blood pressure diastolic 80 mm Hg 025 Heart Rate 90 /min 05/03/2025 Height 66 in 05/03/2025 BMI 44.83 kg/m2 05/03/2025 Encounters Encounter Location Date Provider Diagnosis [facility] [address] [facility] [address] [facility] [address] [place] [id number] 05/03/2025 April Maloney COVID-19 U07.1 and Acute bronchitis J20.9 Assessments Encounter Date Diagnosis (ICD Code) Assessment Notes Treatment Notes Treatment Clinical Notes Section Notes 05/03/2025 COVID-19 (ICD-10 - U07.1) Symptomatic treatment 05/03/2025 Acute bronchitis (ICD-10 - J20.9) Plan Of Treatment Medication Medication Name Sig Start Date Stop Date Notes Benzonatate 200 MG 1 capsule as needed Orally Three times a day 05/03/2025 Cefdinir 300 MG 1 cap Orally twice a day 05/03/2025 Treatment Notes Assessment Notes COVID-19 Symptomatic treatmen t Next Appt Details Follow Up: prn, Reason: Provider Name:Jt Rodney , 08/09/2025 09:30:00 AM, [address] [facility] [facility], [address], [place], [id number], Progress Notes * Rosalia SALDANAOB:1955 (70 yo F)Acc No.[id number]:05/03/2025 Progress Notes Patient: Eleni LIGHT Provider: April Maloney M.D. :1955 A ge:70 Y S ex:Female Date:05/03/2025 [address] [id number] Pcp:Jt Ayoub Subjective: * Chief Complaints: * 1 . Poss.covid or flu. * HPI: E NT/respiratory: 70 year old female presents with c/o sore throat. c/o cough P t presents in office today with cough. Pt states the symptoms started 05/02. Pt states she has g reenish yellow sputum production. Pt states she had a fever this morning of 102. Pt states she took 2 capsles of Nyquil. Pt states she has been sleeping a lot. c/o Fever 1 , with chills. c/o headache P t states she has had a headache a since yesterday morning.? c/o dizziness o ff balance. c/o body aches aching all over . * ROS: D ERMATOLOGY: no R jose. n o H [place]. G ASTROENTEROLOGY: no N ausea. n o V omiting. n o D iarrhea.? U ROLOGY: no D ifficulty urinating. n [...] * Hospitalization/Major Diagno stic Procedure: C olitis- [facility] 06/2013, Food Posioning- [facility] 11/15/2016, Chest Pain- [facility] 02/05/2017, Lower Back Pain- [facility] 02/08/2018, Chest Pain- [facility] 08/13/2022. * Family History: F ather: 42 yrs, Heart Attack. M other: alive 86 yrs, Cancer of Uterus. P aternal Grand Mother: diagnosed with Diabetes. 4 brother(s) , 3 sister(s) . 2 son(s) , 1 daughter(s) . . Brother with IDDM. * Social History: C URRENT TOBACCO USE: No . C affeine: yes, frequency: [facility]. Home smoke detector use: yes. Alcohol: No. [...] orally 3 times a day , Taking Pantoprazole Sodium 40 MG Tablet Delayed Release take 1 tablet Orally Two times a day , Taking Gabapentin 300 MG Capsule 1 cap(s) orally 3 times a day , Taking Contrave 8-90 MG Tablet Extended Release 12 Hour 2 tablets Orally twice a day , Taking Lisinopril 20 MG Tablet 1 tablet Orally Once a day , Medication List reviewed and reconciled with the patient * Allergies: N .K.D.A. Objective: * Vitals: W t: 277.8, Temp: 98.0, BP: 132/80, HR: 90, Nurse: CADY, Ht: 66, BMI:44.83. * Examination: G eneral Examination: General Appearance: m ildly ill but in no acute distress.?HEENT: V oice is hoarse. Throat is mildly erythematous. H eart: R SR. L ungs: c lear to auscultation. Assessment: * Assessment: 1. C OVID-19 - U07.1 (Primary) 2 . A cute bronchitis - J20.9 ? Plan: * Treatment: 2. A cute bronchitis Start Cefdinir Capsule, 300 MG, 1 cap, Orally, twice a day, 14; S tart Benzonatate Capsule, 200 MG, 1 capsule as needed, Orally, Three times a day, 24. * Labs: * L ab: Covid test (in house) (Collection Date & Time - 05/03/2025) Value Reference Range R esult: Pos * Jyoti Fairchild 05/03/2025 02: 43:25 PM EDT > Provider reviewed results while patient in office. ?Lab: Influenza Screen (in house) (Collection Date & Time - 05/03/2025)* Value Reference Range r esults Neg * Jyoti Fairchild 05/03/2025 02: 44:25 PM EDT > Provider reviewed results while patient in office. * Procedure Codes: G 2211 Complex e/[place], [address] COVID TEST IN HOUSE, Modifiers: QW , 17908 Flu Test- Nasal Swab, Modifiers: QW * Follow Up: p rn * Images: Billing Information: * Visit Code: 18760 Office Visit, Est Pt., Level 4. * Procedure Codes: G2211 Complex e/[place]. [address] COVID TEST IN HOUSE. Modifiers: QW 27469 Flu Test- Nasal Swab. Modifiers: QW * Electronic signature of April Maloney MD on 05/12/2025 at 09:37 AM EDT Sign off status: Pending * Provider: April Maloney M.D. Date: 0 05/03/2025 Generated for Dashawn kearney/Kalyn/eTransmitting on: 1 09:37 AM EDT History and Physical Notes * HPI (History of Present Illness) Category Sub-Category Detail Notes Category Not es ENT/respiratory sore throat cough Pt presents in offic e today with cough. Pt states the symptoms started 05/02. Pt states she has greenish yellow sputum production. Pt states she had a fever this morning of 102. Pt states she took 2 capsles of Nyquil. Pt states she has been sleeping a lot Fever 101-102, with chills headache Pt states she has song d a headache a since yesterday morning dizziness off balance body aches aching all over Examination Category Sub-Category Detail Notes Category Not es General Examination HEENT: Voice is casper rse. Throat is mildly erythematous Heart: RSR Lungs: clear to auscultatio n General Appearance: mildly ill but in no acute distress
--- OUTSIDE RECORDS SUMMARY | 2025-05-12 09:36 | XMS_ITS | Encounter Summary ---
Author Organization Healthcare Address [address] [place] [address] Care Team Providers Care Supervising Film Or Videotape Editor Name Role Phone Jt Ayoub MD Primary Care Provider [phone] Encounter Details Date Type Department Care Team (Late st Contact Info) Description 06/19/2020 Orders Only External Location [address] [place] [address] Phan Bautista MD [address] [place] [address] [address] [place] [address] Social History Tobacco Use Types Packs/Day Years Used Date Smoking Tobacco: Never Assessed Comments Unknown Sex and Gender Information Value Date Recorded Sex Assigned at Not on file Legal Sex Female 8:30 PM EDT Gender Identity Not on file Sexual Orientation Not on file documented as of this encounter Plan of Treatment Not on file documented as of this encounter Procedures Procedure Name Priority Date/Time Associated Diagnosis Comments MR OUTSIDE IMAGES 06/19/2020 7:53 AM EST documented in this encounter Results * MR transfer of outside films (06/19/2020 7:53 AM EST) Anatomical Region Laterality Modality Magnetic Resonan ce 06/19/2020 7:53 AM EST Phan Bautista MD IMG MRI PROCEDURES Final Result documented in this encounter Visit Diagnoses Not on filedocumented in this encounter Care Teams Supervising Film Or Videotape Editor Relationship Specialty Start Date End Date Jt Ayoub MD [address] [place] [address] [address] [place] [address] PCP - General 12/22/20 documented as of this encounter
--- OUTSIDE RECORDS SUMMARY | 2025-05-12 09:36 | XMS_ITS | Encounter Summary ---
Author Organization Healthcare Address [address] [place] [address] Care Team Providers Care Eeg Technologist Name Role Phone Jt Ayoub MD Primary Care Provider [phone] Reason for Visit * Reason Comments Med Refill Encounter Details Date Type Department Care Team (Late st Contact Info) Description 05/14/2024 Refill [place] [facility] [address] [place] [address] Helen Torres, ELECTROTYPER [address] [place] [address] Social History Tobacco Use Types Packs/Day Years [...] on file documented as of this encounter Visit Diagnoses Not on filedocumented in this encounter Additional Health Concerns Assessment Noted Time A fall risk assessment has been complete d for the patient 10/02/2023 1:34 PM EST A Body Mass Index follow-up plan has been documented for the patient 07/12/2023 11:58 PM EST documented as of this encounter Care Teams Eeg Technologist Relationship Specialty Start Date End Date Jt Ayoub MD [address] [place] [address] PCP - General 12/22/20 documented as of this encounter
--- NOTE | 2025-05-12 09:37 | MR_ITS ---
FINAL REPORT CLINICAL HISTORY: BILAT LEG NUMBNESS COMPARISON: 02/06/2018 FINDINGS: Multiplanar MR imaging of the lumbar spine was performed without contrast. On the sagittal T2-weighted images, there is abnormal decreased signal throughout the lumbar discs. There is abnormal decreased signal throughout the lumbar vertebra, probably due to red marrow conversion. The vertebrae are of normal height. The vertebral alignment is normal. L1-2: There is no significant canal stenosis or neural foraminal narrowing. L2-3: Mild diffuse disc bulge. Posterolateral disc protrusions with moderate bilateral neuroforaminal narrowing. L3-4: Moderate diffuse disc bulge. Posterolateral disc protrusions with moderate bilateral neuroforaminal narrowing. L4-5: Moderate diffuse disc bulge and endplate hypertrophy. Moderate to high-grade bilateral neuroforaminal narrowing. L5-S1: Mild diffuse disc bulge with moderate bilateral neuroforaminal narrowing. IMPRESSION: Diffuse disc bulges, most evident at L3-4, L4-5, and L5-S1 neuroforaminal compromise, most evident at L4-5. Decreased signal throughout the lumbar vertebra, may be related to underlying hematologic disorder or smoking. Reviewed, Interpreted and Dictated by Aleksandr Watson MD Transcribed by Theresa Skaggs Authenticated and [facility]
--- OUTSIDE RECORDS SUMMARY | 2025-05-12 09:37 | XMS_ITS | Patient Health Record ---
Author Organization [facility] Address [address] [facility] [address] [place] [id number] Care Team Providers Care Cellophane Worker Name Role Phone Monet Ayoubian Primary Care Provider [phone] April Maloney Unavailable [phone] Wandy Ruelas Unavailable [phone] Allergies No Known Allergies Results Component Value Reference Range Notes P-Microalbumin/Creatinine, R andom Urine Sample Reviewed date:02/10/2025 11:32:27 AM Interpretation:Normal Performing Lab: Notes/Report: Test performed by [facility] [address] [place] [address] , [address], [place] [address] Brian Ann MD, Belt Turner CLIA: [id number] Albumin/Creatinine Ratio, Urine <9.09 0-30 ug/mg Microalbumin, Urine, Random <0.3 Creatinine, Urine 33.0 P-Basic Metabolic Panel (BMP ) Reviewed date:02/10/2025 11:32:27 AM Interpretation:satisfactory Performing Lab: Notes/Report: Test performed by [facility] [address] [place], [place] [address]Ex[place] , [address], [place] [address] Brian Ann MD, [place] Turner CLIA: [id number] Sodium 139 135-145 mmol/L Potassium 4.3 3.5-5.3 mmol/L Chloride 102 97-108 mmol/L CO2 29 20-32 mmol/L Glucose 107 65-99 mg/dL BUN 17 8-23 mg/dL Creatinine 1.01 0.50-1.00 mg/dL Calcium 9.2 8.6-10.4 mg/dL eGFR by Creatinine 60 >59 mL/min/1.73m2 Glycohemoglobin A1c (in hous e) Reviewed date:02/10/2025 11:32:27 AM Interpretation:6, normal Performing Lab: Notes/Report: 6, normal glycohemoglobin 6.0% 5 - 6.5 % CBC Venipuncture (in house) Reviewed date:02/07/2025 07:10:01 [...] - 38 platlet 415 100 - 400 Glucose (In-House) Reviewed date:02/10/2025 11:32:27 AM Interpretation:101 Performing Lab: Notes/Report: 101 blood glucose 101 74 - 106 mg/dL Glycohemoglobin A1c (in hous e) Reviewed date:08/18/2024 12:38:50 PM Interpretation:5.3%, normal Performing Lab: Notes/Report: 5.3%, normal glycohemoglobin 5.3% 5 - 6.5 % Glucose (In-House) Reviewed date:08/18/2024 12:38:15 PM Interpretation:114 Performing Lab: Notes/Report: 114 blood glucose 114 74 - 106 mg/dL P-Culture, Urine Reviewed date:07/15/2024 01:36:01 PM Interpretation:Negative Performing Lab: Notes/Report: Test performed by [facility] [address] [place] [address] , [address], [place] [address] Brian Ann MD, Belt Turner CLIA: [id number] Specimen Source Urine - Void Culture, Urine See Below Final Report : No Significant Growth Urinalysis - Inhouse Reviewed date:07/13/2024 10:22:35 AM Interpretation: Performing Lab: Notes/Report: Color/Clarity dark yellow Leuk 1+ Nitrite neg Urobili 3.2 Protein trace pH 5.5 Blood trace intact Sp. Gr. 1.030 Ketone neg Bili neg Gluc neg CBC Fingerstick (in house) Reviewed date:09/23/2024 11:05:42 AM Interpretation: Performing Lab: Notes/Report: wbc 8.8 3.5 - 10 lym 34.8% 15 - 50 mid 7.7% 2 - 15 gran 57.5% 35 - 80 rbc 4.62 3.5 - 5.5 hgb 14.0 11.5 - 16.5 hct 43.2 35 - 55 mcv 93.3 75 - 100 mch 30.2 25 - 35 mchc 338 31 - 38 Influenza Screen (in house) Reviewed date:05/03/2025 05:33:54 [...] Vaccine Route Administration Date Status Comme nts xFluzone-trivalent -medicare pts. IM Intramuscular 06/10/2014 Administered xFluzone (6mos and older)-trivalent IM Intramuscular 07/01/2013 Administered Prevnar (PCV20) IM Intramuscular 08/06/2022 Administered Prevnar (PCV13) IM Intramuscular 05/01/2021 Administered G iven by Shirley Fairchild PNEUMOVAX 23 VACCINE IM Intramuscular 05/04/2020 Administered Fluzone Quad (6months&older) IM Intramuscular 05/04/2020 Administered Fluzone PF Quad (6-35 months) Unknown 09/11/2017 Administered Fluzone PF Quad (6-35 months) Unknown 03/26/2019 Administered Fluzone High Dose (65yr and older) IM Intramuscular 05/01/2021 Administered Given by Nicolle Fairchild Fluzone High Dose (65yr and older) IM Intramuscular 08/06/2022 Administered Fluzone High Dose (65yr and older) IM Intramuscular 08/05/2023 Administered Fluzone High Dose (65yr and older) IM Intramuscular 05/05/2024 Administered COVID 19 Kisha Unknown 02/22/2021 Administered COVID 19 Kisha Unknown 08/20/2021 Administered Problems Problem Type SNOMED Code ICD Code Onset Dates Problem Status W/U Status Risk Notes Problem Essential hypertension (01125523) Essential hypertension (I10) Active confirmed Problem Morbid obesity (812784263) Morbid obesity (E66.01) Active confirmed Problem Mixed anxiety and depressive disorder (513063557) Depression with anxiety (F41.8) Active confirmed Problem Hypocalcemia (8744498) Hypocalcemia (E83.51) Active confirmed Problem Sciatica (83299577) Lumbago with sciatica, left side (M54.42) Active confirmed Problem Degeneration of lumbar intervertebral disc (37649524) Lumbar degenerative disc disease (M51.36) Active confirmed Problem Urinary hesitancy (1474647) Urinary hesitancy (R39.11) Active confirmed Problem Gastroesophageal reflux disease without esophagitis (354972043) Gastroesophageal reflux disease without esophagitis (K21.9) Active confirmed Problem Obesity (677227079) Non morbid o besity due to excess calories (E66.09) Active confirmed Problem Displacement of lumbar intervertebral disc without myelopathy (19492322) Bulging lumbar disc (M51.26) Active confirmed Problem Arthropathy of lumbar facet joint (630532859) Lumbar facet arthropathy (M46.96) Active confirmed Problem Morbid obesity (316926582) Morbid obesity due to excess calories (E66.01) Active confirmed Problem Leukocytosis (707147430) Leukocytosis, unspecified type (D72.829) Active confirmed Problem Body mass index 40+ - morbidly obese (910337251) BMI 40.0-44.9, adult (Z68.41) Active confirmed Problem Impaired fasting glycaemia (735846323) IFG (impaired fasting glucose) (R73.01) Active confirmed Problem Age-related osteoporosis (128862660) Osteoporosis without current pathological fracture, unspecified osteoporosis type (M81.0) Active confirmed Problem Allergic rhinitis (31797287) Allergic rhinitis, unspecified seasonality, unspecified trigger (J30.9) Active confirmed Vital Signs Heart Rate 90 /min 05/03/2025 Blood pressure diastolic 80 mm Hg 05/03/2025 Height 66 in 05/03/2025 Blood pressure systolic 132 mm Hg 05/03/2025 Weight 277.8 lbs 05/03/2025 BMI 44.83 kg/m2 05/03/2025 Encounters Encounter Location Date Provider Diagnosis [facility] [address] [facility] [address] [place], [place] [id number] 06/29/2024 Wandy Ruelas Leg edema R60.0 [facility] [address] [facility] [address] [place], [place] [id number] 07/13/2024 Wandy Ruelas UTI (lower urinary t ract infection) N39.0 and Dysuria R30.0 [facility] [address] [facility] [address] [place], [place] [id number] 08/09/2024 [place] Essential hypertensi on I10 ; IFG (impaired fasting glucose) R73.01 ; Gastroesophageal reflux disease without esophagitis K21.9 ; Morbid obesity E66.01 and Lumbago with sciatica, left side M54.42 [facility] [address] [facility] [address] [place], [place] [id number] 09/23/2024 [place] Bronchitis J40 [facility] [address] [facility] [address] [place], [place] [id number] 01/13/2025 [place] Open wound of neck, initial encounter S11.90XA ; Essential hypertension I10 ; Morbid obesity E66.01 and Depression with anxiety F41.8 [facility] [address] [facility] [address] [place], [place] [id number] 02/07/2025 [place] Essential hypertensi on I10 ; IFG (impaired fasting glucose) R73.01 ; Allergic rhinitis, unspecified seasonality, unspecified trigger J30.9 ; Morbid obesity E66.01 ; Gastroesophageal reflux disease without esophagitis K21.9 and intermediate use of drug Z79.899 [facility] [address] [facility] [address] [place], [place] [id number] 05/03/2025 R Al Amara COVID-19 U07.1 and A cute bronchitis J20.9 [facility] [address] [facility] [address] [place], [place] [id number] 08/05/2024 [place] Lumbago with sciatic a, left side M54.42 [facility] [address] [facility] [address] [place], [place] [id number] 08/24/2024 [place] [facility] [address] [facility] [address] [place] [id number] 10/11/2024 [place] [place] Gastroesophageal ref lux disease without esophagitis K21.9 [facility] [address] [facility] [address] [place] [id number] 11/25/2024 [place] [place] Lumbago with sciatic a, left side M54.42 [facility] [address] [facility] [address] [place] [id number] 01/15/2025 [place] [facility] [address] [facility] [address] [place] [id number] 02/22/2025 [place] [place] Assessments Encounter Date Diagnosis (ICD Code) Assessment [...] sciatica, left side (ICD-10 - M54.42) 02/07/2025 salvage determiner use of drug (ICD-10 - Z79.899) Plan Of Treatment Next Appt Details Provider Name:Jt lane, 08/09/2025 09:30:00 AM, [address] [facility], [address], [place], [place], [id number], Insurance Providers Payer Name Payer Address Payer Phone Subscriber Number Group Number Insured Name Patient Relationship to Insured Coverage Start Date Coverage End Date [employer] (MEDICAR E) [address] [address] [place] [address] [id number] Eleni Castillo Self - patient is the [...] 05/09/2021 Hospitalization History Reason Date(Month/Year) Chest Pain- [facility] ER 08/13/2022 Lower Back Pain- [facility] ER 02/08/2018 Chest Pain- [facility] ER 02/05/2017 Food Posioning- [facility] ER 11/15/2016 Colitis- [facility] 06/2013
--- OUTSIDE RECORDS SUMMARY | 2025-05-12 09:37 | XMS_ITS | Encounter Summary ---
Author Organization Healthcare Address [address] [place] [address] Care Team Providers Care Deputy Director Name Role Phone Jt Ayoub MD Primary Care Provider Encounter Details Date Type Department Care Team ([facility] st Contact Info) Description 12/04/2022 Orders Only External Location [address] [place] [address] Provider, External Social History Tobacco Use Types Packs/Day Years Used Date Smoking Tobacco: Never Alcohol Use Standard Drinks/Week Comments No 0 (1 standard drink = 0.6 oz pur e alcohol) Comments Unknown Sex and Gender Information Value Date Recorded Sex Assigned at Not on file Legal Sex Female 8:30 PM EDT Gender Identity Not on file Sexual Orientation Not on file documented as of this encounter Plan of Treatment Not on file documented as of this encounter Procedures Procedure Name Priority Date/Time Associated Diagnosis Comments MR OUTSIDE IMAGES 12/04/2022 1:37 PM EDT documented in this encounter Results * MR transfer of outside films (12/04/2022 1:37 PM EDT) Anatomical Region Laterality Modality Magnetic Resonan ce 12/04/2022 1:37 PM EDT us External Provider IMG MRI PROCEDURES Final Resul t documented in this encounter Visit Diagnoses Not on filedocumented in this encounter Care Teams Deputy Director Relationship Specialty Start Date End Date Jt Ayoub MD [address] [place] [id number] PCP - General 12/22/20 documented as of this encounter
--- OUTSIDE RECORDS SUMMARY | 2025-05-12 09:37 | XMS_ITS | Encounter Summary ---
Author Organization Healthcare Address [address] [place] [address] Care Team Providers Care Library Science Instructor Name Role Phone Jt Ayoub MD Primary Care Provider [phone] Encounter Details Date Type Department Care Team ([facility] st Contact Info) Description 12/04/2022 Orders Only External Location [address] [place] [address] Provider, External Social History Tobacco Use Types [...] on filedocumented in this encounter Care Teams Library Science Instructor Relationship Specialty Start Date End Date Jt Ayoub MD [address] [place] [id number] PCP - General 12/22/20 documented as of this encounter
--- OUTSIDE RECORDS SUMMARY | 2025-05-12 09:37 | XMS_ITS | Clinical Summary ---
Author Organization [facility] Address [address] [place] [address] Phone Care Team Providers Care Butcher Scullion Name Role Phone April Maloney Primary Care Provider [phone] Allergies No known active allergies Medications * [...] age to complete this topic Insurance [id number] [place] [id number] NATASHA CASTLE Care Teams Butcher Scullion Relationship Specialty Start Date End Date April Maloney [facility] [address] [place] [address] PCP - General Family Medicine 12/23/17
--- OUTSIDE RECORDS SUMMARY | 2025-05-12 09:37 | XMS_ITS | Encounter Summary ---
Author Organization Healthcare Address [address] [place] [address] Care Team Providers Care Caramel Coloring Operator Name Role Phone Jt Ayoub MD Primary Care Provider [phone] Encounter Details Date Type Department Care Team (Late st Contact Info) Description 09/02/2022 Orders Only External Location [address] [place] [address] Phan Bautista MD [address] [place] [address] [place], [place] [id number] Social History Tobacco Use Types Packs/Day Years [...] Name Priority Date/Time Associated Diagnosis Comments XR OUTSIDE IMAGES 09/02/2022 2:35 PM EST documented in this encounter Results * XR OUTSIDE IMAGES (09/02/2022 2:35 PM EST) Anatomical Region Laterality Modality Radiographic Nicole ging 09/02/2022 2:35 PM EST Phan MAYSG XR PROCEDURES Final Result documented in this encounter Visit Diagnoses Not on filedocumented in this encounter Care Teams Caramel Coloring Operator Relationship Specialty Start Date End Date Jt Ayoub MD [address] [facility] [address] [place], [place] [id number] PCP - General 12/22/20 documented as of this encounter
--- OUTSIDE RECORDS SUMMARY | 2025-05-12 09:38 | XMS_ITS | Data Portability ---
Author Organization [facility] HEATHER SanchezS [facility] CLOSED Address [address] [place] [address] Assessment Encounter Date Assessment Date Assessment LastModified by Organization Details LastModified Time 05/17/2024 05/17/2024 F/up annually [email or web address] Not available 05/12/2024 08:50:48 Plan of Treatment Reminders Order Date Submit Date Provider Last Modified By Organization Details Last Modified Time Details Appointments DERM VISIT 2024 11:00A M MIRTA KOVACS DO Not available Not available Not available ANNUAL PARTS DRIVER 2025 10:45A M KRISTEL BARRIOS DO Not available Not available Not available Lab pap, LB [address] [facility], [address] [place] [address], [phone], 11/09/2024 10:45:36 HPV DNA, high-risk [address] [facility], [address] [place] [address], [phone], 11/03/2024 13:20:59 Referral None recorded. Procedures colonosco py screening (PROC) 2024 025 [email or web address] Not available 11/16/2024 12:04:48 Surgeries None recorded. Imaging None recorded. Medication Orders valacyclo vir 500 mg tablet 2024 025 [facility], [address], [address], [place], [address], 10/29/2024 12:00:29 metronida zole 0.75 % topical gel [email or web address] [facility], [address] [place] [address], [address], [place], [address], 05/17/2024 11:50:13 valacyclo vir 1 gram tablet 2023 024 [facility], [address] [place] [address], [address], [place], [address], 12/03/2023 10:48:44 Patient TargetsNo targets recorded. Patient Instructions Encounter Date Encounter Id Patient Instructions Last Modified By Organization Details Last Modified Time 05/17/2024 [id number] If any lesions change, or if any other new or symptomatic lesions occur, patient understands to return to the clinic for further evaluation Discussed sun precautions; SPF 30+ [email or web address] Not available 05/12/2024 08:50:48 Reason for Referral None Reported. Results Created Date Observation Date Name Description Value Unit Range Abnormal Flag Note LastModifiedBy Organization Detail LastModifiedTime 10/30/1911/03/2024 HPV, HIGH RISK high risk HPV POSITI VE negati ve abnormal This assay detec ts E6/E7 viral messe nger RNA (mRNA ) from 14 high- risk HPV types (16,1 8,31, 33,35 ,39,4 5,51, 52,56 , 58,59 ,66,6 8) witho ut diffe renti ation . Sensi tivit y may be affec milana by speci men colle ction metho ds, stage of infec tion, and the prese nce of inter naty lindsay subst ances . Resul ts shoul d be inter prete d in conju nctio n with other avail able labor atory and clini shayna data. A negat carlito Aptim a HPV assay resul t does not exclu de the possi bilit y of cytol ogic abnor malit ies or futur e or under lying CIN2, CIN3, or cance r. This test is inten ded for medic al purpo ses and has not been evalu ated in cases of suspe cted abuse . This assay is not inten ded for use as a scree enrique devic e for women under age 30 with alicia l cervi shayna cytol ogy. The Aptim a HPV assay is not inten ded to subst itute for regul ar cervi shayna cytol ogy. Test metho dolog y is Nucle ic Acid Ampli ficat ion (NAAT ) Not Available [facility] [address] [place], [address], 11/03/2024 13:20:59 10/30/19 25 10/29/2024 PAP SMEAR Pap smear SEE BELOW abnormal Depar tment of Patho logy GYNEC OLOGI SHAYNA CYTOL OGY REPOR T NAME: GRETA SALDANA PATHO LOGY NO.: [id number] Copy to: [facility] E OF SPECI MEN: CERVI SHAYNA/E NDOCE RVICA L-THI N PREP RELEV ANT HISTO RY: No LMP given . Menop ause: Y Comme nt: HPV CO-TE STING SPECI MEN ADEQU ACY SATIS FACTO RY FOR EVALU ATION ENDOC ERVIC AL/TR ANSFO RMATI ON ZONE COMPO NENT ABSEN T GENER AL CATEG ORIZA TION EPITH ELIAL CELL ABNOR MALIT Y. DESCR IPTIV E DIAGN OSIS PREDO MINAN CE OF COCCO BACIL LI CONSI STENT WITH SHIFT IN VAGIN AL JANY . SQUAM OUS CELL ABNOR MALIT Y RARE ATYPI SHAYNA SQUAM OUS CELLS OF UNDET ERMIN ED SIGNI FICAN CE RELAT ED LABOR ATORY RESUL TS Test Name Resul t Colle cted D and T HIGH RISK HPV POSIT CARLITO 2024 13:43 EDITH GONZALEZ MD Miguelina d Out Date: 11/09 10:45 Cervi shayna/v agina l cytol ogy is a scree enrique test with a recog nized false negat carlito rate. New techn ologi es may decre ase, but will not elimi janes false negat carlito resul ts. Regul ar cytol ogy scree enrique is recom karla d to minim ize false negat carlito resul ts. The ThinP rep(R ) Imagi ng syste m is used to kleber t in prima ry cervi shayna cance r scree enrique of ThinP rep(R ) Pap test slide s. Page 1 of 1 Not Available [facility] [address] [place] [address], [phone], 11/09/2024 10:45:35 12/03/19 24 11/04/2022 bone densi ty No observ ation record ed. [email or web address] Not Available 2023 10:04:35 Result Notes None recorded. Problems Name Problem SNOMED Code Status Onset Date Resolution Date Notes Provider Name and Address Organization Details Recorded Time Melanocyt ic nevus of trunk 477209545 Active 2014 From Automated Load;Provi arya: Mirta Kovacs;S tatus: Active Not Available [facility] 6 00:15:55 Lentigo Active 2014 From Automated Load;Provi arya: Mirta Kovacs;S tatus: Active Not Available [facility] 6 00:15:55 Actinic keratosis 981157773 Active 2014 From Automated Load;Provi arya: Mirta Kovacs;S tatus: Active Not Available [facility] 6 00:15:55 Senile hyperkera tosis 780529052 Active 2014 From Automated Load;Provi arya: Mirta Kovacs;S tatus: Active Not Available [facility] 6 00:15:55 Dysplasia of vagina 1577879 Active 2015 Provider: Abbie Kendall tus: Active Not Available [facility] 6 00:15:55 Blood in urine 06886094 Active 2015 From Automated Load;Provi arya: Milan KendallSta tus: Active Not Available [facility] 6 00:15:55 Inflamed seborrhei c keratosis 557335710 Active 2015 From Automated Load;Provi arya: Mirta Kovacs;S tatus: Active Not Available [facility] 7 06:08:14 Problem Notes None recorded. Procedures Surgical History Date Name Laterality Status Provider Name and Address Organization Details Recorded Time 02/16/20 Colposcopy; Vagina completed KRISTEL BARRIOS DO [address] [place] [address], [phone], [facility] 02/15/2025 11:32:59 01/15/20 25 Date of Last Colonoscopy completed KRISTEL BARRIOS DO [address] [place], [address], [facility] 01/31/2025 09:58:54 05/17/20 24 Destruction Premalignant Lesion(s) completed MIRTA KOVACS DO [address] [place], [address], [facility] 05/17/2024 16:36:58 05/17/20 24 Destruction BN Lesions completed MIRTA KOVACS DO [address] [place], [address], [facility] 05/17/2024 16:36:56 12/03/19 24 Colposcopy; Vagina completed KRISTEL BARRIOS DO [address] [place], [address], [facility] 12/03/2023 10:44:10 09/05/19 24 Date of Last Mammogram completed [facility] 10/28/2023 10:28:34 05/12/20 23 Destruction Premalignant Lesion(s) completed Betty Balbuena [facility] 05/12/2023 09:09:28 10/23/19 23 Date of Last Pap Smear completed [facility] 12/03/2023 09:49:50 05/29/20 22 Biopsy Skin Lesion; Tangential completed Elinor McQuain [facility] 05/29/2022 11:05:13 05/29/20 22 Destruction Premalignant Lesion(s) completed Elinor McQuain [facility] 05/29/2022 11:04:59 05/29/20 22 Destruction BN [facility]ions [facility] 11:08:15 11/21/19 22 Colposcopy; Vagina completed KRISTEL BARRIOS DO [address] [place], [address], [facility] 11/20/2021 11:10:10 05/29/20 21 Destruction Premalignant Lesion(s) completed [facility] 05/29/2021 11:22:22 05/29/20 21 Destruction BN Lesions completed [facility] 05/29/2021 11:15:54 05/29/20 20 Destruction Premalignant Lesion(s) completed [facility] 05/29/2020 12:00:55 05/29/20 20 Destruction BN Lesions completed [facility] 05/29/2020 12:00:52 10/14/19 Most Recent Bone Density completed [facility] 10/14/2019 09:29:05 05/26/20 19 Destruction BN Lesions completed [facility] 05/26/2019 11:30:57 11/25/19 19 Destruction BN Lesions completed [facility] 11/24/2018 11:27:55 10/08/19 19 Colposcopy; Vagina completed FREDY KENDALL MD [address] [place] [address], [address], [facility] 10/18/2018 19:55:51 06/08/20 18 Pap Smear collection completed FREDY KENDALL MD [address] [place] [address], [address], [facility] 06/10/2018 08:38:06 06/08/20 18 Colposcopy; Vagina completed FREDY KENDALL MD [address] [place] [address], [address], [facility] 06/10/2018 08:38:57 05/26/20 18 Destruction Premalignant Lesion(s) completed [facility] 05/26/2018 11:27:11 05/26/20 18 Destruction BN Lesions completed MIRAT KOVACS DO [address] [place] [address], [address], [facility] 05/26/2018 13:10:41 11/26/19 18 Destruction BN Lesions completed [facility] 11/25/2017 11:37:12 11/07/19 18 Colposcopy; Vagina completed FREDY KENDALL MD [address] [place], [address], [facility] 11/08/2017 19:53:26 09/25/19 18 Colposcopy; Vagina completed LETICIA ZAMBRANO, FINANCIAL SERVICES DIRECTOR [address] [place], [address], [facility] 09/28/2017 16:45:19 09/11/19 18 Pap Smear collection completed LELIA MG FINANCIAL SERVICES DIRECTOR [address] [place], [address], [facility] 09/11/2017 12:26:49 05/28/20 17 Destruction Premalignant Lesion(s) completed [facility] 05/28/2017 14:04:56 05/28/20 17 Destruction BN Lesions completed [facility] 05/28/2017 14:05:02 lumpectomy of breast completed [facility] 10/16/2020 10:13:52 Total Hysterectomy completed [facility] 10/16/2020 10:13:57 Tubal Ligation completed [facility] 10/16/2020 10:14:02 Imaging Results None recorded. Procedure Notes None recorded. Medical Equipment None Reported. Allergies No known drug allergies Medications Name Sig Start Date Stop Date Status Note LastModified by Organization Details LastModified Time celecoxib 200 mg capsule Take 1 capsule every day by oral route in the evening. 09/11 completed Not Available Not Available Not Available tretinoin 0.1 % topical cream Apply to the affected areas on the nose/ face, once daily at night, in a thin layer. 06/08 completed Not Available Not Available Not Available methocarb monty 500 mg tablet Take 2 tablets twice a day by oral route. 05/29 completed Not Available Not Available Not Available D-3-5 125 mcg (5,000 unit) capsule Take by oral route. 10/13 completed Not Available Not Available Not Available tizanidin e 4 mg tablet Take 1 tablet every 6 hours by oral route. active Not Available Not Available No t Available valacyclo vir 1 gram tablet TAKE ONE TABLET BY MOUTH daily x5 days PRN 2024 active PRN Not Available Not Available Not Avai lable fluoroura cil 5 % topical cream APPLY A SUFFICIE NT AMOUNT TO COVER THE LESION IN THE AFFECTED AREA(S) ON RIGHT UPPER LIP BY TOPICAL ROUTE 2 TIMES PER DAY for 2 weeks. 05/17 completed Not Available Not Available Not Available metolazon e 5 mg tablet Daily 09/09 completed Frequenc y: daily;Me dication Descript ion: metolazo ne; Dosage:1 ; Route:or al; refills: 0 Not Available Not Available Not Available Diflucan 150 mg tablet Take 1 tablet now, may repeat in 2 days if needed 05/12 completed Not Available Not Available Not Available Tylenol Arthritis Pain 650 mg tablet,ex tended release Take 2 tablets every 8 hours by oral route. active Not Available Not Available No t Available amlodipin e 2.5 mg tablet Take 1 tablet every day by oral route. active Not Available Not Available No t Available valacyclo vir 500 mg tablet Take 1 tablet every day by oral route. 2024 active Not Available Not Available Not Avai lable Prevacid 15 mg capsule,d elayed release Take 1 capsule every day by oral route. 05/29 completed Not Available Not Available Not Available Prevacid 30 mg capsule,d elayed release Daily 09/11 completed Frequenc y: daily;Me dication Descript ion: lansopra zole; Dosage:1 ; Route:or al; refills: 5; Quantity :30 enteric coated capsule Not Available Not Available Not Available bisoprolo l fumarate 5 mg tablet Daily 09/11 completed Frequenc y: daily;Me dication Descript ion: bisoprol ol; Dosage:1 ; Route:or al; refills: 0; Quantity :30 tablet Not Available Not Available Not Available Macrobid 100 mg capsule Take 1 capsule every 12 hours by oral route for 7 days. 03/07 completed Not Available Not Available Not Available pantopraz ole 40 mg tablet,de layed release Take 1 tablet every day by oral route. active Not Available Not Available No t Available lisinopri l 10 mg tablet Take 1 tablet every day by oral route. active 20 mg Not Available Not Available No t Available hydrochlo rothiazid e 12.5 mg capsule Daily 09/11 completed Frequenc y: daily;Me dication Descript ion: hydrochl orothiaz valeri; Dosage:1 ; Route:or al; refills: 0; Quantity :30 tablet Not Available Not Available Not Available gabapenti n 300 mg capsule Take 1 capsule 3 times a day by oral route. active Not Available Not Available No t Available aspirin 81 mg tablet Daily active Duration : 30 days;Herb quency: daily;Me dication Descript ion: aspirin; Dosage:1 ; Route:or al; refills: 0; Quantity :30 tablet Not Available Not Available Not Available lisinopri l 5 mg tablet Bedtime 09/11 completed Duration : 30 days;Herb quency: hs;Medic ation Descript ion: lisinopr il; Dosage:1 ; Route:or al; refills: 5; Quantity :30 tablet Not Available Not Available Not Available furosemid e 20 mg tablet Take 1 tablet every day by oral route. active Not Available Not Available No t Available estradiol 0.01% (0.1 mg/gram) vaginal cream Insert 0.5 g twice a week by vaginal route. 05/17 completed Not Available Not Available Not Available metronida zole 0.75 % topical gel Apply to the affected areas of acne/peter akouts on the face, once daily, at night. 2023 active Patient states she hasn't been on this medicati on Not Available Not Available Not Available buspirone 15 mg tablet 1 1/2 tablet daily 05/29 completed Frequenc y: bid;Medi cation Descript ion: buspiron e; Dosage:1 ; Route:or al; refills: 0 Not Available Not Available Not Available Tylenol 650 mg tablet,ex tended release Take 2 tablets every 8 hours by oral route. 10/16 completed Not Available Not Available Not Available calcium 750 mg chewable tablet Take by oral route. 09/11 completed Not Available Not Available Not Available duloxetin e 30 mg capsule,d elayed release Take 1 capsule every day by oral route. 03/30 completed Not Available Not Available Not Available duloxetin e 60 mg capsule,d elayed release Take 1 capsule every day by oral route. 05/29 completed Not Available Not Available Not Available tizanidin e 4 mg capsule Take 1 capsule every 6 hours by oral route. active Not Available Not Available No t Available metronida zole 1 % topical gel apply to the affected areas of acne/ breakout s on the face once daily 10/22 completed Not Available Not Available Not Available Vitamin B-12 09/09 completed Medicati on Descript ion: cyanocob alamin; Route:or al; refills: 0 Not Available Not Available Not Available calcium 09/11 completed 1200 mg Not Available Not Available Not Available Benadryl Allergy twice daily active Not Available Not Available No t Available Dolores Aspirin 09/11 completed Not Available Not Available Not Available Golytely 236 gram-22.7 4 gram-6.74 gram-5.86 gram oral solution Take As Directed 2024 active Not Available Not Available Not Avai lable Forteo 20 mcg/dose (560 mcg/2.24 mL) subcutane ous pen injector 10/16 completed Not Available Not Available Not Available naproxen sodium ER (CR) 500 mg tablet,ex tended release 24 hr mphase 09/09 completed Medicati on Descript ion: naproxen ; Route:or al; refills: 0 Not Available Not Available Not Available B12 active Not Available Not Availa ble Not Available BD Ultra-Fin e Mia Pen Needle 32 gauge x 5/32 USE WITH FORTEO DIRECTED . 10/16 completed Not Available Not Available Not Available Systane (PF) active Not Available Not Available Not Available Contrave 10/29 completed Not Available Not Available Not Available Vitals Date Recorded Body height Body mass index (BMI) Body weight Systolic And Diastolic Provider Name and Address Organization Details Last Updated DateTime 10/29/2024 170.18 cm 43.9 kg/m2 614984.66 g 108/62 mm[Hg] Ashley Lucas [facility] 10/29/2024 11:01:17 Date Recorded Body weight Systolic And Diastolic Provider Name and Address Organization Details Last Updated DateTime 12/03/2023 580129.16 g 138/76 mm[Hg] Genoveva Brock [facility] 12/03/2023 09:49:41 Date Recorded Body height Body mass index (BMI) Body weight Provider Name and Address Organization Details Last Updated DateTime 02/15/2025 170.18 cm 45 kg/m2 194521.73 g Genoveva Brock [facility] 02/15/2025 10:45:24 Social History Question Answer Notes LastModified by [employer] Details LastModified Time Tobacco Smoking Status Never [facility] 11:10:13 What Is Your Level Of Caffeine Consumption? Heavy [email or web address] Information not available 09/09/2016 How Much Tobacco Do You Chew? None Information not available 10/14/2019 What Was The Date Of Your Most Recent Tobacco Screening? 10/18/2021 [email or web address] Information not available 10/18/2021 How Much Tobacco Do You Smoke? No Information not available 06/08/2018 On What Date Was Tobacco Cessation Counseling Provided? 10/16/2020 Information not available 10/16/2020 How Many Years Have You Smoked Tobacco? 0 Information not available 06/08/2018 Do You Have Symptoms Associated With Zika Virus (fever, Rash, Joint Pain, Or Conjunctivitis)? No [email or web address] Information not available 09/09/2016 Have You Recently (within The Last 12 Weeks, Or During A Current ) Traveled To Or Lived In A Zika-affected Area? No [email or web address] Information not available 09/09/2016 Sex: Unknown Functional Status Question Answer Note LastModified by [employer] Details LastModified Time What is your level of alcohol consumption? Occasional [email or web address] Information not available 09/09/2016 Do you or have you ever used smokeless tobacco? Never used smokeless tobacco Information not available 10/14/2019 Do you or have you ever used e-cigarettes or vape? Never used electronic cigarettes Information not available 10/14/2019 Mental Status None recorded. Family History Relationship Description Onset Age of this Age Resolved Age Notes LastModified by Organization Details LastModified Time Mother Malignant neoplasm of uterus [email or web address] Not available 2016 11:10:33 Mother Neoplasm of ovary [email or web address] Not available 2016 11:10:56 Father Myocardial infarction [email or web address] Not available 09/06 11:11:18 Medical History Condition Response Other Y Depression Y Arthritis Y Chicken Pox Y Hypertension Y Osteoporosis Y Gynecological History Statement/Question Response If Post Menopausal, Age at Menopause 56 Abnormal Pap Y Date of Last Colonoscopy 01/14/2025 Date of Last Mammogram 09/05/2023 Most Recent Bone Density 10/14/2019 Menses Monthly N STIs/STDs Y HPV Vaccine N Date of Last Pap Smear 10/22/2022 Current Control Method Hysterectom y Age at Menarche 14 LMP Unknown Obstetrics History GPAL:G 4 P 3 0 1 3 Type Value Full Term 3 Spontaneous 1 Living 3 Total 4 Immunizations Vaccine Type Date Status Note Provider Nam e and Address Organization Details Recorded Time Influenza, split virus, quadrivalent, preservative 9 completed Leta Valle [facility] 10/14/2019 09:28:45 Influenza, split virus, quadrivalent, preservative 1 completed Joselin Barillas [facility] 10/18/2021 10:32:00 Influenza, split virus, quadrivalent, PF 8 completed Not Available [facility] 08/28/2019 02:52:24 Past Encounters Encounter ID Performer Location Encounter Start Date Encounter Closed Date Diagnosis/Indication Diagnosis SNOMED-CT Code Diagnosis ICD10 Code Diagnosis IMO Codes Diagnosis Note [id number] FREDY KENDALL MD [facility] [address] [place] [address] 09/09/2016 10:24:41 09/09/2016 12:22:30 Stress fracture of calcaneus 211744228 M84.373S bilateral Abnormal c ervical Papanicolaou smear 542912576 R87.619 Gynecologi c examination 67387714 Z01.493 [id number] ANNA OGDEN APRN ENDOCR[facility] [address] [place] [address] 09/17/2016 07:26:03 09/17/2016 08:34:16 Osteopenia 711739963 M85.9 According to national osteoporos is Foundation , indication s of anti-osteo porosis pharmacolo gical therapy include: -A hip or vertebral [clinical symmetric] fracture -T-score = -2.5 and the femoral neck or spine after appropriat e evaluation to exclude secondary causes -Low bone mass [T-score between -1 and -2.5 at the femoral neck or spine] and that any of probabilit y of a hip fracture = 3% or a 10 year possibilit y of a major osteoporot ic fracture equals 20% (based on [place]-adapted WHO of madiha ) -Patient's calculated FRAX today: 4.0% osteoporot ic fracture and 0.1% probabilit y of hip fracture-T herefore, patient does not qualify for therapy at this time. Will optimize calcium and vitamin D at this time.-Will check calcium and vitamin D today.-Ins tructed to take 1200mg calcium and 2000IU of vitamin D daily and to increase weight bearing exercise 2-3 times per week with caution to prevent falls.-Fal ls prevention counseling provided.- Patient expressed concern about balance. I advised patient to follow up with PCP as physical therapy for balance and coordinati on may be appropriat e. Patient verbalized understand ing. [id number] [facility] [place] [address] 11/11/2016 17:40:12 11/11/2016 17:40:12 [id number] MIRTA KOVACS DO [facility] [address] [place] [address] 05/28/2017 13:24:09 06/02/2017 11:49:03 Solar lentigo 30594517 L81.4 benign reassuranc e Senile hyperkeratosis 39 5789416 L82.1 benignreas sured Sebaceous hyperplasia 23 8587826 L73.8 benign reassuranc ediscussed options for TXrecommen ded Differin 0.1% gel qhs Rosacea 756721498 L71.9 flaring mildlystar t Metrogel as directedus e once dailywash face BID Actinic keratosis 000701 007 L57.0 cryo x4 AKssee prodecure notebenign reassuranc e Inflamed s eborrheic keratosis 862807266 L82.0 cryo x6 ISKs benign reassuranc e [id number] LELIA MG APRN [facility] [address] [place] [address] 09/11/2017 10:03:01 09/11/2017 11:34:01 Active or passive immunization 073108837 Z23 annual flu vax given Gynecologi c examination 20541429 Z01.419 routine screening Body mass index 40+ - severely obese 878879957 Z68.41 BMI 43 History of fracture 3910 74940 Z87.81 Foot and ankle fracture that had some deficit on mobility. She does not require a mobility aid but reports that she has some on going discomfort . She has completed PT and states that she has been recommende d additional surgery. She has no desire for any further f/u. [id number] LETICIA ZAMBRANO APRN [facility] [address] [place] [address] 09/25/2017 13:45:09 09/25/2017 14:54:46 Vaginal intraepithelial neoplasia grade 1 391191829 N89.0 [id number] FREDY KENDALL MD [facility] [address] [place] [address] 11/06/2017 12:26:50 11/06/2017 13:53:44 Dysplasia of vagina 3331677 N89.3 TCA 85 % applied - plan to recheck vaginal cuff in 6mo's - will evaluate with pap and colpo and consider re-applica tion of TCA Osteopenia 453405697 M85 .9 Discussed forteo usage and indication s- script sent in; and one month of samples given; Overall plan to use forteo for 2 yrs [id number] MIRTA KOVACS DO [facility] [address] [place] [address] 11/25/2017 10:25:42 11/25/2017 13:56:22 Rosacea 111437597 L71.9 not flaringren ew metro geluse once dailywash face BID Sebaceous hyperplasia 23 4632990 L73.8 benign reassuranc ediscussed options for TXdifferin she feels was not that effective, though I think it has helped some.start tretinoin as directed Senile hyperkeratosis 39 0558094 L82.1 benign reassuranc e Solar lentiginosis 34807 2006 L81.4 benign reassuranc e Inflamed s eborrheic keratosis 337367481 L82.[address] per patients request: lower back x10 , L chest x1 pt tolerated well wound care instructio ns given Senile angioma 8603982 I 78.1 benign reassuranc e [id number] MIRTA KOVACS DO [facility] [address] [place] [address] 05/26/2018 10:33:23 05/26/2018 14:11:56 Senile hyperkeratosis 673257336 L82.1 benign reassuranc e Actinic keratosis 007 L57.0 Education, then cryo destructio n with liquid nitrogen (LN) x 1 right garcia Verruca vulgaris 6173500 3 B07.9 no tx today non bothersome Milial cyst 898001048 L7 2.0 extracted x 1 11 blade and comedome extractor right lower eyelid Skin sensa tion disturbance 55264829 R20.9 SKs bothersome Rosacea 292163629 L71.9 not flaringuse metrogel as needed Inflamed s eborrheic keratosis 280945345 L82.0 LN to lesion on right upper forehead, right flank, left flank and inframamma ry [id number] MD DARIEL MARX [address] [place] [address] 06/08/2018 14:37:15 06/08/2018 16:44:03 History of abnormal cervical Papanicolaou smear 241147209 Z87.42 Pap and HPV testing today - will continue follow every 6 months 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.3 Colpo reassuring today - no biopsy done Osteoporosis 16859390 M8 1.0 Continue forteo Herpesvirus infection 23 422946 A60.00 Requested valtrex prescripti on- no evidence of active lesion [id number] MD DARIEL MARX [address] [place] [address] 10/08/2018 10:32:48 10/08/2018 12:27:18 History of abnormal cervical Papanicolaou smear 159259263 Z87.42 Pap and HPV testing today - will continue follow every 6 months 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 N89.3 Colpo reassuring today - no biopsy done- Due to findings can agree to follow patient on an annual basis instead of every 6 months Low back pain 160282689 M54.5 L4 & L5- needs laminectom y - sees pain medicine doctor and is on percocet Osteopenia 797567029 M85 .9 Patient has completed 1 year of forteo- will continue for a full 2 years and then recheck dexa and also check vitamin D levels next year Screening for malignant neoplasm of breast 924207153 Z12.31 Continue routine annual surveillan ce with next due Aug 2019 Herpesvirus infection 23 200328 A60.00 Requested valtrex prescripti on- no evidence of active lesion Gynecologi c examination 44062704 Z01.419 Full blowing weasand exam performed- Body mass index 40+ - severely obese 018095050 Z68.41 [id number] DO [facility]IA D [facility] [address] [place] [address] 11/24/2018 10:35:51 11/24/2018 13:46:28 Senile hyperkeratosis 626330876 L82.1 benign reassuranc e Inflamed s eborrheic keratosis 149234112 L82.0 Education, then cryo destructio n with liquid nitrogen (LN) x 26 left posterior scalp x1, right christian x1, right preauricul ar x1, neck x7, left upper arm x1, chest x2, back x8, right lower abdomen x2, right thigh x1, left calf x1, buttocks x1, Skin sensa tion disturbance 72509592 R20.9 ISK Solar lentigo 52509973 L 81.4 benign reassuranc e Senile angioma 9760099 I 78.1 benign reassuranc e Epidermoid cyst of skin 334878997 L72.0 Benign Appearance discussed that she could schedule excision if becomes bothersome Stucco keratosis 0672348 01 D23.9 Benign Appearance Multiple b enign melanocytic nevi 487758432 D22.9 Benign Appearance [id number] DEMETRIS WAHL DO [facility] [address] [place] [address] 03/30/2019 13:19:16 03/30/2019 14:33:43 Candidiasis of vagina 54468674 B37.3 [id number] DO [facility] [address] [place] [address] 05/26/2019 10:40:41 05/27/2019 08:20:20 Senile hyperkeratosis 061382903 L82.1 benign reassuranc e Solar lentigo 67244510 L 81.4 benign reassuranc e Senile angioma 2926805 I 78.1 benign reassuranc e Epidermoid cyst of skin 324967455 L72.0 Benign Appearance discussed that she could schedule excision if becomes bothersome Stucco keratosis 0789946 01 D23.9 Benign Appearance Multiple b enign melanocytic nevi 035216952 D22.9 Benign Appearance Xanthoma o f upper eyelid 922544280 H02.60 Benign Reassuranc e illusion of causing eyelid droop, as can see lesion upper eyelid reviewed lipid panel from past, mostly normal destroyed with cautery per pt request pt tolerated well Sebaceous hyperplasia 23 6784342 L73.8 benign reassuranc edestroyed with cautery per pt requestpt tolerated well Verruca vulgaris 8818255 3 B07.[address] per patients request : L lateral knee x1 pt tolerated well advised pt what to expect with freezing pt hits it when shaving Skin sensa tion disturbance 50868830 R20.9 wart hits with shaving [id number] KRISTEL BARRIOS DO [facility] [address] [place] [address] 10/14/2019 09:12:13 10/14/2019 10:07:46 Gynecologic examination 88663060 Z01.419 Since patient has a history of persistent HPV positive vaginal paps, will repeat today. Osteoporosis 75246883 M8 1.0 Will follow up bone density scan to see if she needs a different medicaiton for treatment. Has previously taken 2 years of Forteo [id number] MIRTA KOVACS DO [facility] [address] [place] [address] 05/29/2020 11:20:42 05/29/2020 11:57:29 Senile hyperkeratosis 078270657 L82.1 benign reassuranc e Senile angioma 1426317 I 78.1 benign reassuranc e Epidermoid cyst of skin 907278605 L72.0 Benign Appearance Discussed that she could schedule excision if becomes bothersome Stucco keratosis 2002805 01 D23.9 Benign Appearance Multiple b enign melanocytic nevi 915879758 D22.9 Benign Appearance Inflamed s eborrheic keratosis 646066042 L82.0 LN x < 15, some itched and are bothersome After care instructio ns provided Solar lentiginosis 72956 2006 L81.4 benign reassuranc e Sebaceous hyperplasia 23 6789393 L73.8 benign reassuranc edestroyed with LN per pt requestpt tolerated well Xanthoma o f upper eyelid 678043355 H02.60 Benign reassuranc e Will monitor for now Actinic keratosis 860722 007 L57.0 Educated on premaligna nt Dx Cryo x 1 After care instructio ns were given Daily [employer] spectrum SPF 30+ recommende d Skin sensa tion disturbance 27336504 R20.9 ISKs hit with shaving itch, bothersome at times [id number] KRISTEL BARRIOS DO [facility]BGYN [facility] [address] [place] [address] 10/16/2020 09:55:25 10/16/2020 11:01:23 Gynecologic examination 89740738 Z01.419 Will repeat pap today and advised she will likely need a colpo. [id number] MIRTA KOVACS DO [facility] [address] [place] [address] 05/29/2021 10:06:18 05/29/2021 12:03:38 Senile hyperkeratosis 076606032 L82.1 benign reassuranc e Solar lentiginosis 73278 2006 L81.4 benign reassuranc e Senile angioma 4218789 I 78.1 benign reassuranc e Epidermoid cyst of skin 846084108 L72.0 Benign Appearance Discussed that she could schedule excision if becomes bothersome Stucco keratosis 5863354 01 D23.9 Benign Appearance Multiple b enign melanocytic nevi 759199783 D22.9 Benign Appearance Inflamed s eborrheic keratosis 652231500 L82.0 Education then treated with LN; x4itch pt tolerated well wound care instructio ns given Xanthoma o f upper eyelid 911030714 H02.60 Benign reassuranc ecauterize d today per pt request, cosmetic tolerated well Skin sensa tion disturbance 94172395 R20.9 ISKitch Actinic keratosis 007 L57.0 Education then treated with LN; x1 pt tolerated well advised pt what to expect with freezing [id number] KRISTEL BARRIOS DO OBJ[facility] [address] [place] [address] 10/18/2021 09:50:12 10/18/2021 11:00:20 Body mass index 40+ - severely obese 240635271 Z68.42 Gynecologi c examination 37935547 Z01.419 Will repeat pap today and advised if still HPV positive will recommend colposcopy due to persistent HPV on pap Screening for osteoporosis 304355787 Z13.801 [id number] DO DARIEL DEVINE [facility] [address] [place] [address] 11/20/2021 10:20:09 11/20/2021 10:54:00 Human papillomavirus deoxyribonucleic acid detected, high risk on vaginal specimen 1045689512 28017 R87.811 Normal colpo. To follow up in 1 year for pap smear [id number] MIRTA KOVACS DO [facility] [address] [place] [address] 05/29/2022 10:14:07 05/29/2022 11:21:05 Senile hyperkeratosis 946973545 L82.1 benign reassuranc e Solar lentiginosis 15729 2006 L81.4 benign reassuranc e Senile angioma 8429588 I 78.1 benign reassuranc e Epidermoid cyst of skin 585474665 L72.0 Benign Appearance Discussed that she could schedule excision if becomes bothersome Stucco keratosis 0118954 01 D23.9 Benign Appearance Multiple b enign melanocytic nevi 831855210 D22.9 Benign Appearance Inflamed s eborrheic keratosis 640777884 L82.0 Treated with LN per patients request: R christian x1 , L lateral breast x2, R lateral breast x2 , R areola x1 , R medial thigh x1pt tolerated welladvise d pt what to expect with freezing Actinic keratosis 007 L57.0 Education then treated with LN; R upper lip x1 , L wrist x1pt tolerated welladvise d pt what to expect with freezing 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 Leave the bandage on for 24 hrs. Clean the area daily with warm soapy water, and apply polysporin ointment and a bandaid once daily until healed. Call the office if any increase in redness, drainage, or pain. Rosacea 494323498 L71.9 chronicsta blerefille d metrogel at 1% Sebaceous hyperplasia 23 3386101 L73.8 benign reassuranc eTreated with LN per patients request: R nasal ala x1 , L nasal ala x1 pt tolerated well advised pt what to expect with freezing Tenderness of skin 04831 9000 R20.8 ISKitch [id number] KRISTEL BARRIOS DO [facility] [address] [place] [address] 10/22/2022 09:20:10 10/22/2022 10:41:05 Gynecologic examination 23596738 Z01.419 Discussed pap smear guidelines and importance of annual exams. Pap collected today. Herpesvirus infection 23 900578 A60.00 Screening for osteoporosis 063550814 Z13.820 Candidiasis of vagina 72 048102 B37.31 Exam indicative of yeast infection. [facility] [id number] MIRTA KOVACS DO [facility] [address] [place] [address] 05/12/2023 08:41:16 05/12/2023 10:22:52 Solar lentiginosis 103801149 L81.4 Benign Reassuranc e recommende d sun protective clothing and a mineral based sunscreen 30 SPF or higher lotion OTC daily Senile angioma 2780055 I 78.1 Benign Reassuranc e Epidermoid cyst of skin 137520510 L72.0 Benign Reassuranc eDiscussed that she could schedule excision if becomes bothersome Multiple b enign melanocytic nevi 715532274 D22.9 Benign Reassuranc e Actinic keratosis 223172 007 L57.0 Education then treated with LN; right upper chest x1 pt tolerated welladvise d pt what to expect with freezing chronic on lipLn in pastsome residualst art fluorourac il 5 % topical cream BID on right upper lip for 2 weekspt will call if no resolution or any recurrence Xanthelasma 043555475 H0 2.60 Benign Reassuranc e Raised elias orrheic keratosis 1959203473 11759 L82.1 benign reassuranc eTreated with LN per patients request: right upper eyelid x1pt tolerated welladvise d pt what to expect with freezing Milia 068975914 L72.0 extracted with 11 blade and extractor; pt tolerated well Rosacea 176601058 L71.9 chronicsta blerefille d metrogel at 1% [id number] DO DARIEL DEVINE [address] [place] [address] 10/28/2023 09:49:30 10/28/2023 11:09:09 Gynecologic examination 81434505 Z01.419 Discussed pap smear guidelines and importance of annual exams. Pap collected today. If normal, will discontinu e pap smears Screening for osteoporosis 772017660 Z13.820 Recurrent urinary tract infection 785788397 N39.0 Discussed that next time she has symptoms, can come to our office and we will do culture. Also discussed that we can try vaginal estrogen cream and see if that helps with her symptoms. May consider urology referral in the future if above not helpful. Patient willing to try cream [id number] DO DARIEL DEVINE [address] [place] [address] 12/03/2023 09:31:49 12/03/2023 10:45:07 Atypical squamous cells of undetermined significance on vaginal Papanicolaou smear 659218366 R87.620 Colpo performed. Normal. To repeat pap in 1 year Herpesvirus infection 23 611808 A60.00 [id number] DO MARIA D [facility] [address] [place] [address] 05/17/2024 11:11:04 05/17/2024 11:54:27 Raised seborrheic keratosis 5998351289 71970 L82.1 benign reassuranc e Education then treated with LN; right hip x 2, left lower back x 1 pt tolerated well advised pt what to expect with freezingTr eated with LN per patients request Solar lentiginosis 87380 2007 L81.4 Benign Reassuranc e recommende d sun protective clothing and a mineral based sunscreen 30 SPF or higher lotion OTC daily Senile angioma 6899445 I 78.1 Benign Reassuranc e Epidermoid cyst of skin 496330392 L72.0 Benign Reassuranc eDiscussed that she could schedule excision if becomes bothersome Patient states that it is painful at times and would like to set up exc.julian 06/16 Multiple b enign melanocytic nevi 459160604 D22.9 Benign Reassuranc e Xanthelasma 319266254 H0 2.60 Patient had them removed with eye surgeonnon e remain Rosacea 023083148 L71.9 chronicmil d flaringpt has been off med restart metrogel dailyrefil led for patient History of actinic keratosis 8777441129 104 Z87.2 clear today on upper lipPatient did well with 5funo residual Inflamed s eborrheic keratosis 355893107 L82.0 Treated with LN per patients request: R christian x1 , L christian x 1pt tolerated welladvise d pt what to expect with freezing Tenderness of skin 46048 9000 R20.8 ISKitch and are bothersome on L and R christian Actinic keratosis 310139 007 L57.0 Education then treated with LN; left upper posterior arm x 1 pt tolerated well advised pt what to expect with freezing Edema of l ower extremity 334623600 R60.0 mild LE edemaShe has some SKs on lower legs, she had wanted LNthey were benign, I told her that tx with some LE edema may create a non healing woundwill avoid for now Sebaceous hyperplasia 23 0471809 L73.8 Benign Reassuranc e Education then treated with LN; right nasal side wall x1, left upper tip of nose x 1 pt tolerated well advised pt what to expect with freezingTr eated with LN per patients request [id number] DO DARIEL DEVINE [facility] [address] [place] [address] 10/29/2024 10:34:20 10/29/2024 12:02:57 Gynecologic examination 81576653 Z01.419 Discussed pap smear guidelines and importance of annual exams. Pap collected today. Screening for malignant neoplasm of colon 071785820 Z12.11 Herpesvirus infection 23 710244 A60.00 Valtrex refilled [id number] NEEL GUTIÉRREZ MD SURGERY SCHEDULE [address] [place] [address] 01/14/2025 09:50:08 01/14/2025 09:50:42 [id number] KRISTEL BARRIOS DO [facility] [address] [place] [address] 02/15/2025 10:32:55 02/15/2025 14:48:29 Human papillomavirus deoxyribonucleic acid detected, high risk on vaginal specimen 3409926192 87140 R87.811 560425 Normal colpo. To follow up in 1 year for annual/pap smear Health Concerns Section Related Observation LastModified by Organization Detai ls LastModified Time None Recorded Concern Status LastModified by Organization Details LastModified Time None Recorded Advance Directives Directive None Recorded Payers Insurance Date Sequence Insurance Name Policy Number Policy Gamez Covered Member ID Gamez Member ID Guarantor Name 05/17/2024 2 [place] [id number] Eleni Saldana [id number] Eleni [place] Jonathan 10/07/2017 2 UNSPECIFIED REMIT PAYOR Eleni London Jonathan 12/13/2020 PAYMENT PLAN Eleni London Jonathan 05/17/2024 1 [place] Eleni Santosy [id number] Eleni London Jonathan 05/17/2024 2 [place] [id number] Eleni London Jonathan [id number] Eleni London Jonathan 05/17/2024 1 [place] Eleni [place] Jonathan [id number] Eleni [place] Jonathan 05/17/2024 2 [place] [id number] Eleni Saldana [id number] Eleni [place] Jonathan 05/17/2024 1 [place]MEDICARE REPLACEMENT REGIONAL PPO) [id number] Eleni Saldana [id number] Eleni Saldana 02/12/2025 1 [employer] (MEDICARE REPLACEMENT/AD VANTAGE - PPO) [id number] Eleni Saldana [id number] Eleni Saldana Notes Date Note Type Note Provider Name and Address Organization Details Recorded Time 12/03/2023 text/html ROS as noted in the HPI Patient here for colposcopy due to ASCUS/+HPV on vaginal pap smear. Has long history of ASCUS/+HPV paps. No complaints. KRISTEL BARRIOS DO [address] [place], [address], [facility] 12/03/2023 10:44:58 05/17/2024 text/html ROS as noted in the HPI Established Patient Presents for full skin exam. Patient f/u with rosacea. she is requesting refill for Metronidazole cream. check spots/moles over body; wants spot on lower back and temples, nostrils evaluated. Denies any other new or changing lesions. Feels well today. Denies family history of malignant melanoma. MIRTA KOVACS DO [address] [place], [address], [facility] 05/17/2024 16:39:56 10/29/2024 text/html ROS as noted in the HPI 69 y/o female here for annual exam. No complaints. Needs refill on valtrex, takes daily. Has a history of hysterectomy for fibroids but paps were continued and has positive HPV on pap smears. Last pap was October 2023 and ASCUS/positive HPV. Up to date on mammogram Denies vaginal bleeding, vaginal discharge, vaginal itching, hot flashes, night sweats, vaginal dryness. Due for colonoscopy, last was 6 years ago and had polyps KRISTEL BARRIOS DO [address] [place], [address], [facility] 10/29/2024 12:30:29 02/15/2025 text/html ROS as noted in the HPI Patient here for colposcopy due to ASCUS/+HPV on vaginal pap smear. Has long history of ASCUS/+HPV paps. No complaints. KRISTEL BARRIOS DO [address], [place], [address], [facility] 02/15/2025 11:33:41 OBGyn Episode No OBEpisode recorded.
--- OUTSIDE RECORDS SUMMARY | 2025-05-12 09:38 | XMS_ITS | Encounter Summary ---
Author Organization Healthcare Address [address] [place] [address] Care Team Providers [employer] Name Role Phone Jt Ayoub MD Primary Care Provider [phone] Reason for Visit * Reason Onset Date Comments Med Refill 04/12/2025 Encounter Details Date Type Department Care Team (Late st Contact Info) Description 04/12/2025 Refill [place] [facility] [address] [place] [address] Helen Torres L, STORE KEEPER [address] [place] [address] Social History Tobacco Use Types [...] documented as of this encounter Care Teams [employer] Relationship Specialty Start Date End Date Jt Ayoub MD [address] [place] [id number] PCP - General 12/22/20 documented as of this encounter
--- OUTSIDE RECORDS SUMMARY | 2025-05-12 09:38 | XMS_ITS | Clinical Summary ---
Author Organization Healthcare Address [address] [place] [address] Care Team Providers Care Net Developer Consultant Name Role Phone Jt Ayoub MD Primary Care Provider [phone] Allergies No known active allergies Medications traMADol (Ultram) 50 MG tablet TAKE 1 TABLET 3 TIMES DAILY NEEDED. 03/09/2018 Active prednisoLONE acetate (Pred-Forte) 1 % ophthalmic suspension 01/24/2023 Active pantoprazole (Protonix) 40 MG EC tablet 04/28/2023 Active gabapentin (Neurontin) 300 MG capsule 02/03/2023 Active acetaminophen (Tylenol 8 Hour) 650 MG ER tablet Take 2 tablets every 8 hours by oral route. Active diphenhydrAMINE (Benadryl Allergy) 25 MG capsule Benadryl Allergy twice daily Active ASPIRIN 81 PO 1 (one) time each day. Active fluorouracil (Efudex) 5 % cream 05/12/2023 Active metroNIDAZOLE (Metrogel) 0.75 % gel 05/12/2023 Active Contrave 8-90 MG ER tablet 06/30/2023 Active valACYclovir (Valtrex) 500 MG tablet Take 1 tablet by mouth as needed. 01/24/2025 Active lisinopril 20 MG tablet Take 1 tablet by mouth daily. 03/09/2025 Active furosemide (Lasix) 20 MG tablet Take 1 tablet by mouth. Active amLODIPine (Norvasc) 2.5 MG tablet Take 1 tablet by mouth. Active albuterol 108 (90 Base) MCG/ACT inhaler every 4 hours. 09/23/2024 Active tiZANidine (Zanaflex) 4 MG tablet Take 1 tablet by mouth every 8 hours as needed for muscle spasms. 90 tablet 04/12/2025 Active Active Problems No known active problems Encounters Date Type Department Care Team Description 04/12/2025 Refill [facility] [address], [address] [place] [address] Helen Torres APRN 04/08/2025 11:20 AM EDT Office Visit [facility] [address], [address] [place] [address] Helen Trores, CUSTODIAL FOREMAN Bilateral leg numbness (Primary Dx); Pain of left lower extremity; Leg numbness; Spondylolisthesis at L4-L5 level; Numbness and tingling in both hands 04/08/2025 10:59 AM EDT - 04/08/2025 11:59 PM EDT Hospital Encounter [facility] [address] [place] [address] Bilateral leg numbness Discharge Disposition: Home or Self Care 04/08/2025 10:59 AM EDT - 04/08/2025 11:59 PM EDT Hospital Encounter [facility] [address], [address] [place] [id number] Bilateral leg numbness Discharge Disposition: Home or Self Care 04/08/2025 Travel 04/04/2025 Telephone [facility] [address] [place] [address] Helen Torres APRN from Last 3 Months Family History Medical History Relation Name Comments Diabetes Other 1 Other cancer Other 2 Heart attack Other 3 Relation Name Status Comments Other 1 Other 2 Other 3 Social History Tobacco Use Types Packs/Day Years Used Date Smoking Tobacco: Never Passive Smoke Exposure: Current Smokeless Tobacco: Never Tobacco Cessation:Counseling Given: Yes Alcohol Use Standard Drinks/Week Comments No 0 [...] Pressure 142/84 04/08/2025 11:26 AM EDT Pulse 96 07/12/2024 4:27 PM EST Temperature 36.2 C (97.1 F) 07/12/2024 4:27 PM EST Respiratory Rate 16 10/02/2023 1:33 PM EST Oxygen Saturation 93% 07/12/2024 4:27 PM EST Inhaled Oxygen Concentration - - Weight 129 kg (283 lb 11.7 oz) 04/08/2025 11:26 AM EDT Height 170.2 cm (5' 7 ) 04/08/2025 11:26 AM EDT Body Mass Index 44.44 04/08/2025 11:26 AM EDT Plan of Treatment Health Maintenance Due Date Last Done Comments Dental Oral Exam 1956 Dental Prophylaxis 1956 Dental X-Ray: Bitewings 1956 Dental X-Ray: Full Mouth 1956 [facility]-Hepatitis C Screening 1956 [facility]Medicare Annual Wellness (AWV) 1956 [facility]-/Child/Adol SDOH Screenings 1956 [facility]- SDOH Screenings 1974 [facility]-Adult SDOH Screenings 1974 [facility]-DTaP,Tdap,and Td Vaccines (1 - Tdap) 1975 CT Colonography 2001 Colonoscopy 2001 FIT-DNA 2001 FIT 2001 FOBT 2001 Sigmoidoscopy 2001 [facility]-Colorectal Cancer Screening 2001 [facility]-Zoster Vaccines (1 of 2) 2006 [facility]-RSV Vaccine: 60+ Years or (1 - Risk 60-74 years 1-dose series) 2016 [facility]-Depression Screening 10/02/2024 10/02/2023 [facility]-Bone Density Scan 11/04/2024 11/04/2022, 020 [id number] Vaccine (3 - season) 2025 08/20/2021, 02/22/2021 [facility]-Influenza Vaccine (#1) 04/11/202506/11, 05/01/2021, 05/04/2020, Additional history exists [facility]-Breast Cancer Screening 09/13/2026 02/10/2024, 09/13/2024, 09/05/2023, Additional history exists [facility]-Pneumococcal Vaccine: 50+ Years Completed 08/06/2022, 05/01/2021, 05/04/2020 [facility]-Obesity Intervention Completed 025, 07/12/2024, 07/02/2023, Additional history exists HPV Vaccines Aged Out No longer eligi ble based on patient's age to complete this topic [facility]-HIB Vaccines Aged Out No longer e ligible based on patient's age to complete this topic [facility]-Hepatitis A Vaccines Aged Out No longer eligible based on patient's age to complete this topic [facility]-IPV Vaccines Aged Out No longer e ligible based on patient's age to complete this topic [facility]-Rotavirus Vaccines Aged Out No lo nger eligible based on patient's age to complete this topic Procedures Procedure Name Priority Date/Time Associated Diagnosis Comments XR LUMBAR SPINE 2 OR 3 VIEWS Routine 04/08/2025 11:15 AM EDT Bilateral leg numbness XR SCOLIOSIS ENTIRE SPINE 2 OR 3 VIEWS Routine 04/08/2025 11:15 AM EDT Bilateral leg numbness from Last 3 Months Results * XR Lumbar Spine 2 or [...] spine. Straightening of the cervical spine alignment. Csno-yp-lxfnmokx multilevel degenerative changes of the cervical spine. Mild kyphotic deformity of the thoracic spine. Bsmy-rq-xqvtazwt multilevel degenerative changes of the thoracic spine. [...] spine. Straightening of the cervical spine alignment. Imun-nt-bndkuksg multileveldegenerative changes of the cervical spine. Mild kyphotic deformity of the thoracic spine. Cgzo-id-futrzljm multileveldegenerative changes of the thoracic spine. Grade [...] by Betito Gaines MD on 2:34 PM us Helen Torres APRN IMG XR PROCEDURES Final Resu lt * [...] spine. Straightening of the cervical spine alignment. Blfe-we-lvbbwoyk multilevel degenerative changes of the cervical spine. Mild kyphotic deformity of the thoracic spine. Yftf-rb-xbbxksuo multilevel degenerative changes of the thoracic spine. [...] spine. Straightening of the cervical spine alignment. Hrso-ti-luokpndl multileveldegenerative changes of the cervical spine. Mild kyphotic deformity of the thoracic spine. Hcjl-as-qzapwynh multileveldegenerative changes of the thoracic spine. Grade [...] report signed by Betito Gaines MD on :34 PM us Helen Hagersimran CUSTODIAL FOREMAN IMG XR PROCEDURES Final Resu lt from Last 3 Months Insurance 2014 [facility] [place] [id number] [employer] MED[employer] Care Teams Net Developer Consultant Relationship Specialty Start Date End Date Jt Ayoub MD [address] [facility] [address] [place] [id number] PCP - General 12/22/20
--- OUTSIDE RECORDS SUMMARY | 2025-05-12 09:38 | XMS_ITS | Encounter Summary ---
Author Organization Healthcare Address [address] [place] [address] Care Team Providers Care Director Index Name Role Phone Jt Ayoub MD Primary Care Provider [phone] Encounter Details Date Type Department Care Team (Latest Contact Info) Description 04/08/2025 Travel Social History Tobacco Use Types Packs/Day Years [...] documented as of this encounter Care Teams Director Index Relationship Specialty Start Date End Date Jt Ayoub MD [address] [place] [id number] PCP - General 12/22/20 documented as of this encounter
--- OUTSIDE RECORDS SUMMARY | 2025-05-12 09:38 | XMS_ITS | Encounter Summary ---
Author Organization Healthcare Address [address] [place] [address] Care Team Providers Care Finish Painter Name Role Phone Jt Ayoub MD Primary Care Provider [phone] Encounter Details Date Type Department Care Team (Late st Contact Info) Description 04/04/2025 Telephone [facility] [address] [place] [address] Helen Torres, RACK PUNCHER [address] [place] [address] Social History Tobacco Use Types [...] on file documented as of this encounter Miscellaneous Notes * Telephone Encounter - Chandana Mcgee W - 04/04/2025 3:49 PM EDT 04/04/2025 - Spoke to patient directly - Patient stated she had bent over on Friday of last week (04/01/2025) and upon rasing up she felt her back give out / instant pain sensation to her left leg and even noticed tingling sensation in her hands. - Patient has not seen PCP or other specialist for any updated diagnostic testing or physical evaluation. - Scheduled to see Helen Torres APRN on 04/08/2025 at 11:20AM ((Updated Xray Spinal Imaging will need to be taken at this visit)) * Telephone Encounter - Lashell Beck - 04/04/2025 10:38 AM EDT Patient Phone Message Reason for Call: Pt is calling for a follow up appointment. She asks for a call back Please advise Best contact number and optimal time of day to reach caller: [phone] Note: Please do not reply to this message. Follow-up communication and further actions as a result of this message need to be communicated with the patient directly, if the patient is not active onMyChart. If the patient is active on MyChart, they will receive notification of the communication/outcome via [employer]. documented in this encounter Plan of Treatment Not on file documented as of this encounter Visit Diagnoses Not on filedocumented in this encounter Additional Health Concerns Assessment Noted Time A fall risk assessment has been complete d for the patient 10/02/2023 1:34 PM EST A Body Mass Index follow-up plan has been documented for the patient 07/19/2024 4:44 PM EST documented as of this encounter Care Teams Finish Painter Relationship Specialty Start Date End Date Jt Ayoub MD [address] [place] [address] [place] [facility] PCP - General 12/22/20 documented as of this encounter
== END 2025-05-12 23:59 | disposition home or self-care (01) ==
LOC: RAD 09:34
PROVIDERS: PCP Family Medicine; Visit Provider Clinical Nurse Specialist Family Health
DX: M51.369 Other intervertebral disc degeneration, lumbar region without mention of lumbar back pain or lower extremity pain (principal); M51.379 Other intervertebral disc degeneration, lumbosacral region without mention of lumbar back pain or lower extremity pain; M99.73 Connective tissue and disc stenosis of intervertebral foramina of lumbar region; R90.89 Other abnormal findings on diagnostic imaging of central nervous system; M43.16 Spondylolisthesis, lumbar region
CPT/HCPCS: 72148